=== PATIENT | female | born 1945 | race Caucasian/White ===

== ENCOUNTER 2020-07-20 08:16 | Outpatient (NON) | payer MEDICARE, SELFPAY ==
[2020-07-21 01:50] LABS: SARS-CoV-2 RNA PCR Negative
== END 2020-07-20 08:17 ==
PROVIDERS: PCP Family Medicine; Visit Provider Nurse Practitioner Family
DX: Z20.828 Contact with and (suspected) exposure to other viral communicable diseases (principal); R05 Cough; R50.9 Fever, unspecified
CPT/HCPCS: 87635; C9803; U0003

== ENCOUNTER → 2020-08-07 09:10 | Outpatient (CLI) | payer MEDICARE, SELFPAY ==
--- NOTE | ~2020-08-07 | XR_ITS ---
EXAMINATION: XR chest 2V EXAM DATE: 08/07/2020 10:21 INDICATION: J18.9 - Pneumonia, unspecified organism . TECHNIQUE: Frontal and lateral projections of the chest obtained and reviewed. There is no prior pj dy for comparison. FINDINGS: Patchy bilateral ill-defined airspace disease, somewhat linear could be pneumonia and atel ectasis. Mid and upper lung zones are unremarkable. No pneumothorax or pleural effusion. Cardiomedias tinal silhouette is normal. There are no osseous abnormalities identified. IMPRESSION: 1. Bibasilar opacities most consistent with pneumonia and atelectasis. Reviewed, dictated and finalized at location A. R GLUING OPERATOR
== END ==
PROVIDERS: PCP Family Medicine; Visit Provider Family Medicine
DX: J18.9 Pneumonia, unspecified organism (principal)
CPT/HCPCS: 71046

== ENCOUNTER → 2020-10-18 18:05 | Outpatient (CLI) | payer MEDICARE, SELFPAY ==
--- NOTE | ~2020-10-18 | XR_ITS ---
EXAMINATION: XR chest 2V DATE: 10/18/2020 19:03 INDICATION: Pneumonia. Unspecified organism. TECHNIQUE: PA and lateral views of the chest were obtained. COMPARISON: Chest radiograph dated 08/07/2020 FINDINGS: Unchanged mild biapical pleural-parenchymal scarring. Significant improvement in now very mild bibasi lar opacities. No pulmonary edema, pleural effusion or pneumothorax. The cardiomediastinal silhouette is normal. Mild thoracic spondylosis. IMPRESSION: 1. Significant improvement in now very mild bibasilar opacities which could represent improving atele ctasis and/or pneumonia. Reviewed, dictated and finalized at location A. MAKER IMPRESSION: 1. Significant improvement in now very mild bibasilar opacities which could rep resent improving atelectasis and/or pneumonia.
== END ==
PROVIDERS: Visit Provider Physician Assistant Medical
DX: J18.9 Pneumonia, unspecified organism (principal)
CPT/HCPCS: 71046

== ENCOUNTER 2020-10-21 08:05 | Outpatient (CLI) | payer MEDICARE, SELFPAY ==
--- NOTE | ~2020-10-21 | MM_ITS ---
EXAMINATION: MM screening brenna BI w sussy HISTORY: Screening TECHNIQUE: Craniocaudal and mediolateral oblique 3-D tomosynthesis images were obtained and synthetic 2-D images were generated. CAD analysis was submitted and interpreted. COMPARISON: Comparison to multiple prior studies sequentially, with oldest reviewed study dated 04/2014. BREAST PARENCHYMAL COMPOSITION: There are scattered areas of fibroglandular density. FINDINGS: There is no evidence of suspicious mass, calcification, or architectural distortion to sugg est malignancy in either breast. There has been no suspicious interval change. IMPRESSION: 1. No mammographic evidence of malignancy. 2. Recommend routine screening mammography in one year. BI-RADS Category 1: Negative Reviewed, dictated and finalized at location A. ER MACHINE
== END 2020-10-21 08:06 | disposition home or self-care (01) ==
LOC: ANHIMG 08:08
PROVIDERS: PCP Family Medicine; Visit Provider Family Medicine
DX: Z12.31 Encounter for screening mammogram for malignant neoplasm of breast (principal)
CPT/HCPCS: 77063; 77067

== ENCOUNTER 2020-11-10 09:04 | Emergency (ER) | payer MEDICARE, SELFPAY ==
[2020-11-10 09:12] VITALS: BP 118/56; PULSE 89; RESP 16; TEMP 37.3; O2SAT 100
--- NOTE | 2020-11-10 09:30 | ED.EXTPRO ---
HPI - Extremity Problem General Chief complaint: Extremity Problem,Nontraumatic Stated complaint: lt leg & ankle pain Time Seen by Provider: 11/10/20 09:17 Source: patient and RN notes reviewed Mode of arrival: wheelchair Limitations: no limitations History of Present Illness HPI Narrative: Patient presents today complaining of left leg pain and swelling since yesterday afternoon with some numbness to the ankle last night. Pain is significantly worse with weightbearing and walking. Currently rates her pain 4?5/10. She describes that her left leg is also heavy . States she was given an unknown pain pill by her last night that did not provide any relief. Reports she was unable to get comfortable while sleeping last night. 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 Denies any chest pain or shortness of breath at this time. Also reports a history of venous stasis bilaterally and bilateral lower leg and ankle swelling at baseline. MD Complaint: extremity pain and extremity swelling Related Data Home Medications Medication Instructions Recorded Confirmed aspirin 325 mg tablet 325 mg PO DAILY 07/25/19 06/13/20 biotin 2,500 mcg capsule 2,500 mcg PO DAILY 07/25/19 06/13/20 calcium carbonate 600 mg calcium 600 mg PO DAILY 07/25/19 06/13/20 (1,500 mg) tablet multivitamin 1 cap PO DAILY 07/25/19 06/13/20 omeprazole 20 mg capsule,delayed 20 mg PO DAILY 07/25/19 06/13/20 release psyllium husk 0.52 gram capsule 2.6 gm PO DAILY cap 11/07/19 06/13/20 elderberry fruit 460 mg-elderberry cap PO 06/13/20 06/13/20 flower 115 mg capsule propylene glycol 0.6 % eye drops 1 drp OPHTHALMIC (EYE) DAILY PRN 06/13/20 06/13/20 Allergies Allergy/AdvReac Type Severity Reaction Status Date / Time No Known Allergies Allergy Unknown Verified 10/28/20 08:10 Review of Systems Review of Systems: Narrative: CONSTITUTIONAL: Denies body aches, fever, chills, or sweats. EYES: Denies visual changes, redness, or discharge. ENT: Denies rhinorrhea, congestion, sore throat, or otalgia. CARDIOVASCULAR: Denies chest pain, palpitations, or edema. RESPIRATORY: Denies cough or dyspnea. GASTROINTESTINAL: Denies abdominal pain, nausea, vomiting, or diarrhea. GENITOURINARY: Denies dysuria or hematuria. SKIN: Denies rash, itching, or wounds. MUSCULOSKELETAL: Denies back pain,or myalgia. Left lower leg pain, swelling, and numbness NEUROLOGIC: Denies headache, tingling, or weakness. PSYCH: Denies depression or anxiety. [facility] Past Medical History Medical History Alteration in vision Atrophic vulvitis BMI 30.0-30.9,adult Body mass index [BMI] 33.0-33.9, adult (06/02/17) Body mass index [BMI] 34.0-34.9, adult (07/21/17) Candidiasis of skin Chronic GERD Chronic venous insufficiency Deep vein blood clot of left lower extremity (~1983) Deep vein blood clot of right lower extremity (~1993) Dry eye syndrome of both eyes (~2015) Dyslipidemia Encounter for general adult medical examination without abnormal findings Encounter for gynecological examination (general) (routine) without abnormal findings History of intestine removal (~2004) Hx of vaginal delivery (~1964) 1965 (girl), boys: 1966, 1974, 1984 Leg edema Pneumonia Screening for diabetes mellitus Screening for malignant neoplasm of breast Subacute vulvitis Varicose veins of both lower extremities (~1988) Surgical History Surgical History H/O abdominal surgery (~2004) Hx of cataract surgery (~2016) S/P colonoscopic polypectomy (~2004) Family History Family History Mother Diabetes mellitus, Onset Age: 74 Family history of lung cancer Family history of malignant neoplasm of bone, Onset Age: 74 Father Hypertension, Onset Age: 81 Family history of malignant manolo
== END 2020-11-10 09:46 | disposition short-term general hospital (02) ==
PROVIDERS: Emergency Provider Nurse Practitioner; PCP Family Medicine
DX: R60.0 Localized edema (principal); M79.662 Pain in left lower leg; K21.9 Gastro-esophageal reflux disease without esophagitis; E78.5 Hyperlipidemia, unspecified; I87.8 Other specified disorders of veins; I87.2 Venous insufficiency (chronic) (peripheral)
CPT/HCPCS: 99212; G0463

== ENCOUNTER 2020-11-10 10:03 | Emergency (ER) | payer MEDICARE, SELFPAY ==
--- NOTE | ~2020-11-10 | US_ITS ---
EXAMINATION: US venous doppler [facility] EXAM DATE: 11/10/2020 13:52 INDICATION: Left leg pain. DVT. TECHNIQUE: Multiple grayscale, color flow and Doppler images of the left lower extremity deep venous system obtained and reviewed. There is no prior study for comparison. FINDINGS: LEFT SIDE Common femoral: -------- Normal. Profunda femoral: ------- Normal. Femoral: Normal. Popliteal: Nonocclusive thrombus. Posterior tibial: --------- Normal. Peroneal: Normal. Gastrocnemius: Not visualized. Soleus: Not visualized. Greater saphenous: ----- Normal. Lesser saphenous: ------ Not visualized. IMPRESSION: Left popliteal nonocclusive DVT. Reviewed, dictated and finalized at location A. OGRAPHIC PRINTING MACHINIST
--- NOTE | ~2020-11-10 | XR_ITS ---
EXAMINATION: XR ankle LT min 3V EXAM DATE: 11/10/2020 11:27 INDICATION: No known recent injury provided at this time. Pain of the left ankle. TECHNIQUE: Left ankle frontal, lateral and oblique projections obtained and reviewed. There is no pr ior study for comparison. FINDINGS: The left ankle mortise appears intact. There are no acute fractures or dislocations ident ified. There is no subcutaneous gas. There is soft tissue swelling surrounding the ankle. 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 There are no radiopaque foreign bodies. Small inferior tc caneal spur. IMPRESSION: 1. Left ankle exam without acute osseous findings. 2. Soft tissue swelling. Reviewed, dictated and finalized at location A. RIAL CONTROL SPECIALIST
[2020-11-10 10:19] VITALS: BP 122/62; PULSE 83; RESP 18; TEMP 36.6; O2SAT 98
--- NOTE | 2020-11-10 11:32 | ED.LOWEXIN ---
HPI - Extremity Injury (Lower) General Chief Complaint: Extremity Injury, Lower Stated Complaint: L leg pain, R/O DVT Time Seen by Provider: 11/10/20 10:19 Source: patient Mode of arrival: ambulatory Limitations: no limitations History of Present Illness HPI Narrative: 75-year-old female Complains of left lower leg pain for a couple days There is no history of injury She does have a remote history of a DVT and was originally seen at an urgent care and sent over here due to that However her pain is almost all in the ankle and foot and not in the posterior calf or leg Related Data Home Medications Medication Instructions Recorded Confirmed aspirin 325 mg tablet 325 mg PO DAILY 07/25/19 06/13/20 biotin 2,500 mcg capsule 2,500 mcg PO DAILY 07/25/19 06/13/20 calcium carbonate 600 mg calcium 600 mg PO DAILY 07/25/19 06/13/20 (1,500 mg) tablet multivitamin 1 cap PO DAILY 07/25/19 06/13/20 omeprazole 20 mg capsule,delayed 20 mg PO DAILY 07/25/19 06/13/20 release psyllium husk 0.52 gram capsule 2.6 gm PO DAILY cap 11/07/19 06/13/20 elderberry fruit 460 mg-elderberry cap PO 06/13/20 06/13/20 flower 115 mg capsule neomycin-polymyxin B-dexameth drp 11/10/20 Allergies Allergy/AdvReac Type Severity Reaction Status Date / Time No Known Allergies Allergy Unknown Verified 11/10/20 10:15 Review of Systems Constitutional: Constitutional: Denies fever(s) and Denies weakness Cardiovascular: Cardiovascular: Denies chest pain Respiratory: Respiratory: Denies cough and Denies dyspnea Musculoskeletal: Musculoskeletal: Reports arthralgias and Reports joint swelling Neurologic: Denies numbness and Denies weakness [facility] Past Medical History Medical History Alteration in vision Atrophic vulvitis BMI 30.0-30.9,adult Body mass index [BMI] 33.0-33.9, adult (06/02/17) Body mass index [BMI] 34.0-34.9, adult (07/21/17) Candidiasis of skin Chronic GERD Chronic venous insufficiency Deep vein blood clot of left lower extremity (~1983) Deep vein blood clot of right lower extremity (~1993) Dry eye syndrome of both eyes (~2015) Dyslipidemia Encounter for general adult medical examination without abnormal findings Encounter for gynecological examination (general) (routine) without abnormal findings History of intestine removal (~2004) Hx of vaginal delivery (~1964) 1965 (girl), boys: 1966, 1974, 1984 Leg edema Pneumonia Screening for diabetes mellitus Screening for malignant neoplasm of breast Subacute vulvitis Varicose veins of both lower extremities (~1988) Surgical History Surgical History H/O abdominal surgery (~2004) Hx of cataract surgery (~2016) S/P colonoscopic polypectomy (~2004) Family History Family History Mother Diabetes mellitus, Onset Age: 74 Family history of lung cancer Family history of malignant neoplasm of bone, Onset Age: 74 Father Hypertension, Onset Age: 81 Family history of malignant neoplasm of stomach, Onset Age: 81 Sibling , aneurism No problems noted. 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
[2020-11-10 11:54] LABS: Basophils Percent Auto 0.4 % (0.2-1.2); Eosinophils Absolute Auto 0.2 K/mm3 (0-0.3); Eosinophils Percent Auto 1.9 % (0-4.4); Hematocrit 37.3 % (37.0-47.0); Hemoglobin 12.1 g/dL (12.0-15.0); Immature Granulocyte Absolute 0.05 K/mm3 (0.00-0.031); Immature Granulocyte Percent A 0.5 % (0-0.5); Lymphocytes Percent Auto 24.6 % (18.3-44.2); Mean Corpuscular HGB Conc 32.4 g/dl (32-36); Mean Corpuscular Volume 95.6 fl (80-100); Mean Platelet Volume 8.2 fl (7.4-10.4); Monocytes Absolute Auto 1.1 K/mm3 (0.1-0.6); Monocytes Percent Auto 10.8 % (2.6-8.5); Neutrophils Absolute Auto 6.3 K/mm3 (1.3-6.7); Neutrophils Percent Auto 61.8 % (45.5-73.1); Platelet Count Result 235 k/mm3 (150-375); Red Cell Distribution Width 13.1 % (11.5-14.5); White Blood Count 10.2 K/mm3 (4.5-10.0)
[2020-11-10 12:04] LABS: Uric Acid 4.7 mg/dL (2.5-7.5)
[2020-11-10 12:27] LABS: Erythrocyte Sedimentation Rate 60 mm/hr (0-20)
[2020-11-10] MEDS: KETOROLAC 30 MG/ML VIAL (*BKC) 15 MG IV PUSH (13:32)
[2020-11-10 14:19] LABS: CRP 7.4 mg/dL (<1.0)
== END 2020-11-10 15:55 | disposition home or self-care (01) ==
PROVIDERS: Emergency Provider Emergency Medicine; PCP Family Medicine
DX: I82.432 Acute embolism and thrombosis of left popliteal vein (principal); M19.072 Primary osteoarthritis, left ankle and foot; K21.9 Gastro-esophageal reflux disease without esophagitis; I87.2 Venous insufficiency (chronic) (peripheral); E78.5 Hyperlipidemia, unspecified; Z98.49 Cataract extraction status, unspecified eye; Z86.718 Personal history of other venous thrombosis and embolism; Z79.82 Long term (current) use of aspirin
CPT/HCPCS: 36415; 73610; 84550; 85025; 85380; 85652; 86140; 93971; 96374; 99284; J1885

== ENCOUNTER 2020-11-13 18:41 | Emergency (ER) | payer MEDICARE, SELFPAY ==
--- NOTE | ~2020-11-13 | XR_ITS ---
XR wrist RT min 3V 11/13/2020 20:18 INDICATION: Right wrist pain PROCEDURE: 4 views right wrist COMPARISON: No prior studies for comparison. FINDINGS: Fracture, dislocation or subluxation is not identified. There is polyarticular osteoarthrit is. There are loose bodies adjacent to the first CMC joint. The soft tissues appear within normal stephens its. No foreign bodies are identified. IMPRESSION: 1: NO ACUTE BONE OR JOINT ABNORMALITY IDENTIFIED. Reviewed, dictated and finalized at location A. STRY SUPPORT SPECIALIST
[2020-11-13 18:55] VITALS: BP 140/71; PULSE 82; RESP 18; TEMP 36.3; O2SAT 100
--- NOTE | 2020-11-13 19:51 | ED.EXTPRO ---
HPI - Extremity Problem General Chief complaint: Extremity Problem,Nontraumatic Stated complaint: Multiple complaints Time Seen by Provider: 11/13/20 19:51 History of Present Illness HPI Narrative: 75 yo female w/ h/o DVT presents to the ED with extremity pain. She was recently diagnosed with a left popliteal DVT and started on eliquis. She has taken all of her dose. yesterday she noted that she now has pain in the left groin. She also has some pain and mildly increased swelling in the right lower leg. SHe also has mild pain in the right wrist. There is mild redness over the posterior wrist. The pain was worse yesterday and she was also having hand weakness at that time. She called her PCP yesterday and she was advised to come in. Related Data Home Medications Medication Instructions Recorded Confirmed aspirin 325 mg tablet 325 mg PO DAILY 07/25/19 11/11/20 biotin 2,500 mcg capsule 2,500 mcg PO DAILY 07/25/19 11/11/20 calcium carbonate 600 mg calcium 600 mg PO DAILY 07/25/19 11/11/20 (1,500 mg) tablet multivitamin 1 cap PO DAILY 07/25/19 11/11/20 omeprazole 20 mg capsule,delayed 20 mg PO DAILY 07/25/19 11/11/20 release psyllium husk 0.52 gram capsule 2.6 gm PO DAILY cap 11/07/19 11/11/20 elderberry fruit 460 mg-elderberry cap PO 06/13/20 11/11/20 flower 115 mg capsule neomycin-polymyxin B-dexameth drp 11/10/20 11/11/20 Allergies Allergy/AdvReac Type Severity Reaction Status Date / Time No Known Allergies Allergy Unknown Verified 11/11/20 08:14 Review of Systems Review of Systems: All systems reviewed & are unremarkable except as noted in HPI and below Constitutional: Constitutional: Denies chills and Denies fever(s) Eyes: Eyes: Reports no additional eye complaints Cardiovascular: Cardiovascular: Denies chest pain Respiratory: Respiratory: Denies dyspnea Gastrointestinal: Gastrointestinal: Reports no additional gastrointestinal complaints Genitourinary: Genitourinary: Reports no additional female genitourinary complaints Musculoskeletal: Musculoskeletal: Denies back pain Neurologic: Reports system reviewed and no additional complaints, except as documented PMFSH Past Medical History Medical History Alteration in vision Atrophic vulvitis BMI 30.0-30.9,adult BMI 31.0-31.9,adult Body mass index [BMI] 33.0-33.9, adult (06/02/17) Body mass index [BMI] 34.0-34.9, adult (07/21/17) Candidiasis of skin Chronic GERD Chronic venous insufficiency Deep vein blood clot of left lower extremity (~1983) Deep vein blood clot of right lower extremity (~1993) Dry eye syndrome of both eyes (~2015) Dyslipidemia Encounter for general adult medical examination without abnormal findings Encounter for gynecological examination (general) (routine) without abnormal findings History of intestine removal (~2004) Hx of vaginal delivery (~1964) 1965 (girl), boys: 1966, 1973, 1983 Leg edema Pneumonia Screening for diabetes mellitus Screening for malignant neoplasm of breast Subacute vulvitis Varicose veins of both lower extremities (~1988) Surgical History Surgical History H/O abdominal surgery (~2004) Hx of cataract surgery (~2016) S/P colonoscopic polypectomy (~2004) Family History Family History Mother Diabetes mellitus, Onset Age: 74 Family history of lung cancer Family history of malignant neoplasm of bone, Onset Age: 74 Father Hypertension, Onset Age: 81 Family history of malignant neoplasm of stomach, Onset Age: 81 Sibling , aneurism No problems noted. 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
[2020-11-13 21:14] VITALS: BP 138/77; PULSE 75; RESP 16; O2SAT 99
[2020-11-13 21:44] VITALS: BP 134/75; PULSE 72; RESP 16; O2SAT 98
== END 2020-11-13 22:26 | disposition home or self-care (01) ==
PROVIDERS: Emergency Provider Emergency Medicine; PCP Family Medicine
DX: M19.031 Primary osteoarthritis, right wrist (principal); R60.0 Localized edema; K21.9 Gastro-esophageal reflux disease without esophagitis; E78.5 Hyperlipidemia, unspecified; Z79.01 Long term (current) use of anticoagulants; Z86.718 Personal history of other venous thrombosis and embolism
CPT/HCPCS: 73110; 99283

== ENCOUNTER 2020-11-20 13:35 | Outpatient (CLI) | payer MEDICARE, SELFPAY ==
--- NOTE | ~2020-11-20 | US_ITS ---
EXAMINATION: US venous doppler UE BI EXAM DATE: 11/20/2020 14:43 INDICATION: M79.89 - Other specified soft tissue disorders. Right arm pain. TECHNIQUE: Multiple grayscale, color flow, Doppler sonographic images of the upper extremity veins bi laterally obtained by technologist. Compression was performed where able. There is no prior study f or comparison. FINDINGS: RIGHT upper extremity: Jugular vein: ------------> Normal. Subclavian vein: --------> Normal. Axillary vein:------------> Normal. Brachial vein:-----------> Normal. Basilic vein: ------------> Normal. Cephalic vein: ----------> Normal. Radial vein: ------------> Normal. Ulnar vein: > Normal. LEFT upper extremity: Jugular vein: ------------> Normal. Subclavian vein: --------> Normal. Axillary vein:------------> Normal. Brachial vein:-----------> Normal. Basilic vein: ------------> Normal. Cephalic vein: ----------> Normal. Radial vein: ------------> Normal. Ulnar vein: > Normal. IMPRESSION: Normal bilateral upper extremity deep venous system. Reviewed, dictated and finalized at location A.
== END 2020-11-20 13:36 | disposition home or self-care (01) ==
PROVIDERS: PCP Family Medicine; Visit Provider Nurse Practitioner Family
DX: M79.89 Other specified soft tissue disorders (principal); M25.511 Pain in right shoulder
CPT/HCPCS: 93970

== ENCOUNTER → 2020-11-27 11:10 | Outpatient (CLI) | payer MEDICARE, SELFPAY ==
--- NOTE | ~2020-11-27 | MR_ITS ---
EXAMINATION: MR shoulder RT wo con DATE: 11/27/2020 11:55 INDICATION: Right shoulder pain TECHNIQUE: Magnetic resonance imaging (MRI) of the right shoulder was performed without intravenous c ontrast. Sequences included axial PD-weighted FS FSE, coronal oblique PD-weighted FS FSE, coronal obl ique T2-weighted FS FSE, sagittal PD-weighted FS FSE, and sagittal T1-weighted SE. COMPARISON: None. FINDINGS: Coracoacromial arch: The acromion undersurface is curved in morphology (type II). The coracoacromial ligament is normal. M ild acromioclavicular osteoarthritis. Rotator cuff: Moderate supraspinatus and infraspinatus tendinopathy. Very small partial-thickness intrasubstance te ar extending approximately 5 mm AP along the junction of the superior and middle facet footplates of the conjoined portion of the tendon and involving no greater than one third of the tendon thickness. The teres minor and subscapularis tendons are normal. Normal rotator cuff muscle bulk and signal. Biceps tendon, glenoid labrum and glenohumeral cartilage: Long head of the biceps tendon is normal. Glenoid labrum is normal. Glenohumeral cartilage is normal. Fluid: Physiologic amount of fluid in the glenohumeral joint and biceps tendon sheath. No loose osteochondra l bodies. Small amount of fluid in the subacromial/subdeltoid bursa and subcoracoid bursa consistent with mild bursitis. Bones: Normal marrow signal with no fracture or gynecologic marrow replacing process. Mild cystic change at the greater tuberosity underlying the footplate of the previously noted tendon tear. Additional small erosion with corticated margins at the superomedial margin of the lesser tuberosity. IMPRESSION: 1. Moderate interspace and infraspinatus tendinopathy with small mild intrasubstance tear along the f ootplate of the conjoined portion of the tendons. Reviewed, dictated and finalized at location A. IMPRESSION: 1. Moderate interspace and infraspinatus tendinopathy with small mild intrasubs tance tear along the footplate of the conjoined portion of the tendons.
== END ==
PROVIDERS: PCP Family Medicine; Visit Provider Nurse Practitioner Family
DX: M19.011 Primary osteoarthritis, right shoulder (principal); S46.911A Strain of unspecified muscle, fascia and tendon at shoulder and upper arm level, right arm, initial encounter
CPT/HCPCS: 73221

== ENCOUNTER 2021-03-17 07:59 | Outpatient (CLI) | payer MEDICARE, SELFPAY | END 2021-03-17 08:00 | disposition home or self-care (01) | LOC: ANHAUDIO 08:01 | PROVIDERS: PCP Family Medicine; Visit Provider Otolaryngology | DX: H93.8X9 Other specified disorders of ear, unspecified ear (principal); H90.3 Sensorineural hearing loss, bilateral | CPT/HCPCS: 92557; 92567 ==

== ENCOUNTER → 2021-09-09 15:08 | Outpatient (CLI) | payer MEDICARE, SELFPAY ==
--- NOTE | ~2021-09-09 | MR_ITS ---
EXAMINATION: MR cervical spine wo con EXAM DATE: 09/09/2021 16:03 INDICATION: Cervicalgia, weakness cervicalgia. Left-sided neck pain. Limited range of motion. TECHNIQUE: Multi-sequential, multiplanar MR images of the cervical spine were obtained without contra st. Axial T2, axial T2 MERGE sequence. Sagittal T1, T2, T2 fat saturation images also obtained. Th ere is no prior study for comparison. FINDINGS: There is moderate to severe loss of the C5-6 and 6-7 disc height. There is 3 mm anterolist hesis C3 on C4 and C4 on C5, 2 millimeters anterolisthesis C7 on T1. The spinal cord signal intensity and intrinsic morphology is normal. Cervicomedullary junction is normal in appearance. There are no suspicious marrow signal abnormalities. Paraspinal soft tissue is unremarkable. Level by level evaluation: C2-C3: Disc does not extend beyond the endplate margin. Uncovertebral joint arthropathy: None. Facet joint arthropathy: Mild to moderate bilateral. Neural foraminal stenosis: No stenosis. Central canal stenosis: No stenosis. C3-C4: Disc does not extend beyond the endplate margin. Uncovertebral joint arthropathy: Mild to moderate left. Facet joint arthropathy: Moderate to severe left, mild to moderate right. Neural foraminal stenosis: Moderate left. Central canal stenosis: No stenosis. C4-C5: Disc does not extend beyond the endplate margin. Uncovertebral joint arthropathy: Mild left, minimal right. Facet joint arthropathy: Severe left, moderate right. Neural foraminal stenosis: Mild left. Central canal stenosis: No stenosis. C5-C6: There is a mild diffuse disc bulge. Uncovertebral joint arthropathy: Mild to moderate left, moderate right. Facet joint arthropathy: Mild to moderate bilateral. Neural foraminal stenosis: Mild to moderate right. Central canal stenosis: Mild. C6-C7: There is a mild diffuse disc bulge. Uncovertebral joint arthropathy: Moderate left, mild to moderate right. Facet joint arthropathy: Mild bilateral. Neural foraminal stenosis: Mild left. Central canal stenosis: Mild. C7-T1: There is a mild diffuse disc bulge. Uncovertebral joint arthropathy: Moderate left, mild to moderate right. Facet joint arthropathy: Mild to moderate bilateral. Neural foraminal stenosis: Moderate left. Central canal stenosis: Mild. IMPRESSION: 1. Overall moderate cervical spondylosis. Reviewed, dictated and finalized at location A. N TOPPER
== END ==
PROVIDERS: PCP Nurse Practitioner Family; Visit Provider Nurse Practitioner Family
DX: R53.83 Other fatigue (principal); M47.813 Spondylosis without myelopathy or radiculopathy, cervicothoracic region; M48.03 Spinal stenosis, cervicothoracic region
CPT/HCPCS: 72141

== ENCOUNTER 2021-10-07 12:40 | Outpatient (CLI) | payer MEDICARE, SELFPAY ==
[2021-10-07 18:07] LABS: Free T4 Free Thyroxine 0.93 ng/mL (0.78-2.19)
== END 2021-10-07 15:49 | disposition home or self-care (01) ==
PROVIDERS: PCP Family Medicine; Visit Provider Family Medicine
DX: E03.9 Hypothyroidism, unspecified (principal)
CPT/HCPCS: 36415; 84439

== ENCOUNTER 2021-11-08 15:41 | Emergency (ER) | payer MEDICARE, SELFPAY ==
[2021-11-08 15:58] VITALS: BP 152/72; PULSE 96; RESP 18; TEMP 37.2; O2SAT 96
--- NOTE | 2021-11-08 16:17 | ED.URI ---
HPI - URI/Sore Throat General Chief Complaint: Upper Respiratory Infection Stated Complaint: sorethroat Time Seen by Provider: 11/08/21 16:07 Source: patient and RN notes reviewed Mode of arrival: ambulatory Limitations: no limitations History of Present Illness HPI Narrative: Patient presents today complaining of 3-day history of sore throat that is only present with swallowing. The sore throat has been worsening since onset. Associated symptoms include occasional cough, nasal congestion. Denies shortness of breath, rhinorrhea, fever. She currently rates her pain 8/10. She has been taking NyQuil, using Chloraseptic, and occasionally using nebulizer treatments at home with relief. She has not been vaccinated against COVID-19. MD elicited complaint: cough and sore throat Related Data Home Medications Medication Instructions Recorded Confirmed biotin 2,500 mcg capsule 2,500 mcg PO DAILY 07/25/19 11/08/21 calcium carbonate 600 mg calcium 600 mg PO DAILY 07/25/19 11/08/21 (1,500 mg) tablet multivitamin 1 cap PO DAILY 07/25/19 11/08/21 omeprazole 20 mg capsule,delayed 20 mg PO DAILY 07/25/19 11/08/21 release psyllium husk 0.52 gram capsule 2.6 gm PO DAILY cap 11/07/19 11/08/21 elderberry fruit 460 mg-elderberry 1 cap PO DAILY 06/13/20 11/08/21 flower 115 mg capsule aspirin 325 mg PO DAILY 11/08/21 11/08/21 coffee xt-phosphatidyl serine 1 tablet PO DAILY 11/08/21 11/08/21 [Neuriva Original] Allergies Allergy/AdvReac Type Severity Reaction Status Date / Time No Known Allergies Allergy Unknown Verified 11/08/21 16:09 Review of Systems Review of Systems: CONSTITUTIONAL: Denies body aches, fever, chills, or sweats. EYES: Denies visual changes, redness, or discharge. ENT: Denies rhinorrhea, or otalgia.+ Sore throat, Congestion CARDIOVASCULAR: Denies chest pain, palpitations, or edema. RESPIRATORY: Denies dyspnea.+ Cough GASTROINTESTINAL: Denies abdominal pain, nausea, vomiting, or diarrhea. GENITOURINARY: Denies dysuria or hematuria. SKIN: Denies rash, itching, or wounds. MUSCULOSKELETAL: Denies back pain, joint pain, or myalgia. NEUROLOGIC: Denies headache, numbness, tingling, or weakness. PSYCH: Denies depression or anxiety. [facility] Past Medical History Medical History Alteration in vision Atrophic vulvitis BMI 30.0-30.9,adult BMI 31.0-31.9,adult BMI 32.0-32.9,adult Body mass index [BMI] 33.0-33.9, adult (06/02/17) Body mass index [BMI] 34.0-34.9, adult (07/21/17) Candidiasis of skin Chronic fatigue Chronic GERD Chronic venous insufficiency Deep vein blood clot of left lower extremity (~1983) Deep vein blood clot of right lower extremity (~1993) Dry eye syndrome of both eyes (~2015) Dyslipidemia Encounter for general adult medical examination without abnormal findings Encounter for gynecological examination (general) (routine) without abnormal findings Factor V Leiden History of intestine removal (~2004) Hx of vaginal delivery (~1964) 1965 (girl), boys: 1966, 1974, 1984 Leg edema Muscle weakness (generalized) Night sweats Pneumonia Screening for diabetes mellitus Screening for malignant neoplasm of breast Subacute vulvitis Varicose veins of both lower extremities (~1988) Surgical History Surgical History H/O abdominal surgery (~2004) Hx of cataract surgery (~2016) S/P colonoscopic polypectomy (~2004) Family History Family History Mother Diabetes mellitus, Onset Age: 74 Family history of lung cancer Family history of malignant neoplasm of bone, Onset Age: 74 Father Hypertension, Onset Age: 81 Family history of malignant neoplasm of stomach, Onset Age: 81 Depression Heart disease Sibling , aneurism Cancer Other Cancer Social History Social History (Reviewed
== END 2021-11-08 16:52 | disposition home or self-care (01) ==
PROVIDERS: Emergency Provider Nurse Practitioner; PCP Family Medicine
DX: J02.9 Acute pharyngitis, unspecified (principal); J06.9 Acute upper respiratory infection, unspecified; Z20.822 Contact with and (suspected) exposure to COVID-19; K21.9 Gastro-esophageal reflux disease without esophagitis; E78.5 Hyperlipidemia, unspecified; D68.51 Activated protein C resistance; I87.2 Venous insufficiency (chronic) (peripheral); Z86.718 Personal history of other venous thrombosis and embolism
CPT/HCPCS: 87081; 87426; 87880; 99213; C9803; G0463

== ENCOUNTER 2021-11-20 09:16 | Outpatient (CLI) | payer MEDICARE, SELFPAY ==
--- NOTE | ~2021-11-20 | XR_ITS ---
XR chest 2V 11/20/2021 09:37 Indication: Pneumonia. Procedure: 2 view chest Comparison: 10/18/2020 Findings: Patchy bilateral airspace disease of the mid and lower lungs. No pleural effusion or pneumo thorax. Heart size normal. No acute osseous abnormality. Impression: 1: Patchy bilateral airspace disease of the mid and lower lungs, consistent with pneumonia. Reviewed, dictated and finalized at location B. Impression: 1: Patchy bilateral airspace disease of the mid and lower lungs, consistent wit h pneumonia.
--- NOTE | ~2021-11-20 | XR_ITS ---
XR knee RT min 4V 11/20/2021 09:37 Indication: Right knee pain Procedure: 4 views right knee Comparison: No prior studies for comparison. Findings: There is mild osteoarthritis of the right knee. There is chondrocalcinosis. No fracture, dobson bluxation or dislocation. No significant joint effusion. Impression: 1: Mild osteoarthritis of the right knee. Reviewed, dictated and finalized at location B. Impression: 1: Mild osteoarthritis of the right knee.
[2021-11-20 11:07] LABS: Free T4 Free Thyroxine 1.34 ng/mL (0.78-2.19)
== END 2021-11-20 09:17 | disposition home or self-care (01) ==
PROVIDERS: PCP Family Medicine; Visit Provider Family Medicine
DX: R04.2 Hemoptysis (principal); M17.11 Unilateral primary osteoarthritis, right knee; E03.9 Hypothyroidism, unspecified
CPT/HCPCS: 36415; 71046; 73564; 84439; 84443

== ENCOUNTER 2021-12-04 16:07 | Outpatient (CLI) | payer MEDICARE, SELFPAY ==
--- NOTE | ~2021-12-04 | MM_ITS ---
EXAMINATION: MM screening brenna BI w sussy HISTORY: Screening mammogram TECHNIQUE: Craniocaudal and mediolateral oblique 3-D tomosynthesis images were obtained and synthetic 2-D images were generated. CAD analysis was submitted and interpreted. COMPARISON: Numerous , 06/02/2019, 11/11/2017 bilateral screening mammogram examinations BREAST PARENCHYMAL COMPOSITION: FINDINGS: Stable benign intramammary lymph node in the posterior upper left breast on MLO view, stabl e since 11/11/2017. Minimal benign calcification. There is no evidence of suspicious mass, calcificatio n, or architectural distortion to suggest malignancy in either breast. There has been no suspicious i nterval change. IMPRESSION: 1. No mammographic evidence of malignancy. 2. Recommend routine screening mammography in one year. BI-RADS Category 2: Benign finding(s). Reviewed, dictated and finalized at location A.
== END 2021-12-04 16:08 | disposition home or self-care (01) ==
PROVIDERS: PCP Family Medicine; Visit Provider Student in an Organized Health Care Education/Training Program
DX: Z12.31 Encounter for screening mammogram for malignant neoplasm of breast (principal)
CPT/HCPCS: 77063; 77067

== ENCOUNTER 2022-01-05 16:45 | Outpatient (CLI) | payer MEDICARE, SELFPAY ==
[2022-01-05 17:28] LABS: CRP 3.1 mg/dL (<1.0); Uric Acid 6.9 mg/dL (2.5-7.5)
[2022-01-05 17:48] LABS: Rheumatoid Factor < 8.6 IU/ML (<12)
[2022-01-05 18:19] LABS: Erythrocyte Sedimentation Rate > 140 mm/hr (0-20)
[2022-01-08 16:18] LABS: Anti Nuclear Antibody Titer 1:40 (Negative)
== END 2022-01-05 16:46 | disposition home or self-care (01) ==
LOC: ANHLAB 16:50
PROVIDERS: PCP Family Medicine; Visit Provider Physician Assistant Surgical
DX: M25.50 Pain in unspecified joint (principal)
CPT/HCPCS: 36415; 84550; 85652; 86038; 86039; 86140; 86430

== ENCOUNTER 2022-03-16 09:57 | Outpatient (CLI) | payer MEDICARE, SELFPAY ==
--- NOTE | ~2022-03-16 | US_ITS ---
EXAMINATION: US venous doppler [facility] DATE: 03/16/2022 10:54 INDICATION: Acute embolism and thrombosis of unspecified deep veins. TECHNIQUE: Grayscale ultrasound images without and with compression and Doppler ultrasound images of the bilateral lower extremity veins were obtained. COMPARISON: Ultrasound 11/10/2020 FINDINGS: The visualized portions of right common femoral vein, profunda (deep) femoral vein, femoral vein, per montiel veins, posterior tibial veins, and greater saphenous vein outflow are patent. There is thrombus in right popliteal vein. There is a varicose vein in the right calf in the patient's area of concern . The visualized portions of left common femoral vein, profunda femoral vein, peroneal veins, posterior tibial veins, and greater saphenous vein outflow are patent. There is left thrombus in left femoral and popliteal veins. IMPRESSION: 1. Deep vein thrombosis involving the right popliteal vein, left femoral vein, and left popliteal ve in. I called this result to Shannon Pina. Reviewed, dictated and finalized at location A. IMPRESSION: 1. Deep vein thrombosis involving the right popliteal vein, left femoral vein, and left popliteal vein. I called this result to Shannon Pina.
== END 2022-03-16 09:58 | disposition home or self-care (01) ==
PROVIDERS: PCP Family Medicine; Visit Provider Physician Assistant Medical
DX: D68.51 Activated protein C resistance (principal); I82.401 Acute embolism and thrombosis of unspecified deep veins of right lower extremity; I82.402 Acute embolism and thrombosis of unspecified deep veins of left lower extremity; I82.431 Acute embolism and thrombosis of right popliteal vein; I82.412 Acute embolism and thrombosis of left femoral vein; I82.492 Acute embolism and thrombosis of other specified deep vein of left lower extremity
CPT/HCPCS: 93970

== ENCOUNTER 2022-03-31 08:26 | Inpatient (IN) | payer MEDICARE, SELFPAY ==
[2022-03-31] VITALS (40 sets, daily range): BP systolic 99–155; BP diastolic 52–65; PULSE 79–103; RESP 13–26; TEMP 36.6–37.2; O2SAT 85–100; BMI 32.3
--- NOTE | ~2022-03-31 | XR_ITS ---
EXAMINATION: XR chest 1V portable DATE: 04/09/2022 06:06 INDICATION: Pneumonia. TECHNIQUE: A single frontal view of the chest was obtained. COMPARISON: Chest 2 views 04/08/2022, chest CT 04/02/2022 FINDINGS: There are patchy airspace opacities in all lung zones, left worse than right. No pleural ef fusion or pneumothorax. The heart size is normal. A right internal jugular central venous catheter is seen with tip at the superior cavoatrial junction. IMPRESSION: 1. Stable diffuse lung disease, consistent with pneumonia. Reviewed, dictated and finalized at location A.
--- NOTE | ~2022-03-31 | XR_ITS ---
EXAMINATION: XR chest 2V Exam Date/Time: 04/08/2022 19:05 CDT HISTORY: f/u on infiltrates Comparison: 04/07/2022. RESULT: Lines, tubes, and devices: Right IJ central line terminating in the SVC. Lungs and pleura: Worsening bilateral airspace disease, more pronounced in the left lung. Cardiomediastinal silhouette: Stable. Other: No acute osseous or upper abdominal finding. IMPRESSION: Worsening pulmonary opacities. Reviewed, dictated and finalized at location K.
--- NOTE | ~2022-03-31 | XR_ITS ---
EXAMINATION: XR chest 1V portable Exam Date/Time: 04/01/2022 22:25 CDT HISTORY: pain with inspiration; coughing up blood Comparison: 03/31/2022 11/20/2021. RESULT: Lines, tubes, and devices: None. Lungs and pleura: Worsening airspace opacities diffusely in the left lung and in the upper and lower lung, overlying worsening reticular opacities. Cardiomediastinal silhouette: Stable. Other: No acute osseous or upper abdominal finding. IMPRESSION: Rapidly worsening pulmonary opacities may reflect worsening edema, and/or pulmonary hemorrhage, under lying infection is not excluded. Reviewed, dictated and finalized at location K. IMPRESSION: Rapidly worsening pulmonary opacities may reflect worsening edema, and/or pulmo nary hemorrhage, underlying infection is not excluded.
--- NOTE | ~2022-03-31 | XR_ITS ---
EXAMINATION: XR chest port-a-cath/central DATE: 04/02/2022 09:21 INDICATION: Central line placement TECHNIQUE: frontal view of the chest was obtained. COMPARISON: Chest radiograph dated 04/01/2022 FINDINGS: Right internal jugular central venous catheter with distal tip at the caudal superior vena cava. No s ignificant change in patchy airspace opacities throughout both lungs, left greater than right. No ple ural effusion or pneumothorax. The cardiomediastinal silhouette is normal. IMPRESSION: 1. Right internal jugular central venous catheter tip at the caudal superior vena cava. 2. Unchanged diffuse bilateral lung disease which could represent pneumonia and/or pulmonary edema. Reviewed, dictated and finalized at location A. IMPRESSION: 1. Right internal jugular central venous catheter tip at the caudal superior ve na cava. 2. Unchanged diffuse bilateral lung disease which could represent pneumonia and /or pulmonary edema.
--- NOTE | ~2022-03-31 | XR_ITS ---
XR chest 2V 03/31/2022 10:27 Indication: Shortness of breath Procedure: PA and lateral views of the chest Comparison: Comparison to multiple prior studies sequentially, with oldest reviewed study dated 11/20. Findings: Patchy bilateral airspace disease, compatible with pneumonia. No pleural effusion or pneumo thorax. No acute osseous abnormality. Impression: 1: Patchy bilateral airspace disease, consistent with pneumonia. Reviewed, dictated and finalized at location A. Impression: 1: Patchy bilateral airspace disease, consistent with pneumonia.
--- NOTE | ~2022-03-31 | XR_ITS ---
EXAMINATION: XR fl guide central line place DATE: 04/10/2022 16:59 INDICATION: Dialysis catheter placement TECHNIQUE: Single fluoroscopic image of the left supraclavicular region was obtained during procedure performed by Dr. Wills. Radiologist was not present for the imaging or procedure. The amount of fl uoroscopy time used during this procedure was 0.2 minutes. COMPARISON: 04/09/2022 FINDINGS: Short segment of a dual-lumen left internal jugular central venous catheter is seen in the supraclavi cular region, extending along the left brachiocephalic vein and beyond the [id number]. IMPRESSION: 1. Fluoroscopy utilized during placement of a left internal jugular central venous catheter. See proc edure note for further detail. Reviewed, dictated and finalized at location A. IMPRESSION: 1. Fluoroscopy utilized during placement of a left internal jugular central bert ous catheter. See procedure note for further detail.
--- NOTE | ~2022-03-31 | US_ITS ---
EXAMINATION: US abdomen duplex complete, US retroperitoneal duplex ltd DATE: 04/04/2022 10:23 INDICATION: Renal failure. Atherosclerotic calcifications at the abdominal aorta and origins of the r enal and mesenteric arteries. TECHNIQUE: Multiple grayscale, color Doppler, and pulsed Doppler images of the kidneys and renal tuan alaina were obtained. Additional grayscale, color Doppler and pulsed Doppler images of the celiac, supe rior mesenteric, hepatic and splenic arteries were obtained. COMPARISON: None. FINDINGS: The aorta peak systolic velocity is 114 cm/s. The right renal artery peak systolic velocity is 177 cm /s in the proximal segment, 144 cm/s in the mid segment, and 108 cm/s in the distal segment. The left renal artery peak systolic velocity is 50 cm/s in the proximal segment, 73 cm/s in the mid segment, and 65 cm/s in the distal segment. There are normal brisks systolic upstrokes throughout the left and right renal arteries. The celiac axis peak systolic velocity is 15 cm/s. Splenic artery peak systolic velocity is 103 cm/s. Hepatic artery peak systolic velocity is 170 cm/s. Superior mesenteric artery systolic velocity is 1 28 cm/s. No delay in systolic upstrokes to suggest a significant upstream stenosis. IMPRESSION: 1. No Doppler evidence of renal artery stenosis. 2. No Doppler evidence of significant stenosis in the celiac, splenic, hepatic or superior mesenteric arteries. Reviewed, dictated and finalized at location A. IMPRESSION: 1. No Doppler evidence of renal artery stenosis. 2. No Doppler evidence of significant stenosis in the celiac, splenic, hepatic or superior mesenteric arteries.
--- NOTE | ~2022-03-31 | US_ITS ---
EXAMINATION: US biopsy renal DATE: 04/09/2022 15:35 INDICATION: Renal failure. TECHNIQUE: The procedure including the risks, benefits, and alternatives was discussed with the patie nt. Risks discussed included bleeding and infection. The patient understood the risks and agreed to p roceed. A timeout was performed to verify the patient's name, date of , and procedure to be p erformed. The skin overlying the left kidney was prepped and draped in usual sterile fashion. Anest hetic was administered with 1% lidocaine subcutaneously. An 18 gauge core biopsy needle was then use d to obtain 9 core biopsy specimens under continuous sonographic guidance. The entry site was cleaned and dressed. There were no immediate complications. FINDINGS: Ultrasound images demonstrate the needle in the kidney. IMPRESSION: 1. Ultrasound-guided random left kidney core needle biopsy. Reviewed, dictated and finalized at location A.
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
--- NOTE | ~2022-03-31 | CT_ITS ---
EXAMINATION: CT chest abdomen pelvis wo con DATE: 04/02/2022 10:43 INDICATION: Worsening shortness of breath, anemia TECHNIQUE: Transaxial computed tomographic images of the chest, abdomen, and pelvis were obtained wit hout intravenous contrast. The dose-length product (DLP) was 762.38 mGy-cm. Automated exposure contro l and iterative reconstruction technique were employed. COMPARISON: None FINDINGS: CHEST CT: There are patchy interstitial and airspace opacities throughout the lungs, left worse than right. The re are trace pleural effusions. No pneumothorax is identified. There is mild mediastinal lymphadenopa thy, likely reactive. The heart size is normal. Calcified coronary artery atherosclerosis is noted. T here is mild thoracic spondylosis. A right internal jugular catheter ends with its tip in the distal superior vena cava. ABDOMEN/PELVIS CT: There is a small sliding hiatal hernia. The gallbladder is surgically absent. The liver, spleen, panc reas, and adrenal glands are normal. The kidneys are unremarkable. The bladder is decompressed by Fol ey catheter. Colonic diverticulosis is present without evidence of diverticulitis. No pathologically enlarged abdominal or pelvic lymph nodes are identified. There is no free intraperitoneal gas or evid ence of bowel obstruction. There is severe lumbar spondylosis at L5-S1. A fat-containing umbilical he rnia is noted. IMPRESSION: 1. Diffuse lung disease, left greater than right, consistent with pneumonia and pulmonary edema. 2. No acute findings of the abdomen or pelvis. 3. Mediastinal lymphadenopathy, likely reactive. Reviewed, dictated and finalized at location B.
--- NOTE | ~2022-03-31 | XR_ITS ---
EXAMINATION: XR chest port-a-cath/central DATE: 04/10/2022 17:08 INDICATION: Dialysis catheter placement TECHNIQUE: frontal view of the chest was obtained. COMPARISON: Chest radiograph dated 04/09/2022 FINDINGS: Newly placed large-bore dual-lumen left internal jugular central venous dialysis catheter with distal tip near the superior cavoatrial junction. Smaller caliber right internal jugular central venous cat heter with distal tip at the caudal superior vena cava. Persistent extensive bilateral patchy airspace opacities, left greater than right. No pleural effusio n or pneumothorax. The cardiomediastinal silhouette is normal. IMPRESSION: 1. Newly placed large-bore dual-lumen left internal jugular central venous calcific catheter with dis mesfin tip at the superior cavoatrial junction. No pneumothorax. 2. No significant change in extensive bilateral lung disease, left greater than right which could rep resent pneumonia, pulmonary edema or combination thereof. Reviewed, dictated and finalized at location A. IMPRESSION: 1. Newly placed large-bore dual-lumen left internal jugular central venous calc ific catheter with distal tip at the superior cavoatrial junction. No pneumotho rax. 2. No significant change in extensive bilateral lung disease, left greater than right which could represent pneumonia, pulmonary edema or combination thereof.
--- NOTE | ~2022-03-31 | NM_ITS ---
EXAMINATION: NM pulmonary perfusion DATE: 03/31/2022 13:32 INDICATION: Shortness of breath TECHNIQUE: 5.1 Tc-99m MAA by intravenous route. Scintigraphic images of the chest were obtained. COMPARISON: Chest radiograph dated 03/31/2022 FINDINGS: Large geographic regions of decreased perfusion involving much of the left upper lobe, lingula and le ft lower lobe with corresponding airspace opacities on the prior radiographs. Small perfusion defect at the posterior segment of the right upper lobe also with corresponding airspace opacity in the prio r radiographs. IMPRESSION: 1. Intermediate probability for pulmonary embolism. Reviewed, dictated and finalized at location A.
--- NOTE | ~2022-03-31 | NM_ITS ---
EXAMINATION: NM renal flow and function DATE: 04/06/2022 15:53 INDICATION: Acute renal injury TECHNIQUE: 6.3 mCi Tc-99m MAG3 was administered IV. 40 mg furosemide was administered IV immediately afterward. The patient was scanned in the supine position. A posterior abdominal radionuclide angiog maggi was obtained. A subsequent time course of static images of the kidneys, ureters, and bladder was obtained. COMPARISON: Ultrasound dated 04/04/2022 and 04/02/2022 FINDINGS: The posterior abdominal radionuclide angiogram and sequential static images show normal size, positio n, and morphology of the kidneys. Peak renal parenchymal uptake was 28 min in left kidney and 25 min in right kidney (normal peak 3-5 minutes). The relative early renal uptake was 38% on the left and 6 2% on the right (<40% is abnormal). No evident enlarged renal pelvis to suggest hydronephrosis with n o evident hydronephrosis on ultrasound imaging from 2 days prior. No abnormalities of the ureters or bladder are seen. T1/2 for clearance of activity from the left kidney and proximal collecting system was indeterminate with continually increasing renal activity curve. T1/2 for clearance of activity from the right kidney and proximal collecting system was indeterminate with essentially plateaued renal activity curve. IMPRESSION: 1. Significantly delayed activity clearance and time to peak activity at both kidneys without eviden t hydronephrosis consistent with nonspecific nephropathy. This is slightly more severe in the left ki dney which contributes only 38% total renal function versus 62% for the right kidney. Reviewed, dictated and finalized at location A. IMPRESSION: 1. Significantly delayed activity clearance and time to peak activity at both kidneys without evident hydronephrosis consistent with nonspecific nephropathy. This is slightly more severe in the left kidney which contributes only 38% tot al renal function versus 62% for the right kidney.
--- NOTE | ~2022-03-31 | US_ITS ---
EXAMINATION: US renal BI DATE: 04/02/2022 11:19 INDICATION: Elevated creatinine TECHNIQUE: Multiple grayscale and Doppler ultrasound images of the kidneys were obtained. COMPARISON: None. FINDINGS: The right kidney measures 11 x 5.7 x 5 cm. The left kidney measures 11.7 x 4.9 x 4.9 cm. Th e kidneys demonstrate normal parenchymal echogenicity. There is no hydronephrosis. The bladder is dec ompressed by Jones catheter. IMPRESSION: 1. Normal kidneys without hydronephrosis. Reviewed, dictated and finalized at location B.
--- NOTE | ~2022-03-31 | XR_ITS ---
EXAMINATION: XR chest 1V portable DATE: 04/07/2022 05:29 INDICATION: Pneumonia. TECHNIQUE: A single frontal view of the chest was obtained. COMPARISON: Chest single view 04/04/2022, chest CT 04/02/2022 FINDINGS: There are patchy airspace opacities in all lung zones bilaterally, left worse than right. N o pleural effusion or pneumothorax. The heart size is normal. A right internal jugular central venous catheter is seen with tip at the superior cavoatrial junction. IMPRESSION: 1. Stable diffuse lung disease, consistent with pneumonia. Reviewed, dictated and finalized at location A.
--- NOTE | ~2022-03-31 | XR_ITS ---
XR chest 1V portable DATE: 04/04/2022 05:46 INDICATION: Shortness of breath TECHNIQUE: Portable AP chest on 04/04/2022 at 0508 hours COMPARISON: 04/02/2022 CT chest abdomen pelvis 04/02/2022 portable AP chest at 0919 hours FINDINGS: Right internal jugular central venous catheter tip overlies superior vena cava. Severe patchy consolidating pulmonary infiltrates are again noted, left greater than right, with mild ly diminished axillary or consolidation bilaterally since 03/25/2022. No pleural effusion or pneumothorax. Normal heart size. IMPRESSION: Extensive severe bilateral pulmonary infiltrates, left and right, mild improvement since 04/02/2022 Reviewed, dictated and finalized at location A. IMPRESSION: Extensive severe bilateral pulmonary infiltrates, left and right, m ild improvement since 04/02/2022
--- NOTE | 2022-03-31 08:27 | ECG_ITS ---
Measurements Intervals [place] Rate: 96 P: 0 UT: 196 QRS: 19 QRSD: 79 T: 53 QT: 315 QTc: 399 Interpretive Statements SINUS RHYTHM BORDERLINE AV CONDUCTION DELAY LOW QRS VOLTAGE IN PRECORDIAL LEADS BASELINE ARTIFACT- I, III, AVL BORDERLINE ECG Electronically Signed On 03-31-2022 9:18:37 CDT by Ryder Gomez D.O.
--- NOTE | 2022-03-31 08:35 | ED.SOB ---
HPI - SOB/Dyspnea General Chief Complaint: Shortness of Breath/Dyspnea Stated Complaint: difficulty breathing Time Seen by Provider: 03/31/22 08:28 History of Present Illness HPI Narrative: Patient is a 77-year-old female who presents ER with shortness of breath. Ongoing for 3 days. No fevers or chills or sweats. She reports very mild runny nose with occasional cough. She has no chest pain or chest tightness. Upon arrival here patient was satting 85% on room air. Patient does not typically require oxygen. Patient has factor V Leiden and takes apixaban. She has not missed any doses. Denies abdominal discomfort/heartburn. No dark black stools. Occasional have some bright red blood when she wipes that she attributes to possible hemorrhoids. She has seen no blood in her stools. Patient also takes a baby aspirin daily. She is on omeprazole 20 mg daily. Related Data Home Medications Medication Instructions Recorded Confirmed calcium carbonate 600 mg calcium 600 mg PO BID 07/25/19 03/31/22 (1,500 mg) tablet (Calcium) multivitamin 1 cap PO DAILY 07/25/19 03/31/22 omeprazole 20 mg capsule,delayed 20 mg PO DAILY 07/25/19 03/31/22 release elderberry fruit 460 mg-elderberry 1 cap PO DAILY 06/13/20 03/31/22 flower 115 mg capsule acetaminophen 500 mg tablet 1,000 mg PO BID PRN Pain, Mild 11/17/21 03/31/22 apixaban 5 mg tablet (Eliquis) 5 mg PO BID 03/27/22 03/31/22 ascorbic acid (vitamin C) 1,000 mg 1 g PO DAILY 03/27/22 03/31/22 capsule cholecalciferol (vitamin D3) 50 100 mcg PO DAILY 03/27/22 03/31/22 mcg (2,000 unit) capsule propylene glycol 0.6 % eye drops 1 drp EACH EYE DAILY PRN Dry Eye(S) 03/27/22 03/31/22 (Systane Balance) Biotin Plus Keratin 1 tab-cap BYMOUTH DAILY 03/31/22 03/31/22 Lactobac 51-Bifidobac 1 cap PO DAILY 03/31/22 03/31/22 3-L.lactis-S.thermophilus 4 billion cell capsule (Daily Probiotic (10 Strains)) aspirin 81 mg tablet,delayed 81 mg PO DAILY 03/31/22 03/31/22 release coffee extract 100 mg-phosphatidyl 1 cap PO DAILY 03/31/22 03/31/22 serine 100 mg capsule (Neuriva Original) guar gum 1 tbsp PO DAILY 03/31/22 03/31/22 magnesium 200 mg tablet 400 mg PO DAILY 03/31/22 03/31/22 turmeric root extract 500 mg 1,000 mg PO DAILY 03/31/22 03/31/22 capsule Allergies Allergy/AdvReac Type Severity Reaction Status Date / Time No Known Allergies Allergy Unknown Verified 03/31/22 17:08 Review of Systems Review of Systems: All systems reviewed & are unremarkable except as noted in HPI and below Constitutional: Constitutional: Denies chills, Reports fatigue and Denies fever(s) ENT: Denies nasal congestion and Denies sore throat Comments: Mild rhinorrhea Cardiovascular: Cardiovascular: Denies chest pain and Denies rapid heart rate Respiratory: Respiratory: Denies cough, Reports dyspnea and Denies wheezing Gastrointestinal: Gastrointestinal: Denies abdominal pain, Denies heartburn, Denies diarrhea, Denies nausea and Denies vomiting PMFSH Past Medical History Medical History Atrophic vulvitis Candidiasis of skin Chronic GERD Chronic venous insufficiency Deep vein blood clot of right lower extremity (~1993) Dyslipidemia Essential hypertension, benign Factor V Leiden History of intestine removal (~2004) Hx of vaginal delivery (~1964) 1965 (girl), boys: 1966, 1974, 1984 Hypothyroidism Knee osteoarthritis Phantosmia Pneumonia Tear of left infraspinatus tendon Tinnitus of both ears Surgical History Surgical History H/O abdominal surgery (~2004) Hx of cataract surgery (~2016) S/P colonoscopic polypectomy (~2004) Family History Family History Mother Diabetes mellitus, Onset Age: 74 Family history of lung cancer Family history of malignant neoplasm of bone, Onset Age: 74 Father Dece
[2022-03-31 08:50] LABS: Basophils Percent Auto 0.4 % (0.2-1.2); Eosinophils Absolute Auto 0.6 K/mm3 (0-0.3); Eosinophils Percent Auto 5.1 % (0-4.4); Hematocrit 24.2 % (37.0-47.0); Hemoglobin 7.4 g/dL (12.0-15.0); Immature Granulocyte Absolute 0.06 K/mm3 (0.00-0.031); Immature Granulocyte Percent A 0.5 % (0-0.5); Lymphocytes Absolute Auto 1.94 K/mm3 (0.9-3.2); Lymphocytes Percent Auto 17.2 % (18.3-44.2); Mean Corpuscular HGB Conc 30.6 g/dl (32-36); Mean Corpuscular Hemoglobin 28.7 pg (26-34); Mean Corpuscular Volume 93.8 fl (80-100); Mean Platelet Volume 8.8 fl (7.4-10.4); Monocytes Absolute Auto 0.6 K/mm3 (0.1-0.6); Monocytes Percent Auto 5.3 % (2.6-8.5); Neutrophils Absolute Auto 8.1 K/mm3 (1.3-6.7); Neutrophils Percent Auto 71.5 % (45.5-73.1); Platelet Count Result 462 k/mm3 (150-375); Red Blood Count 2.58 M/mm3 (4.2-5.4); Red Cell Distribution Width 14.5 % (11.5-14.5); White Blood Count 11.3 K/mm3 (4.5-10.0)
[2022-03-31 09:43] LABS: INR 1.5; Prothrombin Time 17.2 Seconds (11.1-14.7)
[2022-03-31 09:44] LABS: Partial Thromboplastin Time 35.2 SECONDS (22.3-36.8)
[2022-03-31 09:49] LABS: Alanine Aminotransferase 14 U/L (6-35); Albumin Level 3.7 g/dL (3.5-5.1); Alkaline Phosphatase 86 U/L (38-126); Anion Gap 13 mmol/L (8-16); Aspartate Amino Transferase 20 U/L (14-36); Bilirubin,Total 0.5 mg/dL (0.2-1.3); Blood Urea Nitrogen 37 mg/dL (7-17); Calcium 9.6 mg/dL (8.4-10.2); Carbon Dioxide 23 mmol/L (22-30); Chloride 100 mmol/L (98-107); Estimated CRCL calculation 19 ml/min; Estimated Glomerular Filt Rate 21; Glucose 106 mg/dL (65-110); Potassium 4.7 mmol/L (3.4-5.0); Sodium 136 mmol/L (137-145)
[2022-03-31 09:52] LABS: NT Pro B Type Natriuretic Pept 53 pg/mL (5-100)
[2022-03-31 09:57] LABS: Troponin I < 0.012 ng/mL (0.000-0.034)
[2022-03-31 10:06] LABS: SARS-CoV-2 RNA PCR Negative
[2022-03-31] MEDS: SODIUM CHLORIDE 0.9% IV 1,000 ML 999 ML IV CONT (10:33)
[2022-03-31] MEDS: SODIUM CHLORIDE 0.9% IV 1,000 ML 125 ML IV CONT ×2 (15:21→23:37)
--- NOTE | 2022-03-31 16:50 | PM.IMHP ---
H&P: HPI History of Present Illness Date/Time: 03/31/22 16:50 Chief Complaint: Shortness of breath Narrative: Patient is a 77-year-old female with a past medical history of hypertension, Factor V Leiden, hypothyroidism, arthritis who presented to the ED with shortness of breath for the last 3 days. Patient stated that she has been trying to use nebulizer treatments lie down and rest and nothing was helping. She stated that she has not really been feeling well. She denies any chest pain, abdominal pain, nausea, vomiting, diarrhea, constipation, fevers. However she did state that she has been having night sweats and chills. She stated that she has not been eating or drinking well lately as well. She also takes Eliquis for anti coagulation therapy however she was told only take 1 Eliquis per day instead of 2. She stated that she was taking the 10 mg twice a day but then was told to go down to 1 5 mg tablet a day thereafter. She stated that she has not really had any other issues lately. She did state that her shoulder to her elbow is really hard to lift and move and sometimes it drops to her arm and her hand in her knee. She also stated that she has a bobbin sorter appointment coming up on that she would like to go to. She denies any urinary issues, visual changes, hearing changes, headaches, lightheadedness, dizziness, weakness or fatigue. She did state that she keeps herself very active, however she does not exercise as well she should. His chest x-ray shows patchy bilateral airspace disease consistent with pneumonia. She also went for a V/Q scan which showed intermediate probability of a PE. She was also started on ceftriaxone and azithromycin. She is in acute renal failure with a BUN of 37 and a creatinine of 2.30. Her H&H is 7.4/24.2 however she does have a fluctuating H&H most visits. She denies any bleeding or melena. She was on 3 L of oxygen however it has been titrated down to 1 currently. Patient also stated that she does wear her compression stockings every morning and does not take them off until she goes to bed at night. Patient is being admitted to the hospitalist service under observation Review of Systems Review of Systems: All systems reviewed & are unremarkable except as noted in HPI and below PMFSH Past Medical History Medical History Atrophic vulvitis Candidiasis of skin Chronic GERD Chronic venous insufficiency Deep vein blood clot of right lower extremity (~1993) Dyslipidemia Essential hypertension, benign Factor V Leiden History of intestine removal (~2004) Hx of vaginal delivery (~1964) 1965 (girl), boys: 1966, 1974, 1984 Hypothyroidism Knee osteoarthritis Phantosmia Pneumonia Tear of left infraspinatus tendon Tinnitus of both ears Surgical History Surgical History H/O abdominal surgery (~2004) Hx of cataract surgery (~2016) S/P colonoscopic polypectomy (~2004) Family History Family History Mother Diabetes mellitus, Onset Age: 74 Family history of lung cancer Family history of malignant neoplasm of bone, Onset Age: 74 Father Hypertension, Onset Age: 81 Family history of malignant neoplasm of stomach, Onset Age: 81 Depression Heart disease Sibling , aneurism Cancer Other Cancer Social History Social History Social History: Patient currently lives with her in who she has been to for 57 years. They have 4 kids 1 grown 3 boys. They also have 1 dog and a fish. She has a total of 11 grandkids and 6 great-grandchildren. 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 Smoking status: Never smoker Second hand tobacco smoke exposure: No
[2022-03-31 18:07] LABS: Iron 34 ug/dL (37-170)
--- NOTE | 2022-03-31 18:11 | ADMGEN ---
This patient, Karina Flores, was admitted to [address] [place] [address] Room 324-02. Patient/family oriented to hospital policies and general routines including ID bracelet, bed and alarms, visiting hours, pain management, procedures, bathroom and other care routines, personal items, smoking policy, room service/diet, and visiting hours. Information on how to activate the Rapid Response Team has been discussed. Patient/Family are encouraged to report perceived risks to care and to ask questions if they do not understand what they are told or what they should do.
[2022-03-31 18:12] LABS: Transferrin 220 mg/dL (206-381)
[2022-03-31 18:15] LABS: Percent Iron Saturation 10 % (20-50)
[2022-03-31 18:36] LABS: Thyroid Stimulating Hormone Reflex 0.334 uIU/mL (0.465-4.68)
[2022-03-31 19:11] LABS: Folic Acid > 20.0 ng/mL (2.76->20)
[2022-03-31 21:02] LABS: Free T4 Free Thyroxine Reflex 1.11 ng/dL (0.78-2.19)
[2022-03-31 21:18] LABS: Hemoglobin 6.4 g/dL (12.0-15.0)
[2022-03-31 21:57] LABS: Total Triiodothyronine (T3) 1.51 NG/ML (0.97-1.69)
[2022-04-01] VITALS (22 sets, daily range): BP systolic 93–161; BP diastolic 53–92; PULSE 86–115; RESP 14–22; TEMP 36.6–38; O2SAT 90–97
--- NOTE | 2022-04-01 | ECHO_ITS ---
Patient Info Name: Karina Flores Age: 77 years : 1945 Gender: Female Ht: 62 in Wt: 176 lbs BSA: 1.90 m2 HR: 95 bpm BP: 93 / 53 mmHg Technical Quality: Good Exam Date: 04/01/2022 9:55 AM Exam Location: [facility] Patient Status: Outpatient Admit Date: 03/31/2022 Staff Ordering Physician: Perry Snyder Vp Purchasing: Daniela Mancini RDCS Attending Provider: Mary Ann Penny DO Referring Physician: Claudio MARTINEZ; Exam Type: CA echo doppler color flow Study Info Indications R06.02 - Shortness of breath Complete two-dimensional, color flow and Doppler transthoracic echocardiogram is performed. Summary 1. Complete two-dimensional, color flow and Doppler transthoracic echocardiogram is performed. 2. Left ventricular chamber dimension is normal. 3. Left ventricular systolic function is normal, estimated at 65-70%. 4. The left ventricular diastolic function is grade I diastolic dysfunction. 5. E/e' 9 is minimally elevated. 6. There is mild aortic valve sclerosis. 7. The mitral valve has mildly calcified annulus. 8. There is trace pulmonic regurgitation. Left Ventricle E/e' 9 is minimally elevated. Left ventricular chamber dimension is normal. Left ventricular systolic function is normal, estimated at 65-70%. The left ventricular diastolic function is grade I diastolic dysfunction. Right Ventricle Right ventricular systolic function is normal and with normal TAPSE 1.9 cm. Right ventricular chamber dimension is normal. Left Atria Left atrial chamber dimension is normal. Right Atria Right atrial chamber dimension is normal. Aortic Valve The aortic valve is trileaflet. There is mild aortic valve sclerosis. There is no aortic valve stenosis. There is no aortic valve regurgitation. Pulmonic Valve There is trace pulmonic regurgitation. Mitral Valve The mitral valve has mildly calcified annulus. There is no mitral valve stenosis. There is no mitral valve regurgitation. Tricuspid Valve There is no tricuspid valve regurgitation. Pericardium/Pleural There is no pericardial effusion. Inferior Vena Cava Normal inferior vena cava with >50% collapse upon inspiration consistent with normal right atrial pressure, 5 mmHg. Aorta The aortic root size at the sinus of Valsalva is normal. Left Ventricular Outflow Tract Name Value Normal LVOT 2D LVOT Diameter 2.0 cm LVOT Doppler LVOT Peak Gradient 7 mmHg LVOT Mean Gradient 6 mmHg LVOT VTI 23 cm LVOT VTI/AV VTI Ratio 0.8 LVOT Stroke Volume 71 ml LVOT CO 7.3 l/min LVOT CI 3.8 l/min/m2 Mitral Valve Name Value Normal MV Doppler MV Peak Gradient
[2022-04-01 06:01] LABS: Basophils Percent Auto 0.2 % (0.2-1.2); Eosinophils Absolute Auto 0.6 K/mm3 (0-0.3); Eosinophils Percent Auto 5.9 % (0-4.4); Immature Granulocyte Absolute 0.07 K/mm3 (0.00-0.031); Immature Granulocyte Percent A 0.7 % (0-0.5); Lymphocytes Absolute Auto 1.45 K/mm3 (0.9-3.2); Lymphocytes Percent Auto 15.3 % (18.3-44.2); Mean Corpuscular HGB Conc 31.7 g/dl (32-36); Mean Corpuscular Hemoglobin 29.4 pg (26-34); Mean Corpuscular Volume 92.5 fl (80-100); Mean Platelet Volume 8.6 fl (7.4-10.4); Monocytes Absolute Auto 0.5 K/mm3 (0.1-0.6); Monocytes Percent Auto 4.7 % (2.6-8.5); Neutrophils Percent Auto 73.2 % (45.5-73.1); Platelet Count Result 373 k/mm3 (150-375); Red Blood Count 2.01 M/mm3 (4.2-5.4); White Blood Count 9.5 K/mm3 (4.5-10.0)
[2022-04-01 06:27] LABS: Alanine Aminotransferase 10 U/L (6-35); Albumin Level 2.9 g/dL (3.5-5.1); Alkaline Phosphatase 74 U/L (38-126); Anion Gap 9 mmol/L (8-16); Aspartate Amino Transferase 22 U/L (14-36); Bilirubin,Total 0.6 mg/dL (0.2-1.3); Blood Urea Nitrogen 30 mg/dL (7-17); Calcium 8.4 mg/dL (8.4-10.2); Carbon Dioxide 21 mmol/L (22-30); Chloride 105 mmol/L (98-107); Estimated CRCL calculation 22 ml/min; Estimated Glomerular Filt Rate 26; Glucose 96 mg/dL (65-110); Magnesium 1.8 mg/dL (1.6-2.3); Potassium 4.4 mmol/L (3.4-5.0); Sodium 135 mmol/L (137-145)
[2022-04-01 06:36] LABS: Hematocrit 18.6 % (37.0-47.0); Hemoglobin 5.9 g/dL (12.0-15.0)
[2022-04-01 08:28] LABS: INR 1.4; Prothrombin Time 16.4 Seconds (11.1-14.7)
[2022-04-01 08:29] LABS: Partial Thromboplastin Time 34.9 SECONDS (22.3-36.8)
[2022-04-01] MEDS: SODIUM CHLORIDE 0.9% IV 1,000 ML 125 ML IV CONT (08:34)
[2022-04-01] MEDS: FERROUS SULFATE 324 MG TABLET PO ×2 (08:35→17:21)
--- NOTE | 2022-04-01 08:45 | P.PNIM_ITS ---
Progress Note: A&P Assessment and Plan (1) Pneumonia: Qualifiers: Laterality: bilateral Lung location: unspecified part of lung Pneumonia type: due to unspecified organism Qualified Code(s): J18.9 - Pneumonia, unspecified organism Code(s): J18.9 - Pneumonia, unspecified organism Status: Acute Assessment and Plan: * Chest xray shows patchy bilateral airspace disease consistent with PNA * Azithromycin and ceftriaxone continued * WBC trending down and is currently 9.5 * Sputum culture shows mixed león * Trend labs * Blood culture NGTD * Trend chest X-ray (2) KRUNLA (acute kidney injury): Code(s): N17.9 - Acute kidney failure, unspecified Status: Acute Assessment and Plan: * Current BUN/Cr 30/1.90 * Trend labs * Labs in the am * Hold lisinopril * Cr was 0.89 in September * Avoid nephrotoxic medications * Fluids at 125ml/hr (3) Anemia: Code(s): D64.9 - Anemia, unspecified Status: Acute Assessment and Plan: * H/H 5.9/18.6 * Anemia labs ordered, iron 34, TV AC 355, % saturation 10, transferrin 220, ferritin 148, B12 869, folate greater than 20 * no report of any bleeding * Occult blood ordered * trend labs * H/H Q6H, continue over the next 24 hours * Transfuse 2 units of PRBC 04/01/22 * Supplement if indicated (4) Essential hypertension, benign: Code(s): I10 - Essential (primary) hypertension Status: Acute Assessment and Plan: * BP 93/53 * hold lisinopril 10mg PO Daily * Trend BP * adjust therapy as indicated (5) Hypothyroidism: Qualifiers: Hypothyroidism type: acquired Qualified Code(s): E03.9 - Hypothyroidism, unspecified Code(s): E03.9 - Hypothyroidism, unspecified Status: Acute Assessment and Plan: * TSH 0.334, T4 1.11, T3 1.51 * Considered starting therapy as indicated * recheck in TSH in about 6 Weeks (6) Factor V Leiden: Code(s): D68.51 - Activated protein C resistance Status: Acute Assessment and Plan: * V/Q scan shows intermediate probability of a PE * Currently on Eliquis, however only taking 5mg PO daily, which she should probably be on 5mg PO BID * Pending * Consult oncology due to the clotting disorder * Patient only taking her Eliquis one time per day * Consider changing to Coumadin * Will await further recommendations from hematology * Venous Doppler was done on 03/16/22 which found multiple DVTS Plan Additional 35 minutes updating the patient and family of plan and education ab out current findings/next steps Time Spent With Patient Time with patient: Greater than 35 minutes Subjective Date/time seen: 04/01/2245 Interval history: 04/01/22844 Patient is sitting on side of bed eating. She denies any chest pain, nausea, vomiting, diarrhea, constipation. She did state that she had 2 bowel movements today which are loose and yellow. She also stated that she has been using the bathroom about every 1-1/2 hours. She is a little dizzy upon standing however resolved very quickly. She also stated that when she coughs sometimes she is little blood colored tinged sputum. I went over her labs with her and her x- rays. Will update the family. Talked to Dr. Moses who was updated, and is suggesting that maybe the patient should going Coumadin. If no source of bleeding is found it is probably the dannie
--- NOTE | 2022-04-01 08:45 | PM.IMPN ---
Progress Note: A&P Assessment and Plan (1) Pneumonia: Qualifiers: Laterality: bilateral Lung location: unspecified part of lung Pneumonia type: due to unspecified organism Qualified Code(s): J18.9 - Pneumonia, unspecified organism Code(s): J18.9 - Pneumonia, unspecified organism Status: Acute Assessment and Plan: Chest xray shows patchy bilateral airspace disease consistent with PNA Azithromycin and ceftriaxone continued WBC trending down and is currently 9.5 Sputum culture shows mixed león Trend labs Blood culture NGTD Trend chest X-ray (2) KRUNAL (acute kidney injury): Code(s): N17.9 - Acute kidney failure, unspecified Status: Acute Assessment and Plan: Current BUN/Cr 30/1.90 Trend labs Labs in the am Hold lisinopril Cr was 0.89 in September Avoid nephrotoxic medications Fluids at 125ml/hr (3) Anemia: Code(s): D64.9 - Anemia, unspecified Status: Acute Assessment and Plan: H/H 5.9/18.6 Anemia labs ordered, iron 34, TV AC 355, % saturation 10, transferrin 220, ferritin 148, B12 869, folate greater than 20 no report of any bleeding Occult blood ordered trend labs H/H Q6H, continue over the next 24 hours Transfuse 2 units of PRBC 04/01/22 Supplement if indicated (4) Essential hypertension, benign: Code(s): I10 - Essential (primary) hypertension Status: Acute Assessment and Plan: BP 93/53 hold lisinopril 10mg PO Daily Trend BP adjust therapy as indicated (5) Hypothyroidism: Qualifiers: Hypothyroidism type: acquired Qualified Code(s): E03.9 - Hypothyroidism, unspecified Code(s): E03.9 - Hypothyroidism, unspecified Status: Acute Assessment and Plan: TSH 0.334, T4 1.11, T3 1.51 Considered starting therapy as indicated recheck in TSH in about 6 Weeks (6) Factor V Leiden: Code(s): D68.51 - Activated protein C resistance Status: Acute Assessment and Plan: V/Q scan shows intermediate probability of a PE Currently on Eliquis, however only taking 5mg PO daily, which she should probably be on 5mg PO BID Pending Consult oncology due to the clotting disorder Patient only taking her Eliquis one time per day Consider changing to Coumadin Will await further recommendations from hematology Venous Doppler was done on 03/16/22 which found multiple DVTS Plan Additional 35 minutes updating the patient and family of plan and education about current findings/next steps Time Spent With Patient Time with patient: Greater than 35 minutes Subjective Date/time seen: 04/01/22 0845 Interval history: 04/01/22 0845 Patient is sitting on side of bed eating. She denies any chest pain, nausea, vomiting, diarrhea, constipation. She did state that she had 2 bowel movements today which are loose and yellow. She also stated that she has been using the bathroom about every 1-1/2 hours. She is a little dizzy upon standing however resolved very quickly. She also stated that when she coughs sometimes she is little blood colored tinged sputum. I went over her labs with her and her x-rays. Will update the family. Talked to Dr. Moses who was updated, and is suggesting that maybe the patient should going Coumadin. If no source of bleeding is found it is probably the patient's supplements that she is taking. 03/31/22? 16:50 Patient is a 77-year-old female with a past medical history of hypertension, Factor V Leiden, hypothyroidism, arthritis who presented to the ED with shortness of breath for the last 3 days.? Patient stated that she has been trying to use nebulizer treatments lie down and rest and nothing was helping.? She stated that she has not really been feeling well.? She denies any chest pain, abdominal pain, nausea, vomiting, diarrhea, constipation, fevers.? However she did state that she has been havin
[2022-04-01 08:56] LABS: Immature Reticulocyte Fraction 34.2 % (3.0-15.9); Reticulocyte Hemoglobin Conten 25.2 pg (28.2-35.7); Reticulocyte Percent 3.35 % (0.7-4.3); Reticulocytes Absolute 0.07 B/L (32.2-175.7)
[2022-04-01] MEDS: SODIUM CHLORIDE 0.9% IV 250 ML 30 ML IV CONT (13:13)
[2022-04-01] MEDS: ACETAMINOPHEN 325 MG TABLET 650 MG PO (15:54)
--- NOTE | 2022-04-01 18:53 | PDONCCN ---
HPI - Date of Consult Date/Time: 04/01/22 18:53 Requesting Physician: Mary Ann Penny DO Primary Care Provider: Jimbo Lee MD - Consult Narrative Reason for consult: Hypercoagulable state with anemia Narrative: Karina Flores is a 77 year old female with history of factor 5 Leiden mutation as well as family history of blood clot in the sister and the father and some nephews. Patient also have a personal history of blood clot initially diagnosed after her . Patient had blood clot in the left lower extremity 1 year ago and was treated with Eliquis for 6 months duration. Patient had Doppler study done on March 16 that showed DVT in the right popliteal, left femoral and left popliteal vein. She was already on aspirin at the time of diagnosis of DVT. She was started on Eliquis but only 5 mg once a day. Patient now came into the hospital with shortness of breath. V/Q scan showed intermediate probability of blood clot. Hemoglobin was 7.4 admission and dropped down to 5.1. Eliquis was discontinued. She denies any melena hematochezia. She is complaining of tiredness and fatigue. Patient has a history of intestinal resection more than 10 years ago for benign etiology. She denies any other stomach surgeries. She denies any previous history of kidney disease but the creatinine was elevated with renal function of about 20%. Her last colonoscopy was 4 years ago. Review of Systems - Review of Systems All systems reviewed & are unremarkable except as noted in [facility] and [facility] Medical History: Medical History (Last Reviewed 03/31/22 @ 18:22 by ENRIQUE Cooper) Atrophic vulvitis Candidiasis of skin Chronic GERD Chronic venous insufficiency Deep vein blood clot of right lower extremity Onset Date: ~1993 Dyslipidemia Essential hypertension, benign Factor V Leiden History of intestine removal Onset Date: ~2004 Hx of vaginal delivery Onset Date: ~1964 1965 (girl), boys: 1966, 1974, 1984 Hypothyroidism Knee osteoarthritis Phantosmia Pneumonia Tear of left infraspinatus tendon Tinnitus of both ears Surgical History: Surgical History (Last Reviewed 03/31/22 @ 18:22 by ENRIQUE Cooper) H/O abdominal surgery Onset Date: ~2004 Hx of cataract surgery Onset Date: ~2016 S/P colonoscopic polypectomy Onset Date: ~2004 Family History: Family History (Last Reviewed 03/31/22 @ 18:22 by ENRIQUE Cooper) Mother Diabetes mellitus, Onset Age: 74 Family history of lung cancer Family history of malignant neoplasm of bone, Onset Age: 74 Father Hypertension, Onset Age: 81 Family history of malignant neoplasm of stomach, Onset Age: 81 Depression Heart disease Sibling , aneurism Cancer Other Cancer - Social History Social History: Social History (Last Reviewed 03/31/22 @ 18:23 by ENRIQUE Cooper) Gender Identity: Gender identity (if verbalized by the patient): Female Sexual Orientation: Sexual Orientation (if Verbalized by the Patient): Straight or Heterosexual Alcohol Use: Alcohol intake: never Substance Use: Substance use: never Substance use type: does not use Others: Spiritual care concerns: No Spiritual care concerns comment: SCIENTOLOGY Agree to blood products: Yes Smoking Status: Smoking status: Never smoker Second hand tobacco smoke exposure: No Meds Home Medications Medication Instructions Recorded Confirmed Type calcium carbonate 600 mg calcium 600 mg PO BID 07/25/19 03/31/22 History (1,500 mg) tablet (Calcium) multivitamin 1 cap PO DAILY 07/25/19 03/31/22 History omeprazole 20 mg capsule,delayed 20 mg PO DAILY 07/25/19 03/31/22 History release elderberry fruit 460 mg-elderberry 1 cap PO DAILY 06/13/20 03/31/22 History flower 115 mg capsule acetaminophen 500 mg tablet 1,000 mg PO BID PRN Pain, Mild 11/17/21 03/31/22 History pina
--- NOTE | 2022-04-01 20:07 | PC.NURSE ---
Patient's granddaughter, Boris, came to the nurses station this evening wanting to talk to me. When I was available, I went to the patient's room to speak with the granddaughter. Patient gave me the okay to talk with her. Boris and I went down to the waiting room. Boris was concerned about the patient's H&H and administration time of blood transfusion. I let her know that I would look into the times of the critical H&H, order of blood transfusion, etc. and call her back before I left. She was also concerned that the RN gave the patient the option to receive her second unit of blood or her IVPB antibiotic first. Patient did choose the antibiotic. I discussed with the granddaughter that the blood probably should have been administered before the antibiotic (but I would have to look at the patient's chart, etc.) or the RN could have started a second IV line to administer the blood. At the end of our discussion, I gave her our nurse's station, the Patient Advocate, and Nurse Managers number to her. I also spoke to OSIRIS Wallace about this situation / concerns of family member(s). Madison stated that her team was busy and that the patient was also occupied at times when trying to administer the blood products; bathroom, meals, ECHO, etc. I spoke to Madison about administering the blood product first (priority) and/or starting another IV line for administrations. Madison understood this and again, was very busy today. I didn't realize this situation until this evening due to having my own team of patient's and not looking into patient's charts like I normally do. Before my shift ended, I did speak to Boris and the patient's son, Thee for 15 minutes. I gave them the times of H&H, order of blood transfusion, etc. I also let them know that the second unit of blood had been started, Dr. Hua rounded and ordered a consult for COLTON HERRERA, and that I discussed this with the night primer charger, Grazyna, and house supervisors. Family would like a call with the post transfusion H&H result.
[2022-04-01] MEDS: SODIUM CHLORIDE 0.9% IV 250 ML 30 ML (20:10)
--- NOTE | 2022-04-01 22:25 | ECG_ITS ---
Measurements Intervals [place] Rate: 107 P: 59 SD: 221 QRS: 52 QRSD: 79 T: 59 QT: 301 QTc: 402 Interpretive Statements SINUS TACHYCARDIA WITH FIRST DEGREE AV BLOCK BASELINE ARTIFACT- I, II, III, AVR, AVL, AVF, V3 ABNORMAL ECG Electronically Signed On 04-02-2022 9:15:08 CDT by Ryder Gomez D.O.
--- NOTE | 2022-04-01 22:30 | PC.NURSE ---
RN notified provider with initial new onset c/o grinding in pt throat and c/o pain with inspiration. Pt demonstrated bloody discharge after coughing, but states that it is not a new onset symptom. Multiple calls to provider to discuss patient condition with orders including to obtain lab values for lactic, CBC, BMP, phosphate, magnesium, coags, trops; STAT EKG; STAT Chest Xray; insert ngo catheter; administer 40mg lasix IVP x1; bumex 2.5mg IVP x1. Calls to provider with all results of testing as results received and notification of changes in patient VS. Physician ultimately entered orders to transfer patient to IMU for closer monitoring.
[2022-04-01] MEDS: FUROSEMIDE INJ 40 MG/4 ML VIAL IV PUSH (22:40)
[2022-04-01 23:05] LABS: Hematocrit 30.6 % (37.0-47.0); Hemoglobin 9.4 g/dL (12.0-15.0); Mean Corpuscular HGB Conc 30.7 g/dl (32-36); Mean Corpuscular Hemoglobin 28.2 pg (26-34); Mean Corpuscular Volume 91.9 fl (80-100); Mean Platelet Volume 8.7 fl (7.4-10.4); Platelet Count Result 356 k/mm3 (150-375); Red Blood Count 3.33 M/mm3 (4.2-5.4); Red Cell Distribution Width 15.3 % (11.5-14.5); White Blood Count 13.6 K/mm3 (4.5-10.0)
[2022-04-01 23:14] LABS: Lactate Dehydrogenase 614 U/L (313-618)
[2022-04-01 23:16] LABS: Anion Gap 13 mmol/L (8-16); Blood Urea Nitrogen 28 mg/dL (7-17); Carbon Dioxide 20 mmol/L (22-30); Chloride 103 mmol/L (98-107); Estimated CRCL calculation 19 ml/min; Estimated Glomerular Filt Rate 22; Glucose 101 mg/dL (65-110); INR 1.2; Lactic Acid Reflex 1.6 mmol/L (0.7-2.0); Magnesium 1.8 mg/dL (1.6-2.3); Phosphorus 3.6 mg/dL (2.5-4.5); Prothrombin Time 15.1 Seconds (11.1-14.7); Sodium 136 mmol/L (137-145)
[2022-04-01 23:17] LABS: Partial Thromboplastin Time 30.8 SECONDS (22.3-36.8)
[2022-04-01] MEDS: BUMETANIDE INJ 1 MG/4 ML VIAL 2.5 MG IV PUSH (23:18)
[2022-04-01 23:27] LABS: Troponin I 0.032 ng/mL (0.000-0.034)
[2022-04-01] MEDS: LEVALBUTEROL NEB 1.25 MG/3 ML 0.63 MG INHALATION (23:54)
[2022-04-02] VITALS (21 sets, daily range): BP systolic 104–151; BP diastolic 46–82; PULSE 78–117; RESP 12–28; TEMP 36.1–38.2; O2SAT 88–99
[2022-04-02] MEDS: ACETAMINOPHEN 325 MG TABLET 650 MG PO (01:02)
--- NOTE | 2022-04-02 01:25 | PC.NURSE ---
Patient transferred to IMU room 213 per bed. Report to OSIRIS Contreras. Family updated.
[2022-04-02] MEDS: HYDROcodone/acetaminophen (*CRX) 5-325 MG TABLET 1 TAB PO (01:39)
[2022-04-02 02:14] LABS: Hematocrit 25.8 % (37.0-47.0); Hemoglobin 8.3 g/dL (12.0-15.0); Mean Corpuscular HGB Conc 32.2 g/dl (32-36); Mean Corpuscular Hemoglobin 28.3 pg (26-34); Mean Corpuscular Volume 88.1 fl (80-100); Mean Platelet Volume 8.7 fl (7.4-10.4); Platelet Count Result 353 k/mm3 (150-375); Red Blood Count 2.93 M/mm3 (4.2-5.4); Red Cell Distribution Width 15.2 % (11.5-14.5); White Blood Count 12.4 K/mm3 (4.5-10.0)
--- NOTE | 2022-04-02 02:21 | PC.NURSE ---
Patient placed on High flow NC at 7L. Patient appears to be more comfortable, current vital signs stable, O2 Sat of 97%.
[2022-04-02 05:29] LABS: Basophils Absolute Auto 0.1 K/mm3 (0.0-0.1); Basophils Percent Auto 0.4 % (0.2-1.2); Eosinophils Absolute Auto 0.3 K/mm3 (0-0.3); Eosinophils Percent Auto 2.2 % (0-4.4); Hematocrit 25.3 % (37.0-47.0); Immature Granulocyte Absolute 0.09 K/mm3 (0.00-0.031); Immature Granulocyte Percent A 0.8 % (0-0.5); Lymphocytes Absolute Auto 1.86 K/mm3 (0.9-3.2); Lymphocytes Percent Auto 15.7 % (18.3-44.2); Mean Corpuscular HGB Conc 31.6 g/dl (32-36); Mean Corpuscular Hemoglobin 27.9 pg (26-34); Mean Corpuscular Volume 88.2 fl (80-100); Mean Platelet Volume 8.9 fl (7.4-10.4); Monocytes Absolute Auto 0.5 K/mm3 (0.1-0.6); Monocytes Percent Auto 4.2 % (2.6-8.5); Neutrophils Absolute Auto 9.1 K/mm3 (1.3-6.7); Neutrophils Percent Auto 76.7 % (45.5-73.1); Platelet Count Result 354 k/mm3 (150-375); Red Blood Count 2.87 M/mm3 (4.2-5.4); Red Cell Distribution Width 15.3 % (11.5-14.5); White Blood Count 11.8 K/mm3 (4.5-10.0)
[2022-04-02 05:39] LABS: Alanine Aminotransferase 15 U/L (6-35); Albumin Level 3.3 g/dL (3.5-5.1); Alkaline Phosphatase 91 U/L (38-126); Anion Gap 13 mmol/L (8-16); Aspartate Amino Transferase 27 U/L (14-36); Bilirubin,Total 0.9 mg/dL (0.2-1.3); Blood Urea Nitrogen 29 mg/dL (7-17); Calcium 8.2 mg/dL (8.4-10.2); Carbon Dioxide 21 mmol/L (22-30); Chloride 101 mmol/L (98-107); Estimated CRCL calculation 19 ml/min; Estimated Glomerular Filt Rate 22; Glucose 110 mg/dL (65-110); Magnesium 1.6 mg/dL (1.6-2.3); Potassium 4.2 mmol/L (3.4-5.0); Sodium 135 mmol/L (137-145)
[2022-04-02 05:57] LABS: Troponin I 0.057 ng/mL (0.000-0.034)
--- NOTE | 2022-04-02 07:45 | P.PNIM_ITS ---
Progress Note: A&P Assessment and Plan (1) Pulmonary embolism: Code(s): I26.99 - Other pulmonary embolism without acute cor pulmonale Status: Acute Assessment and Plan: * VQ scan indicated intermediate probability * Unable to anticoagulate due to severe anemia * Would confirm with elevated heart rate, chest pain, increased respirations, and oxygen requirements * Unable to CTA due to renal function * Seems stable for now (2) Pneumonia: Qualifiers: Laterality: bilateral Lung location: unspecified part of lung Pneumonia type: due to unspecified organism Qualified Code(s): J18.9 - Pneumonia, unspecified organism Code(s): J18.9 - Pneumonia, unspecified organism Status: Acute Assessment and Plan: * Chest xray from 04/02/22 shows worsening opacities, possible pulmonary edema, PNA, or hemorrhage * Azithromycin and ceftriaxone changed to cefepime and vancomycin * WBC trending down and is currently 11.8, but was higher overnight at 13.6 * Sputum culture shows mixed león * Trend labs * Blood culture NGTD * Trend chest X-ray * Mycoplasma, pneumococcal, and legionella ordered * Deescalate antibiotics is appropriate * CT of the chest abdomen pelvis ordered (3) Flash pulmonary edema: Code(s): J81.0 - Acute pulmonary edema Status: Acute Assessment and Plan: * Xray noted pulmonary edema * Increase in oxygen requirements with chest pain * Bumex and Lasix given * Good urinary return * Ct of the chest ordered * continue to trend output (4) CHF (congestive heart failure): Code(s): I50.9 - Heart failure, unspecified Status: Acute Assessment and Plan: * At this time would say she is in an acute exacerbation of diastolic heart failure * Echo has EF of 65-70% with grade 1 DD * Chest xray indicates pulmonary edema vs PNA * Troponins mildly elevated but flat * EKG stable * Lasix and Bumex given throughout the night * Oxygen requirements went up, currently 6L high flow cannula * Worsening renal failure * WBC elevated * Continue to trend labs * Mag replaced with 4gm, currently at 1.6 * Daily weights (5) Factor V Leiden: Code(s): D68.51 - Activated protein C resistance Status: Acute Assessment and Plan: * V/Q scan shows intermediate probability of a PE * Currently on Eliquis, however only taking 5mg PO daily, which she should proba shanika be on 5mg PO BID * Pending * Consult oncology due to the clotting disorder * Patient only taking her Eliquis one time per day * Venous Doppler was done on 03/16/22 which found multiple DVTS (6) KRUNAL (acute kidney injury): Code(s): N17.9 - Acute kidney failure, unspecified Status: Acute Assessment and Plan: * Current BUN/Cr 29/2.20 * Worsening at this time * Nephro consult thank you for your help * urine studies ordered * Trend labs * Labs in the am * Hold lisinopril * Cr was 0.89 in September * Avoid nephrotoxic medications * Fluids at 125ml/hr, stopped for possible pulmonary edema (7) Anemia: Code(s): D64.9 - Anemia, unspecified Status: Acute Assessment and Plan: * H/H 8.0/25.3 * Anemia labs ordered, iron 34, TV AC 355, % saturation 10, transferrin 220, ferritin 148, B12 869, folate greater than 20 * no report of any bleeding * Occult blood ordered * GI consult
--- NOTE | 2022-04-02 07:45 | PM.IMPN ---
Progress Note: A&P Assessment and Plan (1) Pulmonary embolism: Code(s): I26.99 - Other pulmonary embolism without acute cor pulmonale Status: Acute Assessment and Plan: VQ scan indicated intermediate probability Unable to anticoagulate due to severe anemia Would confirm with elevated heart rate, chest pain, increased respirations, and oxygen requirements Unable to CTA due to renal function Seems stable for now (2) Pneumonia: Qualifiers: Laterality: bilateral Lung location: unspecified part of lung Pneumonia type: due to unspecified organism Qualified Code(s): J18.9 - Pneumonia, unspecified organism Code(s): J18.9 - Pneumonia, unspecified organism Status: Acute Assessment and Plan: Chest xray from 04/02/22 shows worsening opacities, possible pulmonary edema, PNA, or hemorrhage Azithromycin and ceftriaxone changed to cefepime and vancomycin WBC trending down and is currently 11.8, but was higher overnight at 13.6 Sputum culture shows mixed león Trend labs Blood culture NGTD Trend chest X-ray Mycoplasma, pneumococcal, and legionella ordered Deescalate antibiotics is appropriate CT of the chest abdomen pelvis ordered (3) Flash pulmonary edema: Code(s): J81.0 - Acute pulmonary edema Status: Acute Assessment and Plan: Xray noted pulmonary edema Increase in oxygen requirements with chest pain Bumex and Lasix given Good urinary return Ct of the chest ordered continue to trend output (4) CHF (congestive heart failure): Code(s): I50.9 - Heart failure, unspecified Status: Acute Assessment and Plan: At this time would say she is in an acute exacerbation of diastolic heart failure Echo has EF of 65-70% with grade 1 DD Chest xray indicates pulmonary edema vs PNA Troponins mildly elevated but flat EKG stable Lasix and Bumex given throughout the night Oxygen requirements went up, currently 6L high flow cannula Worsening renal failure WBC elevated Continue to trend labs Mag replaced with 4gm, currently at 1.6 Daily weights (5) Factor V Leiden: Code(s): D68.51 - Activated protein C resistance Status: Acute Assessment and Plan: V/Q scan shows intermediate probability of a PE Currently on Eliquis, however only taking 5mg PO daily, which she should probably be on 5mg PO BID Pending Consult oncology due to the clotting disorder Patient only taking her Eliquis one time per day Venous Doppler was done on 03/16/22 which found multiple DVTS (6) KRUNAL (acute kidney injury): Code(s): N17.9 - Acute kidney failure, unspecified Status: Acute Assessment and Plan: Current BUN/Cr 29/2.20 Worsening at this time Nephro consult thank you for your help urine studies ordered Trend labs Labs in the am Hold lisinopril Cr was 0.89 in September Avoid nephrotoxic medications Fluids at 125ml/hr, stopped for possible pulmonary edema (7) Anemia: Code(s): D64.9 - Anemia, unspecified Status: Acute Assessment and Plan: H/H 8.0/25.3 Anemia labs ordered, iron 34, TV AC 355, % saturation 10, transferrin 220, ferritin 148, B12 869, folate greater than 20 no report of any bleeding Occult blood ordered GI consulted thank you for your help Hematology ordered as well trend labs H/H Q6H, continue over the next 24 hours Transfuse 2 units of PRBC 04/01/22 Supplement if indicated Give IV iron x 3 doses per hematology (8) Essential hypertension, benign: Code(s): I10 - Essential (primary) hypertension Status: Acute Assessment and Plan: BP 127/47 hold lisinopril 10mg PO Daily Trend BP adjust therapy as indicated (9) Hypothyroidism: Qualifiers: Hypothyroidism type: acquired Qualified Code(s): E03.9 - Hypothyroidism, unspecified
[2022-04-02] MEDS: LIDOCAINE HCL 1% LOCAL INJ 2 ML AMPUL 5 ML INFILTRATE (09:00)
[2022-04-02] MEDS: FERROUS SULFATE 324 MG TABLET PO ×2 (09:25→17:23)
[2022-04-02 09:46] LABS: Creatine Kinase 48 U/L (30-135)
[2022-04-02 09:56] LABS: Complement C3 139 mg/dL (88-165)
[2022-04-02 10:02] LABS: Erythrocyte Sedimentation Rate > 140 mm/hr (0-20)
--- NOTE | 2022-04-02 11:22 | PM.CNNEP ---
Assessment and Plan Additional Plan 1. Karina has renal insufficiency. Her creatinine was normal just In September it is unclear whether she might have some process going on for the last 6 months which has done this to the kidneys , or if her renal insufficiency is all new within the last few days. The self administration of supplements is always a possibility as far is bothering the kidneys. Collagen vascular disease is always a possibility. Will get serology and a urinalysis and see what that looks like. She does have a history of a positive NEELAM. Rhabdomyolysis is a possibility. We will check a CK. Hemolysis can also hurt the kidneys. A haptoglobin is pending. infiltrative diseases such as myeloma could always do this as well. Will order immunofixation. obstruction is a possibility however the CT scan did not show this. vascular disease of the kidneys is a remote possibility . Arterial thrombosis or embolus to 1 kidney is possible but unlikely because usually the patient's will have blood in the urine, flank pain, and elevated liver enzymes. She does not have any of these. It is possible that the clot that she had on venous Doppler has propagated up the IVC to the renal veins but she does not have much swelling to suggest this. Patient might have had a high creatinine because of the severity of the anemia. Then with transfusion the creatinine started to get better but then the patient got hypotensive relative basis yesterday and today and so the creatinine went back up. At this point will check urine electrolytes, urinalysis, immunofixation, serology, and a renal ultrasound. I talked with PRAVEEN Snyder at length. 2. DVTs. Eliquis on hold because of the GI bleeding. Consider umbrella. 3. anemia. Dr. Hua is on the case. Considering GI bleed, hemolysis, etc. 4. Pulmonary infiltrates. PEs versus infection? 5. 6. 7. 8. History of Present Illness Reason for Consult Consult date: 04/02/22 Chief Complaint Chief complaint: pneumonia,acute kidney injury,anemia,hypoxia History of Present Illness Narrative: Karina is a very pleasant 77-year-old female who has multiple medical problems including hypertension, factor 5 laden deficiency, hypothyroidism, arthritis, GERD, chronic venous insufficiency, hyperlipidemia, hypothyroidism, and tinnitus. A few days ago the patient developed swelling and so she had a venous Doppler ordered by Shannon at Dr. irby office and it was positive so she was placed on Eliquis. On the the patient came in because of shortness of breath. This is worse with walking and worse with lying down. She also had a little bit of a cough but not very much. She had fevers off and on. She is coughing up a tiny bit of blood. No chest pain. She was evaluated in the emergency room. She was found to have bilateral pulmonary infiltrate and hemoglobin of 7.4. She is felt to possibly have pneumonia and anemia causing her shortness of breath. She was treated. She is been on antibiotics. She also received transfusion and her hemoglobin franko to 9.4 and now has drifted down to 8.0 over the last day. Her Eliquis is on hold because of the concern for GI bleeding. GI consultation is being requested. In the meantime her creatinine was 2 on admission. With transfusion her creatinine came down to 1.6 but then yesterday was back up to 2 again and also today. She did have soft blood pressures compared to those on admission day before yesterday and yesterday. She has does take any nonsteroidal anti-inflammatory agents. She has no skin rash. She has not had any bloody urine, foamy urine, kidney stones, or bladder infections. She is on multiple supplements at home. Some with unknown contents. Review of Systems Constitutional: Constitutional: Reports no additional constitutional complaints Eyes: Eyes: Reports no additional eye complaints ENT: Reports system reviewed and no aylin
[2022-04-02 12:24] LABS: Troponin I 0.033 ng/mL (0.000-0.034)
[2022-04-02] MEDS: CENTRAL LINE FLUSH 10 ML IV PUSH ×3 (12:30→20:50)
[2022-04-02] MEDS: FUROSEMIDE INJ 40 MG/4 ML VIAL IV PUSH (12:30)
--- NOTE | 2022-04-02 15:24 | PM.CNGS ---
Assessment and Plan Assessment and plan (1) DVT, bilateral lower limbs: Code(s): I82.403 - Acute embolism and thrombosis of unspecified deep veins of lower extremity, bilateral Status: Acute Assessment and Plan: We have been consulted for placement of an IVC filter. She was being treated as an outpatient for bilateral lower extremity DVTs. Venous doppler showed DVTs involving the left femoral vein and bilateral popliteal veins on 03/16/22. On this admission, she was found to be anemic with her hemoglobin dropping as low as 5.9, requiring transfusion. Anticoagulation has now been held due to the anemia and possible GI bleed. Our service has been asked to place an IVC filter. I discussed this procedure with the patient in detail, including the procedure itself, risks, benefits, and expected outcomes. All questions were answered. She agreed to proceed. I have spoke with Dr. Wills and we will add her onto the surgery schedule for this to be done in the lab rn tomorrow morning with local anesthetic. (2) Pulmonary embolism: Code(s): I26.99 - Other pulmonary embolism without acute cor pulmonale Status: Acute (3) Anemia: Code(s): D64.9 - Anemia, unspecified Status: Acute (4) Pneumonia: Qualifiers: Pneumonia type: due to unspecified organism Laterality: bilateral Lung location: unspecified part of lung Qualified Code(s): J18.9 - Pneumonia, unspecified organism Code(s): J18.9 - Pneumonia, unspecified organism Status: Acute (5) Factor V Leiden: Code(s): D68.51 - Activated protein C resistance Status: Acute (6) KRUNAL (acute kidney injury): Code(s): N17.9 - Acute kidney failure, unspecified Status: Acute (7) CHF (congestive heart failure): Code(s): I50.9 - Heart failure, unspecified Status: Acute (8) Obesity (BMI 30-39.9): Code(s): E66.9 - Obesity, unspecified Status: Acute Plan I have discussed the patient's case and plan of care with Dr. Wills. Thank you for allowing us to see the patient in consultation. History of Present Illness Consult details Consult date: 04/02/22 Reason for consult: other (Placement of IVC filter) Requesting physician: Snyder,Perry G., WASHING [employer]ACHINE [employer]SEMBLER-C Narrative: This is a 77-year-old female with a history of factor 5 Leiden, who was recently found to have bilateral lower extremity DVTs on 03/16/2022 an outpatient venous Doppler ultrasound. She had previously been treated for DVTs in the past, but was not currently on anticoagulation. She was started back on Eliquis 5 mg b.i.d. and was taking this as prescribed for the first 7 days. She thought she was told to reduce this to once daily after a week, and was then only taking 5 mg of Eliquis daily. She developed shortness of breath and came into the ER for evaluation on 03/31/2022. She was found to have acute renal failure. CXR suggested pneumonia. Due to her kidney function, she had a V/Q scan to evaluate for a PE. This showed intermediate probability for PE. Labs also revealed anemia with a hemoglobin of 7.4. She was admitted to the hospitalist. She was started on IV antibiotics. Her hemoglobin dropped to 5.9 and she received 2 units of packed red blood cells. Due to this, her Eliquis was held. She had not received a dose since 03/30/2022 prior to admission. GI has been consulted and is planning an EGD and colonoscopy tomorrow. Hospitalist has consulted our service for IVC filter placement. She is now seen in the IMU. Review of Systems Review of Systems: All systems reviewed & are unremarkable except as noted in HPI and below Constitutional: Constitutional: Reports no additional constitutional complaints and Denies fever(s) Eyes: Eyes: Reports no additional eye complaints ENT: Reports system reviewed and no additional complaints, except as documented Cardiovascular: Cardiovascular: Reports no additional cardiovascular complaints R
--- NOTE | 2022-04-02 16:03 | WPDGICN ---
Assessment and Plan Assessment and plan (1) Acute on chronic anemia: Code(s): D64.9 - Anemia, unspecified Status: Acute Assessment and Plan: I was planning to do egd and colonoscopy tomorrow but she also needs IVC filter because PE since most likely can not be on anticoagulation at least for now until we have a better etiology of acute h/h drop per hematology cardiology prefer to hold on bowel prep and postpone colonoscopy at another time because placement of IVC filter first time in the morning (2) Pulmonary embolism: Code(s): I26.99 - Other pulmonary embolism without acute cor pulmonale Status: Acute Assessment and Plan: will get IVC filter in the morning by hematology (3) KRUNAL (acute kidney injury): Code(s): N17.9 - Acute kidney failure, unspecified Status: Acute Assessment and Plan: nephrology on board (4) Factor V Leiden: Code(s): D68.51 - Activated protein C resistance Status: Acute (5) DVT, bilateral lower limbs: Code(s): I82.403 - Acute embolism and thrombosis of unspecified deep veins of lower extremity, bilateral Status: Acute (6) S/P colonoscopic polypectomy: Onset Date: ~2004 Code(s): Z98.890 - Other specified postprocedural states Status: Acute Assessment and Plan: remote surgery last colonoscopy 4 years ago GI Consult Note Consult date/time: 04/02/22 16:03 Reason for consult: acute on chronic anemia HPI: Karina Flores is a 77 year old female with history of factor 5 Leiden mutation as well as family history of blood clot in the sister and the father, she also had DVT in the left lower extremity 1 year ago and was treated with Eliquis for 6 months duration, repeat Doppler study still showed DVT and started on Eliquis but only 5 mg once a day.? This time she is admitted with progressive shortness of breath on admission.?V/Q scan reviewed and showed intermediate probability of blood clot.?Hemoglobin was 7.4 but dropped down to 5.1 and her Eliquis was discontinued, she denies overt gib.?Also generalized weakness and required blood transfusion. She had apparently partial colectomy for benign polyp about 10 years, her last colonoscopy was 4 years ago. Also noted renal failure and nephrology is on board. Review of Systems Constitutional: Constitutional: Reports no additional constitutional complaints Eyes: Eyes: Reports no additional eye complaints ENT: Reports system reviewed and no additional complaints, except as documented Cardiovascular: Cardiovascular: Reports no additional cardiovascular complaints Respiratory: Respiratory: Reports no additional respiratory complaints Gastrointestinal: Gastrointestinal: Reports no additional gastrointestinal complaints Genitourinary: Genitourinary: Reports no additional female genitourinary complaints Musculoskeletal: Musculoskeletal: Reports no additional musculoskeletal complaints Integumentary/Breasts: Skin/Breast: Reports system reviewed and no additional complaints, except as docu Neurologic: Reports system reviewed and no additional complaints, except as documented Psychiatric: Psychiatric: Reports no additional psychiatric complaints Endocrine: Endocrine: Reports no additional endocrine complaints PMFSH Past Medical History Medical History (Updated 04/02/22 @ 16:29 by Nicho William MD) Acute on chronic anemia Atrophic vulvitis Candidiasis of skin Chronic GERD Chronic venous insufficiency Deep vein blood clot of right lower extremity (~1993) Dyslipidemia Essential hypertension, benign Factor V Leiden History of intestine removal (~2004) Hx of vaginal delivery (~1964) 1965 (girl), boys: 1966, 1973, 1983 Hypothyroidism Knee osteoarthritis Phantosmia Pneumonia Tear of left infraspinatus tendon Tinnitus of both ears Surgical History Surgical History (Updated 04/02/22 @ 16:29 by Nicho William MD) H/O abdomi
[2022-04-02 19:26] LABS: IFOB Positive Control Positive; Immunochemical Fecal Occult Bl Negative (N)
[2022-04-02] MEDS: SODIUM CHLORIDE NASAL GEL 14.1 GM 1 APPLIC NASAL (20:50)
[2022-04-02 23:37] LABS: Appearance Urine Clear (Clear); Bilirubin Urine Negative (Negative); Blood Urine 2+ (Negative); Glucose Urine UA Negative (Negative); Ketones Urine Negative (Negative); Leukocyte Esterase Ur Negative LEU/UL (Negative); Nitrate Urine Negative (Negative); Protein Urine 2+ mg/dL (Negative); Urobilinogen Urine 0.2 mg/dL (<2.0)
[2022-04-02 23:45] LABS: Bacteria Urine Trace /hpf; Mucus Urine Rare /lpf; WBC Urine 0-3 /hpf
[2022-04-02 23:52] LABS: Add Urine Microscopic? YES; Color Urine Light Yellow (Yellow)
[2022-04-02 23:54] LABS: Urea Random Urine 220 MG/DL
[2022-04-02 23:57] LABS: Sodium Urine Random 34 meq/L
[2022-04-02 23:58] LABS: Creatinine Urine 37.2 mg/dL; Total Protein Urine Random 102 mg/dL; Ur Ttl Prot Creatinine Ratio 2.74 mg/mg (0-0.20)
[2022-04-03] VITALS (22 sets, daily range): BP systolic 83–135; BP diastolic 40–68; PULSE 87–118; RESP 16–28; TEMP 36.7–37.1; O2SAT 92–100
[2022-04-03] MEDS: CENTRAL LINE FLUSH 10 ML IV PUSH ×4 (05:52→21:09)
[2022-04-03 06:42] LABS: Basophils Percent Auto 0.3 % (0.2-1.2); Eosinophils Absolute Auto 0.8 K/mm3 (0-0.3); Eosinophils Percent Auto 6.2 % (0-4.4); Hematocrit 25.1 % (37.0-47.0); Hemoglobin 7.9 g/dL (12.0-15.0); Immature Granulocyte Absolute 0.08 K/mm3 (0.00-0.031); Immature Granulocyte Percent A 0.7 % (0-0.5); Lymphocytes Absolute Auto 2.05 K/mm3 (0.9-3.2); Mean Corpuscular HGB Conc 31.5 g/dl (32-36); Mean Corpuscular Hemoglobin 27.8 pg (26-34); Mean Corpuscular Volume 88.4 fl (80-100); Mean Platelet Volume 8.9 fl (7.4-10.4); Monocytes Absolute Auto 0.4 K/mm3 (0.1-0.6); Monocytes Percent Auto 3.4 % (2.6-8.5); Neutrophils Absolute Auto 8.8 K/mm3 (1.3-6.7); Neutrophils Percent Auto 72.4 % (45.5-73.1); Platelet Count Result 395 k/mm3 (150-375); Red Blood Count 2.84 M/mm3 (4.2-5.4); White Blood Count 12.1 K/mm3 (4.5-10.0)
[2022-04-03 06:56] LABS: Alanine Aminotransferase 15 U/L (6-35); Albumin Level 3.2 g/dL (3.5-5.1); Alkaline Phosphatase 103 U/L (38-126); Anion Gap 9 mmol/L (8-16); Aspartate Amino Transferase 26 U/L (14-36); Bilirubin,Total 0.8 mg/dL (0.2-1.3); Blood Urea Nitrogen 31 mg/dL (7-17); Calcium 8.9 mg/dL (8.4-10.2); Carbon Dioxide 27 mmol/L (22-30); Chloride 96 mmol/L (98-107); Estimated CRCL calculation 18 ml/min; Estimated Glomerular Filt Rate 23; Glucose 95 mg/dL (65-110); Magnesium 1.7 mg/dL (1.6-2.3); Phosphorus 4.6 mg/dL (2.5-4.5); Potassium 3.9 mmol/L (3.4-5.0); Sodium 132 mmol/L (137-145)
--- NOTE | 2022-04-03 07:25 | WPDHPUPDATE1 ---
History and Physical Update Update Date/Time: 04/03/22 07:25 History and Physical has been reviewed, including an updated exam of the patient. There are NO changes in the patient's condition. Risks, benefits, and alternatives have been discussed and questions answered. Patient agrees to proceed with procedure.
--- NOTE | 2022-04-03 07:51 | W.PM.PROC2 ---
Procedure Note - Detailed Date of Procedure 04/03/22 Pre-op Diagnosis DVT, anemia, factor 5 Leiden deficiency Post-op Diagnosis Same Procedure Performed IVC filter placement using ultrasound and fluoroscopic guidance Surgeon Dharmesh Wills, DO Anesthesia Local (1% Lidocaine) Indications this is a 77-year-old woman who presented to hospital with lower extremity DVT. She has a history of factor 5 Leiden deficiency and was on Eliquis. She appeared to develop these clots even while on the Eliquis. Once her Eliquis dose was increased, she then developed signs of profound anemia and suspected GI bleed. Anticoagulation was stopped and she is now in need of IVC filter placement to prevent pulmonary embolism while still working up for GI bleed or other source of anemia. Findings Sinosite ultrasound was used to identify the right femoral vein. This was visualized as a compressible vessel just medial to the pulsatile femoral artery. The 18 gauge introducer needle was advanced under ultrasound guidance. I had reviewed the CT prior to procedure to identify exact location of the renal veins. Fluoroscopy was then used to guide advancement of the guidewire followed by the dilator and sheath. Final fluoroscopic images demonstrated the filter in proper position at the level of the L2-L3 vertebral body. Description of Procedure Patient was brought back to dental laboratory technology teacher suite. She was placed supine dental laboratory technology teacher table. Time-out was done to confirm patient procedure. Her right groin was prepped and draped in sterile fashion using chlorhexidine prep. SonoSite ultrasound was used to identify the right femoral vein. This was visualized as a compressible vessel just medial to the right femoral artery. 1% lidocaine was infiltrated directly over this area. An 18 gauge introducer needle was then advanced under ultrasound guidance directly into the lumen of the right femoral vein. Dark nonpulsatile blood was aspirated. A 0.035 in guidewire was advanced through the needle under fluoroscopic guidance. The guidewire advanced smoothly and was visualized advancing up into the inferior vena cava. The needle was withdrawn leaving the guidewire in place. A small lashawn incision was made at the insertion site using an 11 blade scalpel. The 6 Swedish dilator and sheath were then advanced over the guidewire under fluoroscopic guidance. The sheath was advanced up to the L3 vertebral body, and then once the sheath was at the upper portion of the L3 vertebral body, the dilator and guidewire were removed. The IVC filter was then inserted into the end of the sheath and then the plunger was used to carefully advanced the filter up the length of the sheath. Once the filter was visualized under fluoroscopy at the tip of the sheath, the sheath was slowly withdrawn to allow the filter to deploy. Once the filter was completely expanded, the sheath was removed and pressure was applied at the insertion site. One final fluoroscopic image was obtained visualizing the IVC filter and proper orientation overlying the L3 vertebral body. After holding pressure for 5 minutes, there is no further blood loss and a sterile dressing was applied. Implants Howell IVC Filter Estimated Blood Loss 2 Urine Output 500 Complications No immediate complications Condition Stable Disposition Other (IMU) [facility] Billing Surgery - Charge Forward: Surgery Billing
--- NOTE | 2022-04-03 09:00 | PM.IMPN ---
Progress Note: A&P Assessment and Plan (1) Pulmonary embolism: Code(s): I26.99 - Other pulmonary embolism without acute cor pulmonale Status: Acute Assessment and Plan: VQ scan indicated intermediate probability Unable to anticoagulate due to severe anemia Would confirm with elevated heart rate, chest pain, increased respirations, and oxygen requirements Unable to CTA due to renal function Seems stable for now Currently needing 10L high flow cannula (2) Pneumonia: Qualifiers: Pneumonia type: due to unspecified organism Laterality: bilateral Lung location: unspecified part of lung Qualified Code(s): J18.9 - Pneumonia, unspecified organism Code(s): J18.9 - Pneumonia, unspecified organism Status: Acute Assessment and Plan: Chest xray from 04/02/22 shows worsening opacities, possible pulmonary edema, PNA, or hemorrhage Azithromycin and ceftriaxone changed to cefepime and vancomycin WBC trending down and is currently 12.1 Sputum culture shows mixed león Trend labs Blood culture NGTD Trend chest X-ray Mycoplasma, pneumococcal, and legionella ordered Deescalate antibiotics is appropriate CT of the chest abdomen pelvis ordered (3) Flash pulmonary edema: Code(s): J81.0 - Acute pulmonary edema Status: Acute Assessment and Plan: Xray noted pulmonary edema Increase in oxygen requirements with chest pain Bumex and Lasix given Good urinary return Ct of the chest mild pulmonary congestion continue to trend output (4) CHF (congestive heart failure): Code(s): I50.9 - Heart failure, unspecified Status: Acute Assessment and Plan: At this time would say she is in an acute exacerbation of diastolic heart failure Echo has EF of 65-70% with grade 1 DD Chest xray indicates pulmonary edema vs PNA Troponins mildly elevated but flat EKG stable Lasix and Bumex given throughout the night Oxygen requirements went up, currently 6L high flow cannula Worsening renal failure WBC elevated Continue to trend labs Mag replaced with 4gm, currently at 1.7 Daily weights (5) Factor V Leiden: Code(s): D68.51 - Activated protein C resistance Status: Acute Assessment and Plan: V/Q scan shows intermediate probability of a PE Currently on Eliquis, however only taking 5mg PO daily, which she should probably be on 5mg PO BID Pending Consult oncology due to the clotting disorder Patient only taking her Eliquis one time per day Venous Doppler was done on 03/16/22 which found multiple DVTS (6) KRUNAL (acute kidney injury): Code(s): N17.9 - Acute kidney failure, unspecified Status: Acute Assessment and Plan: Current BUN/Cr 31/2.10 Worsening at this time Nephro consult thank you for your help urine studies ordered Trend labs Labs in the am Hold lisinopril Cr was 0.89 in September Avoid nephrotoxic medications Fluids at 125ml/hr, stopped for possible pulmonary edema (7) Anemia: Code(s): D64.9 - Anemia, unspecified Status: Acute Assessment and Plan: H/H .1 Anemia labs ordered, iron 34, TV AC 355, % saturation 10, transferrin 220, ferritin 148, B12 869, folate greater than 20 no report of any bleeding Occult blood negative GI consulted thank you for your help Hematology ordered as well trend labs H/H Q6H, continue over the next 24 hours Transfuse 2 units of PRBC 04/01/22 Supplement if indicated Give IV iron x 3 doses per hematology (8) Essential hypertension, benign: Code(s): I10 - Essential (primary) hypertension Status: Acute Assessment and Plan: BP 121/56 hold lisinopril 10mg PO Daily Trend BP adjust therapy as indicated (9) Hypothyroidism: Qualifiers: Hypothyroidism type: acquired Qualified Code(s): E03.9 - H
--- NOTE | 2022-04-03 09:00 | P.PNIM_ITS ---
Progress Note: A&P Assessment and Plan (1) Pulmonary embolism: Code(s): I26.99 - Other pulmonary embolism without acute cor pulmonale Status: Acute Assessment and Plan: * VQ scan indicated intermediate probability * Unable to anticoagulate due to severe anemia * Would confirm with elevated heart rate, chest pain, increased respirations, and oxygen requirements * Unable to CTA due to renal function * Seems stable for now * Currently needing 10L high flow cannula (2) Pneumonia: Qualifiers: Pneumonia type: due to unspecified organism Laterality: bilateral Lung location: unspecified part of lung Qualified Code(s): J18.9 - Pneumonia, unspecified organism Code(s): J18.9 - Pneumonia, unspecified organism Status: Acute Assessment and Plan: * Chest xray from 04/02/22 shows worsening opacities, possible pulmonary edema, PNA, or hemorrhage * Azithromycin and ceftriaxone changed to cefepime and vancomycin * WBC trending down and is currently 12.1 * Sputum culture shows mixed león * Trend labs * Blood culture NGTD * Trend chest X-ray * Mycoplasma, pneumococcal, and legionella ordered * Deescalate antibiotics is appropriate * CT of the chest abdomen pelvis ordered (3) Flash pulmonary edema: Code(s): J81.0 - Acute pulmonary edema Status: Acute Assessment and Plan: * Xray noted pulmonary edema * Increase in oxygen requirements with chest pain * Bumex and Lasix given * Good urinary return * Ct of the chest mild pulmonary congestion * continue to trend output (4) CHF (congestive heart failure): Code(s): I50.9 - Heart failure, unspecified Status: Acute Assessment and Plan: * At this time would say she is in an acute exacerbation of diastolic heart failure * Echo has EF of 65-70% with grade 1 DD * Chest xray indicates pulmonary edema vs PNA * Troponins mildly elevated but flat * EKG stable * Lasix and Bumex given throughout the night * Oxygen requirements went up, currently 6L high flow cannula * Worsening renal failure * WBC elevated * Continue to trend labs * Mag replaced with 4gm, currently at 1.7 * Daily weights (5) Factor V Leiden: Code(s): D68.51 - Activated protein C resistance Status: Acute Assessment and Plan: * V/Q scan shows intermediate probability of a PE * Currently on Eliquis, however only taking 5mg PO daily, which she should probably be on 5mg PO BID * Pending * Consult oncology due to the clotting disorder * Patient only taking her Eliquis one time per day * Venous Doppler was done on 03/16/22 which found multiple DVTS (6) KRUNAL (acute kidney injury): Code(s): N17.9 - Acute kidney failure, unspecified Status: Acute Assessment and Plan: * Current BUN/Cr 31/2.10 * Worsening at this time * Nephro consult thank you for your help * urine studies ordered * Trend labs * Labs in the am * Hold lisinopril * Cr was 0.89 in September * Avoid nephrotoxic medications * Fluids at 125ml/hr, stopped for possible pulmonary edema (7) Anemia: Code(s): D64.9 - Anemia, unspecified Status: Acute Assessment and Plan: * H/H 7.9/.1 * Anemia labs ordered, iron 34, TV AC 355, % saturation 10, transferrin 220, ferritin 148, B12 869, folate greater than 20 * no report of any bleeding * Occult
[2022-04-03] MEDS: LACTATED RINGERS 1,000 ML 150 ML IV CONT (12:48)
--- NOTE | 2022-04-03 12:49 | WPDANESEPPF ---
Anes - Initial Pre Proc Eval Procedure: Operation Date: 04/03/22 07:45 Proposed Procedures p Inferior Vena Cava (IVC) Placement - Dharmesh Wills DO Operation Date: 04/03/22 14:00 Proposed Procedures p Esophagogastroduodenoscopy - Nicho William MD Date/Time: 04/03/22 12:49 Surgeon: Mary Ann Penny DO Pre Op Diagnosis: pneumonia,acute kidney injury,anemia,hypoxia Patient Data Age: 77 Gender: F Height: 1.57 m Weight: 74 kg Last Vital Signs Temp 36.7 C 04/03/22 12:43 Pulse 95 04/03/22 12:43 Resp 20 04/03/22 12:43 BP 129/63 04/03/22 12:43 Pulse Ox 93 04/03/22 12:43 O2 Del Method High Flow Nasal Cannula 04/03/22 12:43 O2 Flow Rate 10 04/03/22 12:43 Allergies Allergy/AdvReac Type Severity Reaction Status Date / Time No Known Allergies Allergy Unknown Verified 04/03/22 12:41 Home Medications Medication Instructions Recorded Confirmed Type calcium carbonate 600 mg calcium 600 mg PO BID 07/25/19 04/03/22 History (1,500 mg) tablet (Calcium) multivitamin 1 cap PO DAILY 07/25/19 04/03/22 History omeprazole 20 mg capsule,delayed 20 mg PO DAILY 07/25/19 04/03/22 History release elderberry fruit 460 mg-elderberry 1 cap PO DAILY 06/13/20 04/03/22 History flower 115 mg capsule acetaminophen 500 mg tablet 1,000 mg PO BID PRN Pain, Mild 11/17/21 04/03/22 History lisinopril 10 mg tablet 10 mg PO DAILY #30 tabs 02/11/22 04/03/22 Rx mupirocin 2 % topical ointment See Rx Instructions .Route 03/26/22 04/03/22 Rx .COMPLEX #22 grams apixaban 5 mg tablet (Eliquis) 5 mg PO BID 03/27/22 04/03/22 History ascorbic acid (vitamin C) 1,000 mg 1 g PO DAILY 03/27/22 04/03/22 History capsule cholecalciferol (vitamin D3) 50 100 mcg PO DAILY 03/27/22 04/03/22 History mcg (2,000 unit) capsule propylene glycol 0.6 % eye drops 1 drp EACH EYE DAILY PRN Dry Eye(S) 03/27/22 04/03/22 History (Systane Balance) Biotin Plus Keratin 1 tab-cap BYMOUTH DAILY 03/31/22 04/03/22 History Lactobac 51-Bifidobac 1 cap PO DAILY 03/31/22 04/03/22 History 3-L.lactis-S.thermophilus 4 billion cell capsule (Daily Probiotic (10 Strains)) aspirin 81 mg tablet,delayed 81 mg PO DAILY 03/31/22 04/03/22 History release coffee extract 100 mg-phosphatidyl 1 cap PO DAILY 03/31/22 04/03/22 History serine 100 mg capsule (Neuriva Original) guar gum 1 tbsp PO DAILY 03/31/22 04/03/22 History magnesium 200 mg tablet 400 mg PO DAILY 03/31/22 04/03/22 History turmeric root extract 500 mg 1,000 mg PO DAILY 03/31/22 04/03/22 History capsule Laboratory Tests 04/01/22 04/02/22 04/02/22 18:55 23:09 23:09 WBC RBC Hgb Hct MCV MCH MCHC RDW Plt Count MPV Immature Gran % (Auto) Neut % (Auto) Lymph % (Auto) [place] % (Auto) Eos % (Auto) Baso % (Auto) Lymph # (Auto) [place] # (Auto) Eos # (Auto) Baso # (Auto) Abs Immat Gran (auto) Absolute Neuts (auto) Absolute Nucleated RBC Nucleated RBC % Sodium Potassium Chloride Carbon Dioxide Anion Gap BUN Creatinine Estim Creat Clear Calc Estimated GFR Glucose Calcium Phosphorus Magnesium Total Bilirubin AST ALT Alkaline Phosphatase Total Protein Albumin Urine Color Light yellow (Yellow) Urine Appearance Clear (Clear) Urine pH 6.0 (5.0-9.0) Ur Specific [place] 1.010 (1.001-1.035) Urine Protein 2+ mg/dL H mg/dL (Negative) Urine Glucose (UA) Negative mg/dL mg
--- NOTE | 2022-04-03 14:39 | PM.PNNEP ---
Progress Note: A&P Additional Plan 1. Karina has renal insufficiency. Her creatinine was normal just in September. the timing of the elevation of creatinine is not clear. It could have been days or months. Renal Ultrasound is normal. CK is normal UA shows blood and protein urine lytes are non pre renal With shortness of breath she got a single dose of furosemide and her urine output was very responsive. etiology of renal failure is unclear. The fact that her creatinine seems to be stable, especially in the face of a large volume diuresis this may be a chronic issue. At least the creatinine is not rising daily. Possibilities include toxicity from supplements, collagen vascular disease, and infiltrative diseases. Others are less likely. Because of the hemoptysis will check ANCA and GBM levels. However if this were an active collagen vascular disease I would think that her creatinine would be getting worse. Will continue supportive care. No need for IV fluids of course because she was volume overloaded last night. 2. DVTs. Eliquis on hold because of the GI bleeding. she got an umbrella this morning. 3. anemia. Dr. Hua is on the case. Considering GI bleed, hemolysis, etc. Hemoccult is negative, interestingly. 4. Pulmonary infiltrates. PEs versus infection? I agree with Dr. Snyder that the former is more likely than the latter. Subjective Date/time seen: 04/03/22 14:39 Interval history: Patient has cough and shortness of breath. She coughed up some blood and blew blood out of her nose this morning. still making some urine. Review of Systems Cardiovascular: Cardiovascular: Reports no additional cardiovascular complaints Respiratory: Respiratory: Reports no additional respiratory complaints Gastrointestinal: Gastrointestinal: Reports no additional gastrointestinal complaints Genitourinary: Genitourinary: Reports no additional female genitourinary complaints Exam Narrative: WDWN in NAD skin no rash head ncat lungs decreased breath sounds at the bases. Rare crackles cor reg no rub abd BS+ nontender and soft ext Trace edema. Objective Data Vital Signs Vital Signs: Vital Signs - 24 hr 04/02/22 16:00 04/02/22 16:00 04/02/22 16:00 Temperature 37.8 C H Pulse Rate 108 H 117 H Pulse Rate [Bilateral Pedal (Dorsalis Pedis) Palpation] Respiratory Rate 12 Blood Pressure 131/54 L Pulse Oximetry 91 90 Oxygen Delivery High Flow Nasal Cannula Oxygen Flow Rate 8 04/02/22 18:00 04/02/22 20:00 04/02/22 20:00 Temperature 37.6 C H Pulse Rate 109 H 108 H Pulse Rate [Bilateral Pedal (Dorsalis Pedis) Palpation] Respiratory Rate 18 Blood Pressure 110/49 L Pulse Oximetry 91 91 Oxygen Delivery High Flow Nasal Cannula Oxygen Flow Rate 10 04/02/22 20:00 04/02/22 22:00 04/03/22 00:00 Temperature 36.8 C Pulse Rate 100 96 101 H Pulse Rate [Bilateral Pedal (Dorsalis Pedis) Palpation] Respiratory Rate 20 Blood Pressure 114/52 L Pulse Oximetry 92 Oxygen Delivery Oxygen Flow Rate 04/03/22 00:00 04/03/22 03:25 04/03/22 00:00 Temperature Pulse Rate 98 Pulse Rate [Bilateral Pedal (Dorsalis Pedis) Palpation] Respiratory Rate Blood Pressure Pulse Oximetry 93 94 Oxygen Delivery High Flow Nasal Cannula High Flow Nasal Cannula Oxygen Flow Rate 10 10 04/03/22 02:00 04/03/22 04:00 04/03/22 04:00 Temperature 36.9 C Pulse Rate 94 96 98 Pulse Rate [Bilateral Pedal (Dorsalis Pedis) Palpation] Respiratory Rate 16 Blood Pressure 117/50 L Pulse Oximetry 94 Oxygen Delivery Oxygen Flow Rate 04/03/22 06:00 04/03/22 08:23 04/03/22 08:05 Temperature Pulse Rate 92 90 Pulse Rate [Bilateral Pedal (Dorsalis Pedis) Palpation] 88 Respiratory Rate 28 H Blood Pressure 129/61 Pulse Oximetry 92 Oxygen Delivery High Flow Nasal Cannula Oxygen Flow Rate 10 04/03/22 08:15 04/03/22 08:25
[2022-04-03] MEDS: FERROUS SULFATE 324 MG TABLET PO (18:55)
[2022-04-03] MEDS: SODIUM CHLORIDE NASAL GEL 14.1 GM 1 APPLIC NASAL (21:08)
[2022-04-04] VITALS (14 sets, daily range): BP systolic 108–125; BP diastolic 45–59; PULSE 85–112; RESP 16–24; TEMP 36.6–37.6; O2SAT 88–99
[2022-04-04 04:45] LABS: Basophils Percent Auto 0.2 % (0.2-1.2); Eosinophils Percent Auto 7.3 % (0-4.4); Hematocrit 24.2 % (37.0-47.0); Hemoglobin 7.8 g/dL (12.0-15.0); Immature Granulocyte Absolute 0.16 K/mm3 (0.00-0.031); Immature Granulocyte Percent A 1.2 % (0-0.5); Lymphocytes Absolute Auto 1.55 K/mm3 (0.9-3.2); Lymphocytes Percent Auto 11.3 % (18.3-44.2); Mean Corpuscular HGB Conc 32.2 g/dl (32-36); Mean Corpuscular Hemoglobin 28.7 pg (26-34); Mean Platelet Volume 8.6 fl (7.4-10.4); Monocytes Absolute Auto 0.5 K/mm3 (0.1-0.6); Monocytes Percent Auto 3.4 % (2.6-8.5); Neutrophils Absolute Auto 10.5 K/mm3 (1.3-6.7); Neutrophils Percent Auto 76.6 % (45.5-73.1); Platelet Count Result 359 k/mm3 (150-375); Red Blood Count 2.72 M/mm3 (4.2-5.4); Red Cell Distribution Width 14.7 % (11.5-14.5); White Blood Count 13.7 K/mm3 (4.5-10.0)
[2022-04-04 05:00] LABS: Alanine Aminotransferase 20 U/L (6-35); Albumin Level 3.2 g/dL (3.5-5.1); Alkaline Phosphatase 109 U/L (38-126); Anion Gap 8 mmol/L (8-16); Aspartate Amino Transferase 36 U/L (14-36); Bilirubin,Total 0.7 mg/dL (0.2-1.3); Blood Urea Nitrogen 40 mg/dL (7-17); Calcium 8.4 mg/dL (8.4-10.2); Carbon Dioxide 26 mmol/L (22-30); Chloride 98 mmol/L (98-107); Estimated CRCL calculation 19 ml/min; Estimated Glomerular Filt Rate 23; Glucose 104 mg/dL (65-110); Magnesium 1.7 mg/dL (1.6-2.3); Sodium 132 mmol/L (137-145)
[2022-04-04] MEDS: CENTRAL LINE FLUSH 10 ML IV PUSH ×4 (06:07→21:48)
--- NOTE | 2022-04-04 09:09 | P.PNIM_ITS ---
Progress Note: A&P Assessment and Plan (1) Pulmonary embolism: Code(s): I26.99 - Other pulmonary embolism without acute cor pulmonale Status: Acute Assessment and Plan: * VQ scan indicated intermediate probability * Unable to anticoagulate due to severe anemia * Would confirm with elevated heart rate, chest pain, increased respirations, and oxygen requirements * Unable to CTA due to renal function * Seems stable for now * Currently needing 10L high flow cannula * IVC filter placed yesterday (2) Pneumonia: Qualifiers: Laterality: bilateral Lung location: unspecified part of lung Pneumonia type: due to unspecified organism Qualified Code(s): J18.9 - Pneumonia, unspecified organism Code(s): J18.9 - Pneumonia, unspecified organism Status: Acute Assessment and Plan: * Chest xray from 04/02/22 shows worsening opacities, possible pulmonary edema, PNA, or hemorrhage * Azithromycin and ceftriaxone changed to cefepime and vancomycin * WBC currently 13.7 * Sputum culture shows mixed león * Trend labs * Blood culture NGTD * Trend chest X-ray * Mycoplasma, pneumococcal, and legionella ordered and pending * Deescalate antibiotics is appropriate * CT of the chest abdomen pelvis diffuse lung disease consistent with PNA * Chest xray from 04/04/22 shows mild improvement * Anti-tussives, and Chloraseptic spray ordered for further comfort (3) Flash pulmonary edema: Code(s): J81.0 - Acute pulmonary edema Status: Acute Assessment and Plan: * Seems to be resolving * No increased oxygen needs * Xray noted pulmonary edema * Increase in oxygen requirements with chest pain * Bumex and Lasix given * Good urinary return * Ct of the chest mild pulmonary congestion * continue to trend output (4) CHF (congestive heart failure): Code(s): I50.9 - Heart failure, unspecified Status: Acute Assessment and Plan: * At this time would say she is in an acute exacerbation of diastolic heart failure * Echo has EF of 65-70% with grade 1 DD * Chest xray indicates pulmonary edema vs PNA * Troponins mildly elevated but flat * EKG stable * Lasix and Bumex given throughout the night * Oxygen requirements went up, currently 6L high flow cannula * Worsening renal failure * WBC elevated, currently 13.7 * Continue to trend labs * Mag replaced with 4gm, currently at 1.7 * Daily weights (5) Factor V Leiden: Code(s): D68.51 - Activated protein C resistance Status: Acute Assessment and Plan: * V/Q scan shows intermediate probability of a PE * Eliquis on hold due to symptomatic anemia * Consult oncology due to the clotting disorder * Patient only taking her Eliquis one time per day * Venous Doppler was done on 03/16/22 which found multiple DVTS (6) KRUNAL (acute kidney injury): Code(s): N17.9 - Acute kidney failure, unspecified Status: Acute Assessment and Plan: * Current BUN/Cr 40/2.10 * seems to remain stable * FEUrea score is 31.0% indicating pre renal * Could be hypotension, fluid overload * Nephro consult thank you for your help * urine studies ordered * Trend labs * Labs in the am * Hold lisinopril * Cr was 0.89 in September * Avoid nephrotoxic medications * Fluids at 125ml/hr, stopped for possible pulmonary edema (7) Anemia: Code(s): D64.9 - Ane
--- NOTE | 2022-04-04 09:09 | PM.IMPN ---
Progress Note: A&P Assessment and Plan (1) Pulmonary embolism: Code(s): I26.99 - Other pulmonary embolism without acute cor pulmonale Status: Acute Assessment and Plan: VQ scan indicated intermediate probability Unable to anticoagulate due to severe anemia Would confirm with elevated heart rate, chest pain, increased respirations, and oxygen requirements Unable to CTA due to renal function Seems stable for now Currently needing 10L high flow cannula IVC filter placed yesterday (2) Pneumonia: Qualifiers: Laterality: bilateral Lung location: unspecified part of lung Pneumonia type: due to unspecified organism Qualified Code(s): J18.9 - Pneumonia, unspecified organism Code(s): J18.9 - Pneumonia, unspecified organism Status: Acute Assessment and Plan: Chest xray from 04/02/22 shows worsening opacities, possible pulmonary edema, PNA, or hemorrhage Azithromycin and ceftriaxone changed to cefepime and vancomycin WBC currently 13.7 Sputum culture shows mixed león Trend labs Blood culture NGTD Trend chest X-ray Mycoplasma, pneumococcal, and legionella ordered and pending Deescalate antibiotics is appropriate CT of the chest abdomen pelvis diffuse lung disease consistent with PNA Chest xray from 04/04/22 shows mild improvement Anti-tussives, and Chloraseptic spray ordered for further comfort (3) Flash pulmonary edema: Code(s): J81.0 - Acute pulmonary edema Status: Acute Assessment and Plan: Seems to be resolving No increased oxygen needs Xray noted pulmonary edema Increase in oxygen requirements with chest pain Bumex and Lasix given Good urinary return Ct of the chest mild pulmonary congestion continue to trend output (4) CHF (congestive heart failure): Code(s): I50.9 - Heart failure, unspecified Status: Acute Assessment and Plan: At this time would say she is in an acute exacerbation of diastolic heart failure Echo has EF of 65-70% with grade 1 DD Chest xray indicates pulmonary edema vs PNA Troponins mildly elevated but flat EKG stable Lasix and Bumex given throughout the night Oxygen requirements went up, currently 6L high flow cannula Worsening renal failure WBC elevated, currently 13.7 Continue to trend labs Mag replaced with 4gm, currently at 1.7 Daily weights (5) Factor V Leiden: Code(s): D68.51 - Activated protein C resistance Status: Acute Assessment and Plan: V/Q scan shows intermediate probability of a PE Eliquis on hold due to symptomatic anemia Consult oncology due to the clotting disorder Patient only taking her Eliquis one time per day Venous Doppler was done on 03/16/22 which found multiple DVTS (6) KRUNAL (acute kidney injury): Code(s): N17.9 - Acute kidney failure, unspecified Status: Acute Assessment and Plan: Current BUN/Cr 40/2.10 seems to remain stable FEUrea score is 31.0% indicating pre renal Could be hypotension, fluid overload Nephro consult thank you for your help urine studies ordered Trend labs Labs in the am Hold lisinopril Cr was 0.89 in September Avoid nephrotoxic medications Fluids at 125ml/hr, stopped for possible pulmonary edema (7) Anemia: Code(s): D64.9 - Anemia, unspecified Status: Acute Assessment and Plan: H/H 7.8/24.2 Anemia labs ordered, iron 34, TV AC 355, % saturation 10, transferrin 220, ferritin 148, B12 869, folate greater than 20 no report of any bleeding Occult blood negative GI consulted thank you for your help Hematology ordered as well trend labs H/H Q6H, continue over the next 24 hours Transfuse 2 units of PRBC 04/01/22 Supplement if indicated Give IV iron x 3 doses per hematology EGD did not indicate any bleeding Colonoscopy scheduled for Wednesday (8) Essential hyper
[2022-04-04] MEDS: MORPHINE SULFATE (*CRX) 2 MG/ML INJ 1 MG IV PUSH (10:45)
--- NOTE | 2022-04-04 10:47 | WPDANESPN ---
Anes - Prog Note Post-Op Date/Time: 04/04/22 10:47 Cardiovascular status: normal Respiratory status: normal Airway patency: baseline Mental status: baseline Post-Op hydration status: normal Vital Signs: Last Vital Signs Temp 37.6 C H 04/04/22 08:00 Pulse 89 04/04/22 10:00 Resp 24 H 04/04/22 08:00 BP 108/53 L 04/04/22 08:00 Pulse Ox 93 04/04/22 08:30 O2 Del Method High Flow Nasal Cannula 04/04/22 08:30 O2 Flow Rate 10 04/04/22 08:30 Pain Score (VAS): 0/10 I/O: Intake & Output 04/03/22 04/04/22 04/04/22 23:59 07:59 15:59 Intake Total 340 650 Output Total 1000 900 Balance -660 -250 Laboratory Tests 04/04/22 04:29 04/04/22 04:29 04/03/22 04/03/22 04/04/22 03:33 16:43 04:29 WBC 13.7 H RBC 2.72 L Hgb 7.8 L Hct 24.2 L MCV 89.0 MCH 28.7 MCHC 32.2 RDW 14.7 H Plt Count 359 MPV 8.6 Immature Gran % (Auto) 1.2 H Neut % (Auto) 76.6 H Lymph % (Auto) 11.3 L [place] % (Auto) 3.4 Eos % (Auto) 7.3 H Baso % (Auto) 0.2 Lymph # (Auto) 1.55 [place] # (Auto) 0.5 Eos # (Auto) 1.0 H Baso # (Auto) 0.0 Abs Immat Gran (auto) 0.16 H Absolute Neuts (auto) 10.5 H Absolute Nucleated RBC 0.0 Nucleated RBC % 0.0 Sodium Potassium Chloride Carbon Dioxide Anion Gap BUN Creatinine Estim Creat Clear Calc Estimated GFR Glucose Calcium Magnesium Total Bilirubin AST ALT Alkaline Phosphatase Total Protein Albumin Ur 24 Hour Volume Cancelled U Protein 24 Hr Presump Cancelled U [place] Chn Trisha 24hr Cancelled U Tot [place] Light 24h Cancelled U Lambda Chn Trisha 24h Cancelled U Tot Lambda Light 24h Cancelled Ur CHANTEL Interpret 24 hr Cancelled ANCA Screen Pending Anti-DNA Antibody Pending Glomerular Base Memb Ab Pending Free [place] & Lambda LC Cancelled 04/04/22 04:29 WBC RBC Hgb Hct MCV MCH MCHC RDW Plt Count MPV Immature Gran % (Auto) Neut % (Auto) Lymph % (Auto) [place] % (Auto) Eos % (Auto) Baso % (Auto) Lymph # (Auto) [place] # (Auto) Eos # (Auto) Baso # (Auto) Abs Immat Gran (auto) Absolute Neuts (auto) Absolute Nucleated RBC Nucleated RBC % Sodium 132 L Potassium 4.0 Chloride 98 Carbon Dioxide 26 Anion Gap 8 BUN 40 H Creatinine 2.10 H Estim Creat Clear Calc 19 Estimated GFR 23 L Glucose 104 Calcium 8.4 Magnesium 1.7 Total Bilirubin 0.7 AST 36 ALT 20 Alkaline Phosphatase 109 Total Protein 7.0 Albumin 3.2 L Ur 24 Hour Volume U Protein 24 Hr Presump U [place] Chn Trisha 24hr U Tot [place] Light 24h U Lambda Chn Trisha 24h U Tot Lambda Light 24h Ur CHANTEL Interpret 24 hr ANCA Screen Anti-DNA Antibody Glomerular Base Memb Ab Free [place] & Lambda LC Microbiology 03/31/22 22:37 Sputum Sputum Culture - Final Post-procedural complaints: none Patient Feedback: Patient satisfied with anesthetic care.
--- NOTE | 2022-04-04 11:55 | WPDGIPROGNO ---
Progress Note: A&P Assessment and Plan (1) Acute on chronic anemia: Code(s): D64.9 - Anemia, unspecified Status: Acute Assessment and Plan: hb low but no further drop egd negative will do colonoscopy Wednesday to check if anything to explain acute anemia hematology on board AC on hold (2) Factor V Leiden: Code(s): D68.51 - Activated protein C resistance Status: Acute Assessment and Plan: AC on hold given acute drop of h/h s/p ivc filter (3) Pulmonary embolism: Code(s): I26.99 - Other pulmonary embolism without acute cor pulmonale Status: Acute (4) KRUNAL (acute kidney injury): Code(s): N17.9 - Acute kidney failure, unspecified Status: Acute Assessment and Plan: work up in progress by primary (5) Pneumonia: Qualifiers: Pneumonia type: due to unspecified organism Laterality: bilateral Lung location: unspecified part of lung Qualified Code(s): J18.9 - Pneumonia, unspecified organism Code(s): J18.9 - Pneumonia, unspecified organism Status: Acute Assessment and Plan: on abx Subjective Date/time seen: 04/04/22 11:55 Interval history: egd yesterday only HH, no signs of upper gib. She also had IVC filter placement, today had some pain in rt abdomen. Review of Systems Review of Systems: All systems reviewed & are unremarkable except as noted in HPI and below Exam Const: General: cooperative, healthy appearing, no acute distress, well developed, alert and awake Nutritional Appearance: well nourished Orientation/consciousness: patient oriented x3 Limitations: no limitations HENMT: Head: normal to inspection Ears: hearing grossly normal bilaterally General nose exam: Normal external nose present Eyes: General: appearance normal, both eyes and all related structures Neck: Neck: normal visual inspection, full ROM and supple Resp: Effort & Inspection: normal respiratory effort and able to speak in complete sentences Auscultation: clear to auscultation bilaterally Cardio: Jugular venous distension: no JVD Rate: regular rate Rhythm: regular rhythm GI: Inspection: normal to inspection Auscultation: normal bowel sounds Skin: General skin exam: normal color and no rashes or lesions noted Lesions: no lesions Rashes: no rashes Neuro: General: patient oriented x3, moves all extremities and Normal light touch and pain sensation Speech: normal speech Extrem: General: normal to inspection Psych: Appearance: grossly normal Objective Data Vital Signs Vital Signs: Vital Signs - 24 hr 04/03/22 12:43 04/03/22 12:00 04/03/22 13:43 Temperature 98.1 F Pulse Rate 95 90 Respiratory Rate 20 22 H Blood Pressure 129/63 83/40 L Pulse Oximetry 93 95 92 Oxygen Delivery High Flow Nasal Cannula High Flow Nasal Cannula High Flow Nasal Cannula Oxygen Flow Rate 10 10 10 04/03/22 13:53 04/03/22 14:03 04/03/22 14:35 Temperature Pulse Rate 94 95 Respiratory Rate 24 H 24 H Blood Pressure 111/60 106/56 L Pulse Oximetry 97 96 95 Oxygen Delivery High Flow Nasal Cannula High Flow Nasal Cannula High Flow Nasal Cannula Oxygen Flow Rate 10 10 10 04/03/22 12:00 04/03/22 17:00 04/03/22 16:00 Temperature 98.8 F Pulse Rate 94 93 Respiratory Rate 16 Blood Pressure 116/40 L Pulse Oximetry 95 97 Oxygen Delivery High Flow Nasal Cannula Oxygen Flow Rate 10 04/03/22 18:00 04/03/22 20:00 04/04/22 00:00 Temperature 98.7 F 98.9 F Pulse Rate 110 H 104 H 100 Respiratory Rate 18 20 Blood Pressure 135/68 125/45 L Pulse Oximetry 96 91 Oxygen Delivery Oxygen Flow Rate 04/03/22 20:00 04/04/22 00:00 04/03/22 20:00 Temperature Pulse Rate 118 H Respiratory Rate Blood Pressure Pulse Oximetry 100 93 Oxygen Delivery High Flow Nasal Cannula High Flow Nasal Cannula Oxygen Flow Rate 10 8 04/03/22 22:00 04/04/22 00:00 04/04/22 02:00 Temperature Pulse Rate 101 H 101 H
--- NOTE | 2022-04-04 13:49 | PM.PNNEP ---
Progress Note: A&P Additional Plan 1. Karina has renal insufficiency. Her creatinine was normal just in September. the timing of the elevation of creatinine is not clear. It could have been days or months. Renal Ultrasound is normal. CK is normal UA shows blood and protein urine lytes are non pre renal With shortness of breath she got a single dose of furosemide the other day and her urine output was very responsive. her chest x-ray today showed mild improvement. etiology of renal failure is unclear. The fact that her creatinine seems to be stable, especially in the face of a large volume diuresis this may be a chronic issue. At least the creatinine is not rising daily. Possibilities include toxicity from supplements, collagen vascular disease, and infiltrative diseases. Others are less likely. color flow doppler of kidneys pending. Glomerulonephritis is possible but I would think her creatinine would be continuing to worsen. Will continue to watch the creatinine. It is basically stable. She is still on a lot of oxygen. Will try 1 more dose of diuretics 2. DVTs. Eliquis on hold because of the GI bleeding. she got an umbrella this morning. 3. anemia. Dr. Hua is on the case. Considering GI bleed, hemolysis, etc. Hemoccult is negative, interestingly. EGD was negative. Colonoscopy planned for Wednesday. 4. Pulmonary infiltrates. PEs versus infection? I agree with Dr. Snyder that the former is more likely than the latter. Volume overload is always a possibility as well. She seemed to respond well to diuretics before with respect to both urine output and symptoms. Will try 1 more dose of diuretics. Subjective Date/time seen: 04/04/22 13:49 Interval history: Cough is a little better. Lying flat of in bed not short of breath. coughed up a tiny bit of blood yesterday. Swelling is better Exam Narrative: WDWN in NAD skin no rash head ncat lungs decreased breath sounds at the bases. Rare crackles cor reg no rub or gallop abd BS+ nontender and soft ext Trace edema. Objective Data Vital Signs Vital Signs: Vital Signs - 24 hr 04/03/22 13:53 04/03/22 14:03 04/03/22 14:35 Temperature Pulse Rate 94 95 Respiratory Rate 24 H 24 H Blood Pressure 111/60 106/56 L Pulse Oximetry 97 96 95 Oxygen Delivery High Flow Nasal Cannula High Flow Nasal Cannula High Flow Nasal Cannula Oxygen Flow Rate 10 10 10 04/03/22 17:00 04/03/22 16:00 04/03/22 18:00 Temperature 37.1 C Pulse Rate 93 110 H Respiratory Rate 16 Blood Pressure 116/40 L Pulse Oximetry 95 97 Oxygen Delivery High Flow Nasal Cannula Oxygen Flow Rate 10 04/03/22 20:00 04/04/22 00:00 04/03/22 20:00 Temperature 37.1 C 37.2 C Pulse Rate 104 H 100 Respiratory Rate 18 20 Blood Pressure 135/68 125/45 L Pulse Oximetry 96 91 100 Oxygen Delivery High Flow Nasal Cannula Oxygen Flow Rate 10 04/04/22 00:00 04/03/22 20:00 04/03/22 22:00 Temperature Pulse Rate 118 H 101 H Respiratory Rate Blood Pressure Pulse Oximetry 93 Oxygen Delivery High Flow Nasal Cannula Oxygen Flow Rate 8 04/04/22 00:00 04/04/22 02:00 04/04/22 04:00 Temperature 37.1 C Pulse Rate 101 H 93 93 Respiratory Rate 22 H Blood Pressure 125/52 L Pulse Oximetry 93 Oxygen Delivery Oxygen Flow Rate 04/04/22 04:00 04/04/22 06:00 04/04/22 04:00 Temperature Pulse Rate 94 92 Respiratory Rate Blood Pressure Pulse Oximetry 90 Oxygen Delivery High Flow Nasal Cannula Oxygen Flow Rate 8 04/04/22 08:00 04/04/22 08:30 04/04/22 08:00 Temperature 37.6 C H Pulse Rate 90 Respiratory Rate 24 H Blood Pressure 108/53 L Pulse Oximetry 97 93 95 Oxygen Delivery High Flow Nasal Cannula High Flow Nasal Cannula Oxygen Flow Rate 10 10 04/04/22 08:00 04/04/22 10:00 04/04/22 12:00 Temperature Pulse Rate 87 89 Respiratory Rate Blood Pressure Pulse
[2022-04-04] MEDS: FUROSEMIDE INJ 40 MG/4 ML VIAL IV PUSH (15:38)
[2022-04-04] MEDS: BENZOCAINE/MENTHOL (*BKC) 18 EA LOZENGE 1 LOZENGE PO ×2 (17:02→21:55)
[2022-04-04] MEDS: SODIUM CHLORIDE NASAL GEL 14.1 GM 1 APPLIC NASAL (21:48)
[2022-04-05] VITALS (15 sets, daily range): BP systolic 106–141; BP diastolic 43–71; PULSE 76–98; RESP 16–24; TEMP 36.4–37.4; O2SAT 90–100
[2022-04-05] MEDS: HYDROcodone/acetaminophen (*CRX) 5-325 MG TABLET 1 TAB PO (02:29)
[2022-04-05 02:50] LABS: Basophils Percent Auto 0.2 % (0.2-1.2); Eosinophils Absolute Auto 1.1 K/mm3 (0-0.3); Eosinophils Percent Auto 8.1 % (0-4.4); Hematocrit 23.5 % (37.0-47.0); Hemoglobin 7.4 g/dL (12.0-15.0); Immature Granulocyte Percent A 1.5 % (0-0.5); Lymphocytes Percent Auto 9.9 % (18.3-44.2); Mean Corpuscular HGB Conc 31.5 g/dl (32-36); Mean Corpuscular Hemoglobin 28.4 pg (26-34); Mean Platelet Volume 8.6 fl (7.4-10.4); Monocytes Absolute Auto 0.4 K/mm3 (0.1-0.6); Neutrophils Absolute Auto 10.1 K/mm3 (1.3-6.7); Neutrophils Percent Auto 77.3 % (45.5-73.1); Nucleated Red Blood Cells Perc 0.2 % (0.0-0.2); Platelet Count Result 303 k/mm3 (150-375); Red Blood Count 2.61 M/mm3 (4.2-5.4); Red Cell Distribution Width 14.7 % (11.5-14.5); White Blood Count 13.1 K/mm3 (4.5-10.0)
[2022-04-05 03:04] LABS: Alanine Aminotransferase 26 U/L (6-35); Albumin Level 3.1 g/dL (3.5-5.1); Alkaline Phosphatase 111 U/L (38-126); Anion Gap 10 mmol/L (8-16); Anion Gap 9 mmol/L (8-16); Aspartate Amino Transferase 44 U/L (14-36); Bilirubin,Total 0.8 mg/dL (0.2-1.3); Blood Urea Nitrogen 57 mg/dL (7-17); Calcium 8.6 mg/dL (8.4-10.2); Calcium 8.7 mg/dL (8.4-10.2); Carbon Dioxide 24 mmol/L (22-30); Carbon Dioxide 25 mmol/L (22-30); Chloride 96 mmol/L (98-107); Chloride 97 mmol/L (98-107); Estimated CRCL calculation 18 ml/min; Estimated Glomerular Filt Rate 21; Glucose 114 mg/dL (65-110); Glucose 116 mg/dL (65-110); Magnesium 1.7 mg/dL (1.6-2.3); Phosphorus 3.9 mg/dL (2.5-4.5); Potassium 3.8 mmol/L (3.4-5.0); Potassium 3.9 mmol/L (3.4-5.0); Sodium 130 mmol/L (137-145); Sodium 131 mmol/L (137-145)
[2022-04-05] MEDS: CENTRAL LINE FLUSH 10 ML IV PUSH ×4 (05:17→21:48)
--- NOTE | 2022-04-05 08:00 | P.PNIM_ITS ---
Progress Note: A&P Assessment and Plan (1) Pulmonary embolism: Code(s): I26.99 - Other pulmonary embolism without acute cor pulmonale Status: Acute Assessment and Plan: * VQ scan indicated intermediate probability * Unable to anticoagulate due to severe anemia * Would confirm with elevated heart rate, chest pain, increased respirations, and oxygen requirements * Unable to CTA due to renal function * Seems stable for now * Currently needing 6L high flow cannula * IVC filter placed 04/03/22 (2) Pneumonia: Qualifiers: Pneumonia type: due to unspecified organism Laterality: bilateral Lung location: unspecified part of lung Qualified Code(s): J18.9 - Pneumonia, unspecified organism Code(s): J18.9 - Pneumonia, unspecified organism Status: Acute Assessment and Plan: * Chest xray from 04/02/22 shows worsening opacities, possible pulmonary edema, PNA, or hemorrhage * Azithromycin and ceftriaxone changed to cefepime and vancomycin * WBC currently 13.1 * Sputum culture shows mixed león * Trend labs * Blood culture NGTD * Trend chest X-ray * Mycoplasma, pneumococcal, and legionella ordered and pending * Deescalate antibiotics is appropriate * CT of the chest abdomen pelvis diffuse lung disease consistent with PNA * Chest xray from 04/04/22 shows mild improvement * Anti-tussives, and Chloraseptic spray ordered for further comfort (3) Flash pulmonary edema: Code(s): J81.0 - Acute pulmonary edema Status: Acute Assessment and Plan: * Seems to be resolving * No increased oxygen needs * Xray noted pulmonary edema * Increase in oxygen requirements with chest pain * Good urinary return * Ct of the chest mild pulmonary congestion * continue to trend output (4) CHF (congestive heart failure): Code(s): I50.9 - Heart failure, unspecified Status: Acute Assessment and Plan: * At this time would say she is in an acute exacerbation of diastolic heart failure * Echo has EF of 65-70% with grade 1 DD * Chest xray indicates pulmonary edema vs PNA * Troponins mildly elevated but flat * EKG stable * Lasix and Bumex given throughout the night * Oxygen requirements went up, currently 6L high flow cannula * Worsening renal failure * WBC elevated, currently 13.1 * Continue to trend labs * Daily weights (5) Factor V Leiden: Code(s): D68.51 - Activated protein C resistance Status: Acute Assessment and Plan: * V/Q scan shows intermediate probability of a PE * Eliquis on hold due to symptomatic anemia * Consult oncology due to the clotting disorder * Patient only taking her Eliquis one time per day * Venous Doppler was done on 03/16/22 which found multiple DVTS (6) KRUNAL (acute kidney injury): Code(s): N17.9 - Acute kidney failure, unspecified Status: Acute Assessment and Plan: * Current BUN/Cr 57/2.30 * seems to remain stable * FEUrea score is 31.0% indicating pre renal * Could be hypotension, fluid overload * Nephro consult thank you for your help * urine studies ordered * Trend labs * Labs in the am * Hold lisinopril * Cr was 0.89 in September * Avoid nephrotoxic medications (7) Anemia: Code(s): D64.9 - Anemia, unspecified Status: Acute Assessment and Plan: * H/H 7.4// * Anemia labs ordered, iron 34, TV AC 355, %
--- NOTE | 2022-04-05 08:00 | PM.IMPN ---
Progress Note: A&P Assessment and Plan (1) Pulmonary embolism: Code(s): I26.99 - Other pulmonary embolism without acute cor pulmonale Status: Acute Assessment and Plan: VQ scan indicated intermediate probability Unable to anticoagulate due to severe anemia Would confirm with elevated heart rate, chest pain, increased respirations, and oxygen requirements Unable to CTA due to renal function Seems stable for now Currently needing 6L high flow cannula IVC filter placed 04/03/22 (2) Pneumonia: Qualifiers: Pneumonia type: due to unspecified organism Laterality: bilateral Lung location: unspecified part of lung Qualified Code(s): J18.9 - Pneumonia, unspecified organism Code(s): J18.9 - Pneumonia, unspecified organism Status: Acute Assessment and Plan: Chest xray from 04/02/22 shows worsening opacities, possible pulmonary edema, PNA, or hemorrhage Azithromycin and ceftriaxone changed to cefepime and vancomycin WBC currently 13.1 Sputum culture shows mixed león Trend labs Blood culture NGTD Trend chest X-ray Mycoplasma, pneumococcal, and legionella ordered and pending Deescalate antibiotics is appropriate CT of the chest abdomen pelvis diffuse lung disease consistent with PNA Chest xray from 04/04/22 shows mild improvement Anti-tussives, and Chloraseptic spray ordered for further comfort (3) Flash pulmonary edema: Code(s): J81.0 - Acute pulmonary edema Status: Acute Assessment and Plan: Seems to be resolving No increased oxygen needs Xray noted pulmonary edema Increase in oxygen requirements with chest pain Good urinary return Ct of the chest mild pulmonary congestion continue to trend output (4) CHF (congestive heart failure): Code(s): I50.9 - Heart failure, unspecified Status: Acute Assessment and Plan: At this time would say she is in an acute exacerbation of diastolic heart failure Echo has EF of 65-70% with grade 1 DD Chest xray indicates pulmonary edema vs PNA Troponins mildly elevated but flat EKG stable Lasix and Bumex given throughout the night Oxygen requirements went up, currently 6L high flow cannula Worsening renal failure WBC elevated, currently 13.1 Continue to trend labs Daily weights (5) Factor V Leiden: Code(s): D68.51 - Activated protein C resistance Status: Acute Assessment and Plan: V/Q scan shows intermediate probability of a PE Eliquis on hold due to symptomatic anemia Consult oncology due to the clotting disorder Patient only taking her Eliquis one time per day Venous Doppler was done on 03/16/22 which found multiple DVTS (6) KRUNAL (acute kidney injury): Code(s): N17.9 - Acute kidney failure, unspecified Status: Acute Assessment and Plan: Current BUN/Cr 57/2.30 seems to remain stable FEUrea score is 31.0% indicating pre renal Could be hypotension, fluid overload Nephro consult thank you for your help urine studies ordered Trend labs Labs in the am Hold lisinopril Cr was 0.89 in September Avoid nephrotoxic medications (7) Anemia: Code(s): D64.9 - Anemia, unspecified Status: Acute Assessment and Plan: H/H 7. Anemia labs ordered, iron 34, TV AC 355, % saturation 10, transferrin 220, ferritin 148, B12 869, folate greater than 20 no report of any bleeding Occult blood negative GI consulted thank you for your help Hematology ordered as well trend labs H/H Q6H, continue over the next 24 hours Transfuse 2 units of PRBC 04/01/22 Supplement if indicated Give IV iron x 3 doses per hematology EGD did not indicate any bleeding Colonoscopy scheduled for Wednesday (8) Essential hypertension, benign: Code(s): I10 - Essential (primary) hypertension Status: Acute Assessment and Plan: BP
[2022-04-05] MEDS: FERROUS SULFATE 324 MG TABLET PO ×2 (08:38→18:02)
--- NOTE | 2022-04-05 11:11 | PM.PNNEP ---
Progress Note: A&P Additional Plan 1. Karina has renal insufficiency. Her creatinine was normal just in September. the timing of the elevation of creatinine is not clear. It could have been days or months. Renal Ultrasound is normal. CK is normal UA shows blood and protein urine lytes are non pre renal color flow Doppler of the kidney shows no arterial issues. I looked at the images and the veins look good as well. Possibilities include toxicity from supplements, collagen vascular disease, and infiltrative diseases. Others are less likely. Glomerulonephritis is possible but I would think her creatinine would be continuing to worsen. She urinated well with the diuretics yesterday and she feels better today. Will try 1 more dose of diuretics today since the creatinine is stable. I ordered a renal scan it should be done tomorrow. 2. DVTs. Colmubaquis on hold because of the GI bleeding. she got an umbrella this morning. 3. anemia. Dr. Hua is on the case. Considering GI bleed, hemolysis, etc. Hemoccult is negative, interestingly. EGD was negative. Colonoscopy planned for Wednesday. 4. Pulmonary infiltrates. PEs versus infection? I agree with Dr. Snyder that the former is more likely than the latter. Volume overload is always a possibility as well. Will try Yet another more dose of diuretics. Subjective Date/time seen: 04/05/22 11:11 Interval history: Cough is a little better. Sitting up in a chair. Feels better today. Exam Narrative: WDWN in NAD skin no rash head ncat lungs decreased breath sounds at the bases. Rare crackles cor reg no rub or gallop abd BS+ nontender and soft ext Trace edema bilaterally. Objective Data Vital Signs Vital Signs: Vital Signs - 24 hr 04/04/22 12:00 04/04/22 12:00 04/04/22 12:00 Temperature 37.0 C Pulse Rate 88 86 Respiratory Rate 20 Blood Pressure 109/59 L Pulse Oximetry 88 L 97 Oxygen Delivery High Flow Nasal Cannula Oxygen Flow Rate 8 04/04/22 14:00 04/04/22 16:00 04/04/22 16:00 Temperature Pulse Rate 85 91 Respiratory Rate Blood Pressure Pulse Oximetry 93 Oxygen Delivery High Flow Nasal Cannula Oxygen Flow Rate 6 04/04/22 16:00 04/04/22 18:00 04/04/22 20:00 Temperature 37.1 C 36.6 C Pulse Rate 92 87 112 H Respiratory Rate 16 20 Blood Pressure 114/54 L 121/59 L Pulse Oximetry 99 96 Oxygen Delivery Oxygen Flow Rate 04/04/22 23:22 04/04/22 20:00 04/04/22 22:00 Temperature 37.2 C Pulse Rate 93 100 90 Respiratory Rate 18 Blood Pressure 116/51 L Pulse Oximetry 96 Oxygen Delivery Oxygen Flow Rate 04/05/22 00:00 04/04/22 20:00 04/05/22 00:00 Temperature Pulse Rate 96 Respiratory Rate Blood Pressure Pulse Oximetry 98 92 Oxygen Delivery High Flow Nasal Cannula High Flow Nasal Cannula Oxygen Flow Rate 6 6 04/05/22 02:00 04/05/22 04:00 04/05/22 04:00 Temperature Pulse Rate 98 83 Respiratory Rate Blood Pressure Pulse Oximetry 91 Oxygen Delivery High Flow Nasal Cannula Oxygen Flow Rate 6 04/05/22 04:00 04/05/22 06:00 04/05/22 07:52 Temperature 37.4 C 36.9 C Pulse Rate 97 83 80 Respiratory Rate 22 H 16 Blood Pressure 117/60 106/43 L Pulse Oximetry 95 90 Oxygen Delivery Oxygen Flow Rate 04/05/22 08:00 04/05/22 10:00 04/05/22 08:00 Temperature Pulse Rate 77 85 Respiratory Rate Blood Pressure Pulse Oximetry 91 Oxygen Delivery High Flow Nasal Cannula Oxygen Flow Rate 6 Intake/Output Intake/Output: Intake & Output 04/02/22 04/03/22 04/04/22 04/05/22 23:59 23:59 23:59 23:59 Intake Total 955 1070 1380 480 Output Total 4700 2650 900 1600 [facility] [phone] Meds/Results Medications: Active Medications Generic Name Dose Route Start Last Admin Trade Name Freq PRN Reason Stop Dose Admin Acetaminophen 650 mg 03/31/22 14:52 04/02/22 01:02 Acetaminop
--- NOTE | 2022-04-05 11:44 | WPDGIPROGNO ---
Progress Note: A&P Assessment and Plan (1) Acute on chronic anemia: Code(s): D64.9 - Anemia, unspecified Status: Acute Assessment and Plan: hb low but no further drop egd negative colonoscopy tomorrow to check if anything to explain acute anemia hematology on board AC on hold given anemia (2) Factor V Leiden: Code(s): D68.51 - Activated protein C resistance Status: Acute Assessment and Plan: AC on hold given acute drop of h/h s/p ivc filter (3) Pulmonary embolism: Code(s): I26.99 - Other pulmonary embolism without acute cor pulmonale Status: Acute Assessment and Plan: s/p filter (4) KRUNAL (acute kidney injury): Code(s): N17.9 - Acute kidney failure, unspecified Status: Acute Assessment and Plan: work up in progress by primary and nephrology (5) Pneumonia: Qualifiers: Pneumonia type: due to unspecified organism Laterality: bilateral Lung location: unspecified part of lung Qualified Code(s): J18.9 - Pneumonia, unspecified organism Code(s): J18.9 - Pneumonia, unspecified organism Status: Acute Assessment and Plan: on abx Subjective Date/time seen: 04/05/22 11:44 Interval history: no changes Review of Systems Review of Systems: All systems reviewed & are unremarkable except as noted in HPI and below Exam Const: General: cooperative, healthy appearing, no acute distress, well developed, alert and awake Nutritional Appearance: well nourished Orientation/consciousness: patient oriented x3 HENMT: Head: normal to inspection Ears: hearing grossly normal bilaterally Eyes: General: appearance normal, both eyes and all related structures Neck: Neck: normal visual inspection, full ROM and supple Resp: Effort & Inspection: normal respiratory effort and able to speak in complete sentences Auscultation: clear to auscultation bilaterally Cardio: Rate: regular rate Rhythm: regular rhythm GI: Inspection: normal to inspection Auscultation: normal bowel sounds Skin: General skin exam: normal color and no rashes or lesions noted Lesions: no lesions Rashes: no rashes Neuro: General: patient oriented x3, moves all extremities and Normal light touch and pain sensation Speech: normal speech Extrem: General: normal to inspection Psych: Appearance: grossly normal Objective Data Vital Signs Vital Signs: Vital Signs - 24 hr 04/04/22 12:00 04/04/22 12:00 04/04/22 12:00 Temperature 98.6 F Pulse Rate 88 86 Respiratory Rate 20 Blood Pressure 109/59 L Pulse Oximetry 88 L 97 Oxygen Delivery High Flow Nasal Cannula Oxygen Flow Rate 8 04/04/22 14:00 04/04/22 16:00 04/04/22 16:00 Temperature Pulse Rate 85 91 Respiratory Rate Blood Pressure Pulse Oximetry 93 Oxygen Delivery High Flow Nasal Cannula Oxygen Flow Rate 6 04/04/22 16:00 04/04/22 18:00 04/04/22 20:00 Temperature 98.7 F 98 F Pulse Rate 92 87 112 H Respiratory Rate 16 20 Blood Pressure 114/54 L 121/59 L Pulse Oximetry 99 96 Oxygen Delivery Oxygen Flow Rate 04/04/22 23:22 04/04/22 20:00 04/04/22 22:00 Temperature 98.9 F Pulse Rate 93 100 90 Respiratory Rate 18 Blood Pressure 116/51 L Pulse Oximetry 96 Oxygen Delivery Oxygen Flow Rate 04/05/22 00:00 04/04/22 20:00 04/05/22 00:00 Temperature Pulse Rate 96 Respiratory Rate Blood Pressure Pulse Oximetry 98 92 Oxygen Delivery High Flow Nasal Cannula High Flow Nasal Cannula Oxygen Flow Rate 6 6 04/05/22 02:00 04/05/22 04:00 04/05/22 04:00 Temperature Pulse Rate 98 83 Respiratory Rate Blood Pressure Pulse Oximetry 91 Oxygen Delivery High Flow Nasal Cannula Oxygen Flow Rate 6 04/05/22 04:00 04/05/22 06:00 04/05/22 07:52 Temperature 99.3 F 98.4 F Pulse Rate 97 83 80 Respiratory Rate 22 H 16 Blood Pressure 117/60 106/43 L Pulse Oximetry 95 90 Oxygen Delivery Oxy
[2022-04-05] MEDS: FUROSEMIDE INJ 40 MG/4 ML VIAL IV PUSH (12:39)
[2022-04-05 14:53] LABS: Kappa\\Lambda Light Chains 0.95 (0.26-1.65); Lambda Light Chain 122.1 mg/L (5.7-26.3)
[2022-04-05] MEDS: polyethylene glycoL 3350 238 GM BOTTLE PO (18:02)
[2022-04-05] MEDS: BISACODYL 5 MG TABLET EC 20 MG PO (18:02)
[2022-04-05] MEDS: SODIUM CHLORIDE NASAL GEL 14.1 GM 1 APPLIC NASAL (21:43)
[2022-04-06] VITALS (19 sets, daily range): BP systolic 83–145; BP diastolic 33–70; PULSE 62–90; RESP 12–27; TEMP 36.1–36.9; O2SAT 93–100
[2022-04-06 00:58] LABS: Estimated CRCL calculation 17 ml/min; Estimated Glomerular Filt Rate 20
[2022-04-06 01:28] LABS: Anion Gap 13 mmol/L (8-16); Blood Urea Nitrogen 61 mg/dL (7-17); Calcium 8.2 mg/dL (8.4-10.2); Carbon Dioxide 23 mmol/L (22-30); Chloride 92 mmol/L (98-107); Estimated CRCL calculation 17 ml/min; Estimated Glomerular Filt Rate 20; Glucose 125 mg/dL (65-110); Potassium 3.7 mmol/L (3.4-5.0); Sodium 128 mmol/L (137-145)
[2022-04-06] MEDS: CENTRAL LINE FLUSH 10 ML IV PUSH ×3 (06:21→20:53)
--- NOTE | 2022-04-06 08:00 | PM.IMPN ---
Progress Note: A&P Assessment and Plan (1) Pulmonary embolism: Code(s): I26.99 - Other pulmonary embolism without acute cor pulmonale Status: Acute Assessment and Plan: VQ scan indicated intermediate probability Unable to anticoagulate due to severe anemia Would confirm with elevated heart rate, chest pain, increased respirations, and oxygen requirements Unable to CTA due to renal function Seems stable for now Currently needing 2LNC IVC filter placed 04/03/22 (2) Pneumonia: Qualifiers: Laterality: bilateral Lung location: unspecified part of lung Pneumonia type: due to unspecified organism Qualified Code(s): J18.9 - Pneumonia, unspecified organism Code(s): J18.9 - Pneumonia, unspecified organism Status: Acute Assessment and Plan: Chest xray from 04/07/22 shows stable opacities Cefepime continued vanc DC'd WBC currently 11.9 Sputum culture shows mixed león Trend labs Blood culture NGTD Trend chest X-ray Mycoplasma, pneumococcal, and legionella ordered and pending Deescalate antibiotics is appropriate CT of the chest abdomen pelvis diffuse lung disease consistent with PNA Anti-tussives, and Chloraseptic spray ordered for further comfort (3) Flash pulmonary edema: Code(s): J81.0 - Acute pulmonary edema Status: Acute Assessment and Plan: Resolved No increased oxygen needs Xray noted pulmonary edema Increase in oxygen requirements with chest pain Good urinary return Ct of the chest mild pulmonary congestion continue to trend output (4) CHF (congestive heart failure): Code(s): I50.9 - Heart failure, unspecified Status: Acute Assessment and Plan: At this time would say she is in an acute exacerbation of diastolic heart failure Echo has EF of 65-70% with grade 1 DD Chest xray indicates pulmonary edema vs PNA Troponins mildly elevated but flat EKG stable Lasix and Bumex given PRN by nephrology Oxygen requirements went up, currently 6L high flow cannula Worsening renal failure WBC elevated, currently 11.9 Continue to trend labs Daily weights (5) Factor V Leiden: Code(s): D68.51 - Activated protein C resistance Status: Acute Assessment and Plan: V/Q scan shows intermediate probability of a PE Eliquis on hold due to symptomatic anemia Consult oncology due to the clotting disorder Patient only taking her Eliquis one time per day Venous Doppler was done on 03/16/22 which found multiple DVTS (6) KRUNAL (acute kidney injury): Code(s): N17.9 - Acute kidney failure, unspecified Status: Acute Assessment and Plan: Current BUN/Cr 60/2.60 Trending up FEUrea score is 31.0% indicating pre renal Could be hypotension, fluid overload Nephro consult thank you for your help urine studies obtained Trend labs Labs in the am Hold lisinopril Cr was 0.89 in September Avoid nephrotoxic medications Vanco DC'd Protonix stopped Biopsy in the am per nephro (7) Anemia: Code(s): D64.9 - Anemia, unspecified Status: Acute Assessment and Plan: H/H 7.4/22.8 Anemia labs ordered, iron 34, TV AC 355, % saturation 10, transferrin 220, ferritin 148, B12 869, folate greater than 20 no report of any bleeding Occult blood negative GI consulted thank you for your help Hematology consulted as well trend labs Transfuse 2 units of PRBC 04/01/22, 1 unit on 04/07/22 Supplement if indicated Give IV iron x 3 doses per hematology EGD did not indicate any bleeding Colonoscopy did not have any bleeding (8) Essential hypertension, benign: Code(s): I10 - Essential (primary) hypertension Status: Acute Assessment and Plan: BP 114/50 hold lisinopril 10mg PO Daily Trend BP adjust therapy as indicated (9) Hypothyroidism: Qualifiers:
--- NOTE | 2022-04-06 08:00 | P.PNIM_ITS ---
Progress Note: A&P Assessment and Plan (1) Pulmonary embolism: Code(s): I26.99 - Other pulmonary embolism without acute cor pulmonale Status: Acute Assessment and Plan: * VQ scan indicated intermediate probability * Unable to anticoagulate due to severe anemia * Would confirm with elevated heart rate, chest pain, increased respirations, and oxygen requirements * Unable to CTA due to renal function * Seems stable for now * Currently needing 2LNC * IVC filter placed 04/03/22 (2) Pneumonia: Qualifiers: Laterality: bilateral Lung location: unspecified part of lung Pneumonia type: due to unspecified organism Qualified Code(s): J18.9 - Pneumonia, unspecified organism Code(s): J18.9 - Pneumonia, unspecified organism Status: Acute Assessment and Plan: * Chest xray from 04/07/22 shows stable opacities * Cefepime continued vanc DC'd * WBC currently 11.9 * Sputum culture shows mixed león * Trend labs * Blood culture NGTD * Trend chest X-ray * Mycoplasma, pneumococcal, and legionella ordered and pending * Deescalate antibiotics is appropriate * CT of the chest abdomen pelvis diffuse lung disease consistent with PNA * Anti-tussives, and Chloraseptic spray ordered for further comfort (3) Flash pulmonary edema: Code(s): J81.0 - Acute pulmonary edema Status: Acute Assessment and Plan: * Resolved * No increased oxygen needs * Xray noted pulmonary edema * Increase in oxygen requirements with chest pain * Good urinary return * Ct of the chest mild pulmonary congestion * continue to trend output (4) CHF (congestive heart failure): Code(s): I50.9 - Heart failure, unspecified Status: Acute Assessment and Plan: * At this time would say she is in an acute exacerbation of diastolic heart failure * Echo has EF of 65-70% with grade 1 DD * Chest xray indicates pulmonary edema vs PNA * Troponins mildly elevated but flat * EKG stable * Lasix and Bumex given PRN by nephrology * Oxygen requirements went up, currently 6L high flow cannula * Worsening renal failure * WBC elevated, currently 11.9 * Continue to trend labs * Daily weights (5) Factor V Leiden: Code(s): D68.51 - Activated protein C resistance Status: Acute Assessment and Plan: * V/Q scan shows intermediate probability of a PE * Eliquis on hold due to symptomatic anemia * Consult oncology due to the clotting disorder * Patient only taking her Eliquis one time per day * Venous Doppler was done on 03/16/22 which found multiple DVTS (6) KRUNAL (acute kidney injury): Code(s): N17.9 - Acute kidney failure, unspecified Status: Acute Assessment and Plan: * Current BUN/Cr 60/2.60 * Trending up * FEUrea score is 31.0% indicating pre renal * Could be hypotension, fluid overload * Nephro consult thank you for your help * urine studies obtained * Trend labs * Labs in the am * Hold lisinopril * Cr was 0.89 in September * Avoid nephrotoxic medications * Vanco DC'd * Protonix stopped * Biopsy in the am per nephro (7) Anemia: Code(s): D64.9 - Anemia, unspecified Status: Acute Assessment and Plan: * H/H 7.4/22.8 * Anemia labs ordered, iron 34, TV AC 355, % saturation 10, transferrin 220, ferritin 148, B12 869, folate greater than 20 * no report of any
[2022-04-06 08:05] LABS: Basophils Percent Auto 0.3 % (0.2-1.2); Eosinophils Absolute Auto 1.1 K/mm3 (0-0.3); Eosinophils Percent Auto 9.4 % (0-4.4); Hematocrit 22.8 % (37.0-47.0); Hemoglobin 7.4 g/dL (12.0-15.0); Immature Granulocyte Percent A 2.5 % (0-0.5); Lymphocytes Absolute Auto 1.03 K/mm3 (0.9-3.2); Lymphocytes Percent Auto 8.6 % (18.3-44.2); Mean Corpuscular HGB Conc 32.5 g/dl (32-36); Mean Corpuscular Hemoglobin 29.2 pg (26-34); Mean Corpuscular Volume 90.1 fl (80-100); Mean Platelet Volume 8.7 fl (7.4-10.4); Monocytes Absolute Auto 0.3 K/mm3 (0.1-0.6); Monocytes Percent Auto 2.7 % (2.6-8.5); Neutrophils Absolute Auto 9.1 K/mm3 (1.3-6.7); Neutrophils Percent Auto 76.5 % (45.5-73.1); Platelet Count Result 248 k/mm3 (150-375); Red Blood Count 2.53 M/mm3 (4.2-5.4); White Blood Count 11.9 K/mm3 (4.5-10.0)
[2022-04-06 08:18] LABS: Alanine Aminotransferase 52 U/L (6-35); Albumin Level 3.2 g/dL (3.5-5.1); Alkaline Phosphatase 131 U/L (38-126); Anion Gap 12 mmol/L (8-16); Aspartate Amino Transferase 65 U/L (14-36); Bilirubin,Total 0.7 mg/dL (0.2-1.3); Blood Urea Nitrogen 60 mg/dL (7-17); Calcium 8.4 mg/dL (8.4-10.2); Carbon Dioxide 22 mmol/L (22-30); Chloride 94 mmol/L (98-107); Estimated CRCL calculation 16 ml/min; Estimated Glomerular Filt Rate 18; Glucose 105 mg/dL (65-110); Potassium 3.5 mmol/L (3.4-5.0); Sodium 128 mmol/L (137-145)
[2022-04-06] MEDS: LACTATED RINGERS 1,000 ML 150 ML IV CONT (12:49)
--- NOTE | 2022-04-06 13:35 | WPDANESEPPF ---
Anes - Initial Pre Proc Eval Procedure: Operation Date: 04/03/22 07:45 Proposed Procedures p Inferior Vena Cava (IVC) Placement - Dharmesh Wills DO Operation Date: 04/03/22 14:00 Proposed Procedures p Esophagogastroduodenoscopy - Nicho William MD Operation Date: 04/06/22 15:15 Proposed Procedures p Colonoscopy - Nicho William MD Date/Time: 04/06/22 13:35 Surgeon: Mary Ann Penny DO Pre Op Diagnosis: pneumonia,acute kidney injury,anemia,hypoxia Patient Data Age: 77 Gender: F Height: 1.57 m Weight: 78.1 kg Last Vital Signs Temp 98.5 F 04/06/22 12:46 Pulse 88 04/06/22 12:46 Resp 20 04/06/22 12:46 BP 129/63 04/06/22 12:46 Pulse Ox 96 04/06/22 12:46 O2 Del Method Nasal Cannula 04/06/22 12:46 O2 Flow Rate 3 04/06/22 12:46 Allergies Allergy/AdvReac Type Severity Reaction Status Date / Time No Known Allergies Allergy Unknown Verified 04/03/22 12:41 Home Medications Medication Instructions Recorded Confirmed Type calcium carbonate 600 mg calcium 600 mg PO BID 07/25/19 04/03/22 History (1,500 mg) tablet (Calcium) multivitamin 1 cap PO DAILY 07/25/19 04/03/22 History omeprazole 20 mg capsule,delayed 20 mg PO DAILY 07/25/19 04/03/22 History release elderberry fruit 460 mg-elderberry 1 cap PO DAILY 06/13/20 04/03/22 History flower 115 mg capsule acetaminophen 500 mg tablet 1,000 mg PO BID PRN Pain, Mild 11/17/21 04/03/22 History lisinopril 10 mg tablet 10 mg PO DAILY #30 tabs 02/11/22 04/03/22 Rx mupirocin 2 % topical ointment See Rx Instructions .Route 03/26/22 04/03/22 Rx .COMPLEX #22 grams apixaban 5 mg tablet (Eliquis) 5 mg PO BID 03/27/22 04/03/22 History ascorbic acid (vitamin C) 1,000 mg 1 g PO DAILY 03/27/22 04/03/22 History capsule cholecalciferol (vitamin D3) 50 100 mcg PO DAILY 03/27/22 04/03/22 History mcg (2,000 unit) capsule propylene glycol 0.6 % eye drops 1 drp EACH EYE DAILY PRN Dry Eye(S) 03/27/22 04/03/22 History (Systane Balance) Biotin Plus Keratin 1 tab-cap BYMOUTH DAILY 03/31/22 04/03/22 History Lactobac 51-Bifidobac 1 cap PO DAILY 03/31/22 04/03/22 History 3-L.lactis-S.thermophilus 4 billion cell capsule (Daily Probiotic (10 Strains)) aspirin 81 mg tablet,delayed 81 mg PO DAILY 03/31/22 04/03/22 History release coffee extract 100 mg-phosphatidyl 1 cap PO DAILY 03/31/22 04/03/22 History serine 100 mg capsule (Neuriva Original) guar gum 1 tbsp PO DAILY 03/31/22 04/03/22 History magnesium 200 mg tablet 400 mg PO DAILY 03/31/22 04/03/22 History turmeric root extract 500 mg 1,000 mg PO DAILY 03/31/22 04/03/22 History capsule Laboratory Tests 04/02/22 04/06/22 04/06/22 11:29 00:27 00:27 WBC RBC Hgb Hct MCV MCH MCHC RDW Plt Count MPV Immature Gran % (Auto) Neut % (Auto) Lymph % (Auto) Gem % (Auto) Eos % (Auto) Baso % (Auto) Lymph # (Auto) Gem # (Auto) Eos # (Auto) Baso # (Auto) Abs Immat Gran (auto) Absolute Neuts (auto) Absolute Nucleated RBC Nucleated RBC % Sodium 128 mmol/L L mmol/L (137-145) Potassium 3.7 mmol/L mmol/L (3.4-5.0) Chloride 92 mmol/L L mmol/L (98-107) Carbon Dioxide 23 mmol/L mmol/L (22-30) Anion Gap 13 mmol/L mmol/L (8-16) BUN 61 mg/dL H mg/dL (7-17) Creatinine 2.40 mg/dL H mg/dL (0.7-1.0) Estim Creat Clear Calc 17 ml/min ml/min Estimated GFR 20 L (59 - ) Glucose 125 mg/dL H mg/dL (65-110) Calcium 8.2 mg/dL L mg/dL (8.4-10.2) Phosphorus 5.0 mg/dL H mg/dL (2.5-4.5) Total Bilirubin AST ALT
--- NOTE | 2022-04-06 14:47 | SUR.PHASEII ---
Pt transferred to [facility]. OSIRIS mandujano.
[2022-04-06] MEDS: FERROUS SULFATE 324 MG TABLET PO (16:21)
--- NOTE | 2022-04-06 16:35 | PM.PNNEP ---
Progress Note: A&P Additional Plan 1. Karina has renal insufficiency. Her creatinine was normal just in September. the timing of the elevation of creatinine is not clear. It could have been days or months. Renal Ultrasound is normal. CK is normal UA shows blood and protein urine lytes are non pre renal color flow Doppler of the kidney shows no arterial issues. I looked at the images and the veins look good as well. Renal scan shows 38% function the left and 62% than the right. There was somewhat delayed in uptake but basically very little excretion. This is consistent with ATN. Possibilities include toxicity from supplements, collagen vascular disease, and infiltrative diseases. Others are less likely. Patient has several things going on. She has pneumonia. She is getting antibiotics for this. She is on vancomycin and cefepime. Blood cultures are negative. Urinalysis was clean. She has anemia and possible GI bleeding. EGD and colonoscopy were negative. Dr. Parks is considering capsule endoscopy at some point. She has DVTs. she was on multiple supplements on admission. The first two could certainly cause ATN. She could have a drug related issue as well such as from vancomycin. Consider stopping this? the creatinine was a little higher possibly related to the diuretics? She is on less oxygen now. I talked with PRAVEEN Snyder. 2. DVTs. Eliquis on hold because of the GI bleeding. she got an umbrella this morning. 3. anemia. Dr. Hua is on the case. Considering GI bleed, hemolysis, etc. Hemoccult is negative, interestingly. EGD was negative. Colonoscopy planned for Wednesday. 4. Pulmonary infiltrates. PEs versus infection? I agree with Dr. Snyder that the former is more likely than the latter. Volume overload is always a possibility as well. Will try Yet another more dose of diuretics. Subjective Date/time seen: 04/06/22 16:35 Interval history: She has no shortness of breath. Still coughing a little bit. Lying flat in bed. She had her colonoscopy today. She is happy be getting something to eat right now. and daughter are in the room. Exam Narrative: WDWN in NAD skin no rash head ncat lungs decreased breath sounds at the bases. Rare crackles cor reg no rub or gallop abd BS+ nontender and soft ext Trace edema bilaterally. Objective Data Vital Signs Vital Signs: Vital Signs - 24 hr 04/05/22 17:27 04/05/22 18:00 04/05/22 20:00 Temperature 36.6 C Pulse Rate 96 93 Respiratory Rate 20 Blood Pressure 141/65 H Pulse Oximetry 92 100 Oxygen Delivery High Flow Nasal Cannula Oxygen Flow Rate 6 04/05/22 23:16 04/05/22 20:00 04/05/22 22:00 Temperature 36.4 C Pulse Rate 84 94 76 Respiratory Rate 18 Blood Pressure 128/71 Pulse Oximetry 100 Oxygen Delivery Oxygen Flow Rate 04/05/22 20:00 04/06/22 00:00 04/06/22 00:00 Temperature Pulse Rate 62 Respiratory Rate Blood Pressure Pulse Oximetry 99 99 Oxygen Delivery High Flow Nasal Cannula High Flow Nasal Cannula Oxygen Flow Rate 6 5 04/06/22 02:00 04/06/22 04:00 04/06/22 04:00 Temperature 36.1 C L Pulse Rate 78 81 77 Respiratory Rate 18 Blood Pressure 145/58 H Pulse Oximetry 100 Oxygen Delivery Oxygen Flow Rate 04/06/22 04:00 04/06/22 06:00 04/06/22 07:47 Temperature 36.3 C L Pulse Rate 75 83 Respiratory Rate 12 Blood Pressure 114/50 L Pulse Oximetry 98 96 Oxygen Delivery High Flow Nasal Cannula Oxygen Flow Rate 5 04/06/22 08:10 04/06/22 08:10 04/06/22 09:30 Temperature Pulse Rate 84 Respiratory Rate Blood Pressure Pulse Oximetry 97 93 Oxygen Delivery High Flow Nasal Cannula High Flow Nasal Cannula Oxygen Flow Rate 7 4 04/06/22 12:46 04/06/22 12:00 04/06/22 14:00 Temperature 36.9 C 36.3 C L Pulse Rate 88 79 77 Respiratory Rate 20 16 27 H Blood Pressure 129/63 114/49 L 8
[2022-04-06] MEDS: SALINE 0.65% NAS SOLN 44 ML BTL 1 SPRAY NASAL (18:39)
[2022-04-06] MEDS: FAMOTIDINE 20 MG/2 ML VIAL IV PUSH (18:39)
[2022-04-06] MEDS: PANTOPRAZOLE SODIUM IV 40 MG VIAL IV PUSH (20:52)
[2022-04-06] MEDS: SODIUM CHLORIDE NASAL GEL 14.1 GM 1 APPLIC NASAL (20:52)
[2022-04-07] VITALS (22 sets, daily range): BP systolic 99–131; BP diastolic 42–59; PULSE 71–106; RESP 12–32; TEMP 36.2–37.8; O2SAT 90–100
[2022-04-07 05:58] LABS: Basophils Absolute Auto 0.1 K/mm3 (0.0-0.1); Basophils Percent Auto 0.5 % (0.2-1.2); Eosinophils Absolute Auto 0.9 K/mm3 (0-0.3); Eosinophils Percent Auto 8.1 % (0-4.4); Immature Granulocyte Absolute 0.31 K/mm3 (0.00-0.031); Immature Granulocyte Percent A 2.9 % (0-0.5); Lymphocytes Percent Auto 10.3 % (18.3-44.2); Mean Corpuscular HGB Conc 31.4 g/dl (32-36); Mean Corpuscular Hemoglobin 28.9 pg (26-34); Mean Corpuscular Volume 92.1 fl (80-100); Monocytes Absolute Auto 0.3 K/mm3 (0.1-0.6); Monocytes Percent Auto 2.7 % (2.6-8.5); Neutrophils Percent Auto 75.5 % (45.5-73.1); Platelet Count Result 255 k/mm3 (150-375); Red Blood Count 2.39 M/mm3 (4.2-5.4); Red Cell Distribution Width 15.3 % (11.5-14.5); White Blood Count 10.6 K/mm3 (4.5-10.0)
[2022-04-07 06:06] LABS: Alanine Aminotransferase 41 U/L (6-35); Albumin Level 3.1 g/dL (3.5-5.1); Alkaline Phosphatase 125 U/L (38-126); Anion Gap 12 mmol/L (8-16); Aspartate Amino Transferase 54 U/L (14-36); Bilirubin,Total 0.8 mg/dL (0.2-1.3); Blood Urea Nitrogen 65 mg/dL (7-17); Calcium 8.7 mg/dL (8.4-10.2); Carbon Dioxide 22 mmol/L (22-30); Chloride 99 mmol/L (98-107); Estimated CRCL calculation 15 ml/min; Estimated Glomerular Filt Rate 16; Glucose 104 mg/dL (65-110); Magnesium 1.8 mg/dL (1.6-2.3); Potassium 3.7 mmol/L (3.4-5.0); Sodium 133 mmol/L (137-145)
[2022-04-07] MEDS: CENTRAL LINE FLUSH 10 ML IV PUSH ×4 (06:28→21:36)
[2022-04-07 07:07] LABS: Haptoglobin 380 mg/dL (43-212)
[2022-04-07 07:13] LABS: Hemoglobin 6.9 g/dL (12.0-15.0)
--- NOTE | 2022-04-07 07:14 | WPDANESPN ---
Anes - Prog Note Post-Op Date/Time: 04/07/22 07:14 Cardiovascular status: normal Respiratory status: normal Airway patency: baseline Mental status: baseline Post-Op hydration status: normal Vital Signs: Last Vital Signs Temp 36.6 C 04/07/22 04:00 Pulse 80 04/07/22 06:00 Resp 32 H 04/07/22 04:00 BP 131/50 L 04/07/22 04:00 Pulse Ox 94 04/07/22 04:00 O2 Del Method High Flow Therapy with Nasal Cannula 04/07/22 04:00 O2 Flow Rate 5 04/07/22 04:00 Pain Score (VAS): 0 I/O: Intake & Output 04/06/22 04/06/22 04/07/22 15:59 23:59 07:59 Intake Total 100 290 400 Output Total 385 051 1554 Balance -200 -10 -600 Laboratory Tests 04/07/22 05:31 04/07/22 05:31 04/01/22 04/06/22 04/06/22 22:56 07:52 07:52 WBC 11.9 H RBC 2.53 L Hgb 7.4 L Hct 22.8 L MCV 90.1 MCH 29.2 MCHC 32.5 RDW 15.0 H Plt Count 248 MPV 8.7 Immature Gran % (Auto) 2.5 H Neut % (Auto) 76.5 H Lymph % (Auto) 8.6 L [place] % (Auto) 2.7 Eos % (Auto) 9.4 H Baso % (Auto) 0.3 Lymph # (Auto) 1.03 [place] # (Auto) 0.3 Eos # (Auto) 1.1 H Baso # (Auto) 0.0 Abs Immat Gran (auto) 0.30 H Absolute Neuts (auto) 9.1 H Absolute Nucleated RBC 0.0 Nucleated RBC % 0.0 Haptoglobin 380 H Sodium 128 L Potassium 3.5 Chloride 94 L Carbon Dioxide 22 Anion Gap 12 BUN 60 H Creatinine 2.60 H Estim Creat Clear Calc 16 Estimated GFR 18 L Glucose 105 Calcium 8.4 Phosphorus Magnesium Total Bilirubin 0.7 AST 65 H ALT 52 H Alkaline Phosphatase 131 H Total Protein 7.0 Albumin 3.2 L 04/07/22 04/07/22 05:31 05:31 WBC 10.6 H RBC 2.39 L Hgb 6.9 L* Hct 22.0 L MCV 92.1 MCH 28.9 MCHC 31.4 L RDW 15.3 H Plt Count 255 MPV 9.0 Immature Gran % (Auto) 2.9 H Neut % (Auto) 75.5 H Lymph % (Auto) 10.3 L [place] % (Auto) 2.7 Eos % (Auto) 8.1 H Baso % (Auto) 0.5 Lymph # (Auto) 1.10 [place] # (Auto) 0.3 Eos # (Auto) 0.9 H Baso # (Auto) 0.1 Abs Immat Gran (auto) 0.31 H Absolute Neuts (auto) 8.0 H Absolute Nucleated RBC 0.0 Nucleated RBC % 0.0 Haptoglobin Sodium 133 L Potassium 3.7 Chloride 99 Carbon Dioxide 22 Anion Gap 12 BUN 65 H Creatinine 2.80 H Estim Creat Clear Calc 15 Estimated GFR 16 L Glucose 104 Calcium 8.7 Phosphorus 5.0 H Magnesium 1.8 Total Bilirubin 0.8 AST 54 H ALT 41 H Alkaline Phosphatase 125 Total Protein 7.0 Albumin 3.1 L Post-procedural complaints: none Patient Feedback: Patient satisfied with anesthetic care.
[2022-04-07] MEDS: SODIUM CHLORIDE 0.9% IV 250 ML 30 ML IV CONT (08:49)
[2022-04-07] MEDS: SALINE 0.65% NAS SOLN 44 ML BTL 1 SPRAY NASAL (08:52)
[2022-04-07] MEDS: FERROUS SULFATE 324 MG TABLET PO ×2 (08:52→17:30)
[2022-04-07] MEDS: PANTOPRAZOLE SODIUM IV 40 MG VIAL IV PUSH (08:52)
[2022-04-07] MEDS: ACETAMINOPHEN 325 MG TABLET 650 MG PO (09:00)
--- NOTE | 2022-04-07 10:00 | PM.IMPN ---
Progress Note: A&P Assessment and Plan (1) Pulmonary embolism: Code(s): I26.99 - Other pulmonary embolism without acute cor pulmonale Status: Acute Assessment and Plan: VQ scan indicated intermediate probability Unable to anticoagulate due to severe anemia Would confirm with elevated heart rate, chest pain, increased respirations, and oxygen requirements Unable to CTA due to renal function Seems stable for now Currently needing 2LNC IVC filter placed 04/03/22 (2) Pneumonia: Qualifiers: Pneumonia type: due to unspecified organism Laterality: bilateral Lung location: unspecified part of lung Qualified Code(s): J18.9 - Pneumonia, unspecified organism Code(s): J18.9 - Pneumonia, unspecified organism Status: Acute Assessment and Plan: Chest xray from 04/07/22 shows stable opacities Cefepime x 5 days, can probably switch to orals at this time WBC currently 10.6 Sputum culture shows mixed lóen Trend labs Blood culture NGTD Trend chest X-ray Mycoplasma, pneumococcal, and legionella ordered and pending Deescalate antibiotics is appropriate CT of the chest abdomen pelvis diffuse lung disease consistent with PNA Anti-tussives, and Chloraseptic spray ordered for further comfort (3) Flash pulmonary edema: Code(s): J81.0 - Acute pulmonary edema Status: Acute Assessment and Plan: Resolved No increased oxygen needs Xray noted pulmonary edema Increase in oxygen requirements with chest pain Good urinary return Ct of the chest mild pulmonary congestion continue to trend output (4) CHF (congestive heart failure): Code(s): I50.9 - Heart failure, unspecified Status: Acute Assessment and Plan: At this time would say she is in an acute exacerbation of diastolic heart failure Echo has EF of 65-70% with grade 1 DD Chest xray indicates pulmonary edema vs PNA Troponins mildly elevated but flat EKG stable Lasix and Bumex given PRN by nephrology Oxygen requirements went up, currently 6L high flow cannula Worsening renal failure WBC elevated, currently 10.6 Continue to trend labs Daily weights (5) Factor V Leiden: Code(s): D68.51 - Activated protein C resistance Status: Acute Assessment and Plan: V/Q scan shows intermediate probability of a PE Eliquis on hold due to symptomatic anemia Consult oncology due to the clotting disorder Patient only taking her Eliquis one time per day Venous Doppler was done on 03/16/22 which found multiple DVTS (6) KRUNAL (acute kidney injury): Code(s): N17.9 - Acute kidney failure, unspecified Status: Acute Assessment and Plan: Current BUN/Cr 65/2.80 Trending up FEUrea score is 31.0% indicating pre renal Could be hypotension, fluid overload Nephro consult thank you for your help urine studies obtained Trend labs Labs in the am Hold lisinopril Cr was 0.89 in September Avoid nephrotoxic medications Vanco DC'd Protonix stopped Biopsy in the am per nephro (7) Anemia: Code(s): D64.9 - Anemia, unspecified Status: Acute Assessment and Plan: H/H 6.9/.0 Anemia labs ordered, iron 34, TV AC 355, % saturation 10, transferrin 220, ferritin 148, B12 869, folate greater than 20 no report of any bleeding Occult blood negative GI consulted thank you for your help Hematology ordered as well trend labs Transfuse 2 units of PRBC 04/01/22, 1 unit on 04/07/22 Supplement if indicated Give IV iron x 3 doses per hematology EGD did not indicate any bleeding Colonoscopy did not have any bleeding Could be from stasis, kidney function, or pneumonia (8) Essential hypertension, benign: Code(s): I10 - Essential (primary) hypertension Status: Acute Assessment and Plan: BP 99/42 hold lisinopril 10mg PO Daily Trend
--- NOTE | 2022-04-07 10:00 | P.PNIM_ITS ---
Progress Note: A&P Assessment and Plan (1) Pulmonary embolism: Code(s): I26.99 - Other pulmonary embolism without acute cor pulmonale Status: Acute Assessment and Plan: * VQ scan indicated intermediate probability * Unable to anticoagulate due to severe anemia * Would confirm with elevated heart rate, chest pain, increased respirations, and oxygen requirements * Unable to CTA due to renal function * Seems stable for now * Currently needing 2LNC * IVC filter placed 04/03/22 (2) Pneumonia: Qualifiers: Pneumonia type: due to unspecified organism Laterality: bilateral Lung location: unspecified part of lung Qualified Code(s): J18.9 - Pneumonia, unspecified organism Code(s): J18.9 - Pneumonia, unspecified organism Status: Acute Assessment and Plan: * Chest xray from 04/07/22 shows stable opacities * Cefepime x 5 days, can probably switch to orals at this time * WBC currently 10.6 * Sputum culture shows mixed león * Trend labs * Blood culture NGTD * Trend chest X-ray * Mycoplasma, pneumococcal, and legionella ordered and pending * Deescalate antibiotics is appropriate * CT of the chest abdomen pelvis diffuse lung disease consistent with PNA * Anti-tussives, and Chloraseptic spray ordered for further comfort (3) Flash pulmonary edema: Code(s): J81.0 - Acute pulmonary edema Status: Acute Assessment and Plan: * Resolved * No increased oxygen needs * Xray noted pulmonary edema * Increase in oxygen requirements with chest pain * Good urinary return * Ct of the chest mild pulmonary congestion * continue to trend output (4) CHF (congestive heart failure): Code(s): I50.9 - Heart failure, unspecified Status: Acute Assessment and Plan: * At this time would say she is in an acute exacerbation of diastolic heart failure * Echo has EF of 65-70% with grade 1 DD * Chest xray indicates pulmonary edema vs PNA * Troponins mildly elevated but flat * EKG stable * Lasix and Bumex given PRN by nephrology * Oxygen requirements went up, currently 6L high flow cannula * Worsening renal failure * WBC elevated, currently 10.6 * Continue to trend labs * Daily weights (5) Factor V Leiden: Code(s): D68.51 - Activated protein C resistance Status: Acute Assessment and Plan: * V/Q scan shows intermediate probability of a PE * Eliquis on hold due to symptomatic anemia * Consult oncology due to the clotting disorder * Patient only taking her Eliquis one time per day * Venous Doppler was done on 03/16/22 which found multiple DVTS (6) KRUNAL (acute kidney injury): Code(s): N17.9 - Acute kidney failure, unspecified Status: Acute Assessment and Plan: * Current BUN/Cr 65/2.80 * Trending up * FEUrea score is 31.0% indicating pre renal * Could be hypotension, fluid overload * Nephro consult thank you for your help * urine studies obtained * Trend labs * Labs in the am * Hold lisinopril * Cr was 0.89 in September * Avoid nephrotoxic medications * Shannan DC'd * Protonix stopped * Biopsy in the am per nephro (7) Anemia: Code(s): D64.9 - Anemia, unspecified Status: Acute Assessment and Plan: * H/H 6.9/22.0 * Anemia labs ordered, iron 34, TV AC 355, % saturation 10, transferrin 220, ferritin 148, B12 869, folate greater t
--- NOTE | 2022-04-07 11:22 | PM.PNNEP ---
Progress Note: A&P Additional Plan 1. Karina has renal insufficiency. Her creatinine was normal just in September. the timing of the elevation of creatinine is not clear. It could have been days or months. Renal Ultrasound is normal. CK is normal UA shows blood and protein urine lytes are non pre renal color flow Doppler of the kidney shows no arterial issues. I looked at the images and the veins look good as well. Renal scan shows 38% function the left and 62% than the right. There was somewhat delayed in uptake but basically very little excretion. This is consistent with ATN. Possibilities include toxicity from supplements, collagen vascular disease, and infiltrative diseases. Others are less likely. Patient has several things going on. She has pneumonia. She is getting antibiotics for this. She is on cefepime. discussed with PRAVEEN Snyder. he is considering stopping cefepime.Blood cultures are negative. Urinalysis was clean. She has anemia and possible GI bleeding or hemolysis. EGD and colonoscopy were negative. Dr. Parks is considering capsule endoscopy at some point. her hemoglobin is back down today. Platelet count is okay. She has DVTs. If ATN this is probably from the pneumonia and possibly the recurrent anemia. The creatinine franko again. She has not received diuretics since 04/05. Will stop the pantoprazole. PRAVEEN Snyder is deciding whether to stop the cefepime. If not, possibly another antibiotic? if things continue to worsen consider biopsy. I talked with PRAVEEN Snyder. 2. DVTs. Eliquis on hold because of the GI bleeding. she got an umbrella this morning. 3. anemia. Dr. Hua is on the case. Considering GI bleed, hemolysis, etc. Haptoglobin not low. LDH not high. Hemoccult is negative, interestingly. EGD was negative. Colonoscopy unremarkable. 4. Pulmonary infiltrates. PEs versus infection? I agree with Dr. Snyder that the former is more likely than the latter. I think volume status looks okay today. long talk with PRAVEEN Snyder and family Subjective Date/time seen: 04/07/22 11:22 Interval history: She has no shortness of breath Sitting up in a chair. in the room. We discussed the case. Exam Narrative: WDWN in NAD skin no rash or subcu nodules head ncat lungs decreased breath sounds at the bases. Rare crackles cor reg no rub or gallop abd BS+ nontender ext Trace edema bilaterally. Objective Data Vital Signs Vital Signs: Vital Signs - 24 hr 04/06/22 12:46 04/06/22 12:00 04/06/22 14:00 Temperature 36.9 C 36.3 C L Pulse Rate 88 79 77 Respiratory Rate 20 16 27 H Blood Pressure 129/63 114/49 L 83/33 L Pulse Oximetry 96 94 99 Oxygen Delivery Nasal Cannula Room Air Oxygen Flow Rate 3 04/06/22 14:10 04/06/22 14:20 04/06/22 12:25 Temperature Pulse Rate 79 78 85 Respiratory Rate 20 24 H Blood Pressure 109/42 L 104/52 L Pulse Oximetry 99 95 Oxygen Delivery Room Air Room Air Oxygen Flow Rate 04/06/22 16:00 04/06/22 16:00 04/06/22 16:00 Temperature 36.5 C Pulse Rate 82 85 Respiratory Rate 18 Blood Pressure 108/70 Pulse Oximetry 98 95 Oxygen Delivery High Flow Therapy with Na Oxygen Flow Rate 5 04/06/22 18:00 04/06/22 20:00 04/06/22 20:00 Temperature 36.7 C Pulse Rate 85 84 87 Respiratory Rate 18 Blood Pressure 116/54 L Pulse Oximetry 100 Oxygen Delivery Oxygen Flow Rate 04/06/22 20:00 04/06/22 22:00 04/06/22 23:01 Temperature 36.6 C Pulse Rate 87 80 90 Respiratory Rate 18 24 H Blood Pressure 128/45 L Pulse Oximetry 100 94 Oxygen Delivery High Flow Therapy with Na Oxygen Flow Rate 5 04/07/22 00:00 04/07/22 00:00 04/07/22 02:00 Temperature Pulse Rate 82 82 84 Respiratory Rate 24 H Blood Pressure Pulse Oximetry 94 Oxygen Delivery High Flow Therapy with Na Oxygen Flow Rate 5 04/07/22 04:00 04/07/22 04:00 04/07/22 04:0
[2022-04-07] MEDS: guaiFENesin/CODEINE (*CRX) 200/20 MG 10 ML SYRUP PO (13:34)
--- NOTE | 2022-04-07 17:25 | PM.EVENT ---
Event Note Event Note Event Note: I was called into the room because the patient was shivering and felt short of breath. I checked her oxygen flow and it is on 2 L. The O2 nasal cannula is working fine. The patient stated her nose feels stuffy and she does not feel like she is getting the oxygen. She has motions prenatals brain I encouraged her to use that. Review the chest x-ray from today. The son feels that the patient is having the a reaction to the blood transfusion. I explained that usually see a reaction within the 1st few minutes. The patient's oxygen level as well as her temperature within normal limits. The patient states that she feels very code. I reviewed the chart and noticed that oncology vending machine operator has been consulted. The family is wanting to speak with the oncologist vending machine operator about a possible mobile marrow aspiration. I ordered an ABG however the patient does not appear to be in great distress at this time. The patient does not appear to be fluid overloaded. I also ordered a cold agglutinin antibody as I could not find 1 in her records. Also I am going to repeat her H& H. However I explained to her that the PEs may make her feel that she short of breath. The patient is using the bedpan now instead of getting up. Her vital signs are stable at this time. Her son also has been talking to a family member that is an ICU nurse who has multiple questions concerning the patient. ITS Impressions Chest X-Ray 03/31/22 10:33 Impression: 1: Patchy bilateral airspace disease, consistent with pneumonia. Pulmonary Perfusion Imaging 03/31/22 13:41 IMPRESSION: 1. Intermediate probability for pulmonary embolism. Chest X-Ray 04/01/22 22:46 IMPRESSION: Rapidly worsening pulmonary opacities may reflect worsening edema, and/or pulmonary hemorrhage, underlying infection is not excluded. Chest X-Ray 04/02/22 09:40 IMPRESSION: 1. Right internal jugular central venous catheter tip at the caudal superior vena cava. 2. Unchanged diffuse bilateral lung disease which could represent pneumonia and/or pulmonary edema. Chest/Abdomen/Pelvis CT 04/02/22 11:08 IMPRESSION: 1. Diffuse lung disease, left greater than right, consistent with pneumonia and pulmonary edema. 2. No acute findings of the abdomen or pelvis. 3. Mediastinal lymphadenopathy, likely reactive. Renal Ultrasound 04/02/22 12:04 IMPRESSION: 1. Normal kidneys without hydronephrosis. Chest X-Ray 04/04/22 07:34 IMPRESSION: Extensive severe bilateral pulmonary infiltrates, left and right, mild improvement since 04/02/2022 Hip X-Ray 04/04/22 11:07 IMPRESSION: 1. Moderate lower lumbar spondylosis and mild osteoarthritis at the right hip and bilateral sacroiliac joints. No acute osseous abnormality. Arterial/Peripheral Duplex 04/05/22 08:35 IMPRESSION: 1. No Doppler evidence of renal artery stenosis. 2. No Doppler evidence of significant stenosis in the celiac, splenic, hepatic or superior mesenteric arteries. Vascular Ultrasound 04/05/22 08:35 IMPRESSION: 1. No Doppler evidence of renal artery stenosis. 2. No Doppler evidence of significant stenosis in the celiac, splenic, hepatic or superior mesenteric arteries. Renal Scan Nuclear Medicine 04/06/22 16:20 IMPRESSION: 1. Significantly delayed activity clearance and time to peak activity at both kidneys without evident hydronephrosis consistent with nonspecific nephropathy. This is slightly more severe in the left kidney which contributes only 38% total renal function versus 62% for the right kidney. Chest X-Ray 04/07/22 06:25 IMPRESSION: 1. Stable diffuse lung disease, consistent with pneumonia.
--- NOTE | 2022-04-07 17:29 | PC.NURSE ---
This patient, Karina Flores, was received from [ IMU] on 04/07/22 at 1729. Patient/family oriented to unit policies and routines
--- NOTE | 2022-04-07 17:36 | PC.NURSE ---
Pt med tele status - report given to Thao NEWELL- updated on orders pt moved to room 251 via bed accompanied by staff and son; monitor SR
[2022-04-07 17:54] LABS: Alveolar/Arterial O2 Gradient 134.5 mmHg; Fractional Inspired Oxygen 32 %; HCO3 ABG 16.6 mEq/l (22.0-26.0); Oxygen Content ABG 12.7 %vol (16.0-22.0); Oxygen Saturation ABG 94.3 % (95.0-100.0); Oxyhemoglobin 91.9 % THb (90.0-100.0); PCO2 ABG 24.1 mmHg (35.0-45.0); PO2 ABG 65.5 mmHg (80.0-100.0); PO2 FiO2 Ratio Arterial Blood 2.05 %; Total Hemoglobin 9.8 g/dL (12.0-18.0); pH ABG 7.456 (7.350-7.450)
[2022-04-07 17:55] LABS: Device HIGH FLOW NASAL CANN; Modified Allen's Test Pass; Site Drawn LEFT RADIAL
[2022-04-07 18:32] LABS: Pneumococcal Antigen Urine Not Detected (Not Detected)
[2022-04-07 20:28] LABS: Hematocrit 24.8 % (37.0-47.0); Hemoglobin 7.9 g/dL (12.0-15.0)
[2022-04-07] MEDS: HYDROcodone/acetaminophen (*CRX) 5-325 MG TABLET 1 TAB PO (21:35)
[2022-04-07] MEDS: FAMOTIDINE 20 MG TABLET PO (21:36)
[2022-04-07] MEDS: SODIUM CHLORIDE NASAL GEL 14.1 GM 1 APPLIC NASAL (21:36)
[2022-04-08] VITALS (10 sets, daily range): BP systolic 106–120; BP diastolic 46–55; PULSE 81–100; RESP 18–22; TEMP 36–37.3; O2SAT 90–100
[2022-04-08 05:37] LABS: Basophils Absolute Auto 0.1 K/mm3 (0.0-0.1); Basophils Percent Auto 0.5 % (0.2-1.2); Eosinophils Percent Auto 8.1 % (0-4.4); Hematocrit 25.2 % (37.0-47.0); Hemoglobin 7.9 g/dL (12.0-15.0); Immature Granulocyte Absolute 0.53 K/mm3 (0.00-0.031); Immature Granulocyte Percent A 4.4 % (0-0.5); Lymphocytes Absolute Auto 1.05 K/mm3 (0.9-3.2); Lymphocytes Percent Auto 8.7 % (18.3-44.2); Mean Corpuscular HGB Conc 31.3 g/dl (32-36); Mean Corpuscular Hemoglobin 28.5 pg (26-34); Monocytes Absolute Auto 0.3 K/mm3 (0.1-0.6); Monocytes Percent Auto 2.4 % (2.6-8.5); Neutrophils Absolute Auto 9.2 K/mm3 (1.3-6.7); Neutrophils Percent Auto 75.9 % (45.5-73.1); Platelet Count Result 209 k/mm3 (150-375); Red Blood Count 2.77 M/mm3 (4.2-5.4); Red Cell Distribution Width 15.7 % (11.5-14.5); White Blood Count 12.1 K/mm3 (4.5-10.0)
[2022-04-08 06:06] LABS: Alanine Aminotransferase 34 U/L (6-35); Alkaline Phosphatase 128 U/L (38-126); Anion Gap 15 mmol/L (8-16); Aspartate Amino Transferase 33 U/L (14-36); Bilirubin,Total 0.8 mg/dL (0.2-1.3); Blood Urea Nitrogen 72 mg/dL (7-17); Calcium 8.7 mg/dL (8.4-10.2); Carbon Dioxide 18 mmol/L (22-30); Chloride 101 mmol/L (98-107); Estimated CRCL calculation 11 ml/min; Estimated Glomerular Filt Rate 11; Glucose 112 mg/dL (65-110); Magnesium 1.8 mg/dL (1.6-2.3); Potassium 4.2 mmol/L (3.4-5.0); Sodium 134 mmol/L (137-145)
[2022-04-08 07:52] LABS: Anisocytosis 1+ (NORMAL); Ovalocytes 1+ (NORMAL); Platelet Estimate Adequate (Adequate)
[2022-04-08] MEDS: FAMOTIDINE 20 MG TABLET PO ×2 (08:39→21:29)
[2022-04-08] MEDS: FERROUS SULFATE 324 MG TABLET PO ×2 (08:39→16:02)
[2022-04-08] MEDS: MUPIROCIN 2% OINT 22 GM TUBE 1 APPLIC EACH NARE ×2 (08:40→21:30)
[2022-04-08] MEDS: CENTRAL LINE FLUSH 10 ML IV PUSH ×4 (08:40→21:35)
--- NOTE | 2022-04-08 09:00 | P.PNIM_ITS ---
Progress Note: A&P Assessment and Plan (1) Mild fever: Code(s): R50.9 - Fever, unspecified Status: Acute Assessment and Plan: * Temp has been as high as 100.1 yesterday * Currently at 99.2 * Blood cultures ordered * Sputum culture ordered * Continue antibiotics * trend vital signs * Tylenol on board (2) Pneumonia: Qualifiers: Laterality: bilateral Lung location: unspecified part of lung Pneumonia type: due to unspecified organism Qualified Code(s): J18.9 - Pneumonia, unspecified organism Code(s): J18.9 - Pneumonia, unspecified organism Status: Acute Assessment and Plan: * Chest xray from 04/07/22 shows stable opacities * Cefepime continued vanc DC'd, Augmentin added * WBC currently 12.1 * Sputum culture shows mixed león * Trend labs * Blood culture NGTD, will redraw * Trend chest X-ray, repeat in the am * Mycoplasma, pneumococcal, and legionella ordered and pending * Talked with ID pharmacist, antibiotics changed at this point to Augmentin * CT of the chest abdomen pelvis diffuse lung disease consistent with PNA * Anti-tussives, and Chloraseptic spray ordered for further comfort * Will add something for congestion (3) Pulmonary embolism: Code(s): I26.99 - Other pulmonary embolism without acute cor pulmonale Status: Acute Assessment and Plan: * Remains stable at this point * VQ scan indicated intermediate probability * Unable to anticoagulate due to severe anemia * Would confirm with elevated heart rate, chest pain, increased respirations, and oxygen requirements * Unable to CTA due to renal function * Seems stable for now * Currently needing 2LNC * IVC filter placed 04/03/22 (4) KRUNAL (acute kidney injury): Code(s): N17.9 - Acute kidney failure, unspecified Status: Acute Assessment and Plan: * Current BUN/Cr 72/3.90 * Trending up * FEUrea score is 31.0% indicating pre renal * Could be hypotension, fluid overload * Nephro consult thank you for your help * urine studies obtained * Trend labs * Labs in the am * Hold lisinopril * Cr was 0.89 in September * Avoid nephrotoxic medications * Vanco DC'd * Protonix stopped * Biopsy in the near future (5) Anemia: Code(s): D64.9 - Anemia, unspecified Status: Acute Assessment and Plan: * H/H 7.9/25.2 * Anemia labs ordered, iron 34, TV AC 355, % saturation 10, transferrin 220, ferritin 148, B12 869, folate greater than 20 * Repeat to see if possibly an iron transfusion would help * no report of any bleeding * Occult blood negative * GI consulted thank you for your help * Hematology consulted as well * trend labs * Transfuse 2 units of PRBC 04/01/22, 1 unit on 04/07/22 * Supplement if indicated * Give IV iron x 3 doses per hematology, will re-evaluate this * EGD did not indicate any bleeding * Colonoscopy did not have any bleeding (6) CHF (congestive heart failure): Code(s): I50.9 - Heart failure, unspecified Status: Acute Assessment and Plan: * At this time would say she is in an acute exacerbation of diastolic heart failure * Echo has EF of 65-70% with grade 1 DD * Chest xray indicates pulmonary edema vs PNA * Troponins mildly elevated but flat * EKG stable * Lasix and Bumex given PRN by nephrology * Oxygen requirements stable at 2L * Worsening renal failure * WBC eleva
--- NOTE | 2022-04-08 09:00 | PM.IMPN ---
Progress Note: A&P Assessment and Plan (1) Mild fever: Code(s): R50.9 - Fever, unspecified Status: Acute Assessment and Plan: Temp has been as high as 100.1 yesterday Currently at 99.2 Blood cultures ordered Sputum culture ordered Continue antibiotics trend vital signs Tylenol on board (2) Pneumonia: Qualifiers: Laterality: bilateral Lung location: unspecified part of lung Pneumonia type: due to unspecified organism Qualified Code(s): J18.9 - Pneumonia, unspecified organism Code(s): J18.9 - Pneumonia, unspecified organism Status: Acute Assessment and Plan: Chest xray from 04/07/22 shows stable opacities Cefepime continued vanc DC'd, Augmentin added WBC currently 12.1 Sputum culture shows mixed león Trend labs Blood culture NGTD, will redraw Trend chest X-ray, repeat in the am Mycoplasma, pneumococcal, and legionella ordered and pending Talked with ID pharmacist, antibiotics changed at this point to Augmentin CT of the chest abdomen pelvis diffuse lung disease consistent with PNA Anti-tussives, and Chloraseptic spray ordered for further comfort Will add something for congestion (3) Pulmonary embolism: Code(s): I26.99 - Other pulmonary embolism without acute cor pulmonale Status: Acute Assessment and Plan: Remains stable at this point VQ scan indicated intermediate probability Unable to anticoagulate due to severe anemia Would confirm with elevated heart rate, chest pain, increased respirations, and oxygen requirements Unable to CTA due to renal function Seems stable for now Currently needing 2LNC IVC filter placed 04/03/22 (4) KRUNAL (acute kidney injury): Code(s): N17.9 - Acute kidney failure, unspecified Status: Acute Assessment and Plan: Current BUN/Cr 72/3.90 Trending up FEUrea score is 31.0% indicating pre renal Could be hypotension, fluid overload Nephro consult thank you for your help urine studies obtained Trend labs Labs in the am Hold lisinopril Cr was 0.89 in September Avoid nephrotoxic medications Vanco DC'd Protonix stopped Biopsy in the near future (5) Anemia: Code(s): D64.9 - Anemia, unspecified Status: Acute Assessment and Plan: H/H 7.9/25.2 Anemia labs ordered, iron 34, TV AC 355, % saturation 10, transferrin 220, ferritin 148, B12 869, folate greater than 20 Repeat to see if possibly an iron transfusion would help no report of any bleeding Occult blood negative GI consulted thank you for your help Hematology consulted as well trend labs Transfuse 2 units of PRBC 04/01/22, 1 unit on 04/07/22 Supplement if indicated Give IV iron x 3 doses per hematology, will re-evaluate this EGD did not indicate any bleeding Colonoscopy did not have any bleeding (6) CHF (congestive heart failure): Code(s): I50.9 - Heart failure, unspecified Status: Acute Assessment and Plan: At this time would say she is in an acute exacerbation of diastolic heart failure Echo has EF of 65-70% with grade 1 DD Chest xray indicates pulmonary edema vs PNA Troponins mildly elevated but flat EKG stable Lasix and Bumex given PRN by nephrology Oxygen requirements stable at 2L Worsening renal failure WBC elevated, currently 12.1 Continue to trend labs Daily weights (7) Factor V Leiden: Code(s): D68.51 - Activated protein C resistance Status: Acute Assessment and Plan: V/Q scan shows intermediate probability of a PE Eliquis on hold due to symptomatic anemia Consult oncology due to the clotting disorder Patient only taking her Eliquis one time per day Venous Doppler was done on 03/16/22 which found multiple DVTS (8) Essential hypertension, benign: Code(s): I10 - Essential (primary) hypertension Status: Acute
[2022-04-08] MEDS: ONDANSETRON INJ 4 MG/2 ML VIAL IV PUSH ×2 (09:32→18:40)
[2022-04-08 11:32] LABS: Iron < 10 ug/dL (37-170)
[2022-04-08 11:36] LABS: Transferrin 154 mg/dL (206-381)
[2022-04-08] MEDS: AMOXICILLIN/CLAVULANATE K 500-125 MG TAB 1 TABLET PO ×2 (11:37→21:29)
[2022-04-08 11:42] LABS: Percent Iron Saturation < 4 % (20-50)
[2022-04-08 12:05] LABS: Hepatitis B Surface Antigen Negative (Negative)
[2022-04-08 12:10] LABS: HAV RESULT Negative (Negative); Hepatitis B Core IgM Result Negative (Negative)
[2022-04-08 12:22] LABS: Hepatitis C Virus Antibody Negative (Negative)
[2022-04-08 12:40] LABS: Folic Acid > 20.0 ng/mL (2.76->20)
[2022-04-08 13:00] LABS: Ferritin > 2000.00 ng/mL (11.1-264)
[2022-04-08 16:41] LABS: Osmolality, Urine 187 mOsm/kg (50-1200)
--- NOTE | 2022-04-08 18:45 | PM.PNNEP ---
Progress Note: A&P Additional Plan 1. Karina has renal insufficiency. Her creatinine was normal just in September. the timing of the elevation of creatinine is not clear. It could have been days or months. Renal Ultrasound is normal. CK is normal UA shows blood and protein urine lytes are non pre renal color flow Doppler of the kidney shows no arterial issues. I looked at the images and the veins look good as well. Renal scan shows 38% function the left and 62% than the right. There was somewhat delayed in uptake but basically very little excretion. This is consistent with ATN. the patient's creatinine has risen dramatically today. formally it was thought that this was ATN secondary to her pneumonia. However she is getting treatment for the pneumonia and seems to feel a little bit better in this regard; however, now that the creatinine has risen somewhat quickly this brings into play other issues. I think it would be best to go ahead and do a kidney biopsy. I discussed the risks benefits process and alternative to the patient and her son. Risks include bleeding, enough to require blood transfusion which is probably a little higher in her since she only has a hemoglobin of 7.9, and bleeding enough to require somebody to go in and stop the bleeding. She is not on anticoagulants. After discussing the case with the patient and power of drying unit felting machine operator agreed to proceed with the renal biopsy. I talked with PRAVEEN Snyder Discussions with Dr. Snyder and with the family took 25 minutes in addition to clinical activities. 2. DVTs. Eliquis on hold because of the GI bleeding. she got an umbrella. 3. anemia. Dr. Hua is on the case. Considering GI bleed, hemolysis, etc. Haptoglobin not low. LDH not high. Hemoccult is negative, interestingly. EGD was negative. Colonoscopy unremarkable. 4. Pulmonary infiltrates. PEs versus infection? I agree with Dr. Snyder that the former is more likely than the latter. I think volume status looks okay today. Subjective Date/time seen: 04/08/22 18:45 Interval history: She has no shortness of breath She is lying flat in bed. Her appetite is not very good. Her son is in the room. The 3 of us discussed the case at length. Exam Narrative: WDWN in NAD skin no rash or subcu nodules head ncat lungs decreased breath sounds at the bases. A few more crackles bilaterally cor reg no rub or gallop abd BS+ nontender ext Trace edema bilaterally. Objective Data Vital Signs Vital Signs: Vital Signs - 24 hr 04/07/22 21:54 04/07/22 23:57 04/07/22 21:50 Temperature 37.8 C H 37.0 C Pulse Rate 104 H Respiratory Rate 22 H Blood Pressure 125/43 L Pulse Oximetry 90 91 Oxygen Delivery Nasal Cannula Oxygen Flow Rate 2.5 04/07/22 20:00 04/08/22 04:00 04/08/22 06:00 Temperature 37.3 C Pulse Rate 106 H 83 94 Respiratory Rate 22 H Blood Pressure 111/51 L Pulse Oximetry 90 Oxygen Delivery Oxygen Flow Rate 04/08/22 08:38 04/08/22 08:00 04/08/22 12:00 Temperature Pulse Rate 89 91 Respiratory Rate Blood Pressure Pulse Oximetry 91 Oxygen Delivery Nasal Cannula Oxygen Flow Rate 2.5 04/08/22 12:30 04/08/22 14:59 04/08/22 16:00 Temperature 36.1 C L Pulse Rate 90 87 81 Respiratory Rate 18 Blood Pressure 106/52 L 120/46 L Pulse Oximetry 95 99 Oxygen Delivery Oxygen Flow Rate Intake/Output Intake/Output: Intake & Output 04/05/22 04/06/22 04/07/22 04/08/22 23:59 23:59 23:59 23:59 Intake Total 8646 361 2619 640 Output Total 2100 600 1300 500 Balance -240 40 330 140 Meds/Results Medications: Active Medications Generic Name Dose Route Start Last Admin Trade Name Freq PRN Reason Stop Dose Admin Acetaminophen 650 mg 03/31/22 14:52 04/07/22 09:00 Acetaminophen 325 Mg Tablet PO 650 mg Q4H PRN Administration Mild Pain (1-3) or Fever Hydrocodone Bitart/Acetaminop
[2022-04-08 21:27] LABS: Legionella pneumophila Ag Ur Not Detected (Not Detected)
[2022-04-08 22:35] LABS: Anti Nuclear Antibody Titer 1:40 (Negative)
[2022-04-09] VITALS (14 sets, daily range): BP systolic 111–129; BP diastolic 44–66; PULSE 72–99; RESP 16–24; TEMP 36–36.6; O2SAT 89–96; BMI 32.7
[2022-04-09] MEDS: CENTRAL LINE FLUSH 10 ML IV PUSH ×4 (04:53→22:08)
[2022-04-09 05:07] LABS: Basophils Percent Auto 0.3 % (0.2-1.2); Eosinophils Percent Auto 8.3 % (0-4.4); Hematocrit 22.3 % (37.0-47.0); Hemoglobin 7.1 g/dL (12.0-15.0); Immature Granulocyte Percent A 4.1 % (0-0.5); Lymphocytes Absolute Auto 1.07 K/mm3 (0.9-3.2); Lymphocytes Percent Auto 8.8 % (18.3-44.2); Mean Corpuscular HGB Conc 31.8 g/dl (32-36); Mean Corpuscular Hemoglobin 29.1 pg (26-34); Mean Corpuscular Volume 91.4 fl (80-100); Mean Platelet Volume 8.8 fl (7.4-10.4); Monocytes Absolute Auto 0.3 K/mm3 (0.1-0.6); Monocytes Percent Auto 2.7 % (2.6-8.5); Neutrophils Absolute Auto 9.2 K/mm3 (1.3-6.7); Neutrophils Percent Auto 75.8 % (45.5-73.1); Platelet Count Result 178 k/mm3 (150-375); Red Blood Count 2.44 M/mm3 (4.2-5.4); Red Cell Distribution Width 15.9 % (11.5-14.5); White Blood Count 12.2 K/mm3 (4.5-10.0)
[2022-04-09 05:19] LABS: Alanine Aminotransferase 25 U/L (6-35); Albumin Level 2.7 g/dL (3.5-5.1); Alkaline Phosphatase 135 U/L (38-126); Anion Gap 14 mmol/L (8-16); Aspartate Amino Transferase 34 U/L (14-36); Bilirubin,Total 0.8 mg/dL (0.2-1.3); Blood Urea Nitrogen 81 mg/dL (7-17); Calcium 8.7 mg/dL (8.4-10.2); Carbon Dioxide 17 mmol/L (22-30); Chloride 97 mmol/L (98-107); Estimated CRCL calculation 8 ml/min; Estimated Glomerular Filt Rate 7; Glucose 101 mg/dL (65-110); Magnesium 1.8 mg/dL (1.6-2.3); Phosphorus 5.7 mg/dL (2.5-4.5); Potassium 4.1 mmol/L (3.4-5.0); Sodium 128 mmol/L (137-145)
--- NOTE | 2022-04-09 08:05 | PM.IMPN ---
Progress Note: A&P Assessment and Plan (1) Pneumonia: Qualifiers: Laterality: bilateral Lung location: unspecified part of lung Pneumonia type: due to unspecified organism Qualified Code(s): J18.9 - Pneumonia, unspecified organism Code(s): J18.9 - Pneumonia, unspecified organism Status: Acute Assessment and Plan: Day 10 of Augmentin, will discontinue at this time, do not suspect bacterial pneumonia at this point (2) Pulmonary embolism: Code(s): I26.99 - Other pulmonary embolism without acute cor pulmonale Status: Acute Assessment and Plan: Currently needing 2LNC IVC filter placed 04/03/22 (3) KRUNAL (acute kidney injury): Code(s): N17.9 - Acute kidney failure, unspecified Status: Acute Assessment and Plan: uncertain etiology, continues to worsen, appreciate nephrology consultation, renal biopsy pending today (4) Anemia: Code(s): D64.9 - Anemia, unspecified Status: Acute Assessment and Plan: unsure of etiology, GI workup unrevealing, continue iron supplementation (5) CHF (congestive heart failure): Code(s): I50.9 - Heart failure, unspecified Status: Acute Assessment and Plan: cardiology was consulted and stated patient is not in heart failure and appears to be euvolemic from a cardiac standpoint (6) Factor V Leiden: Code(s): D68.51 - Activated protein C resistance Status: Acute Assessment and Plan: history of factor 5 Leiden (7) Essential hypertension, benign: Code(s): I10 - Essential (primary) hypertension Status: Acute Assessment and Plan: monitor, stable (8) Hypothyroidism: Qualifiers: Hypothyroidism type: acquired Qualified Code(s): E03.9 - Hypothyroidism, unspecified Code(s): E03.9 - Hypothyroidism, unspecified Status: Acute Assessment and Plan: stable, recheck in 1 month (9) DVT, bilateral lower limbs: Code(s): I82.403 - Acute embolism and thrombosis of unspecified deep veins of lower extremity, bilateral Status: Acute Assessment and Plan: unable to anticoagulate at this time, IVC filter placed (10) Flash pulmonary edema: Code(s): J81.0 - Acute pulmonary edema Status: Acute Assessment and Plan: still with abnormal chest x-ray, uncertain etiology, await renal biopsy for possible pulmonary renal syndrome etiology to be discovered Subjective Date/time seen: 04/09/22 08:05 Interval history: Patient reports feeling a little bit groggy. No overnight events noted. No chest pain or shortness of breath. No nausea, vomiting or diarrhea. No fevers or chills. Review of Systems Review of Systems: All systems reviewed & are unremarkable except as noted in HPI and below Exam Narrative: General: No acute distress, alert and oriented per baseline HEENT: Atraumatic, normocephalic, mucous membranes moist CV: Regular rate and rhythm, S1, S2 Lungs: Scattered crackles throughout, diminished at bases Abdomen: Soft, nontender, nondistended Extremities: Normal to inspection Skin: No rashes noted, no lesions or wounds seen Psych: Euthymic, normal affect Objective Data Vital Signs Vital Signs: Vital Signs - 24 hr 04/08/22 08:38 04/08/22 12:00 04/08/22 12:30 Temperature Pulse Rate 91 90 Respiratory Rate Blood Pressure 106/52 L Pulse Oximetry 91 95 Oxygen Delivery Nasal Cannula Oxygen Flow Rate 2.5 04/08/22 14:59 04/08/22 16:00 04/08/22 19:26 Temperature 97 F L 96.8 F L Pulse Rate 87 81 95 Respiratory Rate 18 18 Blood Pressure 120/46 L 118/55 L Pulse Oximetry 99 100 Oxygen Delivery Oxygen Flow Rate 04/08/22 21:50 04/08/22 20:00 04/09/22 00:00 Temperature Pulse Rate 100 85 Respiratory Rate Blood Pressure Pulse Oximetry Oxygen Delivery Nasal Cannula Oxyge
--- NOTE | 2022-04-09 08:08 | PM.PNNEP ---
Progress Note: A&P Additional Plan 1. Karina has renal insufficiency. Her creatinine was normal just in September. Renal Ultrasound is normal. CK is normal UA shows blood and protein urine lytes are non pre renal color flow Doppler of the kidney shows no arterial issues. I looked at the images and the veins look good as well. Renal scan shows 38% function the left and 62% than the right. There was somewhat delayed in uptake but basically very little excretion. This is consistent with ATN. the patient's creatinine has risen again today. Will proceed with renal biopsy. In case there is a an inflammatory process I am going to give her steroids.. I will repeat urine electrolytes as well since urine output is lower. 2. DVTs. Eliquis on hold because of the GI bleeding. she got an umbrella. 3. anemia. Dr. Hua is on the case. Considering GI bleed, hemolysis, etc. Haptoglobin not low. LDH not high. Hemoccult is negative, interestingly. EGD was negative. Colonoscopy unremarkable. 4. Pulmonary infiltrates. PEs versus infection? Subjective Date/time seen: 04/09/22 08:08 Interval history: She has no shortness of breath She is on some oxygen. She did not make much urine last night. Exam Narrative: WDWN in NAD skin no rash or subcu nodules head ncat lungs decreased breath sounds at the bases. Still has crackles bilaterally cor reg no rub or gallop abd BS+ nontender ext minimal edema bilaterally. Objective Data Vital Signs Vital Signs: Vital Signs - 24 hr 04/08/22 08:38 04/08/22 12:00 04/08/22 12:30 Temperature Pulse Rate 91 90 Respiratory Rate Blood Pressure 106/52 L Pulse Oximetry 91 95 Oxygen Delivery Nasal Cannula Oxygen Flow Rate 2.5 04/08/22 14:59 04/08/22 16:00 04/08/22 19:26 Temperature 36.1 C L 36.0 C L Pulse Rate 87 81 95 Respiratory Rate 18 18 Blood Pressure 120/46 L 118/55 L Pulse Oximetry 99 100 Oxygen Delivery Oxygen Flow Rate 04/08/22 21:50 04/08/22 20:00 04/09/22 00:00 Temperature Pulse Rate 100 85 Respiratory Rate Blood Pressure Pulse Oximetry Oxygen Delivery Nasal Cannula Oxygen Flow Rate 2 04/09/22 04:17 04/09/22 04:00 Temperature 36.6 C Pulse Rate 99 92 Respiratory Rate 20 Blood Pressure 111/44 L Pulse Oximetry 94 Oxygen Delivery Oxygen Flow Rate Intake/Output Intake/Output: Intake & Output 04/06/22 04/07/22 04/08/22 04/09/22 23:59 23:59 23:59 23:59 Intake Total 640 1630 640 200 Output Total 600 1300 600 200 Balance 40 330 40 0 Meds/Results Medications: Active Medications Generic Name Dose Route Start Last Admin Trade Name Freq PRN Reason Stop Dose Admin Acetaminophen 650 mg 03/31/22 14:52 04/07/22 09:00 Acetaminophen 325 Mg Tablet PO 650 mg Q4H PRN Administration Mild Pain (1-3) or Fever Hydrocodone Bitart/Acetaminophen 1 tab 03/31/22 14:54 04/07/22 21:35 Hydrocodone/Acetaminophen (*Crx) 5-325 Mg Tablet PO 1 tab Q4H PRN Administration Pain Rated 4-10 Amoxicillin/Clavulanate Potassium 1 tablet 04/08/22 09:45 04/08/22 21:29 Amoxicillin/Clavulanate K 500-125 Mg Tab PO 1 tablet Q12HR ELIJAH Administration Benzocaine 1 lozenge 04/04/22 12:00 04/04/22 21:55 Benzocaine/Menthol (*Bkc) 18 Ea Lozenge PO 1 lozenge PRN PRN Administration Sore Throat Famotidine 20 mg 04/07/22 21:00 04/08/22 21:29 Famotidine 20 Mg Tablet PO 20 mg Q12HR ELIJAH Administration Ferrous Sulfate 324 mg 04/01/22 08:00 04/08/22 16:02 Ferrous Sulfate 324 Mg Tablet PO 324 mg BIDWM ELIJAH Administration Guaifenesin/Codeine Phosphate 10 ml 04/04/22 11:09 04/07/22 13:34 Guaifenesin/Codeine (*Crx) 200/20 Mg 10 Ml Syrup PO 10 ml Q4H PRN Administration Cough Mupirocin 1 applic 04/08/22 09:00 04/08/22 21:30 Mupirocin 2% Oint 22 Gm Tube EACH NARE 04/12/22 21:01 1 applic Q12HR ELIJAH Administr
[2022-04-09] MEDS: FERROUS SULFATE 324 MG TABLET PO ×2 (08:25→16:23)
[2022-04-09] MEDS: AMOXICILLIN/CLAVULANATE K 500-125 MG TAB 1 TABLET PO ×2 (08:25→22:02)
[2022-04-09] MEDS: FAMOTIDINE 20 MG TABLET PO ×2 (08:25→22:02)
[2022-04-09] MEDS: MUPIROCIN 2% OINT 22 GM TUBE 1 APPLIC EACH NARE ×2 (08:26→22:03)
[2022-04-09] MEDS: methylPREDNISolone SOD SUCC 1,000 MG in DEXTROSE 5% 100 ML 200 MG IVPB (09:12)
[2022-04-09 09:23] LABS: Appearance Urine Slightly Cloudy (Clear); Bilirubin Urine Negative (Negative); Blood Urine 2+ (Negative); Color Urine Yellow (Yellow); Glucose Urine UA Negative (Negative); Ketones Urine Negative (Negative); Leukocyte Esterase Ur Trace LEU/UL (NEGATIVE); Nitrate Urine Negative (Negative); Protein Urine 3+ mg/dL (Negative); Specific Grav Ur 1.015 (1.001-1.035); Urobilinogen Urine 0.2 mg/dL (<2.0); pH Urine 5.5 (5.0-9.0)
[2022-04-09 09:28] LABS: Bacteria Urine Trace /hpf; Mucus Urine Rare /lpf; RBC Urine 21-50 /hpf (0-2); Squamous Epithelial Cell Urine Many /hpf (Few); Transitional Epi Cells Urine Rare /hpf (None Seen); WBC Urine 21-30 /hpf (0-3)
[2022-04-09 09:44] LABS: Add Urine Microscopic? YES
[2022-04-09 09:50] LABS: Creatinine Urine 76.5 mg/dL
[2022-04-09 09:54] LABS: Sodium Urine Random 33 meq/L
[2022-04-09 10:04] LABS: Total Protein Urine Random 429 mg/dL; Ur Ttl Prot Creatinine Ratio 5.61 mg/mg (0-0.20)
[2022-04-09 11:15] LABS: Complement Total CH50 57 U/mL (31-60)
[2022-04-09] MEDS: ONDANSETRON INJ 4 MG/2 ML VIAL IV PUSH ×2 (12:13→18:16)
--- NOTE | 2022-04-09 12:24 | PM.CNCAR ---
Assessment and Plan Assessment and plan (1) Acute and chronic respiratory failure with hypoxia: Code(s): J96.21 - Acute and chronic respiratory failure with hypoxia Status: Acute Assessment and Plan: Clinical picture suggestive of possible autoimmune and or systemic inflammatory process with severe associated with acute, fulminant renal failure. Chest x-ray findings may represent diffuse alveolar hemorrhage most prominent left lung field when considered in conjunction with acute renal failure may be represent of ANCA or pauci immune glomerulonephritis or other autoimmune more infiltrative process, lupus, etc Workup underway. She may require bronchoscopy depending on respiratory status and results renal biopsy. Consider pulmonology consultation. Her acute hypoxic respiratory failure is not related to decompensated heart failure. She has preserved LV systolic function with grade 1 diastolic dysfunction without significant valvular heart disease. Her BNP was a remarkably unremarkable 56 at presentation. I do not feel that diuresis will be of significant clinical benefit and in fact may hasten her already rapid renal failure. Continue O2 supplementation. Incentive spirometer at bedside. DVT prophylaxis. I do not feel that additional cardiovascular workup at this time is indicated. I do not see a clear acute cardiovascular pathology contributing to her clinical picture at this time. Please do not hesitate to contact us with any additional questions or concerns. Spent 67 minutes in the care of this patient including discussions at bedside, counseling, examination, discussion with care team, chart review, medical decision making, and documentation. (2) KRUNAL (acute kidney injury): Code(s): N17.9 - Acute kidney failure, unspecified Status: Acute Assessment and Plan: As above. Greatly appreciate Nephrology involvement. Renal biopsy pending. IV methylprednisolone as ordered. ANCA, anti DNA, glomerular basement membrane antibody, light chain assay is pending. Immunofixation pending. NEELAM positive 1:40. (3) Acute on chronic anemia: Code(s): D64.9 - Anemia, unspecified Status: Acute Assessment and Plan: Stable, no evidence of active bleed. Continue to follow H&H closely. Anticoagulation on hold. (4) DVT, bilateral lower limbs: Code(s): I82.403 - Acute embolism and thrombosis of unspecified deep veins of lower extremity, bilateral Status: Acute Assessment and Plan: Status post IVC filter, she is off systemic anticoagulation (5) Pulmonary embolism: Code(s): I26.99 - Other pulmonary embolism without acute cor pulmonale Status: Acute Assessment and Plan: Per primary service. (6) Factor V Leiden: Code(s): D68.51 - Activated protein C resistance Status: Acute Assessment and Plan: Documented. Oncology consultation appreciated History of Present Illness History of Present Illness Consult date/time: Date of service: 04/09/22 12:24 Requesting physician: Mary Ann Penny DO Consult reason: shortness of breath Reason For Visit: pneumonia,acute kidney injury,anemia,hypoxia Narrative: Patient is a very pleasant 77-year-old female with past medical history significant for hypertension, hypothyroidism, history of recurrent lower extremity DVT recent diagnosis with pulmonary emboli status post IVC filter Factor V Leiden, hyperlipidemia originally admitted 04/01/2022 admitted with progressive fatigue and worsening exertional dyspnea. Patient utilize nebulizer/bronchodilator therapy without improvement. She denied bright red blood per rectum, melena, chest pain, palpitations, abdominal pain, nausea, vomiting or documented fevers prior to admission. She did admit to some night sweats and chills for electronic record and had declining appetite. She was on Eliquis for anticoagulation although is taking it once daily instead of twice
--- NOTE | 2022-04-09 12:56 | PCPTNOTE ---
Attempted PT evaluation, patient is currently off the unit for a test. Will attempt at later time.
[2022-04-09 15:14] LABS: SARS-CoV-2 RNA PCR Negative
--- NOTE | 2022-04-09 15:48 | WPDGIPROGNO ---
Progress Note: A&P Assessment and Plan (1) Acute on chronic anemia: Code(s): D64.9 - Anemia, unspecified Status: Acute Assessment and Plan: no signs of gib with negative egd and colonoscopy but persistent ISABEL will order small bowel capsule endoscopy tomorrow (approved by insurance) hematology on board also noted worsening renal failure which can explain part of anemia (2) Pulmonary embolism: Code(s): I26.99 - Other pulmonary embolism without acute cor pulmonale Status: Acute Assessment and Plan: s/p ivc filter (3) Factor V Leiden: Code(s): D68.51 - Activated protein C resistance Status: Acute (4) KRUNAL (acute kidney injury): Code(s): N17.9 - Acute kidney failure, unspecified Status: Acute Assessment and Plan: s/p renal bx Subjective Date/time seen: 04/09/22 15:48 Interval history: I was called again to see patient because persistent anemia, no report of overt GIB in fact she has not had a BM for few days and recent egd/colonoscopy unremarkable for bleeding. She just had renal bx because worsening renal function Review of Systems Review of Systems: All systems reviewed & are unremarkable except as noted in HPI and below Exam Const: General: comfortable and no acute distress HENMT: General nose exam: Normal nares present Eyes: General: appearance normal, both eyes and all related structures Neck: Neck: no JVD Resp: Auscultation: clear to auscultation bilaterally Cardio: Rate: regular rate Rhythm: regular rhythm GI: Inspection: non-distended GI Palp: Yes Soft to palpation Skin: General skin exam: normal color Neuro: General: gait normal Speech: normal speech Extrem: General: normal to inspection Psych: Mental Status: mental status grossly normal Objective Data Vital Signs Vital Signs: Vital Signs - 24 hr 04/08/22 16:00 04/08/22 19:26 04/08/22 21:50 Temperature 96.8 F L Pulse Rate 81 95 Respiratory Rate 18 Blood Pressure 118/55 L Pulse Oximetry 100 Oxygen Delivery Nasal Cannula Oxygen Flow Rate 2 04/08/22 20:00 04/09/22 00:00 04/09/22 04:17 Temperature 97.8 F Pulse Rate 100 85 99 Respiratory Rate 20 Blood Pressure 111/44 L Pulse Oximetry 94 Oxygen Delivery Oxygen Flow Rate 04/09/22 04:00 04/09/22 08:33 04/09/22 08:35 Temperature Pulse Rate 92 Respiratory Rate Blood Pressure Pulse Oximetry 89 L 91 Oxygen Delivery Nasal Cannula Nasal Cannula Oxygen Flow Rate 2 3 04/09/22 08:00 04/09/22 13:45 04/09/22 13:20 Temperature 97.5 F L Pulse Rate 93 82 80 Respiratory Rate 16 24 H Blood Pressure 128/53 L 121/59 L Pulse Oximetry 93 96 Oxygen Delivery Oxygen Flow Rate 04/09/22 12:25 04/09/22 12:00 Temperature Pulse Rate 80 81 Respiratory Rate 24 H Blood Pressure 125/57 L Pulse Oximetry 93 Oxygen Delivery Oxygen Flow Rate Intake/Output Intake/Output: Intake & Output 04/06/22 04/07/22 04/08/22 04/09/22 23:59 23:59 23:59 23:59 Intake Total 640 1630 640 316 Output Total 600 1300 600 200 Balance 40 330 40 116 Meds/Results Medications: Active Medications Generic Name Dose Route Start Last Admin Trade Name Freq PRN Reason Stop Dose Admin Acetaminophen 650 mg 03/31/22 14:52 04/07/22 09:00 Acetaminophen 325 Mg Tablet PO 650 mg Q4H PRN Administration Mild Pain (1-3) or Fever Hydrocodone Bitart/Acetaminophen 1 tab 03/31/22 14:54 04/07/22 21:35 Hydrocodone/Acetaminophen (*Crx) 5-325 Mg Tablet PO 1 tab Q4H PRN Administration Pain Rated 4-10 Amoxicillin/Clavulanate Potassium 1 tablet 04/08/22 09:45 04/09/22 08:25 Amoxicillin/Clavulanate K 500-125 Mg Tab PO 1 tablet Q12HR ELIJAH Administration Benzocaine 1 lozenge 04/04/22 12:00 04/04/22 21:55 Benzocaine/Menthol (*Bkc) 18 Ea Lozenge PO 1 lozenge PRN PRN Administration Sore Throat Famotidine 20 mg 04/07/22 21:00 0804
[2022-04-09] MEDS: polyethylene glycoL 3350 238 GM BOTTLE PO (16:26)
[2022-04-09] MEDS: EPOETIN ALFA-EPBX 20,000 UNITS/ML VIAL 20000 UNITS SUB-Q (18:02)
[2022-04-09 18:22] LABS: Anti Glomerular Basement Memb <1.0 AI (<1.0)
--- NOTE | 2022-04-09 19:07 | WPDONCPN ---
Progress Note: A/P - Additional Plan Multifactorial anemia secondary to anemia of chronic kidney disease and iron deficiency. EGD from April 03 showed hiatal hernia. No ulcer and gastritis. Colonoscopy from April 06 showed colon polyps, external hemorrhoid and diverticulosis. Patient received iron infusion but iron level remains quite low. I will repeat another round of iron infusion. We will order bleeding scan. Plan for capsule enteroscopy noted. Anemia of chronic kidney disease. We will start Retacrit [id number] units on a biweekly basis. I do not see need for bone marrow biopsy testing at this time. Hypercoagulable state with recurrent DVT. Patient has a history of factor 5 Leiden mutation. Eliquis has been on hold due to iron deficiency anemia and possible blood loss. Chronic kidney disease. Patient is status post kidney biopsy. - Time Spent With Patient Total time spent is greater than 50% in coordination of care (as documented) at patient's floor/unit and/or counseling patient: 25 - 35 minutes Subjective Interval history: Multifactorial anemia Hypercoagulable state with factor 5 Leiden mutation Review of Systems - Review of Systems Patient complain of tiredness and fatigue as well as shortness of breath. She has also been complaining of nausea and poor appetite. He is also having some constipation. Denies any bleeding including melena hematochezia. - Neurologic Reports system reviewed and no additional complaints, except as documented Exam Vital signs: Temp Pulse Resp BP Pulse Ox O2 Del Method O2 Flow Rate 36.4 C L 74 16 128/53 L 93 Nasal Cannula 3 04/09/22 13:45 04/09/22 16:00 04/09/22 13:45 04/09/22 13:45 04/09/22 13:45 04/09/22 08:35 04/09/22 08:35 Narrative: Lungs are clear to auscultation bilaterally Cardiovascular regular rate rhythm no murmurs Abdomen soft nontender nondistended bowel sounds are positive but sluggish Extremities no edema PN: Objective Data - Labs CBC & Chem 7: 04/09/22 05:01 04/09/22 05:01 Labs: Laboratory Results - last 24 hr 04/02/22 04/02/22 04/02/22 11:29 11:29 11:29 WBC RBC Hgb Hct MCV MCH MCHC RDW Plt Count MPV Immature Gran % (Auto) Neut % (Auto) Lymph % (Auto) [place] % (Auto) Eos % (Auto) Baso % (Auto) Lymph # (Auto) [place] # (Auto) Eos # (Auto) Baso # (Auto) Abs Immat Gran (auto) Absolute Neuts (auto) Absolute Nucleated RBC Nucleated RBC % Sodium Potassium Chloride Carbon Dioxide Anion Gap BUN Creatinine Estim Creat Clear Calc Estimated GFR Glucose Calcium Phosphorus Magnesium Total Bilirubin AST ALT Alkaline Phosphatase Total Protein Albumin Urine Color Urine Appearance Urine pH Ur Specific [place] Urine Protein Urine Glucose (UA) Urine Ketones Ur Blood (Man) Urine Nitrate Urine Bilirubin Urine Urobilinogen Ur Leukocyte Esterase Urine RBC Urine WBC Ur Squamous Epith Cells Ur Transition Epith Cell Urine Bacteria Urine Mucus U Random Total Protein Ur Random Sodium Urine Creatinine Protein/Creat Ratio 2 Serum Immunofixation see below NEELAM Screen Positive A NEELAM Titer 1:40 A NEELAM Pattern see below Glomerular Base Memb Ab Tot Complement (CH50) 57 Ur L.pneumophila Ag M.pneumoniae DNA (PCR) Not detected SARS-CoV-2 RNA (RT-PCR) 04/02/22 04/03/22 04/09/22 23:11 16:43 05:01 WBC 12.2 H RBC 2.44 L Hgb 7.1 L Hct 22.3 L MCV 91.4 MCH 29.1 MCHC 31.8 L RDW 15.9 H Plt Count 178 MPV 8.8 Immature Gran % (Auto) 4.1 H Neut % (Auto) 75.8 H Lymph % (Auto) 8.8 L [place] % (Auto) 2.7 Eos % (Auto) 8.3 H Baso % (Auto) 0.3 Lymph # (Auto) 1.07 [place] # (Auto) 0.3 Eos # (Auto) 1.0 H Baso # (Auto) 0.0 Abs Immat Gran (auto)
[2022-04-09] MEDS: IRON SUCROSE COMPLEX 500 MG in SODIUM CHLORIDE 0.9% IV 250 ML 78.57 MG IVPB (19:08)
--- NOTE | 2022-04-09 20:18 | PC.NURSE ---
Pt unable to tolerate miralax give 20mg dulcolax as substitute per Dr Vidal
[2022-04-09] MEDS: BISACODYL 5 MG TABLET EC 20 MG PO (21:04)
[2022-04-10] VITALS (25 sets, daily range): BP systolic 114–157; BP diastolic 53–77; PULSE 67–89; RESP 16–30; TEMP 35.5–37; O2SAT 91–100
[2022-04-10] MEDS: CENTRAL LINE FLUSH 10 ML IV PUSH (06:18)
[2022-04-10 06:26] LABS: Anion Gap 16 mmol/L (8-16); Blood Urea Nitrogen 102 mg/dL (7-17); Carbon Dioxide 16 mmol/L (22-30); Chloride 98 mmol/L (98-107); Estimated CRCL calculation 6 ml/min; Estimated Glomerular Filt Rate 5; Glucose 155 mg/dL (65-110); Phosphorus 9.3 mg/dL (2.5-4.5); Sodium 130 mmol/L (137-145)
[2022-04-10] MEDS: CENTRAL LINE FLUSH 20 ML IV PUSH (08:10)
[2022-04-10] MEDS: methylPREDNISolone SOD SUCC 1,000 MG in DEXTROSE 5% 100 ML 200 MG IVPB (08:10)
[2022-04-10] MEDS: MUPIROCIN 2% OINT 22 GM TUBE 1 APPLIC EACH NARE (08:11)
[2022-04-10] MEDS: ONDANSETRON INJ 4 MG/2 ML VIAL IV PUSH (08:20)
--- NOTE | 2022-04-10 08:23 | SUR.OPER ---
Patient IN ROOM 251, Instructions for patient undergoing Capsule Endoscopy reviewed with patient. Consent form signed. Sensor array applied to patient's abdomen and connected to recorded. Patient swallowed capsule with 12 ozs of water infused with Simethicone. Patient, NURSE AND TECH instructed they may have clear liquids at 0945 this AM and eat or drink at 1145 this AM. Patient instructed to CALL GI Lab at 1500 this afternoon for removal of recording device and to call [phone] or CALL GI if any nausea and vomiting or abdominal pain is experienced.
[2022-04-10 08:39] LABS: Hematocrit 24.2 % (37.0-47.0); Hemoglobin 7.7 g/dL (12.0-15.0); Mean Corpuscular HGB Conc 31.8 g/dl (32-36); Mean Corpuscular Hemoglobin 28.7 pg (26-34); Mean Corpuscular Volume 90.3 fl (80-100); Mean Platelet Volume 9.8 fl (7.4-10.4); Platelet Count Result 201 k/mm3 (150-375); Red Blood Count 2.68 M/mm3 (4.2-5.4); White Blood Count 12.3 K/mm3 (4.5-10.0)
--- NOTE | 2022-04-10 09:20 | PM.PNNEP ---
Progress Note: A&P Additional Plan 1. Karina has renal insufficiency. Her creatinine was normal just in September. Renal Ultrasound is normal. CK is normal UA shows blood and protein urine lytes are non pre renal color flow Doppler of the kidney shows no arterial issues. I looked at the images and the veins look good as well. Renal scan shows 38% function the left and 62% than the right. There was somewhat delayed in uptake but basically very little excretion. This is consistent with ATN. Repeat urine lytes are non pre renal. Urine protein has increased. Renal biopsy was done yesterday. Differential includes ATN, infection, inflammation, infiltration. She is on Solu-Medrol on now in case of inflammation. the patient's creatinine has risen again today. I think her nausea is probably uremia. I will ask surgery to place a PermCath. Will start dialysis. We talked about the process, risks, benefits, and alternatives. She is willing to proceed. 2. DVTs. Eliquis on hold because of the GI bleeding. she got an umbrella. 3. anemia. Dr. Hua is on the case. Considering GI bleed, hemolysis, etc. Haptoglobin not low. LDH not high. Hemoccult is negative, interestingly. EGD was negative. Colonoscopy unremarkable. Capsule endoscopy was administered today. She did vomit this morning however it was about 3 hours after the capsule was swallowed. They will check the vomitus for the capsule. 4. Pulmonary infiltrates. PEs versus infection? Subjective Date/time seen: 04/10/22 09:20 Interval history: She has no shortness of breath She is on some oxygen. Urine output still low. She has nausea and vomiting this morning. Exam Narrative: WDWN in NAD skin no rash or subcu nodules head ncat lungs By basilar crackles. cor reg no rub or gallop abd BS+ nontender ext minimal edema bilaterally. Objective Data Vital Signs Vital Signs: Vital Signs - 24 hr 04/09/22 13:45 04/09/22 13:20 04/09/22 12:25 Temperature 36.4 C L Pulse Rate 82 80 80 Respiratory Rate 16 24 H 24 H Blood Pressure 128/53 L 121/59 L 125/57 L Pulse Oximetry 93 96 93 Oxygen Delivery Oxygen Flow Rate 04/09/22 12:00 04/09/22 16:00 04/09/22 21:36 Temperature 36.0 C L Pulse Rate 81 74 72 Respiratory Rate 20 Blood Pressure 129/66 Pulse Oximetry 93 Oxygen Delivery Oxygen Flow Rate 04/10/22 03:08 04/09/22 21:30 04/09/22 20:00 Temperature 35.9 C L Pulse Rate 71 74 Respiratory Rate 18 Blood Pressure 125/61 Pulse Oximetry 92 93 Oxygen Delivery Nasal Cannula Oxygen Flow Rate 2 04/10/22 00:00 04/10/22 04:00 Temperature Pulse Rate 67 68 Respiratory Rate Blood Pressure Pulse Oximetry Oxygen Delivery Oxygen Flow Rate Intake/Output Intake/Output: Intake & Output 04/07/22 04/08/22 04/09/22 04/10/22 23:59 23:59 23:59 23:59 Intake Total 1630 640 316 190 Output Total 1300 600 400 Balance 330 40 -84 190 Meds/Results Medications: Active Medications Generic Name Dose Route Start Last Admin Trade Name Freq PRN Reason Stop Dose Admin Acetaminophen 650 mg 03/31/22 14:52 04/07/22 09:00 Acetaminophen 325 Mg Tablet PO 650 mg Q4H PRN Administration Mild Pain (1-3) or Fever Amoxicillin/Clavulanate Potassium 1 tablet 04/08/22 09:45 04/09/22 22:02 Amoxicillin/Clavulanate K 500-125 Mg Tab PO 1 tablet Q12HR ELIJAH Administration Benzocaine 1 lozenge 04/04/22 12:00 04/04/22 21:55 Benzocaine/Menthol (*Bkc) 18 Ea Lozenge PO 1 lozenge PRN PRN Administration Sore Throat Famotidine 20 mg 04/07/22 21:00 04/09/22 22:02 Famotidine 20 Mg Tablet PO 20 mg Q12HR ELIJAH Administration Ferrous Sulfate 324 mg 04/01/22 08:00 04/09/22 16:23 Ferrous Sulfate 324 Mg Tablet PO 324 mg BIDWM ELIJAH Administration Guaifenesin/Codeine Phosphate 10 ml 04/04/22 11:09 04/07/22 13:34 Guaifenesin/Codeine
--- NOTE | 2022-04-10 09:56 | SUR.PREOP ---
Spoke with Charly at 0645 this morning. Informed that patient has yet to have a bowel movement through the night and that she has a history of intestinal surgery. Okay to proceed with capsule study.
[2022-04-10 11:41] LABS: Hepatitis B Surface Antigen Negative (Negative)
--- NOTE | 2022-04-10 14:30 | PC.NURSE ---
To surgery per bed. Report given to OSIRIS Joseph. Patient will be transferred to dialysis immediately following placement of dialysis catheter.
--- NOTE | 2022-04-10 15:00 | PC.NURSE ---
To OR per bed, IV saline locked. Report given to OSIRIS Velazquez .
--- NOTE | 2022-04-10 15:12 | SUR.OPER ---
Met patient over in pre op of OR for recorder box removal. Patient voiced no complaints. States they have understanding of instructions.
[2022-04-10] MEDS: SODIUM CHLORIDE 0.9% IV 500 ML 30 ML IV CONT (15:15)
[2022-04-10 15:19] LABS: Hepatitis B Surface Anti Res Negative; Hepatitis C Virus Antibody Negative (Negative)
--- NOTE | 2022-04-10 15:58 | WPDHPUPDATE1 ---
History and Physical Update Update Date/Time: 04/10/22 15:58 History and Physical has been reviewed, including an updated exam of the patient. There are NO changes in the patient's condition. Risks, benefits, and alternatives have been discussed and questions answered. Patient agrees to proceed with procedure.
--- NOTE | 2022-04-10 15:58 | PM.PNGS ---
Progress Note: A&P Assessment and Plan (1) KRUNAL (acute kidney injury): Code(s): N17.9 - Acute kidney failure, unspecified Status: Acute Assessment and Plan: Patient is having worsening renal function and now needs hemodialysis. I have recommended insertion of tunneled dialysis catheter. I discussed procedure, risks, benefits, and alternatives. Questions answered. Subjective Subjective Date/Time Seen: 04/10/22 15:58 Interval history: Asked to re-evaluate patient for dialysis access. She has been followed by Nephrology and continues to have worsened renal function and is now fluid overloaded and needs to start dialysis. Nephrology has discussed process of dialysis and patient is agreeable to proceeding. Exam Const: General: cooperative, no acute distress and alert Orientation/consciousness: patient oriented x3 Resp: Auscultation: clear to auscultation bilaterally and crackles bilateral at the base Cardio: Rate: regular rate Rhythm: regular rhythm Extrem: General: edema bilateral and pedal edema Objective Data Vital Signs Vital Signs: Vital Signs - 24 hr 04/09/22 16:00 04/09/22 21:36 04/10/22 03:08 Temperature 36.0 C L 35.9 C L Pulse Rate 74 72 71 Respiratory Rate 20 18 Blood Pressure 129/66 125/61 Pulse Oximetry 93 92 Oxygen Delivery Oxygen Flow Rate 04/09/22 21:30 04/09/22 20:00 04/10/22 00:00 Temperature Pulse Rate 74 67 Respiratory Rate Blood Pressure Pulse Oximetry 93 Oxygen Delivery Nasal Cannula Oxygen Flow Rate 2 04/10/22 04:00 04/10/22 08:47 04/10/22 08:27 Temperature Pulse Rate 68 Respiratory Rate Blood Pressure Pulse Oximetry 94 Oxygen Delivery Nasal Cannula Nasal Cannula Oxygen Flow Rate 2 2 04/10/22 13:48 04/10/22 14:19 04/10/22 08:00 Temperature 36.6 C Pulse Rate 80 70 Respiratory Rate 16 Blood Pressure 148/66 H Pulse Oximetry 95 95 Oxygen Delivery Nasal Cannula Oxygen Flow Rate 3 04/10/22 12:00 04/10/22 15:26 Temperature 36.0 C L Pulse Rate 73 75 Respiratory Rate 20 Blood Pressure 148/64 H Pulse Oximetry 100 Oxygen Delivery Room Air Oxygen Flow Rate Intake/Output Intake/Output: Intake & Output 04/07/22 04/08/22 04/09/22 04/10/22 23:59 23:59 23:59 23:59 Intake Total 1630 640 591 306 Output Total 1300 600 400 Balance 330 40 191 306 Meds/Results Medications: Active Medications Generic Name Dose Route Start Last Admin Trade Name Freq PRN Reason Stop Dose Admin Acetaminophen 650 mg 03/31/22 14:52 04/07/22 09:00 Acetaminophen 325 Mg Tablet PO 650 mg Q4H PRN Administration Mild Pain (1-3) or Fever Amoxicillin/Clavulanate Potassium 1 tablet 04/08/22 09:45 04/10/22 11:42 Amoxicillin/Clavulanate K 500-125 Mg Tab PO Not Given Q12HR ELIJAH Benzocaine 1 lozenge 04/04/22 12:00 04/04/22 21:55 Benzocaine/Menthol (*Bkc) 18 Ea Lozenge PO 1 lozenge PRN PRN Administration Sore Throat Famotidine 20 mg 04/07/22 21:00 04/10/22 11:42 Famotidine 20 Mg Tablet PO Not Given Q12HR ELIJAH Ferrous Sulfate 324 mg 04/01/22 08:00 04/10/22 11:42 Ferrous Sulfate 324 Mg Tablet PO Not Given BIDWM ELIJAH Guaifenesin/Codeine Phosphate 10 ml 04/04/22 11:09 04/07/22 13:34 Guaifenesin/Codeine (*Crx) 200/20 Mg 10 Ml Syrup PO 10 ml Q4H PRN Administration Cough Methylprednisolone Sodium 116 mls @ 200 mls/hr 04/09/22 09:00 04/10/22 09:00 Succinate 1,000 mg/ Dextrose IVPB 04/11/22 09:35 Infused QAM ELIJAH Infusion Iron Sucrose 500 mg/ Sodium 275 mls @ 78.571 mls/hr 04/09/22 19:00 04/09/22 22:00 Chloride IVPB 04/10/22 22:29 Infused Q24H ELIJAH Infusion Albumin Human 50 mls @ 999 mls/hr 04/10/22 09:25 Albutein IVPB 04/11/22 09:24 Q10M PRN HYPOTENSION Sodium Chloride 500 mls @ 30 mls/hr 04/10/22 15:25 04/10/22 15:15 Normal Saline Iv IV CONT 30 mls/hr .[id number] ELIJAH Administration Mupir
--- NOTE | 2022-04-10 16:10 | WPDANESEPPF ---
Anes - Initial Pre Proc Eval Procedure: Operation Date: 04/10/22 15:30 Proposed Procedures p Insertion Tunneled Dialysis Catheter - Dharmesh Wills DO Date/Time: 04/10/22 16:10 Surgeon: Elma Pre Op Diagnosis: pneumonia,acute kidney injury,anemia,hypoxia Patient Data Age: 77 Gender: F Height: 1.57 m Weight: 81.4 kg Last Vital Signs Temp 36.0 C L 04/10/22 15:26 Pulse 75 04/10/22 15:26 Resp 20 04/10/22 15:26 BP 148/64 H 04/10/22 15:26 Pulse Ox 100 04/10/22 15:26 O2 Del Method Room Air 04/10/22 15:26 O2 Flow Rate 3 04/10/22 14:19 Allergies Allergy/AdvReac Type Severity Reaction Status Date / Time No Known Allergies Allergy Unknown Verified 04/03/22 12:41 Home Medications Medication Instructions Recorded Confirmed Type calcium carbonate 600 mg calcium 600 mg PO BID 07/25/19 04/03/22 History (1,500 mg) tablet (Calcium) multivitamin 1 cap PO DAILY 07/25/19 04/03/22 History omeprazole 20 mg capsule,delayed 20 mg PO DAILY 07/25/19 04/03/22 History release elderberry fruit 460 mg-elderberry 1 cap PO DAILY 06/13/20 04/03/22 History flower 115 mg capsule acetaminophen 500 mg tablet 1,000 mg PO BID PRN Pain, Mild 11/17/21 04/03/22 History lisinopril 10 mg tablet 10 mg PO DAILY #30 tabs 02/11/22 04/03/22 Rx mupirocin 2 % topical ointment See Rx Instructions .Route 03/26/22 04/03/22 Rx .COMPLEX #22 grams apixaban 5 mg tablet (Eliquis) 5 mg PO BID 03/27/22 04/03/22 History ascorbic acid (vitamin C) 1,000 mg 1 g PO DAILY 03/27/22 04/03/22 History capsule cholecalciferol (vitamin D3) 50 100 mcg PO DAILY 03/27/22 04/03/22 History mcg (2,000 unit) capsule propylene glycol 0.6 % eye drops 1 drp EACH EYE DAILY PRN Dry Eye(S) 03/27/22 04/03/22 History (Systane Balance) Biotin Plus Keratin 1 tab-cap BYMOUTH DAILY 03/31/22 04/03/22 History Lactobac 51-Bifidobac 1 cap PO DAILY 03/31/22 04/03/22 History 3-L.lactis-S.thermophilus 4 billion cell capsule (Daily Probiotic (10 Strains)) aspirin 81 mg tablet,delayed 81 mg PO DAILY 03/31/22 04/03/22 History release coffee extract 100 mg-phosphatidyl 1 cap PO DAILY 03/31/22 04/03/22 History serine 100 mg capsule (Neuriva Original) guar gum 1 tbsp PO DAILY 03/31/22 04/03/22 History magnesium 200 mg tablet 400 mg PO DAILY 03/31/22 04/03/22 History turmeric root extract 500 mg 1,000 mg PO DAILY 03/31/22 04/03/22 History capsule Laboratory Tests 04/03/22 04/05/22 04/10/22 16:43 08:07 05:50 WBC RBC Hgb Hct MCV MCH MCHC RDW Plt Count MPV Sodium 130 mmol/L L mmol/L (137-145) Potassium 5.0 mmol/L mmol/L (3.4-5.0) Chloride 98 mmol/L mmol/L (98-107) Carbon Dioxide 16 mmol/L L mmol/L (22-30) Anion Gap 16 mmol/L mmol/L (8-16) BUN 102 mg/dL H D mg/dL (7-17) Creatinine 7.60 mg/dL H mg/dL (0.7-1.0) Estim Creat Clear Calc 6 ml/min ml/min Estimated GFR 5 L (59 - ) Glucose 155 mg/dL H mg/dL (65-110) Calcium 9.0 mg/dL mg/dL (8.4-10.2) Phosphorus 9.3 mg/dL H mg/dL (2.5-4.5) Albumin 3.0 g/dL L g/dL (3.5-5.1) Ur 24 Hour Volume 850 U Protein 24 Hr Presump 2006 mg/24h mg/24h mg/24h U [place] Chn Trisha 24hr 17.30 mg/dl U Tot [place] Light 24h 147.05 mg/24h U Lambda Chn Trisha 24h 9.53 mg/dl U Tot Lambda Light 24h 81.005 mg/24h Ur CHANTEL Interpret 24 hr Glomerular Base Memb Ab <1.0 AI AI (<1.0) Hep Bs Antigen Hep Bs Antibody Hep B Core Total Ab Hepatitis C Ab Screen 04/10/22 04/10/22 04/10/22 08:06 10:14 10:14 WBC 12.3 K/mm3 H K/mm3 (4.5-10.0) RBC 2.68 M/mm3 L M/mm3 (4.2-5.4) Hgb
[2022-04-10] MEDS: ceFAZolin 2 GM/D5W 50 ML 2 GM/50 ML BAG IVPB (16:14)
--- NOTE | 2022-04-10 16:33 | PM.EVENT ---
Event Note Event Note Event Note: I talked with Nephropath. pt has pauciimune GN. there is moderate interstitial fibrosis, possibly related to aging, and hypertension. she also has interstitial edema, more than would be expected from the GN. they did fungal and TB stains to rule this out. the former is probably Wegeners or microvascular polyarteritis. it is unclear what is causing the latter. possibly allergy. to be sure no infection, will check blood cultures, quantiferon. to treat will continue pulse steroids. since she has severe kidney disease will use plasmapheresis. she did cough up blood early in the hospital stay but she had DVT and probable P+E (positive perfusion scan), so I am not sure one could use this as a criteria for plasma exchange however she does have pulmonary infiltrates on cxr. I talked with Thee, son and POA. We discussed all of the above and he agrees with treatment plan.' I called plasmapheresis nurse who will come in early am. will use FFP replacement tomorrow since she had the biopsy and then albumin. will do 7 tx over 2 weeks. she is getting her permacath for dialysis and plasmapheresis now. I reached out to Dr Penny as well.
[2022-04-10] MEDS: LIDO 1%/EPINEPHRINE 1:100,000 10 ML VIAL INFILTRATE (16:37)
[2022-04-10] MEDS: HEPARIN SODIUM, PORCINE 10,000 UNITS/10 ML VIAL 4.5 UNITS IV PUSH (16:48)
--- NOTE | 2022-04-10 16:56 | P.OP_ITS ---
Procedure Note - Detailed Date of Procedure 04/10/22 Pre-op Diagnosis pneumonia,acute kidney injury,anemia,hypoxia Post-op Diagnosis Same Procedure Performed Left internal jugular tunneled dialysis catheter placement using ultrasound and fluoroscopic guidance Surgeon Dharmesh Wills, DO Anesthesia MAC and Local (1% lidocaine with epinephrine) Indications Acute renal failure Findings Sinus side ultrasound was used to identify the left internal jugular vein. This was visualized as a compressible vessel just lateral to the carotid artery. Ultrasound guidance was used to advance an 18 gauge introducer needle. Once inside the lumen, dark nonpulsatile blood was aspirated. A 0.035 in guidewire was then advanced under fluoroscopic guidance. The guidewire advanced smoothly into the distal superior vena cava. Fluoroscopy was then also used for a advancement of the dilators followed by the dilator and sheath. The catheter was then advanced until the tip was in the distal superior vena cava. The final fluoroscopic images demonstrated the catheter tip in the distal SVC and no kinks along its path. Description of Procedure Procedure as well as risks, benefits, and alternatives were discussed with greer hart. Written consent was obtained and placed in chart prior to procedure. Patient was brought back to surgical suite. Placed supine on operating table. Time-out was done confirm patient procedure. IV sedation was then administered by the Anesthesia Department. Her chest and neck area was prepped and draped in sterile fashion using chlorhexidine prep. Patient was placed in Trendelenburg position. SonoSite ultrasound was used to identify the left internal jugular vein. It was visualized as a compressible vessel just lateral to the carotid artery. 1% lidocaine with epinephrine was infiltrated directly over the vessel under ultrasound guidance. An 18 gauge introducer needle was then advanced under ultrasound guidance directly into the left internal jugular vein. Dark nonpulsatile blood was aspirated. A 0.035 in guidewire was then advanced through the needle under fluoroscopic guidance. The guidewire was visualized advancing all the way down into the superior vena cava. 1% lidocaine with epinephrine was then infiltrated on the left anterior chest and along the tract up to the guidewire insertion site. A 5 mm incision was made with a 15 blade scalpel. A small lashawn incision was then also made at the insertion site at the neck. The tunneler was then advanced from the chest incision up to the neck incision and the catheter tubing was brought up through this tract. The dilator and sheath were then advanced over the guidewire under fluoroscopic visualization. The dilator and guidewire were then removed leaving the sheath in place. The catheter tubing was then advanced through the sheath under fluoroscopic guidance. The sheath was unsnapped and carefully peeled away. The catheter tubing was released underneath the neck incision. Fluoroscopy was used to confirm proper placement of the catheter tubing and no kinks along its path. The catheter was then hep-locked with Hep-Lock solution. The skin of the incisions was then approximated using 4-0 Monocryl subcuticular suture. Exofin glue was then applied at the neck incision and 2x2 gauze and Tegaderm drassing applied at the chest. The patient was then awakened from anesthesia and transferred to recovery. Implants 28 cm DuraFlow2 dialysis catheter Estimated Blood Loss 10 Urine Output 200 Complications No immediate complications Condition Stable Disposition Floor [facility] [place] Rebekah Surgery - Charge Forward: Surgery Rebekah
--- NOTE | 2022-04-10 17:50 | PM.IMPN ---
Progress Note: A&P Assessment and Plan (1) Pneumonia: Qualifiers: Pneumonia type: due to unspecified organism Laterality: bilateral Lung location: unspecified part of lung Qualified Code(s): J18.9 - Pneumonia, unspecified organism Code(s): J18.9 - Pneumonia, unspecified organism Status: Acute Assessment and Plan: Completed 10 day course of antibiotics for possible bacterial pneumonia, resolved (2) Pulmonary embolism: Code(s): I26.99 - Other pulmonary embolism without acute cor pulmonale Status: Acute Assessment and Plan: Currently needing 2LNC IVC filter placed 04/03/22 (3) KRUNAL (acute kidney injury): Code(s): N17.9 - Acute kidney failure, unspecified Status: Acute Assessment and Plan: uncertain etiology, continues to worsen, appreciate nephrology consultation, renal biopsy pending today (4) Anemia: Code(s): D64.9 - Anemia, unspecified Status: Acute Assessment and Plan: unsure of etiology, GI workup unrevealing, continue iron supplementation (5) CHF (congestive heart failure): Code(s): I50.9 - Heart failure, unspecified Status: Acute Assessment and Plan: cardiology was consulted and stated patient is not in heart failure and appears to be euvolemic from a cardiac standpoint (6) Factor V Leiden: Code(s): D68.51 - Activated protein C resistance Status: Acute Assessment and Plan: history of factor 5 Leiden (7) Essential hypertension, benign: Code(s): I10 - Essential (primary) hypertension Status: Acute Assessment and Plan: monitor, stable (8) Hypothyroidism: Qualifiers: Hypothyroidism type: acquired Qualified Code(s): E03.9 - Hypothyroidism, unspecified Code(s): E03.9 - Hypothyroidism, unspecified Status: Acute Assessment and Plan: stable, recheck in 1 month (9) DVT, bilateral lower limbs: Code(s): I82.403 - Acute embolism and thrombosis of unspecified deep veins of lower extremity, bilateral Status: Acute Assessment and Plan: unable to anticoagulate at this time, IVC filter placed (10) Flash pulmonary edema: Code(s): J81.0 - Acute pulmonary edema Status: Acute Assessment and Plan: still with abnormal chest x-ray, uncertain etiology, await renal biopsy for possible pulmonary renal syndrome etiology to be discovered Plan Placement of dialysis catheter for dialysis by Nephrology, follow-up renal biopsy Subjective Date/time seen: 04/10/22 17:50 Interval history: Patient is somewhat anxious about biopsy results. No overnight events noted. No chest pain or shortness of breath. No nausea, vomiting or diarrhea. No fevers or chills. Review of Systems Review of Systems: 12 point review of systems was assessed and was negative except as noted in the HPI Exam Narrative: General: No acute distress, alert and oriented per baseline HEENT: Atraumatic, normocephalic, mucous membranes moist CV: Regular rate and rhythm, S1, S2 Lungs: Clear to auscultation bilaterally, no rales or crackles noted, no wheezes, good air entry Abdomen: Soft, nontender, nondistended Extremities: Normal to inspection Skin: No rashes noted, no lesions or wounds seen Psych: Euthymic, normal affect Objective Data Vital Signs Vital Signs: Vital Signs - 24 hr 04/09/22 21:36 04/10/22 03:08 04/09/22 21:30 Temperature 96.8 F L 96.7 F L Pulse Rate 72 71 Respiratory Rate 20 18 Blood Pressure 129/66 125/61 Pulse Oximetry 93 92 93 Oxygen Delivery Nasal Cannula Oxygen Flow Rate 2 04/09/22 20:00 04/10/22 00:00 04/10/22 04:00 Temperature Pulse Rate 74 67 68 Respiratory Rate Blood Pressure Pulse Oximetry Oxygen Delivery Oxygen Flow Rate 04/10/22 08:47 04/10/22 08:27 04/10/22 13:48 Temperature 98 F Pul
[2022-04-10 21:12] LABS: Ammonia < 9 umol/L (9-30)
[2022-04-10 21:22] LABS: Complement C3 141 mg/dL (88-165)
[2022-04-11] VITALS (27 sets, daily range): BP systolic 121–153; BP diastolic 60–83; PULSE 68–91; RESP 16–18; TEMP 36.1–37; O2SAT 90–96
[2022-04-11] MEDS: IRON SUCROSE COMPLEX 500 MG in SODIUM CHLORIDE 0.9% IV 250 ML 78.57 MG IVPB (02:32)
[2022-04-11] MEDS: CENTRAL LINE FLUSH 10 ML IV PUSH ×3 (02:32→13:45)
[2022-04-11] MEDS: FAMOTIDINE 20 MG TABLET PO ×3 (02:33→20:12)
[2022-04-11] MEDS: SULFAMETHOXAZOLE/TRIMETHOPRIM 800/160 MG DS TABLET 1 TAB PO (02:33)
[2022-04-11] MEDS: MUPIROCIN 2% OINT 22 GM TUBE 1 APPLIC EACH NARE ×3 (02:34→20:12)
[2022-04-11] MEDS: SODIUM CHLORIDE NASAL GEL 14.1 GM 1 APPLIC NASAL ×2 (02:34→20:12)
[2022-04-11 04:18] LABS: Basophils Percent Auto 0.1 % (0.2-1.2); Hematocrit 22.9 % (37.0-47.0); Hemoglobin 7.5 g/dL (12.0-15.0); Immature Granulocyte Percent A 2.1 % (0-0.5); Lymphocytes Absolute Auto 0.87 K/mm3 (0.9-3.2); Lymphocytes Percent Auto 6.2 % (18.3-44.2); Mean Corpuscular HGB Conc 32.8 g/dl (32-36); Mean Corpuscular Hemoglobin 28.7 pg (26-34); Mean Corpuscular Volume 87.7 fl (80-100); Mean Platelet Volume 10.3 fl (7.4-10.4); Monocytes Absolute Auto 0.6 K/mm3 (0.1-0.6); Neutrophils Absolute Auto 12.3 K/mm3 (1.3-6.7); Neutrophils Percent Auto 87.6 % (45.5-73.1); Nucleated Red Blood Cells Absolute Auto 0.1 K/mm3 (0.0-0.012); Nucleated Red Blood Cells Perc 0.4 % (0.0-0.2); Platelet Count Result 191 k/mm3 (150-375); Red Blood Count 2.61 M/mm3 (4.2-5.4); Red Cell Distribution Width 16.4 % (11.5-14.5); White Blood Count 14.1 K/mm3 (4.5-10.0)
[2022-04-11 04:32] LABS: Albumin Level 3.1 g/dL (3.5-5.1); Anion Gap 14 mmol/L (8-16); Blood Urea Nitrogen 79 mg/dL (7-17); Calcium 8.6 mg/dL (8.4-10.2); Carbon Dioxide 24 mmol/L (22-30); Chloride 95 mmol/L (98-107); Estimated CRCL calculation 8 ml/min; Estimated Glomerular Filt Rate 7; Glucose 135 mg/dL (65-110); Phosphorus 7.6 mg/dL (2.5-4.5); Potassium 4.2 mmol/L (3.4-5.0); Sodium 133 mmol/L (137-145)
--- NOTE | 2022-04-11 08:02 | PM.IMPN ---
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 - Matti's granulomatosis without renal involvement Status: Acute Assessment and Plan: Treatment with HD, plasmapheresis, pulse steroids and potentially cyclophosphamide with or without rituximab (2) Pulmonary embolism: Code(s): I26.99 - Other pulmonary embolism without acute cor pulmonale Status: Acute Assessment and Plan: Currently needing 3L NC IVC filter placed 04/03/22 Can restart eliquis after plasmapheresis completed, two weeks from now, tentatively April 25 (3) Essential hypertension, benign: Code(s): I10 - Essential (primary) hypertension Status: Acute Assessment and Plan: monitor, stable (4) Hypothyroidism: Qualifiers: Hypothyroidism type: acquired Qualified Code(s): E03.9 - Hypothyroidism, unspecified Code(s): E03.9 - Hypothyroidism, unspecified Status: Acute Assessment and Plan: stable, recheck in 1 month (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 deficiency of other clotting factors Status: Acute Assessment and Plan: IVC filter in place, eliquis to restart around April 25, see above (6) Pulmonary alveolar hemorrhage: Code(s): R04.89 - Hemorrhage from other sites in respiratory passages Status: Acute Assessment and Plan: pulm hemorrhage likely 2/2 granulomatosis with polyangiitis (7) Acute hypoxemic respiratory failure: Code(s): J96.01 - Acute respiratory failure with hypoxia Status: Acute Assessment and Plan: likely 2/2 pulm hemorrhage (8) Hemoptysis: Code(s): R04.2 - Hemoptysis Status: Acute Assessment and Plan: 2/2 pulm hemorrhage (9) Acute renal failure (ARF): Code(s): N17.9 - Acute kidney failure, unspecified Status: Acute Assessment and Plan: 2/2 granulomatosis with polyangiitis, rule out infection due to significant edema noted on biopsy Additional Plan Transfer to [facility]. 04/11/22 ([id number]) Called and spoke with [facility] transfer line who refused to take patient info and stated they were closed to all new transfers. 2. 04/11/22 ([id number]) Called and spoke with [facility] transfer line, patient is on a waiting list there and is number [phone] meaning it will likely be 1-2 weeks at the earliest before a bed is available. It was emphasized the urgency of the patient's condition and this was not considered time sensitive. They will call if they get a bed to get official acceptance by hospital medicine and nephrology. 3. 04/11/22 ([id number]) Called and spoke with [facility]. Their oncologist stated they do not do chemotherapy on weekends and to call back on Wednesday. Their american sign language teacher said to simply look in UpToDate and do the recommended treatment program or call a hospital closer to [facility] and refused the transfer. 4. 04/11/22 (0602) Called and spoke with [facility] who stated they can put her on a waiting list. They will call if they get a bed to accept transfer with their hospital medicine team and nephrology. They anticipate it will take at least a week or two. Subjective Date/time seen: 04/11/22 08:02 Interval history: No overnight events noted. No chest pain or shortness of breath. No nausea, vomiting or diarrhea. No fevers or chills. Review of Systems Review of Systems: 12 point review of systems was assessed and was negative except as noted in the HPI Exam Narrative: General: No acute distress, alert and oriented per baseline HEENT: Atraumatic, normocephalic, mucous membranes moist CV: Regular rate and rhythm, S1, S2 Lungs: Clear to auscultation bilaterally, no rales or crackles noted, no wheezes, good air entry Abdomen: Soft, nontender, nondistended Extremities: Normal to inspection Skin: No rashes noted, no lesions or wounds seen Psych: Euthymic, normal
--- NOTE | 2022-04-11 09:01 | PM.PNNEP ---
Progress Note: A&P Time Spent With Patient Time: 1. Karina has renal insufficiency.? Her creatinine was normal just in September. Renal Ultrasound is normal. ?CK is normal ?UA shows blood and protein ?urine lytes are non pre renal ?color flow Doppler of the kidney shows no arterial issues.? I looked at the images and the veins look good as well. ? Renal scan shows 38% function the left and 62% than the right.? There was somewhat delayed in uptake but basically very little excretion.? This is consistent with ATN. ? Repeat urine lytes are non pre renal.? Urine protein has increased. 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 There was some question as the interstitial inflammation us more than one would normally see with this disorder. He is checking stains for fungus and AFB. Will hold off on cyclophosphamide untill those stains are done. I ordered blood cultures and a QuantiFERON. I also ordered ANCA, and serology. So far complements are normal. ? She is on Solu-Medrol currently. I also ordered plasmapheresis to start today. I talked at length with the medical records supervisor of plasmapheresis at [facility] about the case. I plan to start cyclophosphamide at one point after blood cultures are back and if the above stains of the kidney are negative. Long discussion with the patient about this and also with the son Thee. 2.? DVTs. ? Eliquis on hold because of the GI bleeding.? she got an umbrella. Because plasmapheresis can have implications for anticoagulation please do not start Eliquis until after plasmapheresis is finished (2 weeks). I reached out to Dr. Penny about this. 3. anemia.? Dr. Hua is on the case.? Considering GI bleed, hemolysis, etc.? Haptoglobin not low.? LDH not high. ? Hemoccult is negative, interestingly. EGD was negative.? ? Colonoscopy unremarkable.? Capsule endoscopy was administered. pending 4.? Pulmonary infiltrates.? PEs versus infection versus inflammation Subjective Date/time seen: 04/11/22 09:01 Interval history: Patient feels better today. No more nausea. She is in good spirits. She had dialysis yesterday and it went well. No chest pain or shortness of breath. She is on 2L of oxygen. Review of Systems Cardiovascular: Cardiovascular: Reports no additional cardiovascular complaints Respiratory: Respiratory: Reports no additional respiratory complaints Gastrointestinal: Gastrointestinal: Reports no additional gastrointestinal complaints Genitourinary: Genitourinary: Reports no additional female genitourinary complaints Exam Narrative: WDWN in NAD skin no rash or subQ nodules head ncat lungs by basilar crackle at the same. cor reg no rub or gallop abd BS+ nontender and soft ext no edema. Objective Data Vital Signs Vital Signs: Vital Signs - 24 hr 04/10/22 13:48 04/10/22 14:19 04/10/22 12:00 Temperature 36.6 C Pulse Rate 80 73 Respiratory Rate 16 Blood Pressure 148/66 H Pulse Oximetry 95 95 Oxygen Delivery Nasal Cannula Oxygen Flow Rate 3 04/10/22 15:26 04/10/22 16:00 04/10/22 17:00 Temperature 36.0 C L 36.1 C L Pulse Rate 75 72 76 Respiratory Rate 20 30 H Blood Pressure 148/64 H 114/53 L Pulse Oximetry 100 96 Oxygen Delivery Room Air Simple Face Mask Oxygen Flow Rate 6 04/10/22 17:15 04/10/22 17:27 04/10/22 17:45 Temperature Pulse Rate 77 79 79 Respiratory Rate 23 H 21 H Blood Pressure 134/54 L 133/57 L 147/69 H Pulse Oximetry 95 93 Oxygen Delivery Simple Face Mask Nasal Cannula Oxygen Flow Rate 6 2 04/10/22 17:35 04/10/22 17:35 04/10/22 18:05 Temperature 36.3 C L Pulse Rate 79 74 Respiratory Rate 16 Blood Pressure 141/68 H 128/67 Pulse Oximetry Oxygen Delivery Oxygen Flow Rate 2 04/10/22 18:05 04/10/22 18:25 04/10/22 18:45 Temperature Pulse Rate 80 80 79 Respiratory Rate Blood Pressure 140/66 140/66 137/69 Pulse Oximetry Oxygen D
[2022-04-11] MEDS: FERROUS SULFATE 324 MG TABLET PO (09:24)
[2022-04-11] MEDS: PANTOPRAZOLE SOD SESQUIHYDRATE 20 MG TAB PO (09:25)
[2022-04-11] MEDS: methylPREDNISolone SOD SUCC 1,000 MG in DEXTROSE 5% 100 ML 200 MG IVPB (09:27)
--- NOTE | 2022-04-11 10:02 | WPDANESPN ---
Anes - Prog Note Post-Op Date/Time: 04/11/22 10:02 Cardiovascular status: normal Respiratory status: normal Airway patency: baseline Mental status: baseline Post-Op hydration status: normal Vital Signs: Last Vital Signs Temp 36.5 C 04/11/22 04:08 Pulse 80 04/11/22 04:08 Resp 16 04/11/22 04:08 BP 140/67 04/11/22 04:08 Pulse Ox 90 04/11/22 04:08 O2 Del Method Nasal Cannula 04/10/22 22:42 O2 Flow Rate 3 04/10/22 22:42 Pain Score (VAS): 09/15 I/O: Intake & Output 04/10/22 04/11/22 04/11/22 23:59 07:59 15:59 Intake Total 50 250 Output Total 350 100 Balance -300 150 Laboratory Tests 04/11/22 04:12 04/11/22 04:13 04/10/22 04/10/22 04/10/22 10:14 10:14 10:14 WBC RBC Hgb Hct MCV MCH MCHC RDW Plt Count MPV Immature Gran % (Auto) Neut % (Auto) Lymph % (Auto) Day % (Auto) Eos % (Auto) Baso % (Auto) Lymph # (Auto) Day # (Auto) Eos # (Auto) Baso # (Auto) Abs Immat Gran (auto) Absolute Neuts (auto) Absolute Nucleated RBC Nucleated RBC % Sodium Potassium Chloride Carbon Dioxide Anion Gap BUN Creatinine Estim Creat Clear Calc Estimated GFR Glucose Calcium Phosphorus Ammonia Albumin NEELAM Screen ANCA Screen Complement C3 Complement C4 Tot Complement (CH50) Hep Bs Antigen Negative Hep Bs Antibody Negative Hep B Core Total Ab Pending Hepatitis C Ab Screen Negative TB Test (QFT) Gold Plus TB Test (QFT) Nil TB Test Mitogen - Nil TB Test Ag - Nil 1 TB Test Ag - Nil 2 Blood Type Antibody Screen 04/10/22 04/10/22 04/10/22 20:53 20:53 20:53 WBC RBC Hgb Hct MCV MCH MCHC RDW Plt Count MPV Immature Gran % (Auto) Neut % (Auto) Lymph % (Auto) Day % (Auto) Eos % (Auto) Baso % (Auto) Lymph # (Auto) Day # (Auto) Eos # (Auto) Baso # (Auto) Abs Immat Gran (auto) Absolute Neuts (auto) Absolute Nucleated RBC Nucleated RBC % Sodium Potassium Chloride Carbon Dioxide Anion Gap BUN Creatinine Estim Creat Clear Calc Estimated GFR Glucose Calcium Phosphorus Ammonia < 9 L Albumin NEELAM Screen ANCA Screen Pending Complement C3 Complement C4 Tot Complement (CH50) Hep Bs Antigen Hep Bs Antibody Hep B Core Total Ab Hepatitis C Ab Screen TB Test (QFT) Gold Plus Pending TB Test (QFT) Nil Pending TB Test Mitogen - Nil Pending TB Test Ag - Nil 1 Pending TB Test Ag - Nil 2 Pending Blood Type Antibody Screen 04/10/22 04/10/22 04/11/22 20:53 20:53 04:12 WBC 14.1 H RBC 2.61 L Hgb 7.5 L Hct 22.9 L MCV 87.7 MCH 28.7 MCHC 32.8 RDW 16.4 H Plt Count 191 MPV 10.3 Immature Gran % (Auto) 2.1 H Neut % (Auto) 87.6 H Lymph % (Auto) 6.2 L Day % (Auto) 4.0 Eos % (Auto) 0.0 Baso % (Auto) 0.1 L Lymph # (Auto) 0.87 L Day # (Auto) 0.6 Eos # (Auto) 0.0 Baso # (Auto) 0.0 Abs Immat Gran (auto) 0.30 H Absolute Neuts (auto) 12.3 H Absolute Nucleated RBC 0.1 H Nucleated RBC % 0.4 H Sodium Potassium Chloride Carbon Dioxide Anion Gap BUN Creatinine Estim Creat Clear Calc Estimated GFR Glucose Calcium Phosphorus Ammonia Albumin NEELAM Screen Pending ANCA Screen Complement C3 141 Complement C4 20.3 Tot Complement (CH50) Pending Hep Bs Antigen Hep Bs Antibody Hep B Core Total Ab Hepatitis C Ab Screen TB Test (QFT) Gold Plus TB Test (QFT) Nil TB Test Mitogen - Nil TB Test Ag - Nil 1 TB Test Ag - Nil 2 Blood Type Antibody Screen 04/11/22 04/11/22 04:13 04:13 WBC RBC Hgb Hct MCV MCH MCHC RDW Plt Count MPV Immature Gran % (Auto) Neut
--- NOTE | 2022-04-11 10:24 | PCOTNOTE ---
Attempted to see pt for occupational therapy 2x this AM. At 1st attempt pt was eating breakfast. At 2nd attempt, pt was getting set up for plasmapheresis treatment. Will continue per poc duration/frequency tomorrow.
--- NOTE | 2022-04-11 11:20 | PM.CNPUL ---
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 chest imaging studies have showed fleeting alveolar infiltrates bilaterally which in conjunction with anemia, microscopic hematuria, worsening renal failure and the kidney biopsy findings suggest most likely alveolar hemorrhage. 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 She is status post IVC filter interruption. 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 serology with ANCA testing pending. Regarding pulmonary involvement the patient has already received induction immunosuppression with IV Solu-Medrol for 3 days which will likely stabilize alveolar hemorrhage. respiratory status seems to be stable over the last 3 days with no further worsening of gas exchange and some clearing in left lung infiltrates on last chest x-ray. No hemoptysis over last 24 hours. Patient may need optimization of induction immunosuppression at this point. Cyclophosphamide p.o. is on hold now, reportedly due to some histological findings on kidney biopsy that raised question of possible underlying kidney infection. It appears as though acute renal failure is the patient's major problem at this point. plan: Continue with current conservative management for alveolar hemorrhage. Repeat sputum culture. No need for antibiotic treatment at this point. Monitor gas exchange. Regarding optimizing induction immunosuppression the patient may need to be transferred to a tertiary center. The case was discussed with Dr. Penny, the hospitalist. 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 The patient was in her usual state of health until approximately 3-4 months ago when she started having mild cough with blood tinged sputum. Around the same time, she noticed some nasal stuffiness without nasal discharge for which she was evaluated by [facility]. Several months prior to this hospitalization the patient also had some joint pain especially in her hands and also knees. She had made an appointment to see a mending carrier. in the days preceding hospitalization, the patient also complained of fatigue night sweats and chills. She had no chest pain, abdominal pain, nausea, vomiting, diarrhea constipation or crescencio hemoptysis. approximately 2 weeks prior to this admission venous Doppler study of lower extremities showed Deep vein thrombosis involving the right popliteal vein, left femoral vein, and left popliteal vein.
[2022-04-11] MEDS: SODIUM CHLORIDE 0.9% IV 1,000 ML 10 ML IV CONT (12:00)
[2022-04-11] MEDS: CALCIUM GLUC 2,000 MG/NS 100ML 2,000 MG/100 ML BAG 100 MG IVPB (12:00)
--- NOTE | 2022-04-11 12:14 | PCOTNOTE ---
Per RN, pt is not able to participate in therapy today due to having plasmapheresis now and then getting dialysis after. Will continue per poc duration/frequency tomorrow.
--- NOTE | 2022-04-11 14:15 | PC.NURSE ---
To Dialysis via bed.
--- NOTE | 2022-04-11 14:35 | PC.NURSE ---
04/11/2022 at 0945-Patient sitting up in chair, visiting with a family member and watching TV. Patient is alert and oriented X 4, has no active bleeding seen, at this time. 1045-Plasmapheresis procedure was explained to patient and family, all questions were answered. Patient signed blood and informed plasmapheresis consent. Left IJ pheresis/dialysis catheter ok to use with tip in cavoatrial junction. 1115-Patient's chart/lab/meds/notes and orders reviewed. 1200-TPE started. Patient resting in bed, watching TV and visiting with family. 1230-TPE continued. Sara-yellow plasma in collect bag. Donor plasma checked with Indira(Floor RN). 1240-TPE continued. First unit of FFP given, no blood reaction signs or symptoms seen or reported. 1345-TPE complete. Patient tolerated pheresis procedure with no adverse effects or events. -Total fluid removed- 3297cc -Total fluid replaced- 3305cc -Total fluid balance- -8cc Destiny NEWELL
--- NOTE | 2022-04-11 16:50 | PC.NURSE ---
Returned from dialysis via bed.
[2022-04-12] VITALS: PULSE 86
[2022-04-13 09:29] LABS: ANCA Screen C-ANCA POS (Negative)
--- NOTE | 2022-04-14 07:34 | PM.TDS ---
Transfer Discharge Sum: Prov Provider Date of admission: 04/02/22 10:00 Primary care physician: Jimbo Lee MD Admitting clinician: Mary Ann Penny DO Consults: 03/31/22 Consult to Physician Routine Comment: Spoke w/ 08:17 04/01 (, ) Consulting Provider: Jimmy Hua Reason for consultation: Factor V Leiden and possible new PE Has provider been notified: Yes 04/01/22 19:01 Consult to Physician Routine Comment: Spoke w/ 19:14 (, ) Consulting Provider: Nicho William Reason for consultation: Anemia, possible GI bleed Has provider been notified: Yes 04/02/22 Consult to Physician Routine Comment: Consulting Provider: Dharmesh Wills call person/MD group to consult: talked to Chata, but will need to call the office Reason for consultation: IVC filter Has provider been notified: No Consult to Physician Routine Comment: Consulting Provider: Jorden Escobar call person/MD group to consult: nephrology Reason for consultation: worsening renal failure Has provider been notified: Yes 04/09/22 Consult to Physician Routine Comment: Spoke to Garima Caldwell @ 08:15am (,[place]) Consulting Provider: Cong Bedolla call person/MD group to consult: cardiology Reason for consultation: cardiorenal syndrome vs HF exac vs? Has provider been notified: Yes 04/10/22 Consult to Physician Routine Comment: Per RN MM consult was made. (,) Consulting Provider: Dharmesh Wills call person/MD group to consult: Dr. 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 Has provider been notified: Yes DS: Admitting Diagnosis Discharge Date 04/12/22 Admitting Diagnosis Shortness of breath DS: Discharge Diagnosis Discharge Diagnosis (1) Granulomatosis with polyangiitis: Code(s): M31.30 - Matti's granulomatosis without renal involvement Status: Acute Assessment and Plan: Treatment with HD, plasmapheresis, pulse steroids and potentially cyclophosphamide with or without rituximab (2) Pulmonary embolism: Code(s): I26.99 - Other pulmonary embolism without acute cor pulmonale Status: Acute Assessment and Plan: Currently needing 3L NC IVC filter placed 04/03/22 Can restart eliquis after plasmapheresis completed, two weeks from now, tentatively April 25 (3) Essential hypertension, benign: Code(s): I10 - Essential (primary) hypertension Status: Acute Assessment and Plan: monitor, stable (4) Hypothyroidism: Qualifiers: Hypothyroidism type: acquired Qualified Code(s): E03.9 - Hypothyroidism, unspecified Code(s): E03.9 - Hypothyroidism, unspecified Status: Acute Assessment and Plan: stable, recheck in 1 month (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 deficiency of other clotting factors Status: Acute Assessment and Plan: IVC filter in place, eliquis to restart around April 25, see above (6) Pulmonary alveolar hemorrhage: Code(s): R04.89 - Hemorrhage from other sites in respiratory passages Status: Acute Assessment and Plan: pulm hemorrhage likely 2/2 granulomatosis with polyangiitis (7) Acute hypoxemic respiratory failure: Code(s): J96.01 - Acute respiratory failure with hypoxia Status: Acute Assessment and Plan: likely 2/2 pulm hemorrhage (8) Hemoptysis: Code(s): R04.2 - Hemoptysis Status: Acute Assessment and Plan: 2/2 pulm hemorrhage (9) Acute renal failure (ARF): Code(s): N17.9 - Acute kidney failure, unspecified Status: Acute Assessment and Plan: 2/2 granulomatosis with po
[2022-04-14 10:48] LABS: Reference Lab Test Result None Detected
[2022-04-14 12:07] LABS: NIL 0.01 IU/mL; Quantiferon TB Plus, 1T INDETERMINATE (NEGATIVE)
[2022-04-14 14:52] LABS: C-ANCA Titer Reflex Chg Test YES
[2022-04-14 18:12] LABS: Albumin 39 %; Measured Lambda Chains 8.23 mg/dL (<2.00); Pro/Creat Ratio 2394 mg/g creat (<=114); Total Kappa Chains 119.85 mg/24 h
[2022-04-14 18:47] LABS: Hepatitis B Core Ab Total Nonreactive (Nonreactive)
[2022-04-20 22:37] LABS: ANCA Screen C-ANCA POS (Negative); C-ANCA Titer Reflex Chg Test YES
== END 2022-04-12 02:39 | disposition short-term general hospital (02) | DRG 542 ==
LOC: ANHED 09:11 → ANH3MEDSUR 14:21 → ANHIMU 04-02 01:38 → ANH2MED 04-07 17:22
PROVIDERS: Internal Medicine; Internal Medicine Gastroenterology; Internal Medicine Hematology & Oncology; Internal Medicine Nephrology; Nurse Practitioner; Surgery; Admitting Provider Student in an Organized Health Care Education/Training Program; Emergency Provider Emergency Medicine; PCP Family Medicine; Visit Provider Student in an Organized Health Care Education/Training Program
PROC: 06H03DZ Insertion of Intraluminal Device into Inferior Vena Cava, Percutaneous Approach (ICD-10-PCS; principal; 2022-04-03 07:30)
PROC: 0DJ08ZZ Inspection of Upper Intestinal Tract, Via Natural or Artificial Opening Endoscopic (ICD-10-PCS; CPT 43235; principal; 2022-04-03 14:00)
PROC: 0DJD8ZZ Inspection of Lower Intestinal Tract, Via Natural or Artificial Opening Endoscopic (ICD-10-PCS; CPT 45378; principal; 2022-04-06 15:15)
PROC: 0DJ07ZZ Inspection of Upper Intestinal Tract, Via Natural or Artificial Opening (ICD-10-PCS; CPT 91110; principal; 2022-04-10 07:00)
PROC: 0JH63XZ Insertion of Tunneled Vascular Access Device into Chest Subcutaneous Tissue and Fascia, Percutaneous Approach (ICD-10-PCS; CPT 36908; principal; 2022-04-10 15:30)
DX: M31.30 Wegener's granulomatosis without renal involvement (principal); I26.99 Other pulmonary embolism without acute cor pulmonale; J96.21 Acute and chronic respiratory failure with hypoxia; J15.9 Unspecified bacterial pneumonia; N17.9 Acute kidney failure, unspecified; D68.51 Activated protein C resistance; I82.412 Acute embolism and thrombosis of left femoral vein; I82.433 Acute embolism and thrombosis of popliteal vein, bilateral; D68.2 Hereditary deficiency of other clotting factors; I11.0 Hypertensive heart disease with heart failure; I35.8 Other nonrheumatic aortic valve disorders; D50.0 Iron deficiency anemia secondary to blood loss (chronic); I87.2 Venous insufficiency (chronic) (peripheral); Z20.822 Contact with and (suspected) exposure to COVID-19; E03.9 Hypothyroidism, unspecified; E78.5 Hyperlipidemia, unspecified; K21.9 Gastro-esophageal reflux disease without esophagitis; K44.9 Diaphragmatic hernia without obstruction or gangrene; K63.5 Polyp of colon; K63.89 Other specified diseases of intestine; Z90.49 Acquired absence of other specified parts of digestive tract; K57.30 Diverticulosis of large intestine without perforation or abscess without bleeding; K64.4 Residual hemorrhoidal skin tags; R74.01 Elevation of levels of liver transaminase levels; R50.9 Fever, unspecified; D64.9 Anemia, unspecified; D50.9 Iron deficiency anemia, unspecified; H93.13 Tinnitus, bilateral; M17.10 Unilateral primary osteoarthritis, unspecified knee; M25.551 Pain in right hip; E66.9 Obesity, unspecified; Z68.32 Body mass index [BMI] 32.0-32.9, adult; Z79.01 Long term (current) use of anticoagulants; Z79.82 Long term (current) use of aspirin; Z79.899 Other long term (current) drug therapy; Z86.010 Personal history of colon polyps; Z86.718 Personal history of other venous thrombosis and embolism
CPT/HCPCS: 36415; 36430; 36514; 36556; 36600; 37191; 50200; 71045; 71046; 71250; 73502; 74176; 76775; 76942; 77001; 78580; 78707; 80048; 80053; 80069; 80074; 80202; 81001; 82140; 82274; 82550; 82565; 82570; 82607; 82728; 82746; 82805; 83010; 83520; 83540; 83550; 83605; 83615; 83735; 83880; 83883; 83935; 84100; 84156; 84300; 84439; 84443; 84466; 84480; 84484; 84540; 85014; 85018; 85025; 85027; 85046; 85610; 85652; 85730; 86036; 86038; 86039; 86157; 86160; 86162; 86225; 86334; 86335; 86480; 86704; 86706; 86803; 86850; 86880; 86900; 86901; 86920; 87040; 87070; 87103; 87205; 87340; 87449; 87581; 87899; 88300; 88305; 88312; 88313; 88329; 88346; 88348; 88350; 91110; 93005; 93306; 93976; 93978; 94640; 96361; 96365; 96366; 96367; 96368; 96375; 97110; 97116; 97161; 97165; 97530; 99285; A9270; A9540; A9562; C1750; C1751; C1880; C9113; C9803; G0257; G0378; J0456; J0610; J0690; J0692; J0696; J1644; J1756; J1940; J2250; J2270; J2405; J2704; J2930; J3010; J3370; J7030; J7040; J7050; J7120; P9016; P9017; P9045; Q5105; U0003; U0005

== ENCOUNTER 2022-06-02 17:09 | Outpatient (CLI) | payer MEDICARE, SELFPAY ==
--- NOTE | ~2022-06-02 | DEXA_ITS ---
Bone Density Report Name: JEFFREY FRASER Age: 77 Sex: Female Ethnicity: White Date of : 1945 Indication: postmenopausal; screening for osteoporosis; height loss; Referring Provider: LON ABBOTT Study: Bone densitometry was performed. Exam Date: June 02, 2022 Accession number: [id number] Bone Density: Region BMD T-score Z-score Classification AP Spine(L1-L4) 0.906 -1.3 1.2 Osteopenia Femoral Neck (Left) 0.675 -1.6 0.6 Osteopenia Total Hip (Left) 0.903 -0.3 1.6 Normal Femoral Neck (Right) 0.698 -1.4 0.8 Osteopenia Total Hip (Right) 0.867 -0.6 1.3 Normal Total Hip Mean 0.885 -0.5 1.5 Normal World Health Organization criteria for BMD impression classify patients as: Normal (T-score at or above -1.0), Osteopenia (T-score between -1.0 and -2.5), or Osteoporosis (T-score at or below -2.5). 10-year Fracture Risk(1): Major Osteoporotic Fracture 12% Hip Fracture 2.5% Reported Risk Factors: [place] (), Neck BMD=0.675, BMI=30.9 (1) FRAX(R) Version 3.08. Fracture probability calculated for an untreated patient. Fracture probability may be lower if the patient has received treatment. Clinical Information Provided by Patient: Has used the following medications: Vitamin D, Calcium Has the following medical conditions: kidney issues Patient maximum height was 63 Does not regularly consume dairy products Drinks caffeinated beverages Onset of menses at age 17 Number of children 4 Impression: The patient has low bone mass, based on the Left Femoral Neck T-score. The patient has an estimated ten-year risk of hip fracture of 2.5% and an estimated ten-year risk of major fracture of 12%, based on the WHO FRAX algorithm. Discussion: BONE DENSITY IS LOW AT ONE OR MORE SKELETAL SITES. This patient's lowest T-score is low at one or more skeletal sites. It meets the World Health Organization's (WHO) criteria for ?low bone mass? (T-score between -1.0 and -2.5). The patient's 10-year risk of fracture as calculated by FRAX is less than the threshold where pharmacological therapy is recommended by the National Osteoporosis Foundation (NOF). However, all treatment decisions require clinical judgment and consideration of individual patient factors, including patient preferences, comorbidities, previous drug use, risk factors not captured in the FRAX model (e.g., frailty, falls, vitamin D deficiency, increased bone turnover, interval significant decline in bone density) and possible under or overestimation of fracture risk by FRAX. The patient should follow a healthful lifestyle (good nutrition with adequate calcium and vitamin D, and appropriate weight-bearing exercise). Follow-Up: Consider repeating this study in 2 to 3 years to reassess this patient's status, or sooner if there is s
== END 2022-06-02 17:10 | disposition home or self-care (01) ==
PROVIDERS: PCP Family Medicine; Visit Provider Student in an Organized Health Care Education/Training Program
DX: Z78.0 Asymptomatic menopausal state (principal); M85.88 Other specified disorders of bone density and structure, other site; M85.851 Other specified disorders of bone density and structure, right thigh; M85.852 Other specified disorders of bone density and structure, left thigh
CPT/HCPCS: 77080

== ENCOUNTER 2022-07-09 09:19 | Outpatient (CLI) | payer MEDICARE, SELFPAY ==
--- NOTE | ~2022-07-09 | XR_ITS ---
EXAMINATION: XR chest 2V DATE: 07/09/2022 09:57 INDICATION: Shortness of breath, cough and essential hypertension TECHNIQUE: frontal and lateral views of the chest were obtained. COMPARISON: Chest radiograph dated 04/10/2022 FINDINGS: Opacities in the bilateral lower lung zones, left greater than right. No pleural effusion or pneumoth orax. The cardiomediastinal silhouette is normal. Cholecystectomy clips and IVC filter projects over the upper abdomen on the lateral projection. IMPRESSION: 1. Opacities in bilateral lower lung zones, left greater than right, most concerning for pneumonia wi th differential including mild pulmonary edema or atelectasis. Reviewed, dictated and finalized at location B. IMPRESSION: 1. Opacities in bilateral lower lung zones, left greater than right, most miguel ángel rning for pneumonia with differential including mild pulmonary edema or atelect asis.
== END 2022-07-09 09:20 | disposition home or self-care (01) ==
PROVIDERS: PCP Family Medicine; Visit Provider Internal Medicine Nephrology
DX: I10 Essential (primary) hypertension (principal); M31.31 Wegener's granulomatosis with renal involvement; D63.1 Anemia in chronic kidney disease; D68.51 Activated protein C resistance; R91.8 Other nonspecific abnormal finding of lung field
CPT/HCPCS: 71046

== ENCOUNTER 2022-08-18 09:15 | Outpatient (CLI) | payer MEDICARE, SELFPAY ==
--- NOTE | ~2022-08-18 | XR_ITS ---
Lumbosacral Spine: AP and lateral views Clinical History: Pain No fracture identified. 9 mm anterolisthesis of L4 over L5 noted. There is facet joint degenerative c hange at L4-L5 and L5-S1. The intervertebral disc spaces are preserved. The sacroiliac joints are no rmally outlined. IVC filter noted. Impression: 9 mm anterolisthesis of L4 over L5. Facet joint degenerative changes at the lower lumbar spine, as detailed above. Reviewed, dictated and finalized at location [] CHARGE CARD CLERK Impression: 9 mm anterolisthesis of L4 over L5. Facet joint degenerative changes at the lower lumbar spine, as detailed above.
== END 2022-08-18 09:16 | disposition home or self-care (01) ==
PROVIDERS: PCP Family Medicine; Visit Provider Family Medicine
DX: M79.605 Pain in left leg (principal); S76.312A Strain of muscle, fascia and tendon of the posterior muscle group at thigh level, left thigh, initial encounter; S76.012A Strain of muscle, fascia and tendon of left hip, initial encounter; R93.7 Abnormal findings on diagnostic imaging of other parts of musculoskeletal system
CPT/HCPCS: 72100

== ENCOUNTER 2022-08-20 11:02 | Outpatient (CLI) | payer MEDICARE, SELFPAY ==
--- NOTE | ~2022-08-20 | XR_ITS ---
Clinical Indication: Coughing PA and lateral views of the chest: Comparison: 07/09/2022 Findings: There is minimal bibasilar interstitial prominence. No other consolidation or pleural effus ion. Cardiomediastinal silhouette is within normal limits. Bones and soft tissues are unremarkable. Impression: Mild bibasilar chronic interstitial disease. Reviewed, dictated and finalized at location [] OLETTERING MACHINE OPERATOR Impression: Mild bibasilar chronic interstitial disease.
== END 2022-08-20 11:03 | disposition home or self-care (01) ==
PROVIDERS: PCP Family Medicine; Visit Provider Nurse Practitioner Family
DX: R05.9 Cough, unspecified (principal); R06.02 Shortness of breath; J84.9 Interstitial pulmonary disease, unspecified
CPT/HCPCS: 71046

== ENCOUNTER 2022-09-14 16:05 | Outpatient (CLI) | payer MEDICARE, SELFPAY ==
--- NOTE | ~2022-09-14 | XR_ITS ---
EXAMINATION: XR hip BI 2V w AP pelvis DATE: 09/14/2022 16:33 INDICATION: Bilateral hip pain TECHNIQUE: AP view of the pelvis and two views of each hip were obtained. COMPARISON: 04/04/2022 FINDINGS: Bone alignment is normal. There is no fracture. There is mild osteoarthritis of the hips. M oderate lower lumbar spondylosis is noted. IMPRESSION: 1. 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 Reviewed, dictated and finalized at location L. ATTENDANT
== END 2022-09-14 16:06 | disposition home or self-care (01) ==
LOC: ANHIMG 16:07
PROVIDERS: PCP Family Medicine; Visit Provider Nurse Practitioner Family
DX: M16.0 Bilateral primary osteoarthritis of hip (principal); M25.551 Pain in right hip; M25.552 Pain in left hip
CPT/HCPCS: 73521

== ENCOUNTER → 2022-09-18 08:26 | Outpatient (CLI) | payer MEDICARE, SELFPAY ==
--- NOTE | ~2022-09-18 | MR_ITS ---
EXAMINATION: MR lumbar spine wo/w con DATE: 09/18/2022 09:51 INDICATION: Difficulty in walking, not elsewhere classified. Back pain. TECHNIQUE: Magnetic resonance imaging (MRI) of the lumbar spine was performed without and with 17 mL MultiHance intravenous contrast. COMPARISON: Lumbar spine radiographs 08/18/2022 FINDINGS: There is 5 degrees dextrocurvature of lumbar spine. There is 5 mm retrolisthesis of L2 on L 3 and L3 on L4, 5 mm anterolisthesis of L4 on L5, and 3 mm retrolisthesis of L5 on S1. Vertebral body heights are normal. There are acute versus subacute insufficiency fractures of the S2 body and bilat eral sacral ala. There is mildly decreased disc height at L2-L3, L3-L4, and L4-L5 and moderately decr eased disc height at L5-S1. The distal spinal cord signal intensity is normal. The conus medullaris i s at L1. The following disc levels are specifically discussed: L1-L2: The disc does not extend beyond the endplate margin. There is moderate bilateral facet joint o steoarthritis. There is no neural foraminal stenosis. There is no central canal stenosis. L2-L3: The disc is bulging. There is mild bilateral facet joint osteoarthritis. There is mild bilater al neural foraminal stenosis. There is mild central canal stenosis. L3-L4: The disc is bulging and has an annular fissure. There is moderate bilateral facet joint osteoa rthritis. There is mild bilateral neural foraminal stenosis. There is mild central canal stenosis. L4-L5: The disc is bulging and has an annular fissure. There is severe bilateral facet joint osteoart hritis. There is mild bilateral neural foraminal stenosis. There is mild central canal stenosis. L5-S1: The disc is bulging and has an annular fissure. There is moderate right and mild left facet alfredo int osteoarthritis. There is mild bilateral neural foraminal stenosis. There is mild central canal st enosis. IMPRESSION: 1. Acute versus subacute sacral insufficiency fractures. 2. Moderate lumbar spondylosis. Reviewed, dictated and finalized at location A. SPRAYER
== END ==
PROVIDERS: PCP Family Medicine; Visit Provider Family Medicine
DX: R26.2 Difficulty in walking, not elsewhere classified (principal); M54.00 Panniculitis affecting regions of neck and back, site unspecified; M47.896 Other spondylosis, lumbar region
CPT/HCPCS: 72158; A9577

== ENCOUNTER 2023-05-04 09:29 | Outpatient (CLI) | payer MEDICARE, SELFPAY ==
--- NOTE | ~2023-05-04 | XR_ITS ---
Right Shoulder Technique: AP and scapular Y views were obtained. Clinical History: Pain Findings: No fracture or dislocation is seen. Osseous alignment is anatomic. The glenohumeral and acr omioclavicular joint spaces are preserved. Soft tissues are unremarkable. Impression: Unremarkable right shoulder radiographs. Reviewed, dictated and finalized at [facility]. Impression: Unremarkable right shoulder radiographs.
== END 2023-05-04 09:30 | disposition home or self-care (01) ==
PROVIDERS: PCP Family Medicine; Visit Provider Nurse Practitioner Family
DX: S49.91XA Unspecified injury of right shoulder and upper arm, initial encounter (principal)
CPT/HCPCS: 73030

== ENCOUNTER → 2023-07-08 09:12 | Outpatient (CLI) | payer MEDICARE, SELFPAY ==
--- NOTE | ~2023-07-08 | CT_ITS ---
EXAMINATION:CT chest high resolution wo nd DATE: 07/08/2023 09:34 INDICATION: Interstitial lung disease. TECHNIQUE: Computed tomography (CT) of the chest was performed without intravenous contrast. Automate d exposure control and iterative reconstruction technique were employed. The dose-length product (DLP ) was 272.04 mGy-cm. COMPARISON: Chest CT 04/02/2022 FINDINGS: There is mild scarring at the lung apices. There is peripheral septal thickening in the malissa gs. No bronchiectasis or honeycombing. There are peripheral nodules in the right upper lobe, right mi ddle lobe, and lower lobes. Some of the nodules are cavitary. The nodules measuring up to 18 mm in le ft lower lobe. No pleural effusion. The heart size is normal. No pericardial effusion. There are krista nary artery calcifications. There is mild thoracic spondylosis. There is a chronic compression fractu re of T10. IMPRESSION: 1. Peripheral nodules in the lungs with an inferior predominance, some of which are cavitary, new fro 04/02/22. The differential diagnosis includes granulomatous polyangiitis and septic emboli. 2. Mild chronic interstitial lung disease. Reviewed, dictated and finalized at location E. IMPRESSION: 1. Peripheral nodules in the lungs with an inferior predominance, some of which are cavitary, new from 04/02/22. The differential diagnosis includes granulomat ous polyangiitis and septic emboli. 2. Mild chronic interstitial lung disease.
== END ==
DX: J84.9 Interstitial pulmonary disease, unspecified (principal); R91.8 Other nonspecific abnormal finding of lung field
CPT/HCPCS: 71250

== ENCOUNTER 2023-08-14 11:48 | Outpatient (CLI) | payer MEDICARE, SELFPAY ==
--- NOTE | ~2023-08-14 | XR_ITS ---
EXAMINATION: XR chest 2V Exam Date/Time: 08/14/2023 12:06 DIRECTOR OF SURGERY HISTORY: CHRONIC COUGH, WORSENING RECENTLY Comparison: 08/20/2022. RESULT: Side marker incorrectly positioned. Lines, tubes, and devices: IVC filter. Lungs and pleura: Chronic interstitial opacities, otherwise clear. Cardiomediastinal silhouette: Stable. Other: No acute osseous or upper abdominal finding. IMPRESSION: No acute cardiopulmonary process. Reviewed, dictated and finalized at location K. CTOR OF SURGERY
== END 2023-08-14 11:49 | disposition home or self-care (01) ==
PROVIDERS: PCP Family Medicine
DX: R05.9 Cough, unspecified (principal)
CPT/HCPCS: 71046

== ENCOUNTER 2023-09-02 09:56 | Outpatient (CLI) | payer MEDICARE, SELFPAY ==
[2023-09-02 10:16] LABS: Basophils Percent Auto 0.2 % (0.2-1.2); Eosinophils Absolute Auto 0.2 K/mm3 (0-0.3); Eosinophils Percent Auto 1.3 % (0-4.4); Hematocrit 24.3 % (37.0-47.0); Immature Granulocyte Percent A 0.7 % (0-0.5); Immature Reticulocyte Fraction 36.2 % (3.0-15.9); Lymphocytes Absolute Auto 2.64 K/mm3 (0.9-3.2); Lymphocytes Percent Auto 19.5 % (18.3-44.2); Mean Corpuscular HGB Conc 28.8 g/dl (32-36); Mean Corpuscular Hemoglobin 24.9 pg (26-34); Mean Corpuscular Volume 86.5 fl (80-100); Mean Platelet Volume 8.7 fl (7.4-10.4); Monocytes Absolute Auto 1.1 K/mm3 (0.1-0.6); Monocytes Percent Auto 7.8 % (2.6-8.5); Neutrophils Absolute Auto 9.5 K/mm3 (1.3-6.7); Neutrophils Percent Auto 70.5 % (45.5-73.1); Nucleated Red Blood Cells Perc 0.2 % (0.0-0.2); Red Blood Count 2.81 M/mm3 (4.2-5.4); Red Cell Distribution Width 16.7 % (11.5-14.5); Reticulocyte Hemoglobin Conten 22.2 pg (28.2-35.7); Reticulocytes Absolute 0.08 M/mm3 (0.02-0.1); White Blood Count 13.5 K/mm3 (4.5-10.0)
[2023-09-02 11:02] LABS: Alanine Aminotransferase 19 U/L (6-35); Albumin Level 3.9 g/dL (3.5-5.1); Alkaline Phosphatase 81 U/L (38-126); Anion Gap 9 mmol/L (8-16); Aspartate Amino Transferase 19 U/L (14-36); Bilirubin,Total 0.3 mg/dL (0.2-1.3); Blood Urea Nitrogen 43 mg/dL (7-17); Calcium 9.5 mg/dL (8.4-10.2); Carbon Dioxide 22 mmol/L (22-30); Chloride 107 mmol/L (98-107); Estimated Glomerular Filt Rate 23; Glucose 93 mg/dL (65-110); Lactate Dehydrogenase 243 U/L (120-246); Potassium 4.4 mmol/L (3.4-5.0); Sodium 138 mmol/L (137-145)
[2023-09-02 11:07] LABS: Immature Platelet Fraction Pct 1.1 % (0.9-11.2); Platelet Count Result 451 k/mm3 (150-375)
[2023-09-02 11:12] LABS: Platelet Estimate Increased (Adequate); Schistocytes None Seen (NORMAL)
[2023-09-02 11:13] LABS: Anisocytosis 2+ (NORMAL)
[2023-09-02 12:10] LABS: Folic Acid > 20.0 ng/mL (2.76->20)
[2023-09-02 16:35] LABS: Iron 25 ug/dL (37-170)
[2023-09-02 16:45] LABS: Percent Iron Saturation 6 % (20-50)
[2023-09-02 16:52] LABS: Immunoglobulin A 156 mg/dL (70-400); Immunoglobulin G 685 mg/dL (700-1600); Immunoglobulin M 34 mg/dL (40-230)
[2023-09-04 11:47] LABS: Erythropoietin (EPO) 93.5 mIU/mL (2.6-18.5)
[2023-09-04 17:15] LABS: Albumin 3.9 g/dL (3.8-4.8); Alpha 1 Globulin 0.3 g/dL (0.2-0.3); Alpha 2 Globulin 0.9 g/dL (0.5-0.9); Beta 1 Globulin 0.5 g/dL (0.4-0.6); Gamma Globulin 0.6 g/dL (0.8-1.7); Interpretation Consistent with; Protein, Total 6.7 g/dL (6.1-8.1)
[2023-09-04 20:52] LABS: Kappa\\Lambda Light Chains 1.35 (0.26-1.65); Lambda Light Chain 21.9 mg/L (5.7-26.3)
== END 2023-09-02 09:57 | disposition home or self-care (01) ==
PROVIDERS: Student in an Organized Health Care Education/Training Program; PCP Family Medicine; Visit Provider Internal Medicine Hematology & Oncology
DX: D64.9 Anemia, unspecified (principal)
CPT/HCPCS: 36415; 36430; 80053; 82607; 82668; 82728; 82746; 82784; 83540; 83550; 83615; 83883; 84155; 84165; 85025; 85046; 85055; 86038; 86039; 86850; 86900; 86901; 86923

== ENCOUNTER 2023-09-03 07:26 | Outpatient (RCR) | payer MEDICARE, SELFPAY ==
[2023-09-03] MEDS: SODIUM CHLORIDE 0.9% IV 250 ML 30 ML IV CONT (08:09)
[2023-09-03] MEDS: diphenhydrAMINE HCl CAP 25 MG CAPSULE PO (08:09)
[2023-09-03] MEDS: ACETAMINOPHEN 325 MG TABLET 650 MG PO (08:09)
[2023-09-03 08:26] VITALS: BP 147/66; PULSE 72; RESP 16; TEMP 36.3; O2SAT 100
[2023-09-03 08:41] VITALS: BP 132/66; PULSE 65; RESP 16; TEMP 36.6; O2SAT 100
[2023-09-03 09:41] VITALS: BP 131/64; PULSE 63; RESP 16; TEMP 36.4; O2SAT 97
[2023-09-03 10:41] VITALS: BP 129/60; PULSE 65; RESP 16; TEMP 36.6; O2SAT 95
[2023-09-03 11:30] VITALS: BP 137/65; PULSE 66; RESP 16; TEMP 36.6; O2SAT 96
== END 2023-12-02 23:59 | disposition home or self-care (01) ==
LOC: ANHCPCTRAN 07:26
PROVIDERS: PCP Family Medicine; Visit Provider Internal Medicine Hematology & Oncology
DX: D64.9 Anemia, unspecified (principal)
CPT/HCPCS: 36415; 36430; 86850; 86900; 86901; 86923; A9270; J7050; P9016

== ENCOUNTER 2023-09-24 10:55 | Outpatient (CLI) | payer MEDICARE, SELFPAY ==
[2023-09-24 11:26] LABS: Hemoglobin 8.6 g/dL (12.0-15.0); Mean Corpuscular HGB Conc 29.7 g/dl (32-36); Mean Corpuscular Hemoglobin 25.4 pg (26-34); Mean Corpuscular Volume 85.8 fl (80-100); Mean Platelet Volume 8.6 fl (7.4-10.4); Platelet Count Result 424 k/mm3 (150-375); Red Blood Count 3.38 M/mm3 (4.2-5.4); Red Cell Distribution Width 16.7 % (11.5-14.5); White Blood Count 13.7 K/mm3 (4.5-10.0)
== END 2023-09-24 10:56 | disposition home or self-care (01) ==
PROVIDERS: PCP Family Medicine; Visit Provider Internal Medicine Hematology & Oncology
DX: D64.9 Anemia, unspecified (principal)
CPT/HCPCS: 36415; 85027

== ENCOUNTER 2024-02-25 10:30 | Outpatient (RCR) | payer MEDICARE, SELFPAY ==
[2023-10-14 13:36] LABS: Hematocrit 33.3 % (37.0-47.0); Hemoglobin 9.6 g/dL (12.0-15.0); Mean Corpuscular HGB Conc 28.8 g/dl (32-36); Mean Corpuscular Volume 93.8 fl (80-100); Mean Platelet Volume 8.4 fl (7.4-10.4); Platelet Count Result 338 k/mm3 (150-375); Red Blood Count 3.55 M/mm3 (4.2-5.4); Red Cell Distribution Width 22.1 % (11.5-14.5)
[2023-10-14 14:20] VITALS: BP 138/63; PULSE 68; TEMP 36; O2SAT 100
[2023-10-29 12:40] LABS: Hematocrit 32.5 % (37.0-47.0); Hemoglobin 9.5 g/dL (12.0-15.0); Mean Corpuscular HGB Conc 29.2 g/dl (32-36); Mean Corpuscular Hemoglobin 27.2 pg (26-34); Mean Corpuscular Volume 93.1 fl (80-100); Mean Platelet Volume 8.3 fl (7.4-10.4); Platelet Count Result 387 k/mm3 (150-375); Red Blood Count 3.49 M/mm3 (4.2-5.4); Red Cell Distribution Width 21.6 % (11.5-14.5); White Blood Count 12.3 K/mm3 (4.5-10.0)
[2023-10-29 12:55] VITALS: BP 164/80; PULSE 72; TEMP 36.2; O2SAT 100
[2023-10-29] MEDS: EPOETIN ALFA-EPBX 10,000 UNITS/ML VIAL 20000 UNITS SUB-Q (13:09)
[2023-11-15 14:07] LABS: Basophils Percent Auto 0.3 % (0.2-1.2); Eosinophils Percent Auto 0.2 % (0-4.4); Hematocrit 35.3 % (37.0-47.0); Hemoglobin 10.6 g/dL (12.0-15.0); Immature Granulocyte Absolute 0.05 K/mm3 (0.00-0.031); Immature Granulocyte Percent A 0.5 % (0-0.5); Lymphocytes Percent Auto 17.2 % (18.3-44.2); Mean Corpuscular Hemoglobin 28.8 pg (26-34); Mean Corpuscular Volume 95.9 fl (80-100); Mean Platelet Volume 8.5 fl (7.4-10.4); Monocytes Absolute Auto 0.2 K/mm3 (0.1-0.6); Monocytes Percent Auto 2.3 % (2.6-8.5); Neutrophils Absolute Auto 7.9 K/mm3 (1.3-6.7); Neutrophils Percent Auto 79.5 % (45.5-73.1); Platelet Count Result 311 k/mm3 (150-375); Red Blood Count 3.68 M/mm3 (4.2-5.4); Red Cell Distribution Width 22.9 % (11.5-14.5); White Blood Count 9.9 K/mm3 (4.5-10.0)
--- NOTE | 2023-11-15 14:14 | PC.NURSE ---
Hemoglobulin 10.6, patient's treatment cancelled.
[2023-12-02 15:59] LABS: Basophils Percent Auto 0.4 % (0.2-1.2); Eosinophils Percent Auto 0.2 % (0-4.4); Hematocrit 35.4 % (37.0-47.0); Hemoglobin 10.7 g/dL (12.0-15.0); Immature Granulocyte Absolute 0.08 K/mm3 (0.00-0.031); Immature Granulocyte Percent A 0.8 % (0-0.5); Lymphocytes Absolute Auto 1.63 K/mm3 (0.9-3.2); Lymphocytes Percent Auto 16.9 % (18.3-44.2); Mean Corpuscular HGB Conc 30.2 g/dl (32-36); Mean Corpuscular Hemoglobin 29.1 pg (26-34); Mean Corpuscular Volume 96.2 fl (80-100); Mean Platelet Volume 8.4 fl (7.4-10.4); Monocytes Absolute Auto 0.3 K/mm3 (0.1-0.6); Monocytes Percent Auto 3.2 % (2.6-8.5); Neutrophils Absolute Auto 7.6 K/mm3 (1.3-6.7); Neutrophils Percent Auto 78.5 % (45.5-73.1); Platelet Count Result 280 k/mm3 (150-375); Red Blood Count 3.68 M/mm3 (4.2-5.4); Red Cell Distribution Width 21.1 % (11.5-14.5); White Blood Count 9.6 K/mm3 (4.5-10.0)
[2023-12-02 16:53] LABS: Alanine Aminotransferase 20 U/L (6-35); Alkaline Phosphatase 85 U/L (38-126); Anion Gap 8 mmol/L (4-12); Aspartate Amino Transferase 24 U/L (14-36); Bilirubin,Total 0.2 mg/dL (0.2-1.3); Blood Urea Nitrogen 45 mg/dL (7-17); Calcium 9.8 mg/dL (8.4-10.2); Carbon Dioxide 19 mmol/L (22-30); Chloride 108 mmol/L (98-107); Estimated Glomerular Filt Rate 21; Glucose 116 mg/dL (65-110); Potassium 5.7 mmol/L (3.4-5.0); Sodium 135 mmol/L (137-145)
[2023-12-02 18:45] LABS: Iron 126 ug/dL (37-170)
[2023-12-02 18:54] LABS: Percent Iron Saturation 44 % (20-50)
--- NOTE | 2023-12-03 07:44 | PC.NURSE ---
Patient cancelled due to hemoglobulin of 10.7.
[2023-12-31 12:40] LABS: Basophils Absolute Auto 0.1 K/mm3 (0.0-0.1); Basophils Percent Auto 0.5 % (0.2-1.2); Eosinophils Absolute Auto 0.1 K/mm3 (0-0.3); Eosinophils Percent Auto 0.6 % (0-4.4); Hematocrit 36.6 % (37.0-47.0); Hemoglobin 11.1 g/dL (12.0-15.0); Immature Granulocyte Percent A 0.9 % (0-0.5); Lymphocytes Absolute Auto 1.65 K/mm3 (0.9-3.2); Lymphocytes Percent Auto 14.3 % (18.3-44.2); Mean Corpuscular HGB Conc 30.3 g/dl (32-36); Mean Corpuscular Hemoglobin 29.6 pg (26-34); Mean Corpuscular Volume 97.6 fl (80-100); Mean Platelet Volume 8.2 fl (7.4-10.4); Monocytes Absolute Auto 0.4 K/mm3 (0.1-0.6); Monocytes Percent Auto 3.5 % (2.6-8.5); Neutrophils Absolute Auto 9.3 K/mm3 (1.3-6.7); Neutrophils Percent Auto 80.2 % (45.5-73.1); Platelet Count Result 283 k/mm3 (150-375); Red Blood Count 3.75 M/mm3 (4.2-5.4); Red Cell Distribution Width 18.5 % (11.5-14.5); White Blood Count 11.5 K/mm3 (4.5-10.0)
--- NOTE | 2023-12-31 12:50 | PC.NURSE ---
Treatment cancelled, hemoglobulin 11.1
[2024-01-28 12:02] LABS: Basophils Absolute Auto 0.1 K/mm3 (0.0-0.1); Basophils Percent Auto 0.4 % (0.2-1.2); Eosinophils Absolute Auto 0.4 K/mm3 (0-0.3); Eosinophils Percent Auto 3.2 % (0-4.4); Hemoglobin 11.1 g/dL (12.0-15.0); Immature Granulocyte Absolute 0.12 K/mm3 (0.00-0.031); Lymphocytes Absolute Auto 2.05 K/mm3 (0.9-3.2); Lymphocytes Percent Auto 16.6 % (18.3-44.2); Mean Corpuscular Hemoglobin 30.4 pg (26-34); Mean Corpuscular Volume 101.4 fl (80-100); Mean Platelet Volume 8.6 fl (7.4-10.4); Monocytes Absolute Auto 0.7 K/mm3 (0.1-0.6); Neutrophils Percent Auto 72.8 % (45.5-73.1); Platelet Count Result 277 k/mm3 (150-375); Red Blood Count 3.65 M/mm3 (4.2-5.4); Red Cell Distribution Width 16.1 % (11.5-14.5); White Blood Count 12.4 K/mm3 (4.5-10.0)
--- NOTE | 2024-01-28 12:38 | PC.NURSE ---
Hemoglobin 11.1, no treatment needed.
[2024-02-25 10:11] LABS: Basophils Absolute Auto 0.1 K/mm3 (0.0-0.1); Basophils Percent Auto 0.6 % (0.2-1.2); Eosinophils Absolute Auto 0.2 K/mm3 (0-0.3); Eosinophils Percent Auto 2.1 % (0-4.4); Hemoglobin 11.1 g/dL (12.0-15.0); Immature Granulocyte Absolute 0.11 K/mm3 (0.00-0.031); Immature Granulocyte Percent A 1.4 % (0-0.5); Lymphocytes Absolute Auto 2.99 K/mm3 (0.9-3.2); Lymphocytes Percent Auto 37.1 % (18.3-44.2); Mean Corpuscular HGB Conc 30.8 g/dl (32-36); Mean Corpuscular Hemoglobin 31.2 pg (26-34); Mean Corpuscular Volume 101.1 fl (80-100); Mean Platelet Volume 8.5 fl (7.4-10.4); Monocytes Absolute Auto 0.7 K/mm3 (0.1-0.6); Monocytes Percent Auto 8.7 % (2.6-8.5); Neutrophils Percent Auto 50.1 % (45.5-73.1); Platelet Count Result 252 k/mm3 (150-375); Red Blood Count 3.56 M/mm3 (4.2-5.4); Red Cell Distribution Width 15.2 % (11.5-14.5); White Blood Count 8.1 K/mm3 (4.5-10.0)
[2024-02-25 10:14] LABS: Blood Urea Nitrogen 33 mg/dL (8-26); Carbon Dioxide 25 mmol/L (22-30); Chloride 108 mmol/L (98-109); Estimated Glomerular Filt Rate 16; Glucose 102 mg/dL (70-105); Ionized Calcium (POC) 1.29 mmol/L (1.11-1.31); Potassium 4.5 mmol/L (3.5-4.9); Sodium 141 mmol/L (138-146)
--- NOTE | 2024-02-25 10:21 | PC.NURSE ---
Treatment cancelled due to hemoglobulin of 11.1
== END 2024-02-25 12:02 ==
LOC: AMCINF 10:30
PROVIDERS: Student in an Organized Health Care Education/Training Program; Visit Provider Internal Medicine Hematology & Oncology
DX: N18.30 Chronic kidney disease, stage 3 unspecified (principal); D63.1 Anemia in chronic kidney disease; I12.9 Hypertensive chronic kidney disease with stage 1 through stage 4 chronic kidney disease, or unspecified chronic kidney disease; M31.30 Wegener's granulomatosis without renal involvement; E78.5 Hyperlipidemia, unspecified; E61.1 Iron deficiency; Z79.01 Long term (current) use of anticoagulants
CPT/HCPCS: 36415; 80047; 80053; 82728; 83540; 83550; 85025; 85027; 96372; Q5106

== ENCOUNTER 2024-06-02 10:56 | Outpatient (CLI) | payer MEDICARE, SELFPAY ==
[2024-06-02 11:07] LABS: Hematocrit 35.2 % (37.0-47.0); Hemoglobin 10.8 g/dL (12.0-15.0); Mean Corpuscular HGB Conc 30.7 g/dl (32-36); Mean Corpuscular Hemoglobin 32.2 pg (26-34); Mean Corpuscular Volume 105.1 fl (80-100); Mean Platelet Volume 8.1 fl (7.4-10.4); Platelet Count Result 278 k/mm3 (150-375); Red Blood Count 3.35 M/mm3 (4.2-5.4); Red Cell Distribution Width 13.6 % (11.5-14.5); White Blood Count 8.2 K/mm3 (4.5-10.0)
[2024-06-02 11:12] LABS: Blood Urea Nitrogen 36 mg/dL (8-26); Carbon Dioxide 22 mmol/L (22-30); Chloride 109 mmol/L (98-109); Estimated Glomerular Filt Rate 17; Glucose 77 mg/dL (70-105); Ionized Calcium (POC) 1.26 mmol/L (1.11-1.31); Potassium 4.5 mmol/L (3.5-4.9); Sodium 141 mmol/L (138-146)
== END 2024-06-02 10:57 | disposition home or self-care (01) ==
LOC: ANHLAB 10:57
PROVIDERS: PCP Family Medicine; Visit Provider Internal Medicine Hematology & Oncology
DX: D64.9 Anemia, unspecified (principal)
CPT/HCPCS: 36415; 80047; 85027

== ENCOUNTER 2024-06-09 09:00 | Outpatient (RCR) | payer MEDICARE, SELFPAY ==
--- NOTE | 2024-03-24 09:55 | OPREHPOC ---
Outpatient Therapy Plan of Care This is a Multidisciplinary Plan of Care that may contain components documented by all disciplines (PT, OT, and ST.) PT Problem 1 PT Problem #1 Knowledge Deficit PT Goal 1 Goal 1. Patient will perform independent HEP Target Visit 3 PT Problem 2 PT Problem #2 Impaired Functional ADLs PT Goal 1 Goal 1. Patient will report fecal incontinence no more than 1 time a month 2. Patient will not need to change clothes due to incontinence for at least 1 month Target Visit 5 PT Problem 3 PT Problem #3 Impaired Strength PT Goal 1 Goal 1. Patient will be able to contract abdominal muscles without compensation 2. Improve pelvic floor strength to 4/5 to decrease incontinence 3. Improve pelvic floor endurance to 10 seconds to decrease incontinence Target Visit 5
--- NOTE | 2024-03-24 09:55 | PTOPEVAL1 ---
Assessment and note entered by Nia Pedraza DPT Evaluation Information Assessment Status Evaluation Diagnosis r15.9, n81.89 Subjective Information Pt reports she is having problems with BM and struggles with stool consistency and with pushing . Incomplete stools and some fecal incontinence/ smearing as well. Fecal incontinence 2 times a week. Wears pads all the time now and has to change clothes/clean herself up at times even out in the community. Has been occurring for the past few months. Also reports she has stage 4 kidney disease and Kadeem's disease, has not been taking any fiber like she had been able to prior to hospitalization in 2021. Was recently told by her GI that she can start doing fiber again, is currently increasing her intake. Voids less than 10 times a day, another 2-4 times at night depending on sleep quality. Very seldom gets urinary incontinence if she waits too long to void , up to once a week at the most. Can hold urge to void 30 minutes most of the time. Urge will worsen if she stands or hears water. Has noticed some pain with urination and cloudy urine recently, urine was not cultured but was given antibiotic to address. BM are variable but usually 3 times a day, may have days occasionally without any. No pain other than previous hemorrhoids. Denies history of pelvic pain. Pt has been 4 times, all vaginal deliveries. Tearing with her second child and reports blood clots post delivery . Part of colon removed in 2003 or 2004. No COMPOUNDING TECHNICIAN history. 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 Patient goal: be able to go to the bathroom without issue and stop appropriately Return to MD is not scheduled. Reported Pain Level Pain Score 0: Self Report Assessment PT Clinical Summary The patient is presenting to skilled therapy with a several month history of fecal incontinence. She presents with significantly decreased core strength and pelvic floor strength/endurance which are contributing to her incontinence multiple times a week and need to wear pads or change clothes. She will h
--- NOTE | 2024-03-30 14:00 | PCPTNOTE ---
Patient called to cancel appointment scheduled 03/31/24 due to personal conflict.
--- NOTE | 2024-04-28 09:41 | PTOPPROG ---
Assessment and note entered by Nia Pedraza DPT Evaluation Information Assessment Status Progress Diagnosis r15.9, n81.89 Subjective Information Pt reports she is feeling better since starting therapy. Also notes her stool consistency has improved and has increased her fiber. Fecal smearing 2 times a week she thinks, small volume. BM 2-3 times a day. Assessment PT Clinical Summary The patient has made good progress in therapy. She reports improved stool consistency and smaller volume of incontinence but it continues to occur 2 times a week on average. She demonstrates improved hip strength and improved pelvic floor endurance, but continued core and pelvic floor weakness. She will benefit from further therapy to address strength and incontinence to improve daily function. Plan of Care Interventions Manual Therapy,Neuro Re-education,Patient/ Caregiver Education,Therapeutic Activities, Therapeutic Exercise PT Services Indicated Yes Treatment Frequency and 1 visit every other week x 3 visits Duration These treatments will address the objective and functional deficits as defined above. The patient will be advanced safely and appropriately in order for the patient to progress towards his/her prior level of function. Additional exercises will be introduced and as well as a comprehensive home exercise program upon discharge, if needed, ?to ensure carryover of functional gains achieved in the clinic. This treatment plan has been reviewed and agreement upon by the patient.
--- NOTE | 2024-05-12 13:36 | PCPTNOTE ---
Patient did not show up for appointment 05/12/24- called patient and she stated she forgot, rescheduled to next week.
--- NOTE | 2024-06-09 09:37 | OPREHPOC ---
Outpatient Therapy Plan of Care This is a Multidisciplinary Plan of Care that may contain components documented by all disciplines (PT, OT, and ST.) PT Problem 1 PT Problem #1 Knowledge Deficit PT Goal 1 Goal / Goal Update 1. Patient will perform independent HEP Target Visit 3 Progress Met PT Problem 2 PT Problem #2 Impaired Functional ADLs PT Goal 1 Goal / Goal Update 1. Patient will report fecal incontinence no more than 1 time a month 2. Patient will not need to change clothes due to incontinence for at least 1 month Target Visit 8 Progress Partially Met PT Problem 3 PT Problem #3 Impaired Strength PT Goal 1 Goal / Goal Update 1. Patient will be able to contract abdominal muscles without compensation 2. Improve pelvic floor strength to 4/5 to decrease incontinence 3. Improve pelvic floor endurance to 10 seconds to decrease incontinence update 04/28/24 1. not met 2. not met 3. met update 06/09/24 1. met 2. not met 3. met Target Visit 8 Progress Partially Met
--- NOTE | 2024-06-09 09:37 | PTOPDC ---
Assessment and note entered by Nia Pedraza DPT Evaluation Information Assessment Status Discharge Diagnosis r15.9, n81.89 Subjective Information Pt reports she is doing pretty well , has had times recently without stool leakage for a couple days in row. Is scheduled for colonoscopy and burning internal hemorrhoids on 06/23/24. Has kept up with fiber intake and is having BM 2-3 times a day. Reported Pain Level Pain Score 0: Self Report Assessment PT Clinical Summary The patient has made excellent progress in therapy . She reports improvements with frequency of incontinence and demonstrates improved pelvic floor endurance as well as improved hip and core strength. Due to her progress and upcoming procedure, plan to discharge at this time. She has been educated to follow up with MD and/or PT as needed. Plan of Care PT Services Indicated No
== END 2024-06-09 10:41 | disposition home or self-care (01) ==
LOC: ANHPT 09:00
PROVIDERS: PCP Family Medicine; Visit Provider Physician Assistant Medical
DX: R15.9 Full incontinence of feces (principal); N81.89 Other female genital prolapse
CPT/HCPCS: 97112; 97161; 97530

== ENCOUNTER 2024-06-23 00:41 | Day surgery (SDC) | payer MEDICARE, SELFPAY ==
[2024-06-06 10:13] VITALS: BMI 34.2
--- NOTE | 2024-06-20 09:24 | PC.NURSE ---
Spoke with patient regarding medication ELIQUIS. Pt. verbalizes understanding that the last dose of ELIQUIS is to be taken on 06/20/2024 and the Endoscopist will instruct them when to restart after the procedure.
[2024-06-23 09:56] VITALS: BP 151/75; PULSE 74; RESP 18; TEMP 36.8; O2SAT 98
[2024-06-23] MEDS: LACTATED RINGERS 1,000 ML 150 ML IV CONT (10:05)
--- NOTE | 2024-06-23 10:21 | WPDANESEPPF ---
Anes - Initial Pre Proc Eval Procedure: Operation Date: 06/23/24 15:00 Proposed Procedures p Flexible Sigmoidoscopy - Nicho William MD s [facility] Hemorrhoid Treatment - Nicho William MD Date/Time: 06/23/24 10:21 Surgeon: Nicho William MD Pre Op Diagnosis: female genital prolapse, hemorrhoids Patient Data Age: 79 Gender: F Height: 1.57 m Weight: 84.4 kg Last Vital Signs Temp 36.8 C 06/23/24 09:56 Pulse 74 06/23/24 09:56 Resp 18 06/23/24 09:56 BP 151/75 H 06/23/24 09:56 Pulse Ox 98 06/23/24 09:56 O2 Del Method Room Air 06/23/24 09:56 Allergies Allergy/AdvReac Type Severity Reaction Status Date / Time No Known Allergies Allergy Unknown Verified 06/23/24 09:52 Home Medications Medication Instructions Recorded Confirmed Type multivitamin 1 cap PO DAILY 07/25/19 06/23/24 History omeprazole 20 mg capsule,delayed 20 mg PO DAILY 07/25/19 06/23/24 History release propylene glycol 0.6 % eye drops 1 drp EACH EYE DAILY PRN Dry Eye(S) 03/27/22 06/23/24 History (Systane Balance) aspirin 81 mg tablet,delayed 81 mg PO DAILY 03/31/22 06/23/24 History release diltiazem HCl 240 mg capsule,24 240 mg PO DAILY #90 caps 09/08/23 06/23/24 Rx hr,extended release ferrous sulfate 324 mg (65 mg 324 mg PO EVERY OTHER DAY 02/01/24 06/23/24 History iron) tablet,delayed release prednisone 10 mg tablet 5 mg PO DAILY 02/01/24 06/23/24 History hydrochlorothiazide 25 mg tablet See Rx Instructions .Route 03/03/24 06/23/24 Rx .COMPLEX #30 tabs apixaban 5 mg tablet (Eliquis) 5 mg PO BID #180 tabs 05/17/24 06/23/24 Rx losartan 100 mg tablet 100 mg PO DAILY #90 tabs 05/31/24 06/23/24 Rx rosuvastatin 5 mg tablet 5 mg PO DAILY #90 tabs 05/31/24 06/23/24 Rx calcium carbonate 1,000 mg tablet 1,000 mg PO DAILY 06/06/24 06/23/24 History hydrocortisone 2.5 % topical cream 1 applic RECTAL BID PRN Itching 06/06/24 06/23/24 History with perineal applicator (Anusol-HC) rituximab 10 mg/mL See Rx Instructions .Route .COMPLEX 06/06/24 06/23/24 History concentrate,intravenous sulfamethoxazole 400 1 tablet PO DAILY 06/06/24 06/23/24 History mg-trimethoprim 80 mg tablet Patient hx anesthesia problems: none Family hx anesthesia problems: none Results Review: All pre-operative results and documents have been reviewed as part of the pre-operative evaluation. [facility] Past Medical History Medical History Acute on chronic anemia Atrophic vulvitis Candidiasis of skin CHF (congestive heart failure) Chronic GERD Chronic venous insufficiency Deep vein blood clot of right lower extremity (~1993) DVT, bilateral lower limbs Dyslipidemia Essential hypertension, benign Factor V Leiden Fecal incontinence History of intestine removal (~2004) Hx of vaginal delivery (~1964) 1965 (girl), boys: 1966, 1974, 1984 Hypothyroidism Knee osteoarthritis Lung fibrosis Obesity (BMI 30-39.9) Phantosmia Pneumonia Pulmonary embolism Tear of left infraspinatus tendon Tinnitus of both ears Surgical History Surgical History H/O abdominal surgery (~2004) History of colon resection for a large benign polyp History of lung biopsy Hx of cataract surgery (~2016) S/P colonoscopic polypectomy (~2004) Family History Family History Mother Diabetes mellitus, Onset Age: 74 Family history of lung cancer Family history of malignant neoplasm of bone, Onset Age: 74 Father Hypertension, Onset Age: 81 Family history of malignant neoplasm of stomach, Onset Age: 81 Depression Heart disease Sibling , aneurism Cancer Other Cancer Social History Social History Social History: Patient currently lives with her in who she has
--- NOTE | 2024-06-23 10:45 | PM.HPGS ---
History of Present Illness History of Present Illness Consent: Risks, benefits, and alternatives have been discussed and questions answered. Patient agrees to proceed with procedure. Chief complaint: female genital prolapse, hemorrhoids Narrative: Karina Flores is a 79 year old female with fecal incontinence better with pelvic therapy, also h/o hemorrhoids. Review of Systems Review of Systems: All systems reviewed & are unremarkable except as noted in HPI and below PMFSH Past Medical History Medical History Acute on chronic anemia Atrophic vulvitis Candidiasis of skin CHF (congestive heart failure) Chronic GERD Chronic venous insufficiency Deep vein blood clot of right lower extremity (~1993) DVT, bilateral lower limbs Dyslipidemia Essential hypertension, benign Factor V Leiden Fecal incontinence History of intestine removal (~2004) Hx of vaginal delivery (~1964) 1965 (girl), boys: 1966, 1973, 1983 Hypothyroidism Knee osteoarthritis Lung fibrosis Obesity (BMI 30-39.9) Phantosmia Pneumonia Pulmonary embolism Tear of left infraspinatus tendon Tinnitus of both ears Surgical History Surgical History H/O abdominal surgery (~2004) History of colon resection for a large benign polyp History of lung biopsy Hx of cataract surgery (~2016) S/P colonoscopic polypectomy (~2004) Family History Family History Mother Diabetes mellitus, Onset Age: 74 Family history of lung cancer Family history of malignant neoplasm of bone, Onset Age: 74 Father Hypertension, Onset Age: 81 Family history of malignant neoplasm of stomach, Onset Age: 81 Depression Heart disease Sibling , aneurism Cancer Other Cancer Social History Social History Social History: Patient currently lives with her in who she has been to for 57 years. They have 4 kids 1 grown 3 boys. They also have 1 dog and a fish. She has a total of 11 grandkids and 6 great-grandchildren. 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 Gender identity (if verbalized by the patient): Female Sexual Orientation (if Verbalized by the Patient): Straight or Heterosexual Spiritual care concerns: No Agree to blood products: Yes Meds Home Medications and Allergies Home Medications Medication Instructions Recorded Confirmed Type multivitamin 1 cap PO DAILY 07/25/19 06/23/24 History omeprazole 20 mg capsule,delayed 20 mg PO DAILY 07/25/19 06/23/24 History release propylene glycol 0.6 % eye drops 1 drp EACH EYE DAILY PRN Dry Eye(S) 03/27/22 06/23/24 History (Systane Balance) aspirin 81 mg tablet,delayed 81 mg PO DAILY 03/31/22 06/23/24 History release diltiazem HCl 240 mg capsule,24 240 mg PO DAILY #90 caps 09/08/23 06/23/24 Rx hr,extended release ferrous sulfate 324 mg (65 mg 324 mg PO EVERY OTHER DAY 02/01/24 06/23/24 History iron) tablet,delayed release prednisone 10 mg tablet 5 mg PO DAILY 02/01/24 06/23/24 History hydrochlorothiazi
[2024-06-23 10:47] VITALS: BP 101/56; BP 114/64; PULSE 61; PULSE 62; RESP 18; RESP 20; O2SAT 96
[2024-06-23 10:57] VITALS: BP 127/63; PULSE 62; RESP 18; O2SAT 96
--- NOTE | 2024-06-23 11:12 | W.PM.PROC2 ---
Procedure Note - Detailed Date of Procedure 06/23/24 Pre-op Diagnosis hemorrhoids Post-op Diagnosis Same Procedure Performed IRC of internal hemorrhoids Surgeon Nicho William MD Anesthesia MAC (also had sigmoidoscopy) Indications hemorrhoids Findings small size grade I internal hemorrhoids Description of Procedure noted small size internal hemorrhoids, no fissure, no bleeding. Then used anoscopy and IRC probe was advanced, hemorrhoid treated at 1.5 seconds x6
== END 2024-06-23 11:19 | disposition home or self-care (01) ==
PROVIDERS: PCP Family Medicine; Referring Provider Nurse Practitioner; Visit Provider Internal Medicine Gastroenterology
PROC: 0DJD8ZZ Inspection of Lower Intestinal Tract, Via Natural or Artificial Opening Endoscopic (ICD-10-PCS; CPT 45330; principal; 2024-06-23 15:00)
PROC: (CPT 46930; 2024-06-23 15:00)
DX: R15.9 Full incontinence of feces (principal); K64.0 First degree hemorrhoids; K57.30 Diverticulosis of large intestine without perforation or abscess without bleeding; N81.89 Other female genital prolapse; E66.9 Obesity, unspecified; Z68.34 Body mass index [BMI] 34.0-34.9, adult
CPT/HCPCS: 46930; 45330; J2003; J2704; J7120

== ENCOUNTER 2024-08-24 11:46 | Outpatient (CLI) | payer MEDICARE, SELFPAY ==
--- NOTE | ~2024-08-24 | US_ITS ---
EXAMINATION:US venous doppler LE BI INDICATION:Erythematous condition. History of DVT. Patient on blood thinners with IVC filter. TECHNIQUE: Multiple grayscale, color flow and Doppler images of the bilateral lower extremity deep ve nous systems were obtained and reviewed. COMPARISON:Ultrasound dated 03/16/2022 FINDINGS: There is chronic deep venous thrombosis of the right popliteal, left femoral and left popli teal veins. The remainder of the lower extremity veins are patent. IMPRESSION: 1: Chronic bilateral deep venous thrombosis without significant change from prior ultrasound. Reviewed, dictated and finalized at location B. UAL REALITY SPECIALIST IMPRESSION: 1: Chronic bilateral deep venous thrombosis without significant change from emmy or ultrasound.
[2024-08-24 12:40] LABS: Hematocrit 36.6 % (37.0-47.0); Hemoglobin 11.2 g/dL (12.0-15.0); Mean Corpuscular HGB Conc 30.6 g/dl (32-36); Mean Corpuscular Hemoglobin 31.9 pg (26-34); Mean Corpuscular Volume 104.3 fl (80-100); Mean Platelet Volume 8.9 fl (7.4-10.4); Platelet Count Result 291 k/mm3 (150-375); Red Blood Count 3.51 M/mm3 (4.2-5.4); Red Cell Distribution Width 13.3 % (11.5-14.5); White Blood Count 10.6 K/mm3 (4.5-10.0)
[2024-08-24 13:07] LABS: Parathyroid Intact 47.8 pg/mL (14.5-75.2)
[2024-08-24 13:14] LABS: Alanine Aminotransferase 16 U/L (6-35); Albumin Level 4.6 g/dL (3.5-5.1); Anion Gap 8 mmol/L (4-12); Blood Urea Nitrogen 43 mg/dL (7-17); Calcium 10.4 mg/dL (8.4-10.2); Carbon Dioxide 26 mmol/L (22-30); Chloride 105 mmol/L (98-107); Cholesterol 177 mg/dL (0-200); Estimated Glomerular Filt Rate 22; Glucose 95 mg/dL (65-110); HDL Direct 50 mg/dL; Phosphorus 3.7 mg/dL (2.5-4.5); Potassium 4.8 mmol/L (3.4-5.0); Sodium 139 mmol/L (137-145); Triglycerides 229 mg/dL (<150)
[2024-08-24 13:20] LABS: Alanine Aminotransferase 16 U/L (6-35); Albumin Level 4.6 g/dL (3.5-5.1); Alkaline Phosphatase 110 U/L (38-126); Anion Gap 8 mmol/L (4-12); Aspartate Amino Transferase 27 U/L (14-36); Bilirubin,Total 0.4 mg/dL (0.2-1.3); Blood Urea Nitrogen 42 mg/dL (7-17); Calcium 10.3 mg/dL (8.4-10.2); Carbon Dioxide 26 mmol/L (22-30); Chloride 105 mmol/L (98-107); Estimated Glomerular Filt Rate 20; Glucose 95 mg/dL (65-110); Potassium 4.8 mmol/L (3.4-5.0); Sodium 139 mmol/L (137-145)
[2024-08-24 13:22] LABS: NT Pro B Type Natriuretic Pept 98 pg/mL (19.9-100)
[2024-08-24 13:25] LABS: LDL Cholesterol Direct 53 mg/dL
[2024-08-24 13:44] LABS: Free T4 Free Thyroxine 0.97 ng/dL (0.78-2.19)
[2024-08-24 14:17] LABS: D Dimer 0.67 ug/mL (<0.48)
[2024-08-24 14:20] LABS: Creatinine Urine 64.6 mg/dL; Total Protein Urine Random 21 mg/dL; Ur Ttl Prot Creatinine Ratio 0.33 mg/mg (0-0.20)
[2024-08-30 04:19] LABS: ANCA Screen NEGATIVE (NEGATIVE)
== END 2024-08-24 11:47 | disposition home or self-care (01) ==
LOC: ANHIMG 11:58
PROVIDERS: PCP Family Medicine; Visit Provider Nurse Practitioner Adult Health
DX: I26.99 Other pulmonary embolism without acute cor pulmonale (principal); I82.512 Chronic embolism and thrombosis of left femoral vein; I82.532 Chronic embolism and thrombosis of left popliteal vein; I13.0 Hypertensive heart and chronic kidney disease with heart failure and stage 1 through stage 4 chronic kidney disease, or unspecified chronic kidney disease; I50.9 Heart failure, unspecified; N18.4 Chronic kidney disease, stage 4 (severe); L53.9 Erythematous condition, unspecified; E78.5 Hyperlipidemia, unspecified; M31.31 Wegener's granulomatosis with renal involvement; D64.9 Anemia, unspecified; D68.51 Activated protein C resistance; E03.9 Hypothyroidism, unspecified; I82.531 Chronic embolism and thrombosis of right popliteal vein
CPT/HCPCS: 36415; 80053; 80061; 80069; 82570; 83880; 83970; 84156; 84439; 84443; 84460; 85027; 85380; 86036; 93970

== ENCOUNTER 2024-10-06 10:01 | Outpatient (CLI) | payer OTHER, SELFPAY ==
[2024-10-06 10:13] LABS: Basophils Percent Auto 0.4 % (0.2-1.2); Eosinophils Absolute Auto 0.3 K/mm3 (0-0.3); Eosinophils Percent Auto 3.2 % (0-4.4); Hematocrit 33.3 % (37.0-47.0); Hemoglobin 10.3 g/dL (12.0-15.0); Immature Granulocyte Absolute 0.04 K/mm3 (0.00-0.031); Immature Granulocyte Percent A 0.4 % (0-0.5); Lymphocytes Absolute Auto 3.23 K/mm3 (0.9-3.2); Lymphocytes Percent Auto 32.8 % (18.3-44.2); Mean Corpuscular HGB Conc 30.9 g/dl (32-36); Mean Corpuscular Hemoglobin 31.6 pg (26-34); Mean Corpuscular Volume 102.1 fl (80-100); Mean Platelet Volume 8.4 fl (7.4-10.4); Monocytes Absolute Auto 0.8 K/mm3 (0.1-0.6); Monocytes Percent Auto 8.5 % (2.6-8.5); Neutrophils Absolute Auto 5.4 K/mm3 (1.3-6.7); Neutrophils Percent Auto 54.7 % (45.5-73.1); Platelet Count Result 287 k/mm3 (150-375); Red Blood Count 3.26 M/mm3 (4.2-5.4); Red Cell Distribution Width 14.3 % (11.5-14.5); White Blood Count 9.9 K/mm3 (4.5-10.0)
[2024-10-06 10:16] LABS: Blood Urea Nitrogen 33 mg/dL (8-26); Carbon Dioxide 24 mmol/L (22-30); Chloride 108 mmol/L (98-109); Estimated Glomerular Filt Rate 18; Glucose 89 mg/dL (70-105); Ionized Calcium (POC) 1.28 mmol/L (1.11-1.31); Potassium 4.5 mmol/L (3.5-4.9); Sodium 140 mmol/L (138-146)
--- OUTSIDE RECORDS SUMMARY | 2024-10-06 10:19 | XMS_ITS | Encounter Summary ---
Author Organization [facility] Address [address] [place] [address] Care Team Providers Care Baseball Umpire For Little [employer] Name Role Phone Jimbo Lee MD Primary Care Provider Encounter Details Date Type Department Care Team (Late st Contact Info) Description 10/02/2024 Orders Only [facility] Oncology and Hematology - Jimi [address] [facility] [address] [place] [address] Jimmy Hua MD [address] [facility] [address] [place] [address] Chronic anemia Social History Tobacco Use Types Packs/Day Years Used Date Smoking Tobacco: Never Smokeless Tobacco: Never Alcohol Use Standard Drinks/Week Comments Never 0 (1 standard drink = 0.6 oz pur e alcohol) Comments No Sex and Gender Information Value Date Recorded Sex Assigned at Not on file Legal Sex Female 2:32 PM CDT Gender Identity Not on file Sexual Orientation Not on file documented as of this encounter Plan of Treatment Upcoming Encounters Date Type Department Care Team (Late st Contact Info) Description 10/09/2024 3:45 PM DREDGE CAPTAIN Office Visit [facility] Pulmonology [place] [address] [place] [address] Griffin Madrigal MD [address] [place] [address] 11/02/2024 2:40 PM DREDGE CAPTAIN Office Visit [facility] EAR, NOSE AND THROAT [facility] 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 [id number] PCP - General Family Practice 04/12/22 documented as of this encounter
--- OUTSIDE RECORDS SUMMARY | 2024-10-06 10:19 | XMS_ITS | Referral Summary ---
Author Organization [facility] [employer] Address [address] [place] [address] Care Team Providers Care Diesel Engine Erector Name Role Phone Jose Figueroa MD Primary Care Provider [phone] [facility] [employer],non-owned Affiliates and Associated Physician Practices is amultiple site organization consisting of ambulatory clinics and hospital sitesin [place], [place], [place] and [place]. This disclosure is being madepursuant to the Care Everywhere program and may not contain all information available regarding this patient. Last updated 18.[facility] [employer] Allergies No known active allergies Medications * Be aware that medications may not be up to date on this document. Alwaysverify current medications with the patient. Medication Sig Dispensed Refills Start Date End Date Status apixaban (Eliquis) 5 MG tablet Take 5 mg by mouth 2 times daily Active aspirin EC (Ecotrin) 81 MG tablet Take 81 mg by mouth once daily Active Social History Tobacco Use Types Packs/Day Years Used Date Smoking Tobacco: Never Assessed Sex and Gender Information Value Date Recorded Sex Assigned at Not on file Gender Identity Not on file Sexual Orientation Not on file Plan of Treatment Not on file Care Teams Diesel Engine Erector Relationship Specialty Start Date End Date Jose Figueroa MD [address] [place] [address] PCP - General 12/29/11
--- OUTSIDE RECORDS SUMMARY | 2024-10-06 10:19 | XMS_ITS | Referral Summary ---
Author Organization [facility] Address [address] [place] [address] Care Team Providers Care Liberal Arts Dean Name Role Phone Jimbo Lee MD Primary Care Provider [phone] Allergies No known active allergies Medications lisinopriL (PRINIVIL,ZESTR IL) 10 mg tablet lisinopril 10 mg tablet TAKE 1 TABLET BY MOUTH DAILY Active mupirocin (BACTROBAN) 2 % ointment mupirocin 2 % topical ointment APPLY TOPICALLY TO THE AFFECTED AREA TWICE DAILY Active biotin 300 mcg tablet Take 300 mcg by mouth daily Active apixaban (Eliquis) 5 mg tablet 5 mg 2 (two) times a day Active omeprazole (PriLOSEC) 20 mg capsule Take 20 mg by mouth daily Active Active Problems Problem Noted Date Diagnosed Date Acute deep vein thrombosis (DVT) of lower extrem ity 03/20/2022 Assessment & Plan (03/20/2022 2:44 PM CDT): Impression: Patient complains of a lump to her right posterior calf that occurred approximately 2 weeks ago. She has a history of DVTs to bilateral lower extremities. This is her 5th diagnosis of DVT. Patient was recently diagnosed with factor 5 in spring 2021. Venous duplex from an outside study reveals bilateral popliteal vein and left femoral vein DVT. She was started on Eliquis recently by her PCP. Venous duplex repeated today which revealed chronic femoral to calf vein DVT to bilateral lower extremity, acute on chronic left popliteal DVT, and thrombophlebitis to the right small saphenous vein. Plan: No surgical intervention at this time. Continue Eliqus. Continue utilizing compression therapy. Recommend comfort measures with PO pain control and warm compresses for pain to her thrombophlebitis. Patient to follow up as needed. Factor 5 Leiden mutation, heterozygous Assessment & Plan (03/20/2022 2:39 PM CDT): Impression: Patient has a history of bilateral lower extremity DVTs. Patient has a total of 5 episode of DVTs. She was recently diagnosed with factor 5 in spring 2021. Patient has an acute on chronic left popliteal DVT seen on duplex. She was recently started on Eliquis by her primary care provider. Plan: Patient will require lifelong anticoagulation due to her her history of frequent DVTs as well as her recent diagnosis with factor 5. Patient voices understanding. Primary hypertension 03/20/2022 Assessment & Plan (03/20/2022 2:47 PM CDT): Impression: Chronic stable hypertension, controlled medications. Blood pressure stable this office visit. Plan: Continue blood pressure management as per primary care provider. Pain in joint of left shoulder 01/05/2022 Arthralgia of right knee 12/31/2021 Immunizations Name Administration Dates Next Due Influenza, Quad, Adjuvantated, Intramuscular 04/2021 Influenza, Quadrivalent, Hig h Dose, Preservative Free, Intrr 07/05/2020 Influenza, Trivalent, High D ose, Split, Preservative Free, Intramuscular 08/25/2019,07/15/2018 Pneumococcal Conjugate PCV 13 08/12/2017 Pneumococcal Polysaccharide PPV23 06/17/2010 TD Preservative Free 05/19/2004,08/10/1995 Tdap 10/03/2013 Social History Tobacco Use Types Packs/Day Years Used Date Smoking Tobacco: Never Assessed Comments Unknown Sex and Gender Information Value Date Recorded Sex Assigned at Not on file Legal Sex Female 5:40 PM PRODUCER Gender Identity Not on file Sexual Orientation Not on file Last Filed Vital Signs Vital Sign Reading Time Taken Comments Blood Pressure 133/78 03/19/2022 9:16 AM CDT Pulse 79 03/19/2022 9:16 AM CDT Temperature - - Respiratory Rate - - Oxygen Saturation - - Inhaled Oxygen Concentration - - Weight 80.3 kg (177 lb) 03/19/2022 9:16 AM CDT Height 160 cm (5' 3 ) 03/19/2022 9:16 AM CDT Body Mass Index 31.35 03/19/2022 9:16 AM CDT Plan of Treatment Not on file Insurance MED[employer] Care Teams Liberal Arts Dean Relationship Specialty Start Date End Date Jimbo Lee MD PCP - General Family Medicine 03/18/22
--- OUTSIDE RECORDS SUMMARY | 2024-10-06 10:19 | XMS_ITS | Clinical Summary ---
Author Organization [facility] Address [address] [place] [address] Care Team Providers Care [employer] Name Role Phone Jimbo Lee MD Primary Care Provider [phone] Allergies No known active allergies Medications lisinopriL [...] 06/17/2010 TD Preservative Free 05/19/2004,08/10/1995 Tdap 10/03/2013 Surgical History Surgery Date Site/Laterality Comments COLONOSCOPY 09/06/2017 - 09/05/2018 ABDOMINAL SURGERY 09/06/2004 - 09/05/2005 CATARACT EXTRACTION 09/06/2016 - 09/05/2017 COLON POLYPECTOMY 09/06/2004 - 09/05/2005 Medical History Medical History Date Comments GERD (gastroesophageal reflux disease) Dyslipidemia HTN (hypertension) Factor V Leiden (HCC) Hemoptysis HPTH (hyperparathyroidism) (HCC) Knee osteoarthritis Edema Family History Medical History Relation Name Comments Depression Father Heart disease Father Hypertension Father Malignant neoplasm of stomach Father Diabetes Mother Lung cancer Mother Malignant neoplasm of bone Mother Relation Name Status Comments Father Mother Social History Tobacco Use Types Packs/Day Years Used Date Smoking Tobacco: Never Assessed Comments Unknown Sex and Gender Information Value Date Recorded Sex Assigned at Not on file Legal Sex Female 5:40 PM POLYGRAPH EXAMINER Gender Identity Not on file Sexual Orientation Not on file Obstetrics History Last Filed Vital Signs Vital Sign Reading [...] 03/19/2022 9:16 AM CDT Plan of Treatment Health Maintenance Due Date Last Done Comments Depression Screening 1945 Fall Risk Assessment 1945 Hepatitis C Screening 1945 Osteoporosis Screening-Bone Density Scan 1945 Hepatitis B Screening 1963 Zoster Vaccine (1 of 2) 1995 Well Visit 65+ 2010 DTaP/Tdap/Td Vaccine (2 - Td or Tdap) 10/03/2023 10/03/2013, 05/19/2004, 08/10/1995 Influenza Vaccine (#1) 2024 , 07/05/2020, 08/25/2019, Additional history exists Pneumococcal vaccine 65+ Completed 08/12/2017, 06/06 Insurance MEDICARE [employer] [facility] HMO REF Care Teams [employer] Relationship Specialty Start Date End Date Jimbo Lee MD PCP - General Family Medicine 03/18/22
--- OUTSIDE RECORDS SUMMARY | 2024-10-06 10:19 | XMS_ITS | Clinical Summary ---
Author Organization [facility] Address [address] [place] [address] Phone Care Team Providers Care Head Sawyer Automatic Name Role Phone Jimbo Lee MD Primary Care Provider [phone] Allergies Active Allergy Reactions Criticality Noted Date Comments Iodinated Contrast Media Other (See Comments) 09/02/2023 Kidney doctor said NO contrast dye because of kidneys. Medications multivitamin (DAILY-FELI) tablet Take 1 Tablet by mouth daily. Active omeprazole (PriLOSEC) 20 mg Capsule, Delayed Release(E.C.) Take 20 mg by mouth daily. Active acetaminophen (TYLENOL) 500 mg tablet Take 500 mg by mouth every 6 hours as needed. Active apixaban (ELIQUIS) 5 mg tablet Take 5 mg by mouth 2 times daily. Active ascorbic acid, vitamin C, (VITAMIN C) 1,000 mg Tablet Take 1,000 mg by mouth daily. Active aspirin (ECOTRIN EC) 81 mg Tablet, Delayed Release (E.C.) Take 81 mg by mouth daily. Active hydroCHLOROthia zide 25 mg tablet Take 25 mg by mouth daily. 2 Active calcium as carbonate (CALTRATE) 1,500 mg (600 mg elemental) Tablet Take by mouth. Activ e diltiaZEM (CARDIZEM CD) 240 mg Controlled Delivery 24 hour capsule 2 Active losartan (COZAAR) 25 mg tablet Take 100 mg by mouth daily. Two pills in Am one pill in PM 3 Active Misc Natural Product Nasal (Ponaris) Solution Instill into nostrils TID PRN nasal dryness or irritation 4 Active ferrous sulfate 325 mg (65 mg iron) tablet Take 325 mg by mouth daily. Active rosuvastatin (CRESTOR) 5 mg tablet Take 5 mg by mouth daily. 4 Active sulfamethoxazol e-trimethoprim (BACTRIM) 400-80 mg tabletIndicatio ns:Vasculitis Take 1 Tablet by mouth daily. 90 Tablet 3 4 Active predniSONE (DELTASONE) 5 mg tablet Take 1 Tablet (5 mg) by mouth daily. 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 Bilateral pulmonary infiltrates on chest x-ray 0 04/12/2022 ARF (acute renal failure) 04/12/2022 Hemoptysis 04/12/2022 Recurrent acute deep vein th rombosis (DVT) of lower extremity 04/12/2022 HTN (hypertension), benign 04/12/2022 HLD (hyperlipidemia) 04/12/2022 Factor 5 Leiden mutation, heterozygous 2 S/P IVC filter 04/12/2022 Anemia 04/12/2022 Leukocytosis (leucocytosis) 04/12/2022 Resolved Problems Problem Noted Date Diagnosed Date Resolved Date Acute respiratory failure with hypoxia 04/12/2022 12/29/2022 Acute pulmonary embolism 04/12/2022 Encounters Date Type Department Care Team Description 10/02/2024 Orders Only [facility] Oncology and Hematology - [address] [place] [address] Jimmy Hua MD Chronic anemia 09/29/2024 Telephone [facility] Pulmonology [facility] [address] [address] [place] [address] Griffin Madrigal MD Needs Orders Written 09/18/2024 Orders Only [facility] Oncology and Hematology - [address] [place] [address] Jimmy Hua MD Chronic anemia 09/04/2024 Orders Only [facility] Oncology and Hematology - [place] [place] [address] Jimmy Hua MD Chronic anemia 08/21/2024 Orders Only [facility] Oncology and Hematology - [place] [place] [address] Jimmy Hua MD Chronic anemia 08/15/2024 Telephone [facility] Pulmonology [facility] [address] [place] [address] Griffin Madrigal MD Medication Review 08/07/2024 Orders Only [facility] Oncology and Hematology - [place] [place] [address] Jimmy Hua MD Chronic anemia 07/24/2024 Orders Only [facility] Oncology and Hematology - [place] [place] [address] Jimmy Hua MD Chronic anemia 07/10/2024 Orders Only [facility] Oncology and Hematology - [place] [place] [address] Jimmy Hua MD Chronic anemia from Last 3 Months Family History Medical History Relation Name Comments Prostate Cancer Brother Heart Disease Father Hypertension Father Stomach Cancer Father Diabetes Mother Lung Cancer Mother Ovarian Cancer Sister 1 Relation Name Status Comments Brother Daughter Alive Father Mother Sister 1 Sister 2 Son 1 Alive Son 2 Alive Son 3 Alive Social History Tobacco Use Types Packs/Day Years Used Date Smoking Tobacco: Never Smokeless Tobacco: Never Tobacco Cessation:Counseling Given: Not Answered Alcohol Use Standard Drinks/Week Comments Never 0 (1 standard drink = 0.6 oz pur e alcohol) Comments No Sex and Gender Information Value Date Recorded Sex Assigned at Not on file Legal Sex Female 2:32 PM CDT Gender Identity Not on file Sexual Orientation Not on file Last Filed Vital Signs Vital Sign Reading Time Taken Comments Blood Pressure 139/79 06/02/2024 11:17 AM CDT Pulse 78 06/02/2024 11:17 AM CDT Temperature 36.6 ??C (97.8 ??F) 06/02/2024 11:17 AM C DT Respiratory Rate 15 06/02/2024 11:17 AM CDT Oxygen Saturation 95% 06/02/2024 11:17 AM CDT Inhaled Oxygen Concentration - - Weight 87 kg (191 lb 12.8 oz) 06/02/2024 11:17 A M CDT Height 157.5 cm (5' 2 ) 04/27/2024 2:37 PM CDT Body Mass Index 35.08 04/27/2024 2:37 PM CDT Plan of Treatment Upcoming Encounters Date Type Department Care Team (Late st Contact Info) Description 10/09/2024 3:45 PM SPORTS DOCTOR Office Visit [facility] Pulmonology [address] [place] [address] Griffin Madrigal MD [address] [facility] [address] [place] [address] 11/02/2024 2:40 PM SPORTS DOCTOR Office Visit [facility] [address] [facility] [address] [place] [address] [place] [address] [facility] [address] [place] [address] Health Maintenance Due Date Last Done Comments ZOSTER VACCINE (1 of 2) 1964 OSTEOPOROSIS SCREENING 2010 RSV VACCINE (60+ or ) (1 - 1-dose 75+ series) 2020 DTAP/TDAP/TD VACCINES (2 - T d or Tdap) 10/03/2023 10/03/2013, 05/19/2004, 08/10/1995 INFLUENZA VACCINE (#1) 2024 2, 06/13/2021, 06/13/2021, Additional history exists [place] ([place]) Preventative Visit/Annual Wellness Visit 09/06/2024 PNEUMOCOCCAL VACCINE 65+ YEARS Completed 08/12/2017 , 06/17/2010 Procedures Procedure Name Priority Date/Time Associated Diagnosis Comments CBC WITH DIFFERENTIAL Routine 10/04/2024 9:42 AM SPORTS DOCTOR ILD (interstitial lung disease) ([facility]) C-REACTIVE PROTEIN Routine 10/04/2024 9: 38 AM SPORTS DOCTOR ILD (interstitial lung disease) ([facility]) from Last 3 Months Results * (ABNORMAL) CBC WITH DIFFERENTIAL (10/04/2024 9:42 AM SPORTS DOCTOR) WBC 8.4 3.8 - 10.8 Thousand/u L [facility] RBC 3.35(L) 3.80 - 5.10 Million/uL [facility] HEMOGLOBIN 10.4(L) 11.7 - 15.5 g/dL [facility] HEMATOCRIT 33.6(L) 35.0 - 45.0 % [facility] MCV 100.3(H) 80.0 - 100.0 fL [facility] MCH 31.0 27.0 - 33.0 pg [facility] MCHC 31.0(L) 32.0 - 36.0 g/dL [facility] Comment: For adults, a slight decrease in the calculated MCHC value (in the range of 30 to 32 g/dL) is most likely not clinically significant; however, it should be interpreted with caution in correlation with other red cell parameters and the patient's clinical condition. RDW 13.2 11.0 - 15.0 % [facility] PLATELETS 313 140 - 400 Thousand/u L [facility] MPV 9.3 7.5 - 12.5 fL [facility] NEUTROPHIL ABSOLUTE 4,343 1,500 - 7,800 cells/uL [facility] LYMPHOCYTE ABSOLUTE 2,780 850 - 3,900 cells/uL [facility] MONOCYTE ABSOLUTE 958(H) 200 - 950 cells/uL [facility] EOSINOPHIL ABSOLUTE 286 15 - 500 cells/uL [facility] BASOPHILS ABSOLUTE 34 0 - 200 cells/uL [facility] NEUTROPHIL 51.7 % [facility] LYMPHOCYTES 33.1 % [facility] MONOCYTE 11.4 % [facility] EOSINOPHILS 3.4 % [facility] BASOPHILS 0.4 % [facility] Comment: FASTING:YES FASTING: YES Test Performed at: [facility] [address] [place], [place] ??[phone] Roxanne Boyd MD Blood 10/04/2024 9:42 AM SPORTS DOCTOR 10/04/2024 9:42 AM SPORTS DOCTOR us Griffin Madrigal MD HEMATOLOGY ORDERABLES Final Res ult Performing Organization Address [facility] Co de Phone Number [facility] [phone] [employer] [facility] [address] [place] [address] * C-REACTIVE PROTEIN (10/04/2024 9:38 AM SPORTS DOCTOR) CRP 5.1 <8.0 mg/L [facility] Comment: FASTING:YES FASTING: YES Test Performed at: [facility] [address] [place], [place] ??[phone] Roxanne Boyd MD Blood 10/04/2024 9:38 AM SPORTS DOCTOR 10/04/2024 9:39 AM SPORTS DOCTOR Griffin Madrigal MD CHEMISTRY ORDERABLES Final Resu lt Performing Organization Address City/[facility] Co de Phone Number [facility] [phone] [employer] [facility] [address] [place] [address] from Last 3 Months Insurance RX [employer] RX Member Subscriber Plan / Payer (Ef fective 2019-Present) Name:Karina Flores Relation to Subscriber:Self Name:Karina Flores Payer ID:Not on file Group ID:[id number] Type:RX Medicare Part D Address: [address] [employer] PLANS (INTERNAL) [facility] Internal Plans Advance Directives For more information, please contact: [phone] * Full Code (Latest Code Status on File) Date Activated Date Inactivated Comments 07/14/2022 10:05 AM 07/17/2022 1:43 AM * Full Code Date Activated Date Inactivated Comments 04/12/2022 6:04 AM 04/28/2022 9:41 PM Care Teams Head Sawyer Automatic Relationship Specialty Start Date End Date Jimbo Lee MD [address] [place] [address] PCP - General Family Practice 04/12/22
--- OUTSIDE RECORDS SUMMARY | 2024-10-06 10:19 | XMS_ITS | Clinical Summary ---
Author Organization [facility] Address [address] [facility] [address] [place] [address] Phone Care Team Providers Care Global Clinical Leader Name Role Phone Jose Figueroa MD Primary Care Provider [phone] Allergies No known active allergies Medications MULTIPLE VITAMIN PO Take 1 Tab by mouth daily. Active aspirin EC 81 MG Tablet Delayed Response Take 81 mg by mouth daily. Active Omeprazole (PRILOSEC PO) Take by mouth daily as needed. Active Calcium Polycarbophil (FIBER-CAPS PO) Take 1 Cap by mouth daily. Active biotin 300 MCG Tablet Take 300 mcg by mouth daily. Active Calcium Carbonate (CALCIUM 600 PO) Take by mouth. 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 Not on file Not on file Last Filed Vital Signs Vital Sign Reading Time Taken Comments Blood Pressure 112/73 01/21/2018 9:54 AM CDT Pulse 80 01/21/2018 7:13 AM CDT Temperature 36 ??C (96.8 ??F) 01/21/2018 9:54 AM CDT Respiratory Rate 16 01/21/2018 9:54 AM CDT Oxygen Saturation 97% 01/21/2018 9:54 AM CDT Inhaled Oxygen Concentration - - Weight 80.7 kg (178 lb) 01/05/2018 1:00 PM CDT Height 160 cm (5' 3 ) 01/05/2018 1:00 PM CDT Body Mass Index 31.53 01/05/2018 1:00 PM CDT Plan of Treatment Health Maintenance Due Date Last Done Comments DEXA Bone Density 1945 Hepatitis C Virus (HCV) Screening 1945 Zoster Immunization (1 of 2) 1995 Respiratory Syncytial Virus (RSV) Immunization (Adult) (1 - 1-dose 75+ series) 2020 Influenza Immunization (#1) 05/07/202406/08, 08/25/2019, 07/15/2018 SARS-COV-2 Immunization (2023- season) 2024 DTaP/Tdap/Td Immunization Discontinued 2013, 05/19/2004, 08/10/1995 TdaP Immunization Completed 10/03/2013 Pneumococcal Immunization (5 0+ years) Completed 08/12/2017, 06/17/2010 Pneumococcal Immunization Combined Discontinued 08/12/2017, 06/17/2010 Colonoscopy High Risk Discontinued 01/21/2018 Colonoscopy Discontinued 01/21/2018 Colorectal Cancer Screening Discontinued Cologuard Discontinued Hepatitis B Immunization Aged Out No longer eligible based on patient's age to complete this topic Immunochemical Fecal Occult Blood Discontinued Meningococcal Immunization (ACWY) Aged Out No longer eligible based on patient's age to complete this topic Rotavirus Immunization Aged Out No lo nger eligible based on patient's age to complete this topic Insurance [facility] Care Teams Global Clinical Leader Relationship Specialty Start Date End Date Jose Figueroa MD [address] [place] [address] PCP - General Family Medicine 08/16/17
--- OUTSIDE RECORDS SUMMARY | 2024-10-06 10:19 | XMS_ITS | Patient Health Summary ---
Author Organization [facility] [employer] Address [address] [place] [address] Care Team Providers Care Raw Shellfish Preparer Name Role Phone Jose Figueroa MD Primary Care Provider [phone] Note from [facility],non-owned Affiliates and Associated Physician Practices is amultiple site organization consisting of ambulatory clinics and hospital sitesin [place], [place], [place] and [place]. This disclosure is being madepursuant to the Care Everywhere program and may not contain all information available regarding this patient. Last updated 18.[facility] Allergies No known active allergies Medications * Be aware that medications may not be up to date on this document. Alwaysverify current medications with the patient. * apixaban (Eliquis) 5 MG tablet Take 5 mg by mouth 2 times daily * aspirin EC (Ecotrin) 81 MG tablet Take 81 mg by mouth once daily Social History Tobacco Use Types Packs/Day Years Used Date Smoking Tobacco: Never Assessed Sex and Gender Information Value Date Recorded Sex Assigned at Not on file Gender Identity Not on file Sexual Orientation Not on file Procedures * IR CENTRAL LINE REMOVAL(Performed 05/15/2022) Performed for CKD (chronic kidney disease) stage 5, GFR less than 15 ml/min ([facility]) * HLA TYPING DNA HIGH RESOLUTION DR(Performed 01/24/2014) * HLA TYPING DNA HIGH RESOLUTION DQ(Performed 01/24/2014) * HLA TYPING DNA HIGH RESOLUTION C(Performed 01/24/2014) * HLA TYPING DNA HIGH RESOLUTION B(Performed 01/24/2014) * HLA TYPING DNA HIGH RESOLUTION A(Performed 01/24/2014) * HLA TYPING DNA LOW RESOLUTION DR,DQ(Performed 01/24/2014) * HLA TYPING DNA LOW RESOLUTION A,B,C(Performed 01/24/2014) * CYTOMEGALOVIRUS ANTIBODY IGG BLOOD(Performed 01/24/2014) Results * IR CENTRAL LINE REMOVAL (05/15/2022 8:18 AM CDT) Anatomical Region Laterality Modality X-Ray Angiograph y Narrative 05/15/2022 9:09 AM CDT Jana Trinidad MD ? 05/15/2022 ??9:11 AM VASCULAR AND INTERVENTIONAL RADIOLOGY EXAMINATION: TUNNELED CENTRAL VENOUS CATHETER REMOVAL Date: 05/15/2022 History: Karina Flores is a 77 year old female with history of renal insufficiency who is status post left thoracic tunneled hemodialysis catheter placement at an outside facility. ??The patient's renal function has recovered and she no longer requires hemodialysis currently. ??Tunneled hemodialysis catheter removal is requested. Diagnosis code: N18.5 Technique: The risks, benefits, and alternatives were discussed and informed consent was obtained. ??Prior to beginning the procedure, universal protocol was performed to confirm the patient's identity and the planned procedure. ??Maximum sterile barriers including cap, mask, hand hygiene, sterile gloves, sterile gown, large sterile drape, and 2% chlorhexidine for cutaneous antisepsis were used. The skin adjacent to the left thoracic tunneled catheter entry site was sterilely prepped and draped. ??Gentle traction was then used to free the tunneled hemodialysis catheter cuff. ??The catheter was removed in its entirety and pressure held at the site to obtain hemostasis. ??A sterile dressing was applied. ??The patient tolerated the procedure well and without complications. Findings: The catheter exit site showed no evidence of infection. IMPRESSION: Successful tunneled catheter removal, as described above. Vanessa Trinidad M.D. Vascular and Interventional Radiology [facility] [phone] CC: Patient's circuit rider: Dr. Jorden Escobar Jorden Escobar MD IR ORDERABLES * HLA TYPING DNA LOW RESOLUTION DR,DQ (01/24/2014 11:20 AM CDT) DR DQ Low Resolution DRB1-[address] [facility] ([place]) DR DQ Low Resolution DRB1-[address] [facility] ([facility]) DR DQ Low Resolution DQB1-[address] [facility] ([facility]) DR DQ Low Resolution DQB1-[address] [facility] ([facility]) DR DQ Low Resolution DRB3-[address] [facility] ([facility]) DR DQ Low Resolution DRB3-2 - [facility]) DR DQ Low Resolution DRB4-1 - [facility] ([facility]) DR DQ Low Resolution DRB4-2 - [facility] ([facility]) DR DQ Low Resolution DRB5-[address] [facility]) DR DQ Low Resolution DRB5-2 - [facility] ([facility]) DR DQ Low Resolution Methodology SSOP [facility] ([facility]) Comment DR DQ Low Resolution - [facility] ([facility]) DR DQ Low Resolution test date 01/31/[address] [facility] ([facility]) Comment: This test was developed and its performance characteristics determined bythe [facility]. ??It has not been cleared or approved by theU.S. Food and Drug Administration. ??The FDA has determined that suchclearance or approval is not necessary. ?? This test is used for clinicalpurposes. ??It should not be regarded as investigational or for research.This laboratory is certified under the Clinical Laboratory ImprovementAmendments of 1988 (CLIA-88) as qualified to perform high complexityclinical laboratory testing.Performed at: ??[facility], [address] @ [facility], [place] ??[id number] Director: Thomas Daly MD, Blood specimen (specimen) BLOOD SPECIMEN / Unknown 01/24/2014 11:20 AM CDT 01/24/2014 11:42 AM CDT Farzaneh Falcon MD LAB - BLOOD BANK ORD ERABLES [facility] ([facility]) * HLA TYPING DNA LOW RESOLUTION A,B,C (01/24/2014 11:20 AM CDT) ABC DNA A1 23 [facility] ([facility]) ABC DNA A2 25 [facility] ([facility] ABC DNA B1 18 [facility] ([facility] ABC DNA B2 49 [facility] ([facility] ABC DNA BW1 6 [facility] ([facility]) ABC DNA BW2 4 [facility] ([facility] ABC DNA C1 07 [facility] ([facility] ABC DNA C2 12 [facility] ([facility] ABC DNA Methodology SSOP [facility] ([facility]) Comment ABC DNA - [facility] ([facility]) ABC DNA Test Date 01/31/[address] [facility] ([facility]) Comment: This test was developed and its performance characteristics determined bythe [facility]. ??It has not been cleared or approved by theU.S. Food and Drug Administration. ??The FDA has determined that suchclearance or approval is not necessary. ?? This test is used for clinicalpurposes. ??It should not be regarded as investigational or for research.This laboratory is certified under the Clinical Laboratory ImprovementAmendments of 1988 (CLIA-88) as qualified to perform high complexityclinical laboratory testing.Performed at: ??[facility], [address] @ [facility], [place] ??[phone] Director: Thomas Daly MD, Blood specimen (specimen) BLOOD SPECIMEN / Unknown 01/24/2014 11:20 AM CDT 01/24/2014 11:42 AM CDT Farzaneh Falcon MD LAB - BLOOD BANK ORD ERABLES [facility] ([facility]) * HLA TYPING DNA HIGH RESOLUTION DR (01/24/2014 11:20 AM CDT) DR Locus DRB1-1 11:01 [facility] ([facility]) DR DQ Low Resolution DRB1-2 15:01 [facility] ([facility]) DR Locus Test Method SSP [facility] ([facility]) Comment DR Locus - [facility] ([facility]) DR Locus Test Date 02/07/[address] [facility] ([facility]) Comment: This test was developed and its performance characteristics determined bythe [facility]. ??It has not been cleared or approved by the[facility]. Food and Drug Administration. ??The FDA has determined that suchclearance or approval is not necessary. ?? This test is used for clinicalpurposes. ??It should not be regarded as investigational or for research.This laboratory is certified under the Clinical Laboratory ImprovementAmendments of 1988 (CLIA-88) as qualified to perform high complexityclinical laboratory testing.Performed at: ??[facility] [employer] [facility], [address] @ [place], [place] ??[phone] Director: Thomas Daly MD, Blood specimen (specimen) BLOOD SPECIMEN / Unknown 01/24/2014 11:20 AM CDT 02/07/2014 1:19 PM CDT Demetris Luz MD LAB - BLOOD BANK O RDERABLES [facility] ([facility]) * HLA TYPING DNA HIGH RESOLUTION DQ (01/24/2014 11:20 AM CDT) DR DQ Low Resolution DQB1-1 03:01 [facility] ([facility]) DR DQ Low Resolution DQB1-2 06:02 [facility] ([facility]) DQ Locus Methodology SSP [facility] ([facility]) Comment DQ Locus - [facility] ([facility]) DQ Locus Test Date 02/07/[address] [facility] ([facility]) Comment: This test was developed and its performance characteristics determined bythe [facility]. ??It has not been cleared or approved by [facility] Food and Drug Administration. ??The FDA has determined that suchclearance or approval is not necessary. ?? This test is used for clinicalpurposes. ??It should not be regarded as investigational or for research.This laboratory is certified under the Clinical Laboratory ImprovementAmendments of 1988 (CLIA-88) as qualified to perform high complexityclinical laboratory testing.Performed at: ??[facility] [employer] [facility], [address] @ [place], [place] ??[phone] Director: Thomas Daly MD, Blood specimen (specimen) BLOOD SPECIMEN / Unknown 01/24/2014 11:20 AM CDT 02/07/2014 1:19 PM CDT Demetris Luz MD LAB - BLOOD BANK O RDERABLES Performing Organization Address City/[facility]/ZIP Co de Phone Number [facility] ([facility]) * HLA TYPING DNA HIGH RESOLUTION B (01/24/2014 11:20 AM CDT) Pathologist [facility] B Locus B-1 18:01 [facility] ([facility]) HLA B Locus Bw-[address] [facility] ([facility] HLA B Locus B-2 49:01 [facility] ([facility] HLA B Locus Bw-[address] [facility] ([facility] HLA B Locus Methodology SSP [facility] ([facility]) Comment HLA B Locus - [facility] ([facility]) HLA B Locus Test Date 02/07/[address] [facility] ([facility]) Comment: This test was developed and its performance characteristics determined bythe [facility]. ??It has not been cleared or approved by theU.S. Food and Drug Administration. ??The FDA has determined that suchclearance or approval is not necessary. ?? This test is used for clinicalpurposes. ??It should not be regarded as investigational or for research.This laboratory is certified under the Clinical Laboratory ImprovementAmendments of 1988 (CLIA-88) as qualified to perform high complexityclinical laboratory testing.Performed at: ??[facility], [address] @ [facility], [place] ??[phone] Director: Thomas Daly MD, Blood specimen (specimen) BLOOD SPECIMEN / Unknown 01/24/2014 11:20 AM CDT 02/07/2014 1:19 PM CDT Demetris Luz MD LAB - BLOOD BANK O RDERABLES Performing Organization Address City/[facility]/ZIP Co de Phone Number [facility] ([facility]) * HLA TYPING DNA HIGH RESOLUTION A (01/24/2014 11:20 AM CDT) A Locus HR A1 23:01 [facility] ([facility]) A Locus HR A2 25:01 [facility] ([facility]) A Locus HR Methodology [facility] ([facility]) Comment A Locus HR - S [facility] ([facility]) A Locus Test Date 02/07/20 14 [facility] ([facility]) Comment: This test was developed and its performance characteristics determined bythe [facility]. ??It has not been cleared or approved by [facility]. Food and Drug Administration. ??The FDA has determined that suchclearance or approval is not necessary. ?? This test is used for clinicalpurposes. ??It should not be regarded as investigational or for research.This laboratory is certified under the Clinical Laboratory ImprovementAmendments of 1988 (CLIA-88) as qualified to perform high complexityclinical laboratory testing.Performed at: ??[facility], [address] @ [facility], [place] ??[phone] Director: Thomas Daly MD, Blood specimen (specimen) BLOOD SPECIMEN / Unknown 01/24/2014 11:20 AM CDT 02/07/2014 1:19 PM CDT Demetris Luz MD LAB - BLOOD BANK O RDERABLES [facility] ([facility]) * HLA TYPING DNA HIGH RESOLUTION C (01/24/2014 11:20 AM CDT) C Locus C1 07:01 [facility] ([facility]) C Locus C2 12:03 [facility] ([facility]) Test Method [facility] ([facility]) Comment C Locus - [facility] ([facility]) C Locus Test Date 02/07/20 14 [facility] ([facility]) Comment: This test was developed and its performance characteristics determined bythe [facility]. ??It has not been cleared or approved by [facility]. Food and Drug Administration. ??The FDA has determined that suchclearance or approval is not necessary. ?? This test is used for clinicalpurposes. ??It should not be regarded as investigational or for research.This laboratory is certified under the Clinical Laboratory ImprovementAmendments of 1988 (CLIA-88) as qualified to perform high complexityclinical laboratory testing.Performed at: ??[facility], [address] @ [facility], [place] ??[phone] Director: Thomas Daly MD, Blood specimen (specimen) BLOOD SPECIMEN / Unknown 01/24/2014 11:20 AM CDT 02/07/2014 1:19 PM CDT Demetris Luz MD LAB - BLOOD BANK O RDSOPHIE [facility] ([facility]) * (ABNORMAL) CYTOMEGALOVIRUS ANTIBODY IGG BLOOD (01/24/2014 11:20 AM CDT) Cytomegalovirus Antibody IgG 4.70(H) 0.00 - 0.59 U/mL [facility] ([facility]) Comment: ? Negative ?<0.60 ? Equivocal ?? 0.60 - 0.69 ? Positive ?>0.69 Blood specimen (specimen) BLOOD SPECIMEN / Unknown 01/24/2014 11:20 AM CDT 01/24/2014 11:41 AM CDT Narrative [facility] ANYI ERIN) - 01/25/2014 10:18 AM CDT Performed at: ??01 - [facility] [address], [place], [place] ??[id number] Paying Teller: Dominguez Miles MD, Phone: ??[phone] Farzaneh Falcon MD LAB - CHEMISTRY NICOLAS MACIAS [facility] ([place]) Care Teams Raw Shellfish Preparer Relationship Specialty Start Date End Date Jose Figueroa MD [address] [place] [address] PCP - General 12/29/11
--- OUTSIDE RECORDS SUMMARY | 2024-10-06 10:19 | XMS_ITS | Clinical Summary ---
Author Organization [facility] Address [address] [place] [id number] Phone Care Team Providers Care White Sugar Boiler Name Role Phone Jimbo Lee MD Primary Care Provider [phone] Allergies No known active allergies Medications Medication Sig Dispensed Refills Start Date End Date Status acetaminophen (TYLENOL) 500 MG tablet Take 500 mg by mouth every 6 hours as needed Active apixaban (ELIQUIS) 5 MG tablet Take 5 mg by mouth 2 times daily Active ascorbic acid (VITAMIN C) 1000 MG tablet Take 1,000 mg by mouth daily Active aspirin (ST MELANY) 81 MG EC tablet Take 81 mg by mouth daily Active Multiple Vitamin (Daily Vites) tablet Take 1 tablet by mouth daily Active omeprazole (PriLOSEC) [address] capsule Take 20 mg by mouth daily Active sulfamethoxazole-tri methoprim (BACTRIM) 400-80 MG per tablet 04/28/2022 Acti ve calcium carbonate (OS-MARU) 600 MG tablet Take by mouth 2 c supper Active hydroCHLOROthiazide (HYDRODIURIL) 25 MG tablet Take 1 tablet (25 mg total) by mouth 1 (one) time each day 30 tablet 11 05/13/2022 Active predniSONE (DELTASONE) 10 MG tablet Take 10 mg by mouth 1 (one) time each day Active predniSONE (DELTASONE) 5 MG tablet Take as directed 20 tablet 1 06/11/2022 Active cefdinir (OMNICEF) 300 MG capsule Take 1 capsule (300 mg total) by mouth 1 (one) time each day 5 capsule 07/09/2022 Active predniSONE (DELTASONE) 20 MG tablet 07/16/2022 Active dilTIAZem CD (CARDIZEM CD) 240 MG 24 hr capsule Take 1 capsule (240 mg total) by mouth 1 (one) time each day 30 capsule 11 08/20/2022 Active Active Problems Problem Noted Date Diagnosed Date Acute kidney failure 04/30/2022 Essential hypertension 04/30/2022 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 Patient voices understanding. Immunizations Name Administration Dates Next Due Influenza Split High Dose Pr eservative Free IM 07/05/2020,08/25/2019,07/15/2018 Influenza TIV (IM) 06/21/2022 Influenza, Quadrivalent 06/13/2021 Pneumococcal Conjugate 13-Valent 08/12/2017 Pneumococcal Polysaccharide 06/17/2010 TD Preservative Free 05/19/2004,08/10/1995 Tdap 10/03/2013 Social History Tobacco Use Types Packs/Day Years Used Date Smoking Tobacco: Never Smokeless Tobacco: Never Tobacco Cessation:Counseling Given: Not Answered Alcohol Use Standard Drinks/Week Comments Not Currently 0 (1 standard drink = 0.6 oz pur e alcohol) Sex and Gender Information Value Date Recorded Sex Assigned at Not on file Gender Identity Not on file Sexual Orientation Not on file Last Filed Vital Signs Vital Sign Reading Time Taken Comments Blood Pressure 160/70 08/06/2022 8:47 AM GAS DESULFURIZER Pulse 84 08/06/2022 8:47 AM GAS DESULFURIZER Temperature 35.2 ??C (95.4 ??F) 08/06/2022 8:47 AM CS T Respiratory Rate - - Oxygen Saturation - - Inhaled Oxygen Concentration - - Weight 79.6 kg (175 lb 6.4 oz) 08/06/2022 8:47 A M GAS DESULFURIZER Height 157.5 cm (5' 2 ) 08/06/2022 8:47 AM GAS DESULFURIZER Body Mass Index 32.08 08/06/2022 8:47 AM GAS DESULFURIZER Plan of Treatment Health Maintenance Due Date Last Done Comments Influenza Vaccine (#1) 2024 06/21/2022 Pneumococcal PPSV23/PCV13 65 + Years / High and Highest Risk Completed 08/12/2017, 06/17/2010 Care Teams White Sugar Boiler Relationship Specialty Start Date End Date Jimbo Lee MD [address] [place] [address] PCP - General Family Medicine 04/27/22
--- OUTSIDE RECORDS SUMMARY | 2024-10-06 10:19 | XMS_ITS | Clinical Summary ---
Author Organization [facility] [employer] Address [address] [place] [address] Care Team Providers Care Home Health Assistant Name Role Phone Jose Figueroa MD Primary Care Provider [phone] Source Comments [facility] [employer],non-owned Affiliates and Associated Physician Practices is amultiple site organization consisting of ambulatory clinics and hospital sitesin [place], [place], [place] and [place]. This disclosure is being madepursuant to the Care Everywhere program and may not contain all information available regarding this patient. Last updated 18.[facility] [employer] Allergies No known active allergies Medications * [...] Orientation Not on file Plan of Treatment Health Maintenance Due Date Last Done Comments BONE DENSITY TESTING 1945 DTAP/TDAP/TD VACCINES (1 - Tdap) 1964 PNEUMOCOCCAL VACCINE 50+ (1 of 1 - PCV) 1995 ZOSTER VACCINE (1 of 2) 1995 Respiratory Syncytial Virus (RSV) Vaccine Pt: or over 60 yrs (1 - 1-dose 75+ series) 2020 COVID-19 VACCINE (1 - 2023- season) 2024 INFLUENZA VACCINE (#1) 2024 , 07/05/2020, 08/25/2019, Additional history exists DEPRESSION SCREENING 09/06/2024 MEDICARE AWV ? CALENDAR YEAR 2024 HEPATITIS B VACCINE Aged Out No longe r eligible based on patient's age to complete this topic HIB VACCINE Aged Out No longer eligi ble based on patient's age to complete this topic HPV VACCINE Aged Out No longer eligi ble based on patient's age to complete this topic MENINGOCOCCAL (Group B) VACCINE Aged Out No longer eligible based on patient's age to complete this topic MENINGOCOCCAL VACCINE Aged Out No rickey liz eligible based on patient's age to complete this topic Care Teams Home Health Assistant Relationship Specialty Start Date End Date Jose Figueroa MD [address] [place] [id number] PCP - General 12/29/11
--- OUTSIDE RECORDS SUMMARY | 2024-10-06 10:20 | XMS_ITS ---
Author Organization [facility] [employer] Address [address] [place] [id number] Care Team Providers Care Nutrition Counselor Name Role Phone Unavailable Unavailable Unavailable Allergies, Adverse Reactions, Alerts This patient has no known allergies or adverse reactions. Problems This patient has no known problems.
== END 2024-10-06 10:02 | disposition home or self-care (01) ==
LOC: ANHLAB 10:03
PROVIDERS: PCP Family Medicine; Visit Provider Internal Medicine Hematology & Oncology
DX: D64.9 Anemia, unspecified (principal)
CPT/HCPCS: 36415; 80047; 85025

== ENCOUNTER 2024-11-21 08:58 | Outpatient (CLI) | payer OTHER, SELFPAY ==
--- OUTSIDE RECORDS SUMMARY | 2024-11-21 09:31 | XMS_ITS | Encounter Summary ---
Author Organization [facility] Address [address] [place] [address] Care Team Providers Care Teacher Preschool Name Role Phone Jimbo Lee MD Primary Care Provider [phone] Encounter Details Date Type Department Care Team (Late st Contact Info) Description 10/18/2024 Telephone [facility] Pulmonology [address] [place] [address] Griffin Madrigal MD [address] [facility] [address] [place] [address] Social History Tobacco Use Types Packs/Day Years Used Date Smoking Tobacco: Never Smokeless Tobacco: Never Alcohol Use Standard Drinks/Week Comments Never 0 (1 standard drink = 0.6 oz pur e alcohol) Comments No Sex and Gender Information Value Date Recorded Sex Assigned at Not on file Legal Sex Female 2:32 PM CDT Gender Identity Not on file Sexual Orientation Not on file Travel History Travel Start Travel End [place] 10/15/2024 11/12/2024 documented as of this encounter Miscellaneous Notes * Telephone Encounter - Griffin Madrigal MD - 10/18/2024 7:14 PM CST Pulmonary function study October 2024, ratio 72, FEV1 2.1 L, 128%, FVC 3.0 L, 136%, total lung capacity 4.7 L, 111%, diffusion 8.8, 55%. Moderately reduced diffusion capacity with no evidence of obstructive or restrictive ventilatory defect. Please let patient know that her airflow values were within normal range on the breathing test, based on this result there would not be a benefit to add inhaled medications to her current regiment ERTY ASSESSMENT MONITOR documented in this encounter Plan of Treatment Upcoming Encounters Date Type Department Care Team (Late st Contact Info) Description 01/03/2025 3:40 PM CDT Office Visit [facility] EAR, NOSE AND THROAT [facility]ER [facility]ENTER [address] [facility] [address] [place] [address] [place] [address] [facility] [address] [place] [address] 02/09/2025 9:15 AM CDT Office Visit [facility] Oncology and Hematology - Jimi [address] [facility] [address] [place] [address] Jimmy Hua MD [address] [facility] [address] [place] [address] 04/09/2025 3:45 PM CDT Office Visit [facility] Pulmonology [facility] [address] [facility] [address] [place] [address] Griffin Madrigal MD [address] [facility] [address] [place] [address] documented as of this encounter Visit Diagnoses Not on filedocumented in this encounter Additional Health Concerns Infection Onset Date Last Indicated Resolved Time R/O Respiratory 11/13/2024 11/13/2024 11/13/2024 3 :05 AM CDT R/O GI Pathogen 11/13/2024 11/13/2024 11/14/2024 1 :00 AM CDT Respiratory Syncytial Virus (RSV) 11/13/2024 025 R/O C. diff 11/14/2024 11/14/2024 11/14/2024 6:17 PM CDT documented as of this encounter Care Teams Teacher Preschool Relationship Specialty Start Date End Date Jimbo Lee MD [address] [place] [address] PCP - General Family Practice 04/12/22 documented as of this encounter
--- OUTSIDE RECORDS SUMMARY | 2024-11-21 09:31 | XMS_ITS | Clinical Summary ---
Author Organization [facility] Address [address] [facility] [address] [place] [address] Phone Care Team Providers Care Learning Engineer Name Role Phone Jose Figueroa MD Primary Care Provider [phone] Allergies No known active allergies Medications MULTIPLE [...] 80 01/21/2018 7:13 AM CDT Temperature 36 C (96.8 F) 01/21/2018 9:54 AM CDT Respiratory Rate 16 [...] Immunization (#1) 05/07/202406/08, 08/25/2019, 07/15/2018 SARS-COV-2 Immunization ( season) 2024 DTaP/Tdap/Td Immunization Discontinued 2013, 05/19/2004, [...] to complete this topic Insurance MEDIC[facility] Care Teams Learning Engineer Relationship Specialty Start Date End Date Jose Figueroa MD [address] [place] [id number] PCP - General Family Medicine 08/16/17
--- OUTSIDE RECORDS SUMMARY | 2024-11-21 09:31 | XMS_ITS | Clinical Summary ---
Author Organization [facility] Address [address] [place] [address] Phone Care Team Providers Care Pencil Inspector Name Role Phone Jimbo Lee MD Primary Care Provider [phone] Allergies No known active allergies Medications Medication [...] Comments Blood Pressure 160/70 08/06/2022 8:47 AM STARCH TREATING ASSISTANT Pulse 84 08/06/2022 8:47 AM STARCH TREATING ASSISTANT Temperature 35.2 C (95.4 F) 08/06/2022 8:47 AM STARCH TREATING ASSISTANT Respiratory Rate - - Oxygen Saturation - - Inhaled Oxygen Concentration - - Weight 79.6 kg (175 lb 6.4 oz) 08/06/2022 8:47 A M STARCH TREATING ASSISTANT Height 157.5 cm (5' 2 ) 08/06/2022 8:47 AM STARCH TREATING ASSISTANT Body Mass Index 32.08 08/06/2022 8:47 AM STARCH TREATING ASSISTANT Plan of Treatment Health Maintenance Due Date Last Done Comments Influenza Vaccine (#1) 2024 06/21/2022 Pneumococcal PPSV23/PCV13 65 + Years / High and Highest Risk Completed 08/12/2017, 06/17/2010 Care Teams Pencil Inspector Relationship Specialty Start Date End Date Jimbo Lee MD [address] [place] [address] PCP - General Family Medicine 04/27/22
--- OUTSIDE RECORDS SUMMARY | 2024-11-21 09:31 | XMS_ITS | Clinical Summary ---
Author Organization [facility] Address [address] [place] [address] Care Team Providers Care Yam Curer Name Role Phone Jose Figueroa MD Primary Care Provider [phone] Source Comments [facility],non-owned Affiliates and Associated Physician Practices is amultiple site organization consisting of ambulatory clinics and hospital sitesin [place], [place], [place] and [place]. This disclosure is being madepursuant to the Care Everywhere program and may not contain all information available regarding this patient. Last updated 18.[facility] Allergies No known active allergies Medications * [...] history exists DEPRESSION SCREENING 09/06/2024 MEDICARE AWV CALENDAR YEAR 2024 HEPATITIS B VACCINE Aged Out No longe r eligible based on patient's age to complete this topic HIB VACCINE Aged Out No longer eligi ble based on patient's age to complete this topic HPV VACCINE Aged Out No longer eligi ble based on patient's age to complete this topic MENINGOCOCCAL (Group B) VACCINE SHARED DECISION-MAKING Aged Out No longer eligible based on patient's age to complete this topic MENINGOCOCCAL GROUPS A/C/Y/W VACCINE Aged Out No longer eligible based on patient's age to complete this topic Care Teams Yam Curer Relationship Specialty Start Date End Date Jose Figueroa MD [address] [place] [id number] PCP - General 12/29/11
--- OUTSIDE RECORDS SUMMARY | 2024-11-21 09:31 | XMS_ITS | Referral Summary ---
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
--- OUTSIDE RECORDS SUMMARY | 2024-11-21 09:31 | XMS_ITS | Continuity of Care Document ---
Author Organization [facility] Address [address] [facility] [address] [place] [address] Phone Care Team Providers Care Associate Director Data & Analytics Name Role Phone Radha Montes Unavailable Unavailable Advance Directives Directive Yes / No Effective Date File Name No Information Encounters Encounter Description Practice Location Reason(s) For Visit Diagnoses Date Provider Providers Copied on Encounter [facility], [id number] [place] [address] [address], [place], [place], [id number], [place] tel:[phone] [facility] No Information [address], [place], [address], [place]. tel:[phone] Family History Family Member Type Diagnosis Age At Onset No Information Payers Payer name Insurance type Covered green party ID Authoriza valentin(s) [facility] Commercial CI [id number] Social History Type Description Quantity Date Captured Comments Sex Female Smoking Status No Information Chief Complaint And Reason For Visit No Information Reason For Referral Reason For Referral No Information History Of Present Illness Encounter Date Complaint History Of Prese nt Illness No Information Functional Status Date Functional Assessmen t No Information Instructions Date Instruction Additional Infor mation No Information Assessments Type Assessment Date No Information Patient Care Teams Name Effective Dates (start - stop) Status Members No Information
--- OUTSIDE RECORDS SUMMARY | 2024-11-21 09:31 | XMS_ITS | Clinical Summary ---
Author Organization [facility] Address [address] [place] [address] Phone Care Team Providers Care Yarn Salvager Name Role Phone Jimbo Lee MD Primary Care Provider Allergies Active Allergy Reactions Criticality Noted Date [...] Take 81 mg by mouth daily. Active calcium as carbonate (CALTRATE) 1,500 mg (600 mg elemental) Tablet Take by mouth. Activ e diltiaZEM (CARDIZEM CD) 240 mg Controlled Delivery 24 hour capsule Take 240 mg by mouth daily. 08/20/20 22 Active Misc Natural Product Nasal (Ponaris) Solution Instill into nostrils TID PRN nasal dryness or irritation 10/28/19 24 Active ferrous sulfate 325 mg (65 mg iron) tablet Take 325 mg by mouth daily. Active rosuvastatin (CRESTOR) 5 mg tablet Take 5 mg by mouth daily. 05/31/20 24 Active chlorthalidone (HYGROTON) 25 mg tablet Take 25 mg by mouth daily. Active predniSONE (DELTASONE) 5 mg tabletIndicatio ns:Vasculitis Take 1 Tablet (5 mg) by mouth daily. 90 Tablet 3 10/09/19 25 Active sulfamethoxazol e-trimethoprim (BACTRIM) 400-80 mg tabletIndicatio ns:Vasculitis Take 1 Tablet by mouth daily. 90 Tablet 3 10/09/19 25 Active amoxicillin-cla vulanate (AUGMENTIN) 875-125 mg tablet Take 1 Tablet by mouth every 12 hours. 28 Tablet 11/02/19 25 Active triamcinolone acetonide (NASACORT AQ) 55 mcg nasal spray Administer 2 Sprays in each nostril daily. 17 Gram 6 11/02/19 25 Active sodium bicarbonate 650 mg tablet Take 2 Tablets (1,300 mg) by mouth 2 times daily. 30 Tablet 11/15/19 25 Active hydroCHLOROthia zide 25 mg tablet Take 25 mg by mouth daily. 05/13/20 22 025 Discontinued losartan (COZAAR) 25 mg tablet Take 100 mg by mouth daily. Two pills in Am one pill in PM 12/22/19 23 025 Discontinued cephALEXin (KEFLEX) 500 mg capsule Take 1 Capsule (500 mg) by mouth 4 times daily. 27 Capsule 10/28/19 25 025 Discontinued Active Problems Problem Noted Date Diagnosed Date RSV infection 11/13/2024 Nausea, vomiting, and diarrhea 11/13/2024 Granulomatosis with polyangiitis 07/14/2022 Chronic anticoagulation 07/14/2022 [...] Encounters Date Type Department Care Team Description 11/14/2024 External Device Data [facility] ABSTRACTION Provider, Abstract 11/13/2024 1:00 AM CDT - 11/14/2024 4:11 PM CDT Emergency [facility] Medical Surgical [address] [place] [address] Suzy Mayers MD Sangani, Vikram, MD Wang, Edward, MD RSV infection Discharge Disposition: Home or Self Care 11/13/2024 Orders Only [facility] Oncology and Hematology - Jimi [address] [place] [address] Jimmy Hua MD Chronic anemia 11/12/2024 Travel 11/02/2024 2:40 PM MORTICIAN SUPPLIES SALES REPRESENTATIVE Office Visit [facility] EAR, NOSE AND THROAT [facility] [address] [facility] [place] [address] Samuel Houser MD Chronic pansinusitis (Primary Dx); Granulomatosis with polyangiitis with renal involvement ([facility]/HCC); Nasal septal perforation 10/31/2024 External Device Data [facility] ABSTRACTION Provider, Abstract 10/31/2024 External Device Data [facility] ABSTRACTION Provider, Abstract 10/31/2024 External Device Data [facility] ABSTRACTION Provider, Abstract 10/30/2024 Orders Only [facility] Oncology and Hematology - Jimi [address] [place] [address] Jimmy Hua MD Chronic anemia 10/28/2024 2:45 PM MORTICIAN SUPPLIES SALES REPRESENTATIVE - 10/28/2024 4:24 PM MORTICIAN SUPPLIES SALES REPRESENTATIVE Emergency [facility] Emergency Department [address] [place] [address] Darian Urias MD Crush injury to finger, initial encounter (Primary Dx); Open fracture of tuft of distal phalanx of finger; Fingernail injury, right, initial encounter Discharge Disposition: Home or Self Care 10/18/2024 Telephone [facility] Pulmonology [facility] [address] [place] [address] Howard Aquino MD 10/16/2024 Orders Only [facility] Oncology and Hematology - Jimi [address] [place] [address] Jimmy Hua MD Chronic anemia 10/13/2024 7:49 AM MORTICIAN SUPPLIES SALES REPRESENTATIVE - 10/13/2024 11:59 PM MORTICIAN SUPPLIES SALES REPRESENTATIVE Hospital Encounter [facility] Pulmonary Function [facility] A [address] [place] [address] Howard Aquino MD Discharge Disposition: Home or Self Care 10/09/2024 3:45 PM MORTICIAN SUPPLIES SALES REPRESENTATIVE Office Visit [facility] Pulmonology [facility] [address] [place] [address] Howard Aquino MD ILD (interstitial lung disease) (CMS/HCC) (Primary Dx); Vasculitis 10/09/2024 3:10 PM MORTICIAN SUPPLIES SALES REPRESENTATIVE - 10/09/2024 11:59 PM MORTICIAN SUPPLIES SALES REPRESENTATIVE Hospital Encounter [facility] Imaging Services [facility] A [address] [place] [address] Howard Aquino MD Discharge Disposition: Home or Self Care 10/09/2024 Telephone [facility] Pulmonology [facility] [address] [place] [address] Howard Aquino MD New Prescription Request 10/06/2024 10:15 AM MORTICIAN SUPPLIES SALES REPRESENTATIVE Office Visit [facility] Oncology and Hematology - Jimi [address] [place] [address] Jimmy Hua MD Chronic anemia (Primary Dx) 10/06/2024 Orders Only [facility] Oncology and Hematology - Jimi [address] [place] [address] Jimmy Hua MD 10/02/2024 Orders Only [facility] Oncology and Hematology - Jimi [address] [place] [address] Jimmy Hua MD Chronic anemia 09/29/2024 Telephone [facility] Pulmonology [facility] [address] [place] [address] Howard Aquino MD Needs Orders Written 09/18/2024 Orders Only [facility] Oncology and Hematology - Jimi [address] [place] [address] Jimmy Hua MD Chronic anemia 09/04/2024 Orders Only [facility] Oncology and Hematology - Jimi [address] [place] [address] Jimmy Hua MD Chronic anemia from Last [...] drink = 0.6 oz pur e alcohol) Feeling Safe Answer Date Recorded Are you in a relationship wi th someone who hurts you emotionally and/or physically? No 11/12/2024 Food Insecurity Answer Date Recorded Social/Environmental Concerns No concerns Transportation Needs Answer Date Record ed Social/Environmental Concerns No concerns Housing Stability Answer Date Recorded Social/Environmental Concerns No concerns Utility Needs Answer Date Recorded Social/Environmental Concerns No concerns Comments No Sex and Gender Information Value Date Recorded Sex Assigned at Not on file Legal Sex Female 2:32 PM CDT Gender Identity Not on file Sexual Orientation Not on file Travel History Travel Start Travel End [place] 10/15/2024 11/12/2024 Last Filed Vital Signs Vital Sign Reading Time Taken Comments Blood Pressure 131/62 11/14/2024 11:39 AM CDT Pulse 58 11/14/2024 11:39 AM CDT Temperature 36.4 C (97.6 F) 11/14/2024 11:39 AM CDT Respiratory Rate 18 11/14/2024 11:3 9 AM CDT Oxygen Saturation 99% 11/14/2024 11: 39 AM CDT Inhaled Oxygen Concentration - - Weight 76.6 kg (168 lb 12.8 oz) 11/13/2024 3:00 PM CDT Height 152.4 cm (5') 11/13/2024 3:00 PM CDT Body Mass Index 32.97 11/13/2024 3:00 PM CDT Plan of Treatment Upcoming Encounters Date Type Department Care Team (Late st Contact Info) Description 01/03/2025 3:40 PM CDT Office Visit [facility] EAR, NOSE AND THROAT [facility] [address] [place] [address] [place] [address] [facility] [address] [place] [address] 02/09/2025 9:15 AM CDT Office Visit [facility] Oncology and Hematology - Jimi [address] [facility] [address] [place] [address] Jimmy Hua MD [address] [facility] [address] [place] [address] 04/09/2025 3:45 PM CDT Office Visit [facility] Pulmonology [facility] [address] [place] [address] [address] [place] [address] Howard Aquino MD [address] [address] [place] [address] Health Maintenance Due Date Last Done Comments ZOSTER VACCINE (1 of 2) 1964 OSTEOPOROSIS SCREENING 2010 RSV VACCINE (60+ or ) (1 - 1-dose 75+ series) 2020 DTAP/TDAP/TD VACCINES (2 - T d or Tdap) 10/03/2023 10/03/2013, 05/19/2004, 08/10/1995 INFLUENZA VACCINE (#1) 2024 2, 06/13/2021, 06/13/2021, Additional history exists PNEUMOCOCCAL VACCINE 50+ YEARS Completed 08/12/2017 , 06/17/2010 Procedures Procedure Name Priority Date/Time Associated Diagnosis Comments VITAMIN B12 AND FOLATE Routine 11:26 AM CDT FERRITIN Routine 11/14/2024 11:26 AM CDT IRON, TIBC, AND PERCENT SATURATION Routine 11/14/2024 11:26 AM CDT C-REACTIVE PROTEIN Routine 11/14/2024 11 :26 AM CDT PROCALCITONIN Routine 11/14/2024 11:26 AM CDT BASIC METABOLIC PANEL Routine 11/14/2024 2:15 AM CDT CBC WITH DIFFERENTIAL Routine 11/14/2024 2:15 AM CDT BASIC METABOLIC PANEL Stat 11/13/2024 7:58 AM CDT XR CHEST PA OR AP 1 VW Stat 2:[address] ABDOMEN PELVIS WO CONTRAST Stat 11/13/2024 2:02 AM CDT URINALYSIS W/REFLEX MICROSCOPIC Stat 11/13/2024 1:52 AM CDT RESPIRATORY PATHOGEN PCR PANEL Stat 11/13/2024 1:52 AM CDT EKG 12-LEAD Stat 11/13/2024 12:44 AM CDT LIPASE Stat 11/12/2024 10:57 PM CDT COMPREHENSIVE METABOLIC PANEL Stat 11/12/2024 10:57 PM CDT CBC WITH DIFFERENTIAL Stat 11/12/2024 10:57 PM CDT AR NASAL ENDOSCOPY DIAGNOSTIC UNI/BI SPX Routine 11/02/2024 3:50 PM MORTICIAN SUPPLIES SALES REPRESENTATIVE 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) XR FINGER(S) RIGHT Stat 10/28/2024 3: 23 PM MORTICIAN SUPPLIES SALES REPRESENTATIVE LACERATION REPAIR Routine 10/28/2024 3:0 7 PM MORTICIAN SUPPLIES SALES REPRESENTATIVE PULMONARY FUNCTION TEST Routine 10/13/19 7:57 AM MORTICIAN SUPPLIES SALES REPRESENTATIVE Vasculitis XR CHEST PA AND LATERAL 2 VW Routine 10/09/2024 3:22 PM MORTICIAN SUPPLIES SALES REPRESENTATIVE ILD (interstitial lung disease) (CMS/HCC) BASIC METABOLIC PANEL Routine 10/06/2024 1:52 PM MORTICIAN SUPPLIES SALES REPRESENTATIVE CBC WITH AUTODIFFERENTIAL Routine 10/06/2024 12:27 PM MORTICIAN SUPPLIES SALES REPRESENTATIVE CBC WITH DIFFERENTIAL Routine 10/04/2024 9:42 AM MORTICIAN SUPPLIES SALES REPRESENTATIVE ILD (interstitial lung disease) (CMS/HCC) C-REACTIVE PROTEIN Routine 10/04/2024 9: 38 AM MORTICIAN SUPPLIES SALES REPRESENTATIVE ILD (interstitial lung disease) (CMS/HCC) ANTINEUTROPHIL CYTOPLASMIC ANTIBODY WITH REFLEX Routine 10/04/2024 9:38 AM MORTICIAN SUPPLIES SALES REPRESENTATIVE ILD (interstitial lung disease) (CMS/HCC) from Last 3 Months Results * (ABNORMAL) PROCALCITONIN (11/14/2024 11:26 AM CDT) PROCALCITONIN 0.33(H) <=0.25 ng/mL 11/14/2024 12:57 PM CDT [facility] LABORATORY [facility] Blood Venipuncture / Unknown 11/14/2024 11:26 AM CDT 11/14/2024 11:50 AM CDT Narrative [facility] - 11/14/2024 12:57 PM CDT The utility of procalcitonin is limited/NOT recommended in certain populations (e.g. newborns, dialysis/ESRD, patients with recent major surgery/trauma/trejo, liver cirrhosis, viral hepatitis, certain cancers, etc.). Procalcitonin levels MUST be interpreted in the context of the patient's clinical condition and CANNOT be solely relied upon for diagnosis of infection. <0.25 ng/mL: Bacterial infection unlikely, particularly lower respiratory tract infections. <0.5 ng/mL: Low risk for progression to severe sepsis/septic shock. Localized infection possible. Measurements done early (<6 hours) after systemic process starts may still be low. 0.5-2 ng/mL: Moderate risk for progression to severe sepsis/septic shock. >2 ng/mL: High risk for progression to severe sepsis/septic shock. If antibiotics ARE administered, repeat testing is recommended every 2-3 days to help guide antibiotic cessation. Once a decrease of 80% or more has occurred from baseline, discontinuation of antibiotics should strongly be considered in clinically stable patients. Procalcitonin is produced in the setting of systemic inflammation, particularly bacterial infections. It is detectable within 2-4 hours and peaks within 6-24 hours. Irwin Mendoza MD CHEMISTRY ORDERABLES Final Res ult [facility]# [id number] [address] [place] [address] * VITAMIN B12 AND FOLATE (11/14/2024 11:26 AM CDT) [facility] VITAMIN B12 702 232 - 1,245 pg/mL 11/14/2024 12:57 PM CDT [facility] Comment:It has been reported that between 5 to 10% of patients with values between 200 and 400 pg/mL may experience neuropsychiatric and hematologic abnormalities due to occult B12 deficiency. Less than 1% of patients with values above 400 pg/mL will have symptoms. FOLATE, SERUM >20.0 >4.5 ng/mL 11/14/2024 12:57 PM T [facility] Blood Venipuncture / Unknown 11/14/2024 11:26 AM CDT 11/14/2024 11:50 AM CDT us Irwin Mendoza MD CHEMISTRY ORDERABLES Final Res ult Performing Organization Address City/[facility]/ZIP Co de Phone Number [facility] CLIA# [id number] [address] [place] [address] * (ABNORMAL) IRON, TIBC, AND PERCENT SATURATION (11/14/2024 11:26 AM CDT) IRON 15(L) 37 - 145 ug/dL 11/14/2024 12:43 PM CDT [facility] LABORATORY [facility] TIBC 292 250 - 450 ug/dL 11/14/2024 12:43 PM CDT [facility] LABORATORY [facility] IRON % SATURATION 5(L) 15 - 50 % 11/14/2024 12:43 PM CDT [facility] LABORATORY [facility] TRANSFERRIN 230 200 - 360 mg/dL 11/14/2024 12:43 PM CDT [facility] LABORATORY [facility] Blood Venipuncture / Unknown 11/14/2024 11:26 AM CDT 11/14/2024 11:50 AM CDT us Irwin Mendoza MD CHEMISTRY ORDERABLES Final Res ult Performing Organization Address City/[facility]/ZIP Co de Phone Number [facility] CLIA# [id number] [address] [place] [address] * (ABNORMAL) C-REACTIVE PROTEIN (11/14/2024 11:26 AM CDT) Only the most recent of2 resultswithin the time period is included. CRP 53.1(H) <5.0 mg/L 11/14/2024 12:43 PM CDT [facility] LABORATORY [facility] Blood Venipuncture / Unknown 11/14/2024 11:26 AM CDT 11/14/2024 11:50 AM CDT Irwin Mendoza MD CHEMISTRY ORDERABLES Final Res ult [facility] [employer] [facility] CLIA# [id number] [address] [place] [address] * FERRITIN (11/14/2024 11:26 AM CDT) Pathologist [facility] FERRITIN 85.7 13.0 - 150.0 ng/mL 11/14/2024 12:43 PM CDT [facility] LABORATORY [facility] Blood Venipuncture / Unknown 11/14/2024 11:26 AM CDT 11/14/2024 11:50 AM CDT Irwin Mendoza MD CHEMISTRY ORDERABLES Final Res ult Performing Organization Address City/[facility]/ZIP Co de Phone Number [facility] [employer] [facility] CLIA# [id number] [address] [place] [address] * (ABNORMAL) CBC WITH DIFFERENTIAL (11/14/2024 2:15 AM CDT) Only the most recent of3 resultswithin the time period is included. Pathologist [facility] WBC 6.6 4.0 - 9.8 K/uL 11/14/2024 3:47 AM CDT [facility] LABORATORY SERVICES [facility] RBC 3.01(L) 3.90 - 4.90 M/uL 11/14/2024 3:47 AM CDT [facility] LABORATORY [facility] HEMOGLOBIN 9.6(L) 11.8 - 14.8 g/dL 11/14/2024 3:47 AM CDT [facility] LABORATORY SERVICES [facility] HEMATOCRIT 30.2(L) 35.5 - 44.0 % 11/14/2024 3:47 AM CDT [facility] LABORATORY SERVICES [facility] MCV 100.3(H) 82.0 - 99.0 fL 11/14/2024 3:47 AM CDT [facility] MCH 31.9 27.2 - 32.6 pg 11/14/2024 3:47 AM CDT [facility] LABORATORY SERVICES - . [facility] MCHC 31.8 31.5 - 35.5 g/dL 11/14/2024 3:47 AM CDT [facility] LABORATORY SERVICES - . [facility] RDW 14.7(H) 11.5 - 14.5 % 11/14/2024 3:47 AM CDT [facility] LABORATORY SERVICES - [facility] RDW-STDEV 54.4(H) 37.1 - 48.7 fL 11/14/2024 3:47 AM CDT [facility] LABORATORY SERVICES - . [facility] PLATELETS 235 140 - 350 K/uL 11/14/2024 3:47 AM CDT [facility] LABORATORY SERVICES - . [facility] MPV 9.0(L) 9.3 - 12.4 fL 11/14/2024 3:47 AM CDT [facility] LABORATORY SERVICES - . [facility] NEUTROPHILS 48 % 11/14/2024 3:47 AM CDT [facility]ORAT[facility] SERVICES - . [facility] LYMPHOCYTES 37 % 11/14/2024 3:47 AM CDT [facility] SERVICES - . [facility] MONOCYTES 12 % 11/14/2024 3:47 AM CDT [facility] - [facility] EOSINOPHILS 2 % 11/14/2024 3:47 AM CDT [facility] - . [facility] BASOPHILS 1 % 11/14/2024 3:47 AM CDT [facility] - . [facility] IMMATURE GRANULOCYTES 1 % 11/14/2024 3:47 AM CDT [facility] SERVICES - . [facility] Comment:IG (Immature Granulo cyte) count includes Metamyelocytes, Myelocytes, and Promyelocytes NEUTROPHIL ABSOLUTE 3.17 1.90 - 7.00 K/uL 11/14/2024 3:47 AM CDT [facility] LABORATORY SERVICES - [facility] LYMPHOCYTE ABSOLUTE 2.42 0.70 - 4.50 K/uL 11/14/2024 3:47 AM CDT [facility]ORAT[facility] SERVICES - [facility] MONOCYTE ABSOLUTE 0.80 0.10 - 1.30 K/uL 11/14/2024 3:47 AM CDT [facility] LABORATORY SERVICES - . [facility] EOSINOPHIL ABSOLUTE 0.13 0.00 - 0.70 K/uL 11/14/2024 3:47 AM CDT [facility] - [facility] BASOPHILS ABSOLUTE 0.03 0.00 - 0.20 K/uL 11/14/2024 3:47 AM CDT [facility] LABORATORY SERVICES - . [facility] IMMATURE GRANULOCYTES ABSOLUTE 0.03 0.00 - 0.03 K/uL 11/14/2024 3:47 AM T [facility] LABORATORY [facility] - . [facility] Blood Venipuncture / Unknown 11/14/2024 2:15 AM CDT 11/14/2024 3:31 AM CDT us Irwin Mendoza MD HEMATOLOGY ORDERABLES Final Re sult [facility] [facility] [id number] [address] [address] * (ABNORMAL) BASIC METABOLIC PANEL (11/14/2024 2:15 AM CDT) Only the most recent of3 resultswithin the time period is included. SODIUM 136 136 - 145 mmol/L 11/14/2024 4:16 AM [facility] LABORATORY [facility] POTASSIUM 4.6 3.5 - 5.0 mmol/L 11/14/2024 4:16 AM [facility] LABORATORY [facility] CHLORIDE 108(H) 98 - 107 mmol/L 11/14/2024 4:16 AM [facility] LABORATORY [facility] CO2 17(L) 22 - 29 mmol/L 11/14/2024 4:16 AM [facility] LABORATORY [facility]. [facility] CALCIUM 9.1 8.6 - 10.2 mg/dL 11/14/2024 4:16 AM [facility] LABORATORY [facility] - . [facility] BUN 44(H) 8 - 23 mg/dL 11/14/2024 4:16 AM [facility] LABORATORY [facility]. [facility] CREATININE 2.22(H) 0.51 - 0.95 mg/dL 11/14/2024 4:16 AM [facility] LABORATORY SERVICES - [facility] Comment:The GFR result is no t clinically significant on patients <18 or >70 years of age. GLUCOSE 97 74 - 99 mg/dL 11/14/2024 4:16 AM CDT [facility] GFR 22 mL/min/1.7 3 sq meter 11/14/2024 4:16 AM CDT [facility] Comment:eGFR calculated with 2020 CKD-EPI equation. Vegetarian diet, extremely high or low muscle mass, and may affect results. Cystatin C with Glomerular Filtration Rate is a suitable alternative for these patients. ANION GAP 11 8 - 16 mmol/L 11/14/2024 4:16 AM CDT [facility] Blood Venipuncture / Unknown 11/14/2024 2:15 AM CDT 11/14/2024 3:30 AM CDT us Irwin Mendoza MD CHEMISTRY ORDERABLES Final Res ult [facility]# [id number] [address] [facility] [place] [address] * XR CHEST PA OR AP 1 VW (11/13/2024 2:43 AM CDT) Anatomical Region Laterality Modality Chest Computed Radiogr aphy 11/13/2024 2:43 AM CDT Impressions 11/13/2024 7:34 AM CDT IMPRESSION: 1. No focal airspace consolidation. There are bibasilar airspace opacities which could reflect developing airspace disease and/or atelectasis. DICTATION LOCATION: Location 1 - [facility] Narrative 11/13/2024 7:34 AM CDT EXAMINATION: XR CHEST PA OR AP 1 VW DATE: 11/13/2024 2:43 AM CLINICAL INDICATION: Chest Pain. See Reason for Exam COMPARISON: October 09, 2024. FINDINGS: No focal airspace consolidation, pleural effusion, or pneumothorax. Prominent bibasilar airspace opacities are noted. The cardiomediastinal silhouette is within normal limits. Procedure Note Jaiden Yancey MD - 11/13/2024 EXAMINATION: XR CHEST PA OR AP 1 VW DATE: 11/13/2024 2:43 AM CLINICAL INDICATION: Chest Pain. See Reason for Exam COMPARISON: October 09, 2024. FINDINGS: No focal airspace consolidation, pleural effusion, or pneumothorax. Prominent bibasilar airspace opacities are noted. The cardiomediastinal silhouette is within normal limits. IMPRESSION: 1. No focal airspace consolidation. There are bibasilar airspace opacities which could reflect developing airspace disease and/or atelectasis. DICTATION LOCATION: Location 1 [facility] Suzy Mayers MD DIAGNOSTIC IMAGING ORDE [facility] Final Result * CT ABDOMEN PELVIS WO CONTRAST (11/13/2024 2:02 AM CDT) Anatomical Region Laterality Modality Abdomen Computed Tomogra phy 11/13/2024 1:56 AM CDT Impressions 11/13/2024 2:36 AM CDT IMPRESSION: * No acute findings within the abdomen/pelvis. No diverticulitis. DICTATION LOCATION: Location 4 Narrative 11/13/2024 2:36 AM CDT EXAM: CT ABDOMEN PELVIS WO CONTRAST, 11/13/2024 2:02 AM HISTORY: 79 years Female LLQ abdominal pain TECHNIQUE: Axial CT of the abdomen and pelvis without IV contrast. Oral contrast was not administered for the study. Sagittal and coronal reformats were generated. In accordance with CT policies/protocols and the ALARA principal, radiation dose reduction techniques (such as automated exposure control, adjustment of mA/kV according to patient's size and/or iterative reconstruction technique) were utilized for this examination. COMPARISONS: No relevant priors. FINDINGS: Lung bases: Unremarkable. Evaluation of the solid organs of the abdomen is limited by the absence of intravenous contrast. Liver: Unremarkable. Gallbladder/biliary:Cholecystectomy. No biliary dilatation. Spleen: Unremarkable. Pancreas: Unremarkable. Adrenal glands: Unremarkable. Kidneys: Unremarkable. Bowel: No bowel obstruction or acute inflammatory changes. There is sigmoid diverticulosis. No diverticulitis or appendicitis. No free air. Vascular/aorta: Normal caliber abdominal aorta with atherosclerotic calcification. IVC filter. Lymph nodes: No lymphadenopathy. Bladder: Unremarkable. Reproductive: Unremarkable as visualized. Abdominal wall: Unremarkable. Osseous structures: No destructive osseous lesion. Lower lumbar disc degeneration. Procedure Note Ventura Hogue MD - 11/13/2024 EXAM: CT ABDOMEN PELVIS WO CONTRAST, 11/13/2024 2:02 AM HISTORY: 79 years Female LLQ abdominal pain TECHNIQUE: Axial CT of the abdomen and pelvis without IV contrast. Oral contrast was not administered for the study. Sagittal and coronal reformats were generated. In accordance with CT policies/protocols and the ALARA principal, radiation dose reduction techniques (such as automated exposure control, adjustment of mA/kV according to patient's size and/or iterative reconstruction technique) were utilized for this examination. COMPARISONS: No relevant priors. FINDINGS: Lung bases: Unremarkable. Evaluation of the solid organs of the abdomen is limited by the absence of intravenous contrast. Liver: Unremarkable. Gallbladder/biliary:Cholecystectomy. No biliary dilatation. Spleen: Unremarkable. Pancreas: Unremarkable. Adrenal glands: Unremarkable. Kidneys: Unremarkable. Bowel: No bowel obstruction or acute inflammatory changes. There is sigmoid diverticulosis. No diverticulitis or appendicitis. No free air. Vascular/aorta: Normal caliber abdominal aorta with atherosclerotic calcification. IVC filter. Lymph nodes: No lymphadenopathy. Bladder: Unremarkable. Reproductive: Unremarkable as visualized. Abdominal wall: Unremarkable. Osseous structures: No destructive osseous lesion. Lower lumbar disc degeneration. IMPRESSION: * No acute findings within the abdomen/pelvis. No diverticulitis. DICTATION LOCATION: Location [address] ORDERABLES Final R esult * (ABNORMAL) RESPIRATORY PATHOGEN PCR PANEL (11/13/2024 1:52 AM CDT) COVID-19 PCR NOT DETECTED Not Detected 11/13/2024 3:05 AM CDT [facility] Respiratory syncytial virus by PCR DETECTED(A) Not Detected 11/13/2024 3:05 AM CDT [facility] Upper Respiratory ENTIRE NASOPHARYNX / Unknown Collection / Unknown 11/13/2024 1:52 AM CDT 11/13/2024 2:04 AM CDT [facility] LABORATORY SERVICES - [facility] - 11/13/2024 3:05 AM CDT The Film Array Respiratory Panel (RP2.1) is a multiplex nucleic acid detection test for 22 targets. Viruses: Adenovirus Coronavirus HKU1, NL63, 229E, and OC43 COVID-19/Severe Acute Respiratory Syndrome Coronavirus 2 Influenza A with the following subtypes: H1, H1-2009, and H3 Influenza B Human Metapneumovirus Parainfluenza virus 1, 2, 3, and 4 Respiratory Syncytial virus (RSV) Rhinovirus/Enterovirus (cannot differentiate due to genetic similarities) Bacteria: Bordetella pertussis Bordetella parapertussis Chlamydophila pneumoniae Mycoplasma pneumoniae Suzy Mayers MD MICROBIOLOGY - GENERAL ORDERABLES Final Result [facility] [id number] [address] [place] [address] * (ABNORMAL) URINALYSIS WITH REFLEX MICROSCOPIC (11/13/2024 1:52 AM CDT) COLOR UA Yellow Pale to Dark Yellow 11/13/2024 2:39 AM CDT [facility] LABORATORY SERVICES [facility]. [facility] CLARITY UA Clear Clear 11/13/2024 2:39 AM CDT [facility] LABORATORY SERVICES - [facility] SPECIFIC GRAVITY UA 1.016 1.003 - 1.035 11/13/2024 2:39 AM CDT [facility] LABORATORY [facility]. [facility] PH UA 5.0 5.0 - 8.0 11/13/2024 2:39 AM CDT [facility] LABORATORY SERVICES - [facility] LEUKOCYTE ESTERASE UA Negative Negative 11/13/2024 2:39 AM CDT [facility] LABORATORY SERVICES - [facility] NITRITE UA Negative Negative 11/13/2024 2:39 AM CDT [facility] LABORATORY SERVICES - . [facility] PROTEIN UA 1+(A) Negative 11/13/2024 2:39 AM CDT [facility] LABORATORY SERVICES - . [facility] GLUCOSE UA Negative Negative 11/13/2024 2:39 AM CDT [facility] LABORATORY SERVICES - [facility] KETONES UA Negative Negative 11/13/2024 2:39 AM CDT [facility] LABORATORY [facility] - [facility] UROBILINOGEN UA Normal <2.0 mg/dL 2:39 AM CDT [facility] LABORATORY [facility] - [facility] BILIRUBIN UA Negative Negative 11/13/2024 2:39 AM T [facility] BLOOD UA 1+(A) Negative 11/13/2024 2:39 AM T [facility] WBC UA 3-5(A) 0 - 2 /hpf 11/13/2024 2:39 AM CDT [facility] - . [facility] RBC UA 11-25(A) 0 - 2 /hpf 11/13/2024 2:39 AM T [facility] - . [facility] BACTERIA UA Negative Negative /hpf 11/13/2024 2:39 AM T [facility] EPITHELIAL CELLS, URINE 0-5 0 - 5 /hpf 11/13/2024 2:39 AM T [facility] Ascorbic Acid UA Positive(A) Negative 025 2:39 AM T [facility] Urine URINE SPECIMEN OBTAINED BY CLEAN CATCH PROCEDURE / Unknown Collection / Unknown 11/13/2024 1:52 AM CDT 11/13/2024 2:04 AM CDT Suzy Mayers MD URINE ORDERABLES Final Result [id number] [address] [place] [address] * EKG 12-LEAD (11/13/2024 12:44 AM CDT) 11/13/2024 12:4 4 AM CDT Narrative INTERFACE SYSTEM - 11/13/2024 12:03 PM CDT [facility] [address] [place] [address] Test Date: 2024-11-13 Pat Name: JEFFREY FLORES Department: 37 Room: 15 15 Gender: Female Pattern Cleaner: [id number] : 1945 Requested By: SUZY REED Order Number: [id number] Reading MD: Goldy Riggs Measurements Intervals [place] Rate: 88 P: 10 AR: 192 QRS: 40 QRSD: 123 T: 29 QT: 355 QTc: 430 Interpretive Statements Sinus rhythm Probable left atrial enlargement Right bundle branch block Minimal ST elevation, inferior leads Electronically Signed On 11-13-2024 12:03:20 CDT by Goldy Riggs Procedure Note Goldy Riggs MD - 11/13/2024 [facility] [address] [place] [address] Test Date: 2024-11-13 Pat Name: JEFFREY FLORES Department: 37 Room: 15 Gender: Female Pattern Cleaner: [id number] : 1945 Requested By: SUZY REED Order Number: [id number] Reading : Goldy Riggs Measurements Intervals [place] Rate: 88 P: 10 AR: 192 QRS: 40 QRSD: 123 T: 29 QT: 355 QTc: 430 Interpretive Statements Sinus rhythm Probable left atrial enlargement Right bundle branch block Minimal ST elevation, inferior leads Electronically Signed On 11-13-2024 12:03:20 CDT by Goldy Riggs us Suzy Mayers MD ECG ORDERABLES Final R esult INTERFACE SYSTEM Refer to clinic/hospital department * LIPASE (11/12/2024 10:57 PM CDT) LIPASE 43 13 - 60 U/L 11/13/2024 1:28 AM CDT [facility] Blood Venipuncture / Unknown 11/12/2024 10:57 PM CDT 11/12/2024 11:04 PM CDT us Suzy Mayers MD CHEMISTRY ORDERABLES Fi nal Result [facility] CLIA# [id number] [address] [place] [address] * (ABNORMAL) COMPREHENSIVE METABOLIC PANEL (11/12/2024 10:57 PM CDT) SODIUM 136 136 - 145 mmol/L 11/12/2024 11:53 PM CDT [facility] POTASSIUM 5.6(H) 3.5 - 5.0 mmol/L 11/12/2024 11:53 PM CDT [facility] CHLORIDE 106 98 - 107 mmol/L 11/12/2024 11:53 PM CDT [facility] CO2 17(L) 22 - 29 mmol/L 11/12/2024 11:53 PM CDT [facility] CALCIUM 9.8 8.6 - 10.2 mg/dL 11/12/2024 11:53 PM CDT [facility] BUN 50(H) 8 - 23 mg/dL 11/12/2024 11:53 PM CDT [facility] CREATININE 2.62(H) 0.51 - 0.95 mg/dL 11/12/2024 11:53 PM CDT [facility] Comment:The GFR result is no t clinically significant on patients <18 or >70 years of age. GLUCOSE 104(H) 74 - 99 mg/dL 11/12/2024 11:53 PM CDT [facility] TOTAL PROTEIN 7.0 6.7 - 8.6 g/dL 11/12/2024 11:53 PM CDT [facility] ALBUMIN 4.2 3.5 - 5.2 g/dL 11/12/2024 11:53 PM CDT [facility] BILIRUBIN TOTAL 0.2 0.2 - 1.1 mg/dL 11/12/2024 11:53 PM CDT [facility] ALKALINE PHOSPHATASE 108(H) 35 - 104 U/L 11/12/2024 11:53 PM CDT [facility] AST 21 <33 U/L 11/12/2024 11:53 PM CDT [facility] ALT 16 <34 U/L 11/12/2024 11:53 PM CDT [facility] GFR 18 mL/min/1.7 3 sq meter 11/12/2024 11:53 PM T [facility] Comment:eGFR calculated with 2020 CKD-EPI equation. Vegetarian diet, extremely high or low muscle mass, and may affect results. Cystatin C with Glomerular Filtration Rate is a suitable alternative for these patients. ANION GAP 13 8 - 16 mmol/L 11/12/2024 11:53 PM T [facility] Blood Venipuncture / Unknown 11/12/2024 10:57 PM CDT 11/12/2024 11:04 PM CDT Narrative [facility] - 11/12/2024 11:53 PM CDT Samples containing indocyanine green cause interferences on Total and/or Direct Bilirubin and must not be measured. us Suzy Mayers MD CHEMISTRY ORDERABLES Fi nal Result [facility]# [id number] [address] [facility] [place] [address] * AR NASAL ENDOSCOPY DIAGNOSTIC UNI/BI SPX (11/02/2024 3:50 PM MORTICIAN SUPPLIES SALES REPRESENTATIVE) Samuel Simons MD - 11/02/2024 3:50 PM MORTICIAN SUPPLIES SALES REPRESENTATIVE Samuel Houser MD 11/17/2024 7:53 PM Nasal endoscopy, diagnostic Surgeon: Samuel Houser MD Anesthesia: 2% topical lidocaine and topical phenylephrine Indication: evaluate for sinusitis Informed Consent: The benefits and risks of nasal endoscopy were discussed, including but not limited to: temporary pain or discomfort of the nose or throat, brief sensation of dysphagia, bad taste, remote possibility of fainting episode. The flexible fiberoptic telescope was passed into the naris through the bilateral nasal cavities up to the nasopharynx. Nasal cavity: Moderate crusting along posterior margin of anterior septal perforation. Rightward septal spur. Purulent drainage from bilateral ostiomeatal areas and trailing posteriorly Nasopharynx: normal nasopharynx The patient tolerated the procedure well without complications. us Samuel Houser MD PROCEDURE/MINOR SURGICAL O RDERABLES Final Result * XR FINGER(S) RIGHT (10/28/2024 3:23 PM MORTICIAN SUPPLIES SALES REPRESENTATIVE) Anatomical Region Laterality Modality Wrist / Hand Computed Radiogr aphy 10/28/2024 3:24 PM MORTICIAN SUPPLIES SALES REPRESENTATIVE Impressions 10/28/2024 3:30 PM MORTICIAN SUPPLIES SALES REPRESENTATIVE IMPRESSION: Fracture of the first distal phalanx. DICTATION LOCATION: Location [address] [place] [address] Narrative 10/28/2024 3:30 PM MORTICIAN SUPPLIES SALES REPRESENTATIVE EXAM: XR FINGER(S) RIGHT DATE: 10/28/2024 3:23 PM INDICATION: Injury TECHNIQUE: Three views COMPARISON: None FINDINGS: Slightly displaced fracture involving the tuft of the first distal phalanx is noted, displaced roughly 3 mm. Mild degenerative changes are seen at the DIP joints and at the first carpometacarpal joint. Procedure Note Jacinto Dukes MD - 10/28/2024 EXAM: XR FINGER(S) RIGHT DATE: 10/28/2024 3:23 PM INDICATION: Injury TECHNIQUE: Three views COMPARISON: None FINDINGS: Slightly displaced fracture involving the tuft of the first distal phalanx is noted, displaced roughly 3 mm. Mild degenerative changes are seen at the DIP joints and at the first carpometacarpal joint. IMPRESSION: Fracture of the first distal phalanx. DICTATION LOCATION: Location [address] [place] [address] Darian Urias MD DIAGNOSTIC IMAGING ORDERABLES Final Result * Laceration Repair (10/28/2024 3:07 PM MORTICIAN SUPPLIES SALES REPRESENTATIVE) Narrative Darian Urias MD - 10/28/2024 3:07 PM MORTICIAN SUPPLIES SALES REPRESENTATIVE Darian Urias MD 10/28/2024 5:13 PM Laceration Repair Date/Time: 10/28/2024 3:07 PM Performed by: Darian Urias MD Authorized by: Darian Urias MD Consent: Consent obtained: Verbal Consent given by: Patient Risks, benefits, and alternatives were discussed: yes Risks discussed: Pain, poor cosmetic result, poor wound healing, vascular damage, nerve damage, need for additional repair and infection [place] protocol: Procedure explained and questions answered to patient or proxy's satisfaction: yes Imaging studies available: yes Patient identity confirmed: Verbally with patient Anesthesia: Anesthesia method: Nerve block Block needle gauge: 27 G Block anesthetic: Lidocaine 2% w/o epi and bupivacaine 0.5% w/o epi Block injection procedure: Anatomic landmarks identified, introduced needle, incremental injection, negative aspiration for blood and anatomic landmarks palpated Block outcome: Anesthesia achieved Laceration details: Location: Finger Finger location: R thumb (medial portion of right thumb) Length (cm): 0.5 Pre-procedure details: Preparation: Patient was prepped and draped in usual sterile fashion and imaging obtained to evaluate for foreign bodies Exploration: Limited defect created (wound extended): no Hemostasis achieved with: Tourniquet and direct pressure Imaging obtained: x-ray Imaging outcome: foreign body not noted Wound exploration: wound explored through full range of motion and entire depth of wound visualized Wound extent: underlying fracture Wound extent: no foreign bodies/material noted, no muscle damage noted, no nerve damage noted, no tendon damage noted and no vascular damage noted Contaminated: no Treatment: Area cleansed with: Saline Amount of cleaning: Standard Irrigation solution: Sterile saline Debridement: None Undermining: None Scar revision: no Skin repair: Repair method: Sutures Suture size: 4-0 Suture material: Nylon Suture technique: Simple interrupted Number of sutures: 3 Approximation: Approximation: Close Repair type: Repair type: Intermediate Post-procedure details: Dressing: Non-adherent dressing Procedure completion: Tolerated well, no immediate complications Darian Urias MD PROCEDURE/MINOR SURGICAL ORDE COLLEEN Final Result * PULMONARY FUNCTION TEST (10/13/2024 7:57 AM MORTICIAN SUPPLIES SALES REPRESENTATIVE) 10/13/2024 7:57 AM MORTICIAN SUPPLIES SALES REPRESENTATIVE Narrative INTERFACE SYSTEM - 10/13/2024 6:55 PM MORTICIAN SUPPLIES SALES REPRESENTATIVE [facility] [address] [place] [address] Test Date: 2024-10-13 Pat Name: JEFFREY FLORES Department: Room: Gender: Female Pattern Cleaner: : 1945 Requested By: HOWARD AQUINO Order Number: [id number] Mello MD: Dalton Manning Interpretive Statements The patient is a 79 year old Female, height 152 cm. and weight of 183 lbs. The indication for the pulmonary function test is Vasculitis. SPIROMETRY revealed an FVC of 3.01 Liters, 136 % of predicted. The FEV1 is 2.17 Liters, 128 % of predicted, the FEV1/FVC ratio is 72 %. Post bronchodilator, FVC is 2.82 Liters, a change of -6 %. The FEV1 is 2.14 Liters,change of -2 %. FEV1/FVC ratio is 76 %. LUNG VOLUMES reveal a total lung capacity (TLC) of 4.70 Liters, 111 % pred. Residual volume (RV) is 1.69 Liters, 84 % of predicted, RV/TLC ratio is 36 %. AIRWAY RESISTANCE measurements demonstrate a pre bronchodilator (BD) airway resistance (RAW) of 2.43 cmH2O/L/sec, 119 % of reference, and specific conductance (sGAW) of 0.149 L/s/cmH2O/L, 60 % predicted. DIFFUSION CAPACITY for carbon monoxide (DLCO) is 8.8 mL/min/mmHg, 55 % pred. Technologist's Comments: Difficulty with testing 2/2 cough. Normal appearing inspiratory and expiratory flow limbs. IMPRESSION: Normal spirometry without a significant response seen to an inhaled bronchodilator. Normal total lung volumes with a moderate diffusion capacity abnormality. Electronically Signed On 10-13-2024 18:55:30 MORTICIAN SUPPLIES SALES REPRESENTATIVE by Dalton Manning Procedure Note Provider, Historical - 10/13/2024 [facility] [address] [place] [address] Test Date: 2024-10-13 Pat Name: JEFFREY FLORES Department: Room: Gender: Female Pattern Cleaner: : 1945 Requested By: HOWARD AQUINO Order Number: [id number] Reading MD: Dalton Manning Interpretive Statements The patient is a 79 year old Female, height 152 cm. and weightof 183 lbs. The indication for the pulmonary function test is Vasculitis. SPIROMETRY revealed an FVC of 3.01 Liters, 136 % of predicted. The FEV1 is 2.17 Liters, 128 % of predicted, the FEV1/FVC ratio is 72 %. Post bronchodilator, FVC is 2.82 Liters, a change of -6 %. The FEV1 is2.14 Liters,change of -2 %. FEV1/FVC ratio is 76 %. LUNG VOLUMES reveal a total lung capacity (TLC) of 4.70 Liters, 111 %pred. Residual volume (RV) is 1.69 Liters, 84 % of predicted, RV/TLC ratio is 36 %. AIRWAY RESISTANCE measurements demonstrate a pre bronchodilator (BD)airway resistance (RAW) of 2.43 cmH2O/L/sec, 119 % of reference, and specific conductance (sGAW) of 0.149 L/s/cmH2O/L, 60 % predicted. DIFFUSION CAPACITY for carbon monoxide (DLCO) is 8.8 mL/min/mmHg, 55 %pred. Technologist's Comments: Difficulty with testing 2/2 cough. Normal appearing inspiratory and expiratory flow limbs. IMPRESSION: Normal spirometry without a significant response seen to an inhaled bronchodilator. Normal total lung volumes with a moderate diffusioncapacity abnormality. Electronically Signed On 10-13-2024 18:55:30 MORTICIAN SUPPLIES SALES REPRESENTATIVE by Dalton Manning us Howard Aquino MD PFT ORDERABLES Final Result Performing Organization Address City/State/[facility] Co de Phone Number INTERFACE SYSTEM Refer to clinic/hospital department * XR CHEST PA AND LATERAL 2 VW (10/09/2024 3:22 PM MORTICIAN SUPPLIES SALES REPRESENTATIVE) Anatomical Region Laterality Modality Chest Computed Radiogr aphy 10/09/2024 3:22 PM MORTICIAN SUPPLIES SALES REPRESENTATIVE Impressions 10/09/2024 7:38 PM MORTICIAN SUPPLIES SALES REPRESENTATIVE IMPRESSION: 1. No focal lung consolidation. DICTATION LOCATION: Location 1 - [facility] 10/09/2024 7:38 PM MORTICIAN SUPPLIES SALES REPRESENTATIVE EXAMINATION: X-RAY CHEST PA AND LATERAL 2 VIEWS DATE: 10/09/2024 3:22 PM HISTORY: Interstitial lung disease. COMPARISON: 02/12/2023 FINDINGS: There is minimal scarring at the left lung base, unchanged. No focal lung consolidation, pneumothorax or pleural effusion. The cardiomediastinal silhouette is normal. Procedure Note Gino Watson MD - 10/09/2024 EXAMINATION: X-RAY CHEST PA AND LATERAL 2 VIEWS DATE: 10/09/2024 3:22 PM HISTORY: Interstitial lung disease. COMPARISON: 02/12/2023 FINDINGS: There is minimal scarring at the left lung base, unchanged. No focal lung consolidation, pneumothorax or pleural effusion. The cardiomediastinal silhouette is normal. IMPRESSION: 1. No focal lung consolidation. DICTATION LOCATION: Location 1 - [facility] Result [facility] Howard Aquino MD DIAGNOSTIC IMAGING ORDERABLES F inal Result * CBC WITH AUTODIFFERENTIAL (10/06/2024 12:27 PM MORTICIAN SUPPLIES SALES REPRESENTATIVE) Blood Jimmy Hua MD HEMATOLOGY ORDERABLES Final Res ult * ANTINEUTROPHIL CYTOPLASMIC ANTIBODY WITH REFLEX (10/04/2024 9:38 AM MORTICIAN SUPPLIES SALES REPRESENTATIVE) ANCA EIA NEGATIVE NEGATIVE [facility] Comment: ANCA screen uses indirect immunofluorescence to detect antibodies to neutrophil cytoplasmic antigens. A positive screen reflexes to titer and pattern. Patterns include cytoplasmic (c-ANCA) and perinuclear (p-ANCA) both of which are associated with vasculitis, and atypical p-ANCA which is associated with inflammatory bowel disease and other disorders. FASTING:YES FASTING: YES Test [facility] at: [facility] [address] [place] [address] Jose Keita Blood 10/04/2024 9:38 AM MORTICIAN SUPPLIES SALES REPRESENTATIVE 10/04/2024 9:39 AM MORTICIAN SUPPLIES SALES REPRESENTATIVE Result [facility] Howard Aquino MD CHEMISTRY ORDERABLES Final Resu lt [facility] [phone] [facility] [address] [place] [address] from Last 3 Months Additional Health Concerns Infection Onset Date Last Indicated Respiratory Syncytial Virus (RSV) 11/13/2024 11/13/2024 Insurance RX [employer] RX Member Subscriber Plan / Payer (Ef fective 2019-Present) Name:Jeffrey Flores Relation to Subscriber:Self Name:Jeffrey Flores Payer ID:Not on file Group ID:[id number] Type:RX Medicare Part D Address: [address] [place] RX [employer] PLANS (INTERNAL) [facility] Address: [place] [id number] [place] [id number] Advance Directives For more information, please contact: [phone] * Full Code (Latest Code Status on File) Date Activated Date Inactivated Comments 11/13/2024 9:21 AM 11/14/2024 6:17 PM * Full Code Date Activated Date Inactivated Comments 07/14/2022 10:05 AM 07/17/2022 1:43 AM * Full Code Date Activated Date Inactivated Comments 04/12/2022 6:04 AM 04/28/2022 9:41 PM Care Teams Yarn Salvager Relationship Specialty Start Date End Date Jimbo Lee MD [address] [place] [address] PCP - General Family Practice 04/12/22
--- OUTSIDE RECORDS SUMMARY | 2024-11-21 09:31 | XMS_ITS | Continuity of Care Document ---
Author Organization [facility] Address [address] [place] [address] Phone Care Team Providers Care Battery Container Tester Name Role Phone Rick Mart MD Unavailable Unavailable Procedures Procedure Date INJECTION ANESTHETIC AND/OR STERIOD, TRANS EPIDURAL LUMB OR SACRAL,, SINGLE LEVE SURGICAL TRAY LOW OSMOLAR CONTRAST (300 TO 399 MG IODI NE) Injection, Triamcinolone Acetonide, 10mg LUMBAR SPINE CT W/O CONTRAST Advance Directives Directive Yes / No Effective Date File Name No Information Encounters Encounter Description Practice Location Reason(s) For Visit Diagnoses Date Provider Providers Copied on Encounter [facility], [address], [place], [place], [id number], [place] tel:[phone] [facility] No Information Barron Cabrera. [address] , [place], [place], [id number], [place]. tel:[phone] Referring Provider: Abrahan Ivy DO, [address], [place], [address]. tel:[phone] Family History Family Member Type Diagnosis Age At Onset No Information Payers Payer name Insurance type Covered libertarian ID Authoriza tion(s) [facility] MDCR COMPLETE HMO MB [id number] Social History Type Description Quantity Date Captured [...]
--- OUTSIDE RECORDS SUMMARY | 2024-11-21 09:31 | XMS_ITS | Clinical Summary ---
Author Organization [facility] Address [address] [place] [address] Care Team Providers Care Operating Systems Programmer Name Role Phone Jimbo Lee MD Primary Care Provider + [phone] Allergies No known active allergies Medications lisinopriL [...] disease) Dyslipidemia HTN (hypertension) Factor V Leiden Hemoptysis HPTH (hyperparathyroidism) Knee osteoarthritis Edema Family History Medical History [...] on file Legal Sex Female 5:40 PM PIPELINER Gender Identity Not on file Sexual Orientation [...] 65+ Completed 08/12/2017, 06/06 Insurance MEDICARE [facility] Address: [address] [address] [place] [address] [facility] MDCR HMO [facility] Address: [address] [address] [place] [address] Care Teams Operating Systems Programmer Relationship Specialty Start Date End Date Jimbo Lee MD PCP - General Family Medicine 03/18/22
[2024-11-21 09:54] LABS: Basophils Percent Auto 0.5 % (0.2-1.2); Eosinophils Absolute Auto 0.2 K/mm3 (0-0.3); Eosinophils Percent Auto 2.1 % (0-4.4); Hemoglobin 10.7 g/dL (12.0-15.0); Immature Granulocyte Absolute 0.08 K/mm3 (0.00-0.031); Lymphocytes Absolute Auto 1.84 K/mm3 (0.9-3.2); Mean Corpuscular HGB Conc 31.5 g/dl (32-36); Mean Corpuscular Hemoglobin 31.8 pg (26-34); Mean Corpuscular Volume 101.2 fl (80-100); Monocytes Absolute Auto 0.9 K/mm3 (0.1-0.6); Monocytes Percent Auto 10.8 % (2.6-8.5); Neutrophils Percent Auto 62.6 % (45.5-73.1); Platelet Count Result 304 k/mm3 (150-375); Red Blood Count 3.36 M/mm3 (4.2-5.4)
[2024-11-21 10:09] LABS: Anion Gap 12 mmol/L (4-12); Blood Urea Nitrogen 37 mg/dL (7-17); Calcium 9.9 mg/dL (8.4-10.2); Carbon Dioxide 25 mmol/L (22-30); Chloride 106 mmol/L (98-107); Estimated Glomerular Filt Rate 21; Glucose 82 mg/dL (65-110); Potassium 4.2 mmol/L (3.4-5.0); Sodium 143 mmol/L (137-145)
[2024-11-21 10:28] LABS: Iron 69 ug/dL (37-170)
[2024-11-21 10:38] LABS: Percent Iron Saturation 22 % (20-50)
== END 2024-11-21 08:59 | disposition home or self-care (01) ==
LOC: ANHLAB 09:00
PROVIDERS: PCP Family Medicine; Visit Provider Nurse Practitioner Family
DX: E61.1 Iron deficiency (principal); I10 Essential (primary) hypertension; D63.1 Anemia in chronic kidney disease; E87.5 Hyperkalemia
CPT/HCPCS: 36415; 80048; 83540; 83550; 85025

== ENCOUNTER 2024-12-08 09:14 | Outpatient (CLI) | payer MEDICARE, SELFPAY ==
--- NOTE | ~2024-12-08 | DEXA_ITS ---
Bone Density Report Name: JEFFREY FRASER Age: 79 Sex: Female Ethnicity: White Date of : 1945 Indication: osteopenia; height loss; Referring Provider: LINH RUANO Study: Bone densitometry was performed. Exam Date: December 08, 2024 Accession number: [id number] Bone Density: Region BMD T-score Z-score Classification AP Spine(L1-L4) 0.860 -1.7 1.0 Osteopenia Femoral Neck (Left) 0.583 -2.4 -0.1 Osteopenia Total Hip (Left) 0.759 -1.5 0.5 Osteopenia Femoral Neck (Right) 0.538 -2.8 -0.5 Osteoporosis Total Hip (Right) 0.740 -1.7 0.4 Osteopenia Total Hip Mean 0.750 -1.6 0.5 Osteopenia World Health Organization criteria for BMD impression classify patients as: Normal (T-score at or above -1.0), Osteopenia (T-score between -1.0 and -2.5), or Osteoporosis (T-score at or below -2.5). 10-year Fracture Risk: FRAX not reported because: Some T-score for Spine Total or Hip Total or Femoral Neck at or below -2.5 Previous Exams: Region Exam Age BMD T-score BMD Change BMD Change Date g/cm2 vs Baseline vs Previous AP Spine (L1-L4) 12/08/2024 79 0.860 -1.7 0.019 (2.3%) -0.046 (-5.1%) 06/02/2022 77 0.906 -1.3 0.065 (7.8%)* 0.065 (7.8%)* 04/14/2016 71 0.841 -1.9 Total Hip(Left) 12/08/2024 79 0.759 -1.5 -0.205 (-21.3% -0.144 (-15.9% 06/02/2022 77 0.903 -0.3 -0.061 (-6.3%) -0.061 (-6.3%) 04/14/2016 71 0.964 0.2 Total Hip(Right) 12/08/2024 79 0.740 -1.7 -0.147 (-16.6% -0.127 (-14.6% 06/02/2022 77 0.867 -0.6 -0.020 (-2.3%) -0.020 (-2.3%) 04/14/2016 71 0.887 -0.4 *Denotes significance at 95% confidence level, LSC for AP Spine = 0.022 g/cm2, LSC for Total Hip = 0.027 g/cm2 Clinical Information Provided by Patient: Has used the following medications: Vitamin D, Calcium Patient maximum height was 63 Menopause Age: 41 No regular weight bearing exercise Drinks caffeinated beverages Onset of menses at age 16 Number of children 4 Impression: The patient has osteoporosis, based on the Right Femoral Neck T-score. The BMD for the AP Spine (L1-L4) decreased, changing by -5.1% since the last DXA exam. The BMD for the Total Hip(Left) decreased, changing by -15.9% since the last DXA exam. The BMD for the Total Hip(Right) decreased, changing by -14.6% since the last DXA exam. Discussion: INCREASED RISK OF FRACTURE. BONE DENSITY IS UNDESIRABLY LOW AT ONE OR MORE SKELETAL SITES, CONSISTENT WITH POSTMENOPAUSAL OSTEOPOROSIS. This patient's lowest T-score meets the World Health Organization's (WHO) criteria for osteoporosis at one or more sites (T-score -2.5 or below). In untreated patients, the risk of osteoporotic fracture increases approximately two-fold for each 1.0 SD decrease in T-score. Low bone density is not the only risk factor for fracture; also consider factors such as patient's age, frailty or poor health, risk of falling, risk of injury, previous osteoporotic fracture, family history of osteoporosis, cigarette smoking, low body weight, etc. Not everyone with low bone mineral density has osteoporosis; osteomalacia and other metabolic bone disorders should also be considered. Patients who have osteoporosis should be evaluated for specific diseases and conditions (secondary causes) that may cause or contribute to bone loss. The [place] Association of Clinical Endocrinologists (AACE) and National Osteoporosis Foundation (NOF) recommend pharmacologic intervention for all postmenopausal women whose T-score is in this range. The patient should follow a healthful lifestyle (good nutrition with adequate calcium and vitamin D, and appropriate weight-bearing exercise). Follow-Up: Consider a repeat BMD and Vertebral Fracture Assessment (VFA) exam in 2 years or sooner if medically necessary, to reassess this patient's status. Reported by: RODRIGUEZ on 12/08/2024 9:50:00 AM. Reviewed, dictated and finalized at location ASilvana ANDERSON
--- OUTSIDE RECORDS SUMMARY | 2024-12-08 09:18 | XMS_ITS | Clinical Summary ---
Author Organization [facility] Address [address] [place] [address] Phone Care Team Providers Care Lease Administration Supervisor Name Role Phone Jimbo Lee MD Primary [...] pill in PM 12/22/19 23 025 Discontinued Active Problems Problem Noted Date [...] (hyperlipidemia) 04/12/2022 Factor 5 Leiden mutation, heterozygous S/P IVC filter 04/12/2022 Anemia 04/12/2022 Leukocytosis (leucocytosis) 04/12/2022 Resolved Problems Problem Noted Date Diagnosed Date Resolved Date Acute respiratory failure with hypoxia 04/12/2022 12/29/2022 Acute pulmonary embolism 04/12/2022 Encounters Date Type Department Care Team Description 11/27/[address] [facility] Oncology and Hematology - Jimi [address] [place] [address] Jimmy Hua MD Chronic anemia 11/14/2024 External Device Data STL ABSTRACTION Provider, Abstract 11/13/2024 1:00 AM CDT - 11/14/2024 4:11 PM CDT Emergency [facility] [address] [place] [address] Suzy Mayers MD Sangani, Vikram, MD Wang, Edward, MD RSV infection Discharge Disposition: Home or Self Care 11/13/[address] 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 Oncology and Hematology - Jimi [address] [place] [address] Jimmy Hua MD Chronic anemia 10/28/2024 2:45 PM GLOBAL MOBILITY SPECIALIST - 10/28/2024 4:24 PM GLOBAL MOBILITY SPECIALIST Emergency [facility] [address] [place] [phone] Darian Urias MD Crush injury to finger, initial encounter (Primary Dx); Open fracture of tuft of distal phalanx of finger; Fingernail injury, right, initial encounter Discharge Disposition: Home or Self Care 10/18/[address] [facility] Pulmonology [facility] [address] [place] [address] [address] [place] [address] Howard Aquino MD PFT result 10/16/[address] [facility] Oncology and Hematology - Jimi [address] [place] [phone] Jimmy Hua MD Chronic anemia 10/13/2024 7:49 AM GLOBAL MOBILITY SPECIALIST - 10/13/2024 11:59 PM GLOBAL MOBILITY SPECIALIST Hospital Encounter [facility] Pulmonary Function [facility] [address] [facility] [address] [place] [address] Howard Aquino MD Discharge Disposition: Home or Self Care 10/09/2024 3:45 PM GLOBAL MOBILITY SPECIALIST Office Visit [facility] [address] [place] [address] [address] [place] [address] Howard Aquino MD ILD (interstitial lung disease) (CMS/HCC) (Primary Dx); Vasculitis 10/09/2024 3:10 PM GLOBAL MOBILITY SPECIALIST - 10/09/2024 11:59 PM GLOBAL MOBILITY SPECIALIST Hospital Encounter [facility] Imaging Services [facility] [address] [place] [address] Howard Aquino MD Discharge Disposition: Home or Self Care 10/09/[address] [facility] Pulmonology [facility] [address] [place] [address] Howard Aquino MD New Prescription Request 10/06/2024 10:15 AM GLOBAL MOBILITY SPECIALIST Office Visit [facility] Oncology and Hematology - [address] [place] [phone] Jimmy Hua MD Chronic anemia (Primary Dx) 10/06/[address] [facility] Oncology and Hematology - Jimi [address] [place] [phone] Jimmy Hua MD 10/02/[address] [facility] Oncology and Hematology - Jimi [address] [place] [address] Jimmy Hua MD Chronic anemia 09/29/[address] [facility] Pulmonology [facility] [address] [place] [address] Howard Aquino MD Needs Orders Written 09/18/[address] [facility] Oncology and Hematology - Jimi [address] [place] [phone] Jimmy Hua MD Chronic anemia from Last [...] file Travel History Travel Start Travel End [place] 10/15/2024 11/12/2024 Last Filed Vital Signs Vital [...] Care Team (Late st Contact Info) Description 12/22/2024 9:00 AM CDT Appointment [facility] 2nd Fl [address] [place] [address] Infusion Chair 9, 2nd Floor [place] 01/03/2025 3:40 PM CDT Office Visit [facility] EAR, NOSE AND THROAT MELANI [facility] [address] [facility] [address] [place] [address] [place] [address] [facility] [address] [place] [address] 02/09/2025 9:15 AM CDT Office Visit [facility] Oncology and Hematology - Jimi [address] [facility] [address] [place] [address] Jimmy Hua MD [address] [facility] [address] [place] [address] 04/09/2025 3:45 PM CDT Office Visit [facility] Pulmonology [facility] [address] [facility] [address] [place] [address] Howard Aquino MD [address] [facility] [address] [place] [address] Health Maintenance Due Date Last Done Comments ZOSTER VACCINE (1 of 2) 1964 OSTEOPOROSIS SCREENING 2010 RSV VACCINE (60+ or ) (1 - 1-dose 75+ series) 2020 DTAP/TDAP/TD VACCINES (2 - T d or Tdap) 10/03/2023 10/03/2013, 05/19/2004, 08/10/1995 INFLUENZA VACCINE (#1) 2024 2, 06/13/2021, 06/13/2021, Additional history exists Medicare Advantage ([place]) Preventative Visit/Annual Wellness Visit 09/06/2024 PNEUMOCOCCAL VACCINE 50+ YEARS Completed 08/12/2017 , [...] WITH DIFFERENTIAL Stat 11/12/2024 10:57 PM CDT [place] NASAL ENDOSCOPY DIAGNOSTIC UNI/BI SPX Routine 11/02/2024 3:50 PM GLOBAL MOBILITY SPECIALIST 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) XR FINGER(S) RIGHT Stat 10/28/2024 3: 23 PM GLOBAL MOBILITY SPECIALIST LACERATION REPAIR Routine 10/28/2024 3:0 7 PM GLOBAL MOBILITY SPECIALIST PULMONARY FUNCTION TEST Routine 10/13/19 7:57 AM GLOBAL MOBILITY SPECIALIST Vasculitis XR CHEST PA AND LATERAL 2 VW Routine 10/09/2024 3:22 PM GLOBAL MOBILITY SPECIALIST ILD (interstitial lung disease) (CMS/HCC) BASIC METABOLIC PANEL Routine 10/06/2024 1:52 PM GLOBAL MOBILITY SPECIALIST CBC WITH AUTODIFFERENTIAL Routine 10/06/2024 12:27 PM GLOBAL MOBILITY SPECIALIST CBC WITH DIFFERENTIAL Routine 10/04/2024 9:42 AM GLOBAL MOBILITY SPECIALIST ILD (interstitial lung disease) (CMS/HCC) C-REACTIVE PROTEIN Routine 10/04/2024 9: 38 AM GLOBAL MOBILITY SPECIALIST ILD (interstitial lung disease) (CMS/HCC) ANTINEUTROPHIL CYTOPLASMIC ANTIBODY WITH REFLEX Routine 10/04/2024 9:38 AM GLOBAL MOBILITY SPECIALIST ILD (interstitial lung disease) (CMS/HCC) from Last 3 Months Results * (ABNORMAL) PROCALCITONIN (11/14/2024 11:26 AM CDT) PROCALCITONIN 0.33(H) <=0.25 ng/mL 11/14/2024 12:57 PM CDT [facility] LABORATORY [facility] Blood Venipuncture / Unknown 11/14/2024 11:26 AM CDT 11/14/2024 11:50 AM CDT Narrative [facility] - 11/14/2024 12:57 PM CDT The utility [...] Mendoza MD CHEMISTRY ORDERABLES Final Res ult [facility]# [id number] [address] [facility] [place] [address] * VITAMIN B12 AND FOLATE (11/14/2024 11:26 AM CDT) [facility] VITAMIN B12 702 232 - 1,245 pg/mL 11/14/2024 12:57 PM CDT [facility] Comment:It has been reported that between 5 to 10% of patients with values between 200 and 400 pg/mL may experience neuropsychiatric and hematologic abnormalities due to occult B12 deficiency. Less than 1% of patients with values above 400 pg/mL will have symptoms. FOLATE, SERUM >20.0 >4.5 ng/mL 11/14/2024 12:57 PM CDT [facility] LABORATORY SERVICES - [facility] Blood Venipuncture / Unknown 11/14/2024 11:26 AM CDT 11/14/2024 11:50 AM CDT Irwin Mendoza MD CHEMISTRY ORDERABLES Final Res ult [facility] CLIA# [id number] [address] [place] [address] * (ABNORMAL) IRON, TIBC, AND PERCENT SATURATION (11/14/2024 11:26 AM CDT) IRON 15(L) 37 - 145 ug/dL 11/14/2024 12:43 PM CDT [facility] LAB[facility]ORY [facility] TIBC 292 250 - 450 ug/dL 11/14/2024 12:43 PM CDT [facility]ORY [facility] IRON % SATURATION 5(L) 15 - 50 % 11/14/2024 12:43 PM CDT [facility] TRANSFERRIN 230 200 - 360 mg/dL 11/14/2024 12:43 PM T [facility] LAB[facility]ORY [facility] Blood Venipuncture / Unknown 11/14/2024 11:26 AM CDT 11/14/2024 11:50 AM CDT Irwin Mendoza MD CHEMISTRY ORDERABLES Final Res ult Performing Organization Address City/[facility]/ZIP Co de Phone Number [facility] CLIA# [id number] [address] [place] [address] * (ABNORMAL) C-REACTIVE PROTEIN (11/14/2024 11:26 AM CDT) Only the most recent of2 resultswithin the time period is included. CRP 53.1(H) <5.0 mg/L 11/14/2024 12:43 PM CDT [facility] Blood Venipuncture / Unknown 11/14/2024 11:26 AM CDT 11/14/2024 11:50 AM CDT Irwin Mendoza MD CHEMISTRY ORDERABLES Final Res ult Performing Organization Address City/[facility]/ZIP Co de Phone Number [facility] CLIA# [id number] [address] [place] [address] * FERRITIN (11/14/2024 11:26 AM CDT) Pathologist [facility] FERRITIN 85.7 13.0 - 150.0 ng/mL 11/14/2024 12:43 PM CDT [facility] Blood Venipuncture / Unknown 11/14/2024 11:26 AM CDT 11/14/2024 11:50 AM CDT Irwin Mendoza MD CHEMISTRY ORDERABLES Final Res ult Performing Organization Address City/[facility]/ZIP Co de Phone Number [facility] [employer] [facility] CLIA# [id number] [facility] [place] [address] [place] [address] * (ABNORMAL) CBC WITH DIFFERENTIAL (11/14/2024 2:15 AM CDT) Only the most recent of3 resultswithin the time period is included. WBC 6.6 4.0 - 9.8 K/uL 11/14/2024 3:47 AM CDT [facility] LABORATORY SERVICES [facility] RBC 3.01(L) 3.90 - 4.90 M/uL 11/14/2024 3:47 AM CDT [facility]ORY [facility] HEMOGLOBIN 9.6(L) 11.8 - 14.8 g/dL 11/14/2024 3:47 AM CDT [facility] LABOR[facility]ORY [facility] HEMATOCRIT 30.2(L) 35.5 - 44.0 % 11/14/2024 3:47 AM CDT [facility] LABORATORY SERVICES [facility] MCV 100.3(H) 82.0 - 99.0 fL 11/14/2024 3:47 AM CDT [facility] - [facility] MCH 31.9 27.2 - 32.6 pg 11/14/2024 3:47 AM CDT [facility] - [facility] MCHC 31.8 31.5 - 35.5 g/dL 11/14/2024 3:47 AM CDT [facility] LAB[facility]ATORY SERVICES - [facility] RDW 14.7(H) 11.5 - 14.5 % 11/14/2024 3:47 AM CDT [facility] RDW-STDEV 54.4(H) 37.1 - 48.7 fL 11/14/2024 3:47 AM CDT [facility] - [facility] PLATELETS 235 140 - 350 K/uL 11/14/2024 3:47 AM CDT [facility] - [facility] MPV 9.0(L) 9.3 - 12.4 fL 11/14/2024 3:47 AM CDT [facility] LABORATORY SERVICES - . [facility] NEUTROPHILS 48 % 11/14/2024 3:47 AM CDT [facility] LABORATORY SERVICES - . [facility] LYMPHOCYTES 37 % 11/14/2024 3:47 AM CDT [facility] LABORATORY SERVICES - . [facility] MONOCYTES 12 % 11/14/2024 3:47 AM CDT [facility] LAB[facility]ATORY SERVICES - . [facility] EOSINOPHILS 2 % 11/14/2024 3:47 AM CDT [facility] LAB[facility]ATORY SERVICES - . [facility] BASOPHILS 1 % 11/14/2024 3:47 AM CDT [facility] LABORATORY SERVICES - . [facility] IMMATURE GRANULOCYTES 1 % 11/14/2024 3:47 AM CDT [facility] - . [facility] Comment:IG (Immature Granulo cyte) count includes Metamyelocytes, Myelocytes, and Promyelocytes NEUTROPHIL ABSOLUTE 3.17 1.90 - 7.00 K/uL 11/14/2024 3:47 AM CDT [facility] LABORATORY SERVICES - . [facility] LYMPHOCYTE ABSOLUTE 2.42 0.70 - 4.50 K/uL 11/14/2024 3:47 AM CDT [facility] LABORATORY SERVICES - . [facility] MONOCYTE ABSOLUTE 0.80 0.10 - 1.30 K/uL 11/14/2024 3:47 AM CDT [facility] LABORATORY SERVICES - [facility] EOSINOPHIL ABSOLUTE 0.13 0.00 - 0.70 K/uL 11/14/2024 3:47 AM CDT [facility] LABORATORY SERVICES - [facility] BASOPHILS ABSOLUTE 0.03 0.00 - 0.20 K/uL 11/14/2024 3:47 AM CDT [facility] LABORATORY SERVICES - [facility] IMMATURE GRANULOCYTES ABSOLUTE 0.03 0.00 - 0.03 K/uL 11/14/2024 3:47 AM CDT [facility] LAB[facility]ATORY SERVICES - [facility] Blood Venipuncture / Unknown 11/14/2024 2:15 AM CDT 11/14/2024 3:31 AM CDT us Irwin Mendoza MD HEMATOLOGY ORDERABLES Final Re sult [facility] [employer] SERVICES [facility]# [id number] [address] [facility] [place] [address] * (ABNORMAL) BASIC METABOLIC PANEL (11/14/2024 2:15 AM CDT) Only the most recent of3 resultswithin the time period is included. SODIUM 136 136 - 145 mmol/L 11/14/2024 4:16 AM [facility] LABORATORY SERVICES [facility] POTASSIUM 4.6 3.5 - 5.0 mmol/L 11/14/2024 4:16 AM [facility] LABORATORY [facility] - . [facility] CHLORIDE 108(H) 98 - 107 mmol/L 11/14/2024 4:16 AM T [facility] LABORATORY SERVICES - . [facility] CO2 17(L) 22 - 29 mmol/L 11/14/2024 4:16 AM T [facility] LABORATORY SERVICES - . [facility] CALCIUM 9.1 8.6 - 10.2 mg/dL 11/14/2024 4:16 AM T [facility] LABORATORY SERVICES - . [facility] BUN 44(H) 8 - 23 mg/dL 11/14/2024 4:16 AM [facility] LABORATORY [facility] - . [facility] CREATININE 2.22(H) 0.51 - 0.95 mg/dL 11/14/2024 4:16 AM T [facility] LABORATORY SERVICES - . [facility] Comment:The GFR result is no t clinically significant on patients <18 or >70 years of age. GLUCOSE 97 74 - 99 mg/dL 11/14/2024 4:16 AM CDT [facility] GFR 22 mL/min/1.7 3 sq meter 11/14/2024 4:16 AM CDT [facility] Comment:eGFR calculated with 2020 CKD-EPI equation. Vegetarian diet, extremely high or low muscle mass, and may affect results. Cystatin C with Glomerular Filtration Rate is a suitable alternative for these patients. ANION GAP 11 8 - 16 mmol/L 11/14/2024 4:16 AM CDT [facility] Blood Venipuncture / Unknown 11/14/2024 2:15 AM CDT 11/14/2024 3:30 AM CDT us Irwin Mendoza MD CHEMISTRY ORDERABLES Final Res ult [facility]# [id number] [address] [facility] [place] [address] * XR CHEST PA OR AP 1 VW (11/13/2024 2:43 AM CDT) Anatomical Region Laterality Modality Chest Computed Radiogr aphy 11/13/2024 2:43 AM CDT Impressions 11/13/2024 7:34 AM CDT IMPRESSION: 1. No focal airspace consolidation. There are bibasilar airspace opacities which could reflect developing airspace disease and/or atelectasis. DICTATION LOCATION: Location 1 - [facility] Narrative 11/13/2024 7:34 AM CDT EXAMINATION: XR [...] and/or atelectasis. DICTATION LOCATION: Location 1 - [facility] us Suzy Mayers MD DIAGNOSTIC IMAGING ORDE COLLEEN Final Result * CT ABDOMEN PELVIS WO [...] abdomen/pelvis. No diverticulitis. DICTATION LOCATION: Location 4 us Suzy Mayers MD CT ORDERABLES Final R esult * (ABNORMAL) RESPIRATORY PATHOGEN PCR PANEL (11/13/2024 1:52 AM CDT) COVID-19 PCR NOT DETECTED Not Detected 11/13/2024 3:05 AM CDT [facility] [employer] [facility] Respiratory syncytial virus by PCR DETECTED(A) Not Detected 11/13/2024 3:05 AM [facility] Upper Respiratory ENTIRE NASOPHARYNX / Unknown Collection / Unknown 11/13/2024 1:52 AM CDT 11/13/2024 2:04 AM CDT Critical access hospital LABORATORY [facility] - 11/13/2024 3:05 AM CDT The Film [...] MD MICROBIOLOGY - GENERAL ORDERABLES Final Result [facility] [employer] [facility]# [id number] [address] [place] [address] * (ABNORMAL) URINALYSIS WITH REFLEX MICROSCOPIC (11/13/2024 1:52 AM CDT) COLOR UA Yellow Pale to Dark Yellow 11/13/2024 2:39 AM [facility] CLARITY UA Clear Clear 11/13/2024 2:39 AM [facility] SPECIFIC GRAVITY UA 1.016 1.003 - 1.035 11/13/2024 2:39 AM [facility] [facility] PH UA 5.0 5.0 - 8.0 11/13/2024 2:39 AM [facility] LEUKOCYTE ESTERASE UA Negative Negative 11/13/2024 2:39 AM [facility] [facility] NITRITE UA Negative Negative 11/13/2024 2:39 AM [facility] PROTEIN UA 1+(A) Negative 11/13/2024 2:39 AM [facility] GLUCOSE UA Negative Negative 11/13/2024 2:39 AM [facility] KETONES UA Negative Negative 11/13/2024 2:39 AM [facility] UROBILINOGEN UA Normal <2.0 mg/dL 2:39 AM [facility] - . [facility] BILIRUBIN UA Negative Negative 11/13/2024 2:39 AM [facility] BLOOD UA 1+(A) Negative 11/13/2024 2:39 AM [facility] WBC UA 3-5(A) 0 - 2 /hpf 11/13/2024 2:39 AM [facility] . [facility] RBC UA 11-25(A) 0 - 2 /hpf 11/13/2024 2:39 AM [facility] . [facility] BACTERIA UA Negative Negative /hpf 11/13/2024 2:39 AM [facility] EPITHELIAL CELLS, URINE 0-5 0 - 5 /hpf 11/13/2024 2:39 AM [facility] Ascorbic Acid UA Positive(A) Negative 025 2:39 AM [facility] Urine URINE SPECIMEN OBTAINED BY CLEAN CATCH PROCEDURE / Unknown Collection / Unknown 11/13/2024 1:52 AM CDT 11/13/2024 2:04 AM CDT Suzy Mayers MD URINE ORDERABLES Final Result [facility] CLIA# [id number] [address] [address] * EKG 12-LEAD (11/13/2024 12:44 AM CDT) 11/13/2024 12:4 4 AM CDT Narrative INTERFACE SYSTEM - 11/13/2024 12:03 PM CDT [facility] [address] [place] [address] Test Date: 2024-11-13 Pat Name: [facility] Department: 37 Room: 15 15 Gender: Female Hand Stitcher: [id number] : 1945 Requested By: SUZY REED Order Number: [id number] Reading : Goldy Riggs Measurements Intervals [place] Rate: 88 P: 10 MN: 192 QRS: 40 QRSD: 123 T: 29 QT: 355 QTc: 430 Interpretive Statements Sinus rhythm Probable left atrial enlargement Right bundle branch block Minimal ST elevation, inferior leads Electronically Signed On 11-13-2024 12:03:20 CDT by Goldy Riggs Procedure Note Goldy Riggs MD - 11/13/2024 [facility] [address] [place] [address] Test Date: 2024-11-13 Pat Name: [facility] Department: Room: 15 15 Gender: Female Hand Stitcher: [id number] : 1945 Requested By: SUZY REED Order Number: [id number] Reading MD: Goldy Riggs Measurements Intervals [place] Rate: 88 P: 10 MN: 192 QRS: 40 QRSD: 123 T: 29 QT: 355 QTc: 430 Interpretive Statements Sinus rhythm Probable left atrial enlargement Right bundle branch block Minimal ST elevation, inferior leads Electronically Signed On 11-13-2024 12:03:20 CDT by Goldy Riggs us Suzy Mayers MD ECG ORDERABLES Final R esult Performing Organization Address City/[facility] Co de Phone Number INTERFACE SYSTEM Refer to clinic/hospital department * LIPASE (11/12/2024 10:57 PM CDT) LIPASE 43 13 - 60 U/L 11/13/2024 1:28 AM CDT [facility] Blood Venipuncture / Unknown 11/12/2024 10:57 PM CDT 11/12/2024 11:04 PM CDT us Suzy Mayers MD CHEMISTRY ORDERABLES Fi nal Result [facility] LAB[facility]ATORY SERVICES - [facility] CLIA# [id number] [address] [place] [address] * (ABNORMAL) COMPREHENSIVE METABOLIC PANEL (11/12/2024 10:57 PM CDT) SODIUM 136 136 - 145 mmol/L 11/12/2024 11:53 PM CDT [facility] LABORATORY SERVICES - . [facility] POTASSIUM 5.6(H) 3.5 - 5.0 mmol/L 11/12/2024 11:53 PM CDT [facility] LABORATORY SERVICES - . [facility] CHLORIDE 106 98 - 107 mmol/L 11/12/2024 11:53 PM CDT [facility] LABORATORY SERVICES - . [facility] CO2 17(L) 22 - 29 mmol/L 11/12/2024 11:53 PM CDT [facility] LABORATORY SERVICES - . [facility] CALCIUM 9.8 8.6 - 10.2 mg/dL 11/12/2024 11:53 PM CDT [facility] LABORATORY SERVICES - . [facility] BUN 50(H) 8 - 23 mg/dL 11/12/2024 11:53 PM CDT [facility] LABORATORY SERVICES - . [facility] CREATININE 2.62(H) 0.51 - 0.95 mg/dL 11/12/2024 11:53 PM CDT [facility] SERVICES - [facility] Comment:The GFR result is no t clinically significant on patients <18 or >70 years of age. GLUCOSE 104(H) 74 - 99 mg/dL 11/12/2024 11:53 PM CDT [facility] LABORATORY SERVICES - . [facility] TOTAL PROTEIN 7.0 6.7 - 8.6 g/dL 11/12/2024 11:53 PM CDT [facility] SERVICES - . [facility] ALBUMIN 4.2 3.5 - 5.2 g/dL 11/12/2024 11:53 PM CDT [facility] SERVICES - . [facility] BILIRUBIN TOTAL 0.2 0.2 - 1.1 mg/dL 11/12/2024 11:53 PM CDT [facility] LABORATORY SERVICES - . [facility] ALKALINE PHOSPHATASE 108(H) 35 - 104 U/L 11/12/2024 11:53 PM CDT [facility] SERVICES - . [facility] AST 21 <33 U/L 11/12/2024 11:53 PM CDT [facility] LABORATORY [facility] ALT 16 <34 U/L 11/12/2024 11:53 PM T [facility] GFR 18 mL/min/1.7 3 sq meter 11/12/2024 11:53 PM T [facility] Comment:eGFR calculated with 2020 CKD-EPI equation. Vegetarian diet, extremely high or low muscle mass, and may affect results. Cystatin C with Glomerular Filtration Rate is a suitable alternative for these patients. ANION GAP 13 8 - 16 mmol/L 11/12/2024 11:53 PM T [facility] Blood Venipuncture / Unknown 11/12/2024 10:57 PM CDT 11/12/2024 11:04 PM CDT Narrative [facility] - 11/12/2024 11:53 PM CDT Samples containing indocyanine green cause interferences on Total and/or Direct Bilirubin and must not be measured. Suzy Mayers MD CHEMISTRY ORDERABLES Fi nal Result [facility]# [id number] [address]von[address] [facility] [place] [address] * [place] NASAL ENDOSCOPY DIAGNOSTIC UNI/BI SPX (11/02/2024 3:50 PM [employer]) Narrative Samuel Houser MD - 11/02/2024 3:50 PM [employer] Samuel Houser MD 11/17/2024 7:53 PM Nasal [...] patient tolerated the procedure well without complications. Samuel Houser MD PROCEDURE/MINOR SURGICAL O RDERABLES Final Result * XR FINGER(S) RIGHT (10/28/2024 3:23 PM [employer]) Anatomical Region Laterality Modality Wrist / Hand Computed Radiogr aphy 10/28/2024 3:24 PM [employer] Impressions 10/28/2024 3:30 PM [employer] IMPRESSION: Fracture of the first distal phalanx. DICTATION LOCATION: Location [address] [place] [address] Narrative 10/28/2024 3:30 PM GLOBAL MOBILITY SPECIALIST EXAM: XR FINGER(S) RIGHT DATE: 10/28/2024 3:23 [...] the first distal phalanx. DICTATION LOCATION: Location [address] [place] [address] Darian Urias MD DIAGNOSTIC IMAGING ORDERABLES Final Result * Laceration Repair (10/28/2024 3:07 PM GLOBAL MOBILITY SPECIALIST) Narrative Darian Urias MD - 10/28/2024 3:07 PM GLOBAL MOBILITY SPECIALIST Darian Urias MD 10/28/2024 5:13 PM Laceration Repair Date/Time: 10/28/2024 3:07 PM Performed by: Darian Urias MD Authorized by: Darian Urias MD Consent: Consent obtained: Verbal Consent given by: Patient Risks, benefits, and alternatives were discussed: yes Risks discussed: Pain, poor cosmetic result, poor wound healing, vascular damage, nerve damage, need for additional repair and infection Kane protocol: Procedure explained and questions answered to [...] immediate complications Darian Urias MD PROCEDURE/MINOR SURGICAL NICOLAS MACIAS Final Result * PULMONARY FUNCTION TEST (10/13/2024 7:57 AM GLOBAL MOBILITY SPECIALIST) 10/13/2024 7:57 AM GLOBAL MOBILITY SPECIALIST Narrative INTERFACE SYSTEM - 10/13/2024 6:55 PM GLOBAL MOBILITY SPECIALIST [facility] [address] [place] [address] Test Date: 2024-10-13 Pat Name: JEFFREY FLORES Department: Room: Gender: Female Hand Stitcher: : 1945 Requested By: HOWARD AQUINO Order Number: [id number] Reading MD: Dalton Manning Interpretive Statements The [...] capacity abnormality. Electronically Signed On 10-13-2024 18:55:30 GLOBAL MOBILITY SPECIALIST by Dalton Manning Procedure Note Provider, Historical - 10/13/2024 [facility] [address] [place] [address] Test Date: 2024-10-13 Pat Name: JEFFREY FLORES Department: Room: Gender: Female Hand Stitcher: : 1945 Requested By: HOWARD AQUINO Order Number: [id number] Mello MD: Dalton Manning Interpretive Statements The [...] diffusioncapacity abnormality. Electronically Signed On 10-13-2024 18:55:30 GLOBAL MOBILITY SPECIALIST by Dalton Manning us Howard Aquino MD PFT ORDERABLES Final Result INTERFACE SYSTEM Refer to clinic/hospital department * XR CHEST PA AND LATERAL 2 VW (10/09/2024 3:22 PM GLOBAL MOBILITY SPECIALIST) Anatomical Region Laterality Modality Chest Computed Radiogr aphy 10/09/2024 3:22 PM GLOBAL MOBILITY SPECIALIST Impressions 10/09/2024 7:38 PM GLOBAL MOBILITY SPECIALIST IMPRESSION: 1. No focal lung consolidation. DICTATION LOCATION: Location 1 - [facility] 10/09/2024 7:38 PM GLOBAL MOBILITY SPECIALIST EXAMINATION: X-RAY CHEST PA AND LATERAL 2 [...] lung consolidation. DICTATION LOCATION: Location 1 - [facility] Howard Aquino MD DIAGNOSTIC IMAGING ORDERABLES F inal Result * CBC WITH AUTODIFFERENTIAL (10/06/2024 12:27 PM GLOBAL MOBILITY SPECIALIST) Blood Jimmy Hua MD HEMATOLOGY ORDERABLES Final Res ult * ANTINEUTROPHIL CYTOPLASMIC ANTIBODY WITH REFLEX (10/04/2024 9:38 AM GLOBAL MOBILITY SPECIALIST) ANCA EIA NEGATIVE NEGATIVE [facility] Comment: ANCA screen uses indirect immunofluorescence to detect antibodies to neutrophil cytoplasmic antigens. A positive screen reflexes to titer and pattern. Patterns include cytoplasmic (c-ANCA) and perinuclear (p-ANCA) both of which are associated with vasculitis, and atypical p-ANCA which is associated with inflammatory bowel disease and other disorders. FASTING:YES FASTING: YES Test [facility]formed at: [facility] [address] [place] [address] Jose Keita Blood 10/04/2024 9:38 AM GLOBAL MOBILITY SPECIALIST 10/04/2024 9:39 AM GLOBAL MOBILITY SPECIALIST Howard Aquino MD CHEMISTRY ORDERABLES Final Resu lt [facility] [phone] [facility] [address] [place] [address] from Last 3 Months Insurance RX [employer] RX Member Subscriber Plan / Payer (Ef fective 2019-Present) Name:Jeffrey Flores Relation to Subscriber:Self Name:Jeffrey Flores Payer ID:Not on file Group ID:[id number] Type:RX Medicare Part D Address: [address] RX [employer] PLANS (INTERNAL) [facility] Member Subscriber Plan / Payer (Ef fective 2024-Present) Name:Jeffrey Flores Relation to Subscriber:Self Name:Jeffrey Flores Payer ID:[id number] (NAIC) Type:O Address: [place] [id number] Advance Directives For more information, please contact: [phone] * Full Code (Latest Code Status on File) Date Activated Date Inactivated Comments 11/13/2024 9:21 AM 11/14/2024 6:17 PM * Full Code Date Activated Date Inactivated Comments 07/14/2022 10:05 AM 07/17/2022 1:43 AM * Full Code Date Activated Date Inactivated Comments 04/12/2022 6:04 AM 04/28/2022 9:41 PM Care Teams Lease Administration Supervisor Relationship Specialty Start Date End Date Jimbo Lee MD [address] [place] [address] PCP - General Family Practice 04/12/22
--- OUTSIDE RECORDS SUMMARY | 2024-12-08 09:18 | XMS_ITS | Clinical Summary ---
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
--- OUTSIDE RECORDS SUMMARY | 2024-12-08 09:18 | XMS_ITS | Clinical Summary ---
Author Organization [facility] Address [address], [facility] [address] [place] [address] Phone Care Team Providers Care Machine Finisher Name Role Phone Jose Figueroa MD Primary Care Provider [phone] Allergies No known active allergies Medications MULTIPLE [...] to complete this topic Insurance MEDICARE [facility] Care Teams Machine Finisher Relationship Specialty Start Date End Date Jose Figueroa MD [address] [place] [address] PCP - General Family Medicine 08/16/17
--- OUTSIDE RECORDS SUMMARY | 2024-12-08 09:18 | XMS_ITS | Continuity of Care Document ---
Author Organization [facility] Address [address] [place] [address] Phone Care Team Providers Care Senior Front End Engineer Name Role Phone Rick Mart MD Unavailable [...] Diagnoses Date Provider Providers Copied on Encounter [facility], [address], [place], [place], [id number], [place] tel:[phone] [facility] No Information Barron Cabrera. [address] , [place], [place], [address], [place]. tel:[phone] Referring Provider: Abrahan Ivy DO, [address], [place], [address]. tel:[phone] Family History Family Member Type Diagnosis Age At Onset No Information Payers Payer name Insurance type Covered alliance party ID Authoriza tion(s) [facility] MDCR COMPLETE HMO [place] [id number] Social History Type Description Quantity Date Captured [...]
--- OUTSIDE RECORDS SUMMARY | 2024-12-08 09:18 | XMS_ITS | Continuity of Care Document ---
Author Organization [facility] Address [address] [place] [address] Phone Care Team Providers Care Medical Transcription Supervisor Name Role Phone Radha Montes Unavailable Unavailable Advance Directives Directive Yes / No Effective Date File Name No Information Encounters Encounter Description Practice Location Reason(s) For Visit Diagnoses Date Provider Providers Copied on Encounter [facility], [address] [place] [address] [address], [place], [place], [address], [place] tel:[phone] [facility] No Information [address] , [address], [place], [address], [place]. tel:[phone] Family History Family Member Type Diagnosis Age At Onset No Information Payers Payer name Insurance type Covered alliance party ID Authoriza valentin(s) [facility] Commercial CI [id number] Social History Type Description Quantity Date Captured [...]
--- OUTSIDE RECORDS SUMMARY | 2024-12-08 09:18 | XMS_ITS | Referral Summary ---
Author Organization 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 MEDICARE Address: [address] [address] [place] [address] [facility] [facility] MEDICARE Address: [address] [address] [place] [address] Care Teams Hands Assembler Relationship Specialty Start Date End Date Jimbo Lee MD PCP - General Family Medicine 03/18/22
--- OUTSIDE RECORDS SUMMARY | 2024-12-08 09:18 | XMS_ITS | Clinical Summary ---
Author Organization [facility] Address [address] [place] [address] Care Team Providers Care Skeins Yarn Examiner Name Role Phone Jose Figueroa MD Primary Care Provider [phone] Source Comments [facility],non-owned Affiliates and Associated Physician Practices is amultiple site organization consisting of ambulatory clinics and hospital sitesin [place], [place], [place] and [place]. This disclosure is being madepursuant to the Care Everywhere program and may not contain all information available regarding this patient. Last updated 18.[facility] Allergies No known active allergies Medications * [...] 2023- season) 2024 INFLUENZA VACCINE (#1) 2024 2, 06/13/2021, 07/05/2020, Additional history exists DEPRESSION SCREENING 09/06/2024 MEDICARE [...] age to complete this topic Care Teams Skeins Yarn Examiner Relationship Specialty Start Date End Date Jose Figueroa MD [address] [place] [id number] PCP - General 12/29/11
--- OUTSIDE RECORDS SUMMARY | 2024-12-08 09:18 | XMS_ITS | Clinical Summary ---
Author Organization [facility] Address [address] [place] [address] Phone Care Team Providers Care Road Advisor Name Role Phone Jimbo eLe MD Primary Care Provider Allergies No known active allergies Medications Medication [...] Comments Blood Pressure 160/70 08/06/2022 8:47 AM HELP DESK ANALYST Pulse 84 08/06/2022 8:47 AM HELP DESK ANALYST Temperature 35.2 C (95.4 F) 08/06/2022 8:47 AM HELP DESK ANALYST Respiratory Rate - - Oxygen Saturation - - Inhaled Oxygen Concentration - - Weight 79.6 kg (175 lb 6.4 oz) 08/06/2022 8:47 A M HELP DESK ANALYST Height 157.5 cm (5' 2 ) 08/06/2022 8:47 AM HELP DESK ANALYST Body Mass Index 32.08 08/06/2022 8:47 AM HELP DESK ANALYST Plan of Treatment Health Maintenance Due Date Last Done Comments Influenza Vaccine (#1) 2024 06/21/2022 Pneumococcal PPSV23/PCV13 65 + Years / High and Highest Risk Completed 08/12/2017, 06/17/[address] Relationship Specialty Start Date End Date Jimbo Lee MD [address] [place] [address] PCP - General Family Medicine 04/27/22
== END 2024-12-08 09:15 | disposition home or self-care (01) ==
LOC: ANHIMG 09:14
PROVIDERS: PCP Family Medicine
DX: M81.0 Age-related osteoporosis without current pathological fracture (principal); M85.89 Other specified disorders of bone density and structure, multiple sites; Z78.0 Asymptomatic menopausal state; D63.1 Anemia in chronic kidney disease; N18.4 Chronic kidney disease, stage 4 (severe); Z13.820 Encounter for screening for osteoporosis
CPT/HCPCS: 77080

== ENCOUNTER 2025-02-20 09:23 | Outpatient (CLI) | payer MEDICARE, SELFPAY ==
[2025-02-20 10:08] LABS: Hemoglobin 11.5 g/dL (12.0-15.0); Mean Corpuscular HGB Conc 31.1 g/dl (32-36); Mean Corpuscular Hemoglobin 32.2 pg (26-34); Mean Corpuscular Volume 103.6 fl (80-100); Mean Platelet Volume 8.6 fl (7.4-10.4); Platelet Count Result 224 k/mm3 (150-375); Red Blood Count 3.57 M/mm3 (4.2-5.4); Red Cell Distribution Width 13.5 % (11.5-14.5)
--- OUTSIDE RECORDS SUMMARY | 2025-02-20 10:11 | XMS_ITS | Referral Summary ---
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 Gender Identity Not on file Sexual Orientation Not on file Last Filed Vital Signs Vital Sign Reading Time Taken Comments Blood Pressure 133/78 03/19/2022 9:16 AM CDT Pulse 79 03/19/2022 9:16 AM CDT Temperature - - Respiratory Rate - - Oxygen Saturation - - Inhaled Oxygen Concentration - - Weight 80.3 kg (177 lb) 03/19/2022 9:16 AM CDT Height 160 cm (5' 3) 03/19/2022 9:16 AM CDT Body Mass Index 31.35 03/19/2022 9:16 AM CDT Plan of Treatment Not on file Insurance [facility] MEDIC[facility] Address: [address] [address] [place] [address] [facility] Address: [address] [address] [place] [address] Care Teams Quality Control Inspector Relationship Specialty Start Date End Date Jimbo Lee MD PCP - General Family Medicine 03/18/22
--- OUTSIDE RECORDS SUMMARY | 2025-02-20 10:11 | XMS_ITS | Clinical Summary ---
Author Organization [facility] Address [address] [place] [address] Care Team Providers Care Senior Financial Reporting Analyst Name Role Phone Jose Figueroa MD Primary Care Provider [phone] Source Comments [facility],non-owned Affiliates and Associated Physician Practices is amultiple site organization consisting of ambulatory clinics and hospital sitesin [place], [place], [place] and [place]. This disclosure is being madepursuant to the Care Everywhere program and may not contain all information available regarding this patient. Last updated 18.[facility] Allergies No known active allergies Medications * Be aware that medications may not be up to date on this document. Alwaysverify current medications with the patient. 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 Gender Identity Not on file Sexual Orientation Not on file Plan of Treatment Health Maintenance Due Date Last Done Comments BONE DENSITY TESTING 1945 DTAP/TDAP/TD VACCINES (1 - Tdap) 1964 PNEUMOCOCCAL VACCINE 50+ (1 of 1 - PCV) 1995 ZOSTER VACCINE (1 of 2) 1995 Respiratory Syncytial Virus (RSV) Vaccine Pt: or over 60 yrs (1 - 1-dose 75+ series) 2020 COVID-19 VACCINE ( season) 2024 DEPRESSION SCREENING 09/06/2024 MEDICARE AWV CALENDAR YEAR 2024 INFLUENZA VACCINE (Season Ended) 2025 06/21/2022, 06/13/2021, 07/05/2020, Additional history exists HEPATITIS B VACCINE Aged Out No longe [...] patient's age to complete this topic Insurance [facility] MANAGED MEDICARE ADV * Guarantor: KARINA FLORES Account Type Relation to Patient Date of Phone Billing Address Personal/Family Spouse [address] [place] [address] SELF PAY NO INSURANCE Member Subscriber Plan / Payer (Ef fective for All Dates) Name:Karina Flores Member ID:Not on file Relation to Subscriber:Not on file Name:KARINA FLORES Subscriber ID:Not on file Address: [place] [address] Payer ID:Not on file Group ID:Not on file Type:Self Pay Address: [facility] MANAGED MEDICARE ADV Care Teams Senior Financial Reporting Analyst Relationship Specialty Start Date End Date Jose Figueroa MD [address] [place] [address] PCP - General 12/29/11
--- OUTSIDE RECORDS SUMMARY | 2025-02-20 10:11 | XMS_ITS | Continuity of Care Document ---
Author Organization [facility] Address [address] [place] [address] Phone Care Team Providers Care Poultry Slaughterer Name Role Phone Radha Montes Unavailable Unavailable Advance Directives Directive Yes / No Effective Date File Name No Information Encounters Encounter Description Practice Location Reason(s) For Visit Diagnoses Date Provider Providers Copied on Encounter [facility], [address] [place] [address] [address], [place], [place], [address], [place] tel:[phone] [facility] No Information [address] , [address], [place], [address], [place]. tel:[phone] Family History Family Member Type Diagnosis Age At Onset No Information Payers Payer name Insurance type Covered constitution party ID Authoriza valentin(s) [facility] Commercial CI [id number] Social History Type Description Quantity Date Captured [...]
--- OUTSIDE RECORDS SUMMARY | 2025-02-20 10:11 | XMS_ITS | Clinical Summary ---
Author Organization [facility] Address [address] [place] [address] Phone Care Team Providers Care Airplane Rigger Name Role Phone Jimbo Lee MD Primary [...] capsule Take 240 mg by mouth daily. 2 Active Misc Natural Product Nasal (Ponaris) Solution Instill into nostrils TID PRN nasal dryness or irritation 4 Active ferrous sulfate 325 mg (65 mg iron) tablet Take 325 mg by mouth daily. Active rosuvastatin (CRESTOR) 5 mg tablet Take 5 mg by mouth daily. 4 Active chlorthalidone (HYGROTON) 25 mg tablet Take 25 mg by mouth daily. Active predniSONE (DELTASONE) 5 mg tabletIndication s:Vasculitis Take 1 Tablet (5 mg) by mouth daily. 90 Tablet 3 5 Active sulfamethoxazole -trimethoprim (BACTRIM) 400-80 mg tabletIndication s:Vasculitis Take 1 Tablet by mouth daily. 90 Tablet 3 5 Active amoxicillin-clav ulanate (AUGMENTIN) 875-125 mg tablet Take 1 Tablet by mouth every 12 hours. 28 Tablet 5 Active triamcinolone acetonide (NASACORT AQ) 55 mcg nasal spray Administer 2 Sprays in each nostril daily. 17 Gram 6 5 Active sodium bicarbonate 650 mg tablet Take 2 Tablets (1,300 mg) by mouth 2 times daily. 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); Nasal septal perforation 12/22/2024 9:00 AM CDT - 12/22/2024 11:59 PM CDT Hospital Encounter [facility] Infusion Center 2nd Fl [address] [place] [address] Griffin Madrigal MD Infusion Chair 9, 2nd Floor [place] Discharge Disposition: Home or Self Care 11/27/2024 Orders Only [facility] Oncology and Hematology - Jimi [address] [place] [phone] Jimmy Hua MD Chronic anemia from Last [...] No 11/12/2024 Food Insecurity Answer Date Recorded Patient needs follow up regardin 12/27/2024 Transportation Needs Answer Date Record ed Patient needs follow up regardin 12/27/2024 Housing Stability Answer Date Recorded Social/Environmental Concerns No concerns Utility Needs Answer Date Recorded Patient needs follow up regardin 12/27/2024 Comments No Sex and Gender Information Value Date Recorded Sex Assigned at Not on file Legal Sex Female 2:32 PM CDT Gender Identity Not on file Sexual Orientation Not on file Last Filed Vital Signs Vital Sign Reading Time Taken Comments Blood Pressure 141/62 12/22/2024 9:00 AM CDT Pulse 66 12/22/2024 9:00 AM CDT Temperature 36.1 C (97 F) 12/22/2024 9:00 AM CDT Respiratory Rate 18 12/22/2024 9:00 AM CDT Oxygen Saturation 99% 11/14/2024 11: 39 AM CDT Inhaled Oxygen Concentration - - Weight 76.6 kg (168 lb 12.8 oz) 11/13/2024 3:00 PM CDT Height 152.4 cm (5') 11/13/2024 3:00 PM CDT Body Mass Index 32.97 11/13/2024 3:00 PM CDT Plan of Treatment Upcoming Encounters Date Type Department Care Team (Late st Contact Info) Description 02/22/2025 10:00 AM CDT Office Visit [facility] Oncology and Hematology - Jimi [address] [facility] [address] [place] [address] Jimmy Hua MD [address] [facility] [address] [place] [address] 04/09/2025 3:45 PM CDT Office Visit [facility] Pulmonology [facility] [address] [facility] [address] [place] [address] Griffin Madrigal MD [address] [facility] [address] [place] [address] 07/04/2025 3:00 PM CDT Office Visit [facility] EAR, NOSE AND THROAT [facility] [address] [facility] [address] [place] [address] [place] [address] [facility] [address] [place] [address] Health Maintenance Due Date Last Done Comments ZOSTER VACCINE (1 of 2) 1995 OSTEOPOROSIS SCREENING 2010 RSV VACCINE (60+ or ) (1 - 1-dose 75+ series) 2020 DTAP/TDAP/TD VACCINES (2 - T d or Tdap) 10/03/2023 10/03/2013, 05/19/2004, 08/10/1995 INFLUENZA VACCINE (#1) 2024 2, 06/13/2021, 06/13/2021, Additional history exists [place] Preventative Visit/Annual Wellness Visit 09/06/2024 PNEUMOCOCCAL VACCINE 50+ YEARS Completed 08/12/2017 , 06/17/2010 Procedures Procedure Name Priority Date/Time Associated Diagnosis Comments WI NASAL ENDOSCOPY DIAGNOSTIC UNI/BI SPX Routine 01/18/2025 9:53 PM CDT Chronic pansinusitis from Last 3 Months Results * WI NASAL ENDOSCOPY DIAGNOSTIC UNI/BI SPX (01/18/2025 9:53 PM CDT) Narrative Samuel Houser MD - 01/18/2025 9:53 PM CDT Samuel Houser MD 01/18/2025 9:57 PM Nasal endoscopy, diagnostic Surgeon: Samuel Houser [...] cavities up to the nasopharynx. Nasal cavity: MIld crusting along posterior margin of anterior septal perforation. Rightward septal spur. Bilateral ostiomeatal units clear. No thick mucus or purulence. Nasopharynx: normal nasopharynx The patient tolerated the procedure well without complications. Samuel Houser MD PROCEDURE/MINOR SURGICAL O RDERABLES Final Result from Last 3 Months Insurance RX OPTUM RX Member Subscriber Plan / Payer (Ef fective 2019-Present) Name:Karina Flores Relation to Subscriber:Self Name:Karina Flores Payer ID:Not on file Group ID:[id number] Type:RX Medicare Part D Address: [address] RX SUAZO PLANS (INTERNAL) [facility] Advance Directives For more information, please contact: [phone] * Full Code (Latest Code Status on File) Date Activated Date Inactivated Comments 11/13/2024 9:21 AM 11/14/2024 6:17 PM * Full Code Date Activated Date Inactivated Comments 07/14/2022 10:05 AM 07/17/2022 1:43 AM * Full Code Date Activated Date Inactivated Comments 04/12/2022 6:04 AM 04/28/2022 9:41 PM Care Teams Airplane Rigger Relationship Specialty Start Date End Date Jimbo Lee MD [address] [place] [address] PCP - General Family Practice 04/12/22
--- OUTSIDE RECORDS SUMMARY | 2025-02-20 10:11 | XMS_ITS | Clinical Summary ---
Author Organization [facility] Address [address], [facility] [address] [place] [address] Phone Care Team Providers Care Masonry Instructor Name Role Phone Jose Figueroa MD Primary Care Provider [phone] Allergies No known active allergies Medications MULTIPLE [...] 1:00 PM CDT Height 160 cm (5' 3) 01/05/2018 1:00 PM CDT Body Mass Index [...] Pneumococcal Immunization Combined Discontinued 08/12/2017, 06/17/2010 Colonoscopy Discontinued 01/21/2018 Colorectal Cancer Screening Discontinued Retired - Colonoscopy High Risk Discontinued 01/21/2018 Cologuard Discontinued Hepatitis B Immunization Aged Out No longer eligible based on patient's age to complete this topic Immunochemical Fecal Occult Blood Discontinued Meningococcal Immunization (ACWY) Aged Out No longer eligible based on patient's age to complete this topic Rotavirus Immunization Aged Out No lo nger eligible based on patient's age to complete this topic Insurance MEDICARE C [facility] on file Care Teams Masonry Instructor Relationship Specialty Start Date End Date Jose Figueroa MD [address] [place] [id number] PCP - General Family Medicine 08/16/17
--- OUTSIDE RECORDS SUMMARY | 2025-02-20 10:11 | XMS_ITS | Clinical Summary ---
Author Organization [facility] Address [address] [place] [address] Phone Care Team Providers Care Crepe Sole Scourer Name Role Phone Jimbo Lee MD Primary Care Provider [phone] Allergies No known active allergies Medications acetaminophen (TYLENOL) 500 MG tablet Take 500 [...] Take 20 mg by mouth daily Active sulfamethoxazol e-trimethoprim (BACTRIM) 400-80 MG per tablet 04/28/2022 Active calcium carbonate (OS-MARU) 600 MG tablet Take by mouth 2 c supper Active hydroCHLOROthia zide (HYDRODIURIL) 25 MG tablet Take 1 tablet [...] with factor 5. Patient voices understanding. Immunizations Immunization Administration Dates Next Due Influenza Split High [...] at Not on file Legal Sex Female 8:00 AM MDT Gender Identity Not on file Sexual Orientation Not on file Last Filed Vital Signs Vital Sign Reading Time Taken Comments Blood Pressure 160/70 08/06/2022 8:47 AM QUALITY LIAISON Pulse 84 08/06/2022 8:47 AM QUALITY LIAISON Temperature 35.2 C (95.4 F) 08/06/2022 8:47 AM QUALITY LIAISON Respiratory Rate - - Oxygen Saturation - - Inhaled Oxygen Concentration - - Weight 79.6 kg (175 lb 6.4 oz) 08/06/2022 8:47 A M QUALITY LIAISON Height 157.5 cm (5' 2) 08/06/2022 8:47 AM QUALITY LIAISON Body Mass Index 32.08 08/06/2022 8:47 AM QUALITY LIAISON Plan of Treatment Health Maintenance Due Date Last Done Comments Influenza Vaccine (Season Ended) 2025 06/21/20 22 Pneumococcal PPSV23/PCV13 65 + Years / Low and Medium Risk Completed 08/12/2017, 06/17/2010 Insurance [employer] MEDICARE Care Teams Crepe Sole Scourer Relationship Specialty Start Date End Date Jimbo Lee MD [address] [place] [address] PCP - General Family Medicine 04/27/22
--- OUTSIDE RECORDS SUMMARY | 2025-02-20 10:11 | XMS_ITS | Clinical Summary ---
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
--- OUTSIDE RECORDS SUMMARY | 2025-02-20 10:11 | XMS_ITS | Continuity of Care Document ---
Author Organization [facility] Address [address] [place] [address] Phone Care Team Providers Care Ore Tester Name Role Phone Rick Mart MD [...] Diagnoses Date Provider Providers Copied on Encounter [facility], [address], [place], [place], [id number], [place] tel:[phone] [facility] No Information Barron Cabrera. [address] , [place], [place], [id number], [place]. tel:[phone] Referring Provider: Abrahan Ivy DO, [address], [place], [address]. tel:[phone] Family History Family Member Type Diagnosis Age At Onset No Information Payers Payer name Insurance type Covered green party ID Authoriza tion(s) [facility] MDCR COMPLETE HMO MB [id number] Social History Type Description Quantity Date Captured [...]
[2025-02-20 11:15] LABS: Iron 77 ug/dL (37-170)
[2025-02-20 11:15] LABS: Anion Gap 7 mmol/L (4-12); Blood Urea Nitrogen 40 mg/dL (7-17); Calcium 10.1 mg/dL (8.4-10.2); Carbon Dioxide 21 mmol/L (22-30); Chloride 112 mmol/L (98-107); Estimated Glomerular Filt Rate 21; Glucose 82 mg/dL (65-110); Potassium 5.5 mmol/L (3.4-5.0); Sodium 140 mmol/L (137-145)
[2025-02-20 11:17] LABS: Albumin Level 4.3 g/dL (3.5-5.1); Anion Gap 9 mmol/L (4-12); Blood Urea Nitrogen 41 mg/dL (7-17); Carbon Dioxide 21 mmol/L (22-30); Chloride 111 mmol/L (98-107); Estimated Glomerular Filt Rate 20; Glucose 83 mg/dL (65-110); Phosphorus 4.3 mg/dL (2.5-4.5); Potassium 5.5 mmol/L (3.4-5.0); Sodium 141 mmol/L (137-145)
[2025-02-20 11:18] LABS: Creatinine Urine 72.9 mg/dL; Total Protein Urine Random 15 mg/dL; Ur Ttl Prot Creatinine Ratio 0.21 mg/mg (0-0.20)
[2025-02-20 11:26] LABS: Parathyroid Intact 41.2 pg/mL (14.5-75.2)
[2025-02-20 11:27] LABS: Percent Iron Saturation 24 % (20-50)
[2025-02-20 12:33] LABS: Folic Acid > 20.0 ng/mL (2.76->20)
[2025-02-23 13:29] LABS: ANCA Screen NEGATIVE (NEGATIVE)
== END 2025-02-20 09:24 | disposition home or self-care (01) ==
PROVIDERS: PCP Family Medicine; Referring Provider Internal Medicine Nephrology; Visit Provider Internal Medicine Hematology & Oncology
DX: N18.4 Chronic kidney disease, stage 4 (severe) (principal); D63.1 Anemia in chronic kidney disease
CPT/HCPCS: 36415; 80048; 80069; 82570; 82607; 82728; 82746; 83540; 83550; 83970; 84156; 85027; 86036

== ENCOUNTER 2025-07-06 00:10 | Day surgery (SDC) | payer MEDICARE, SELFPAY ==
[2025-05-21 09:53] VITALS: BMI 35.2
[2025-06-28 13:55] VITALS: BMI 35.2
--- NOTE | 2025-06-28 13:57 | PC.NURSE ---
Spoke with PATIENT regarding medication ELIQUIS. PATIENT verbalizes understanding that the last dose is to be taken on 07/03/2025 and the Endoscopist will instruct them when to restart after the procedure.
--- OUTSIDE RECORDS SUMMARY | 2025-07-06 00:13 | XMS_ITS | Clinical Summary ---
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
--- OUTSIDE RECORDS SUMMARY | 2025-07-06 00:13 | XMS_ITS | Clinical Summary ---
Author Organization [facility] Address [address] [place] [address] Phone Care Team Providers Care Pulverizer Name Role Phone Jimbo Lee MD Primary Care Provider [phone] Allergies Active Allergy Reactions Criticality Noted Date [...] 2 times daily. 30 Tablet 5 Active coenzyme Q10 200 mg Capsule Take 200 mg by mouth daily. Active benzonatate (TESSALON) 200 mg capsule Take 1 Capsule (200 mg) by mouth 3 times daily. 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); Nasal septal perforation; DNS (deviated nasal septum) 06/27/2025 External Device Data STL ABSTRACTION Provider, Abstract 06/27/2025 Telephone [facility] Pulmonology [facility] [address] [place] [address] Griffin Madrigal MD Medication Review 06/12/2025 External Device Data STL ABSTRACTION Provider, Abstract 04/27/2025 Results Follow-Up [facility] [address] [place] [address] SINUS STEALTH PROTOCOL 04/20/2025 1:28 PM CDT - 04/20/2025 11:59 PM CDT Hospital Encounter [facility] Imaging Services [facility] [address] [address] [place] [address] Griffin Madrigal MD Discharge Disposition: Home or Self Care 04/09/2025 3:45 PM CDT Office Visit [facility] [address] [place] [address] Griffin Madrigal MD ANCA-associated vasculitis (CMS/HCC) (Primary Dx); Chronic sinusitis, unspecified location; Cough, unspecified type 04/09/2025 3:02 PM CDT - 04/09/2025 11:59 PM CDT Hospital Encounter [facility] Radiology [address] [place] [address] Griffin Madrigal MD Discharge Disposition: Home or Self Care 04/09/2025 Telephone [facility] [address] [place] [address] Griffin Madrigal MD New Prescription Request from Last 3 Months Family History Medical [...] Sign Reading Time Taken Comments Blood Pressure 122/68 04/09/2025 3:42 PM CDT Pulse 60 04/09/2025 3:42 PM CDT Temperature 36.5 C (97.7 F) 02/22/2025 9:57 AM CDT Respiratory Rate 15 02/22/2025 9:57 AM CDT Oxygen Saturation 96% 04/09/2025 3:42 PM CDT Inhaled Oxygen Concentration - - Weight 84.8 kg (187 lb) 04/09/2025 3:42 PM CDT Height 152.4 cm (5') 04/09/2025 3:42 PM CDT Body Mass Index 36.52 04/09/2025 3:42 PM CDT Plan of Treatment Upcoming Encounters Date Type Department Care Team (Late st Contact Info) Description 07/27/2025 10:00 AM DYE FEEDER Appointment [facility] [address] [place] [phone] Griffin Madrigal MD [address] [facility] [address] [place] [address] Infusion Chair 1, 2nd Floor [place] 08/24/2025 10:30 AM DYE FEEDER Office Visit [facility] Oncology and Hematology - Jimi [address] [facility] [address] [place] [address] Jimmy Hua MD [address] [facility] [address] [place] [address] 10/11/2025 3:30 PM DYE FEEDER Office Visit [facility] Pulmonology [facility] [address] [place] [address] [address] [place] [address] Griffin Madirgal MD [address] [facility] [address] [place] [address] 03/06/2026 3:30 PM CDT Office Visit [facility] EAR, NOSE AND THROAT [facility] [place] [address] [facility] [address] [place] [address] [place] [address] [facility] [address] [place] [address] Health Maintenance Due Date Last Done Comments ZOSTER VACCINE (1 of 2) 1995 OSTEOPOROSIS SCREENING 2010 RSV VACCINE (60+ or ) (1 - 1-dose 75+ series) 2020 DTAP/TDAP/TD VACCINES (2 - T d or Tdap) 10/03/2023 10/03/2013, 05/19/2004, 08/10/1995 [place] ([place] Preventative Visit/Annual Wellness Visit 09/06/2024 INFLUENZA VACCINE (#1) 2025 2, 06/13/2021, 06/13/2021, Additional history exists PNEUMOCOCCAL VACCINE 50+ YEARS Completed 08/12/2017 , 06/17/2010 Procedures Procedure Name Priority Date/Time Associated Diagnosis Comments CT SINUS STEALTH PROTOCOL Routine 04/20/2025 1:39 PM CDT Chronic sinusitis, unspecified location Cough, unspecified type XR CHEST PA AND LATERAL 2 VW Routine 04/09/2025 3:11 PM CDT Vasculitis from Last 3 Months Results * CT SINUS STEALTH PROTOCOL (04/20/2025 1:39 PM CDT) Anatomical Region Laterality Modality Head Computed Tomogra phy 04/20/2025 1:34 PM CDT Impressions 04/20/2025 3:53 PM CDT IMPRESSION: Minor mucosal thickening inferiorly of the maxillary sinuses. Mucosal thickening within a single left ethmoid air cell. Findings within the right nasal passage as described. Degenerative findings of the temporomandibular joints, left worse than right. Narrative 04/20/2025 3:53 PM CDT EXAM: CT SINUS STEALTH PROTOCOL DATE: 04/20/2025 1:50 PM HISTORY: Chronic sinusitis, unspecified location; Cough, unspecified type TECHNIQUE: Axial images of the paranasal sinuses with multiplanar reconstructions. The examination was performed with the adjustment of mA according to the patient size and/or the use of Iterative Reconstruction Technique. COMPARISON: None. FINDINGS: There is minor mucosal thickening inferiorly of the bilateral maxillary sinuses. There is mucosal thickening within a single left ethmoid air cell. Frontal and sphenoid sinuses are clear. Ostiomeatal complexes are patent. There is minor rightward septal deviation. There is a bone spur which projects from the nasal septum between the right middle and inferior turbinates. The right middle and inferior turbinates are smaller than the left. Otherwise, nasal passages are clear. Mastoid air cells are clear. No intracranial abnormalities are noted. No intraorbital abnormalities are noted. Moderate left and mild right osteoarthritis of the temporomandibular joints. Procedure Note Hortensia Nassar MD - 04/20/2025 EXAM: CT SINUS STEALTH PROTOCOL DATE: 04/20/2025 1:50 PM HISTORY: Chronic sinusitis, unspecified location; Cough, unspecified type TECHNIQUE: Axial images of the paranasal sinuses with multiplanar reconstructions. The examination was performed with the adjustment of mA according to the patient size and/or the use of Iterative Reconstruction Technique. COMPARISON: None. FINDINGS: There is minor mucosal thickening inferiorly of the bilateral maxillary sinuses. There is mucosal thickening within a single left ethmoid air cell. Frontal and sphenoid sinuses are clear. Ostiomeatal complexes are patent. There is minor rightward septal deviation. There is a bone spur which projects from the nasal septum between the right middle and inferior turbinates. The right middle and inferior turbinates are smaller than the left. Otherwise, nasal passages are clear. Mastoid air cells are clear. No intracranial abnormalities are noted. No intraorbital abnormalities are noted. Moderate left and mild right osteoarthritis of the temporomandibular joints. IMPRESSION: Minor mucosal thickening inferiorly of the maxillary sinuses. Mucosal thickening within a single left ethmoid air cell. Findings within the right nasal passage as described. Degenerative findings of the temporomandibular joints, left worse than right. Griffin Madrigal MD CT ORDERABLES Final Result * XR CHEST PA AND LATERAL 2 VW (04/09/2025 3:11 PM CDT) Anatomical Region Laterality Modality Chest Computed Radiogr aphy 04/09/2025 3:11 PM CDT Impressions 04/09/2025 4:46 PM CDT IMPRESSION: Airspace opacities in the left costophrenic angle, may represent atelectasis or pneumonia. DICTATION LOCATION: 1 Narrative 04/09/2025 4:46 PM CDT EXAMINATION: XR CHEST PA AND LATERAL 2 VW DATE: 04/09/2025 3:11 PM HISTORY: Vasculitis FINDINGS: No prior studies available for comparison. There are airspace opacities in the left costophrenic angle. There is no pleural effusion or pneumothorax. Cardiomediastinal silhouette is stable. Procedure Note Billy Alba MD - 04/09/2025 EXAMINATION: XR CHEST PA AND LATERAL 2 VW DATE: 04/09/2025 3:11 PM HISTORY: Vasculitis FINDINGS: No prior studies available for comparison. There are airspace opacities in the left costophrenic angle. There is no pleural effusion or pneumothorax. Cardiomediastinal silhouette is stable. IMPRESSION: Airspace opacities in the left costophrenic angle, may represent atelectasis or pneumonia. DICTATION LOCATION: 1 Griffin Madrigal MD DIAGNOSTIC IMAGING ORDERABLES F inal Result from Last 3 Months Insurance RX [employer] RX Member Subscriber Plan / Payer (Ef fective 2019-Present) Name:Karina Flores Relation to Subscriber:Self Name:Karina Flores Payer ID:Not on file Group ID:[id number] Type:RX Medicare Part D Address: [address] RX SUAZO PLANS (INTERNAL) [facility] [id number] [facility] [id number] Advance Directives For more information, please contact: [phone] * Full Code (Latest Code Status on File) Date Activated Date Inactivated Comments 11/13/2024 9:21 AM 11/14/2024 6:17 PM * Full Code Date Activated Date Inactivated Comments 07/14/2022 10:05 AM 07/17/2022 1:43 AM * Full Code Date Activated Date Inactivated Comments 04/12/2022 6:04 AM 04/28/2022 9:41 PM Care Teams Pulverizer Relationship Specialty Start Date End Date Jimbo Lee MD [address] [place] [address] PCP - General Family Practice 04/12/22
--- OUTSIDE RECORDS SUMMARY | 2025-07-06 00:13 | XMS_ITS | Clinical Summary ---
Author Organization [facility] Address [address], [facility] [address] [place] [address] Phone Care Team Providers Care Sleeve Separator Name Role Phone Jose Figueroa MD Primary Care Provider [phone] Allergies No known active allergies Medications MULTIPLE [...] Health Maintenance Due Date Last Done Comments Hepatitis C Virus (HCV) Screening 1945 Zoster Immunization (1 of 2) 1995 Medicare Initial AWV [id number] 09/06/2018 Respiratory Syncytial Virus (RSV) Immunization (Adult) (1 - 1-dose 75+ series) 2020 Influenza Immunization (#1) 05/07/202506/08, 08/25/2019, 07/15/2018 SARS-COV-2 Immunization ( season) 2025 DTaP/Tdap/Td Immunization Discontinued 2013, 05/19/2004, 08/10/1995 TdaP Immunization Completed 10/03/2013 Pneumococcal Immunization (5 0+ years) Completed 08/12/2017, 06/17/2010 Pneumococcal Immunization Combined Discontinued 08/12/2017, 06/17/2010 Colonoscopy Discontinued 01/21/2018 Colorectal Cancer Screening Discontinued Cologuard Discontinued Hepatitis B Immunization Aged Out No longer eligible based on patient's age to complete this topic Human Papillomavirus (HPV) Immunization Aged Out No longer eligible based on patient's age to complete this topic Immunochemical Fecal Occult Blood Discontinued Meningococcal Immunization (ACWY) Aged Out No longer eligible based on patient's age to complete this topic Rotavirus Immunization Aged Out No lo nger eligible based on patient's age to complete this topic Insurance [facility]ICARE [facility] Care Teams Sleeve Separator Relationship Specialty Start Date End Date Jose Figueroa MD [address] [place] [id number] PCP - General Family Medicine 08/16/17
--- OUTSIDE RECORDS SUMMARY | 2025-07-06 00:13 | XMS_ITS | Patient Health Record ---
Author Organization [facility] Address [address] [place], [place] [id number] Care Team Providers Care Fun House Attendant Name Role Phone CHARLES Amato Unavailable Jose Figueroa Unavailable Unavailable Reason For Referral No Information Medications Medication SIG (Take, Route, Frequency, Duration) Notes Start Date End Date Status Aspirin 325 MG Oral Tablet ORAL aspirin 325 MG Oral TabletOriginal Medicationaspirin 325 MG Oral Tablet *Reorder from [employer] for eRx and Interaction Alerts* 12/22/2012 Active omeprazole 10 MG Delayed Release Oral Capsule [Prilosec] ORAL omeprazole 10 MG Delayed Release Oral Capsule [Prilosec]Original Medicationomeprazole 10 MG Delayed Release Oral Capsule [Prilosec] *Reorder from [facility] for eRx and Interaction Alerts* 12/22/2012 Active raloxifene hydrochloride 60 MG Oral Tablet [Evista] ORAL raloxifene hydrochloride 60 MG Oral Tablet [Evista]Original Medicationraloxifene hydrochloride 60 MG Oral Tablet [Evista] *Reorder from [facility] for eRx and Interaction Alerts* 12/22/2012 Active Social History Social History Additional Details Category Social Info Options Details Migrated Social History Migrated Social History Smoking Status : Never smoked , History of tobacco use : Plan Of Treatment No Information Insurance Providers Payer Name Payer Address Payer Phone Subscriber Number Group Number Insured Name Patient Relationship to Insured Coverage Start Date Coverage End Date [facility] [address] [address] [place] [id number] JEFFREY FRASER Self - patient is the insured
--- OUTSIDE RECORDS SUMMARY | 2025-07-06 00:14 | XMS_ITS | Clinical Summary ---
Author Organization [facility] Address [address] [place] [address] Care Team Providers Care Line Operator Name Role Phone Jose Figueroa MD Primary Care Provider [phone] Source Comments [facility],non-owned Affiliates and Associated Physician Practices is amultiple site organization consisting of ambulatory clinics and hospital sitesin [place], [place], [place] and [place]. This disclosure is being madepursuant to the Care Everywhere program and may not contain all information available regarding this patient. 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 Gender Identity Not on file Sexual Orientation Not on file Plan of Treatment Health Maintenance Due Date Last Done Comments BONE DENSITY TESTING 1945 DTAP/TDAP/TD VACCINES (1 - Tdap) 1964 PNEUMOCOCCAL VACCINE 50+ (1 of 1 - PCV) 1995 ZOSTER VACCINE (1 of 2) 1995 Respiratory Syncytial Virus (RSV) Vaccine Pt: or over 60 yrs (1 - 1-dose 75+ series) 2020 DEPRESSION SCREENING 09/06/2024 MEDICARE AWV CALENDAR YEAR 2024 COVID-19 VACCINE ( season) 2025 INFLUENZA VACCINE (#1) 2025 2, 06/13/2021, 07/05/2020, Additional history exists HEPATITIS B [...] patient's age to complete this topic Insurance [facility] MANAGED MEDICARE ADV * Guarantor: KARINA FLORES Account Type Relation to Patient Date of Phone Billing Address Personal/Family Spouse [address] [place] [address] SELF PAY NO INSURANCE Member Subscriber Plan / Payer (Ef fective for All Dates) Name:Karina Flores Member ID:Not on file Relation to Subscriber:Not on file Name:KARINA FLORES Subscriber ID:Not on file Address: [place] [address] Payer ID:Not on file Group ID:Not on file Type:Self Pay Address: [facility] MANAGED MEDICARE ADV Care Teams Line Operator Relationship Specialty Start Date End Date Jose Figueroa MD [address] [place] [address] PCP - General 12/29/11
[2025-07-06 11:45] VITALS: BP 191/87; PULSE 84; RESP 20; TEMP 36.6; O2SAT 99
[2025-07-06] MEDS: LACTATED RINGERS 1,000 ML 150 ML IV CONT (11:47)
--- NOTE | 2025-07-06 11:53 | WPDANESEPPF ---
Anes - Initial Pre Proc Eval Procedure: Operation Date: 07/06/25 13:00 Proposed Procedures p Diagnostic Colonoscopy - Nicho William MD Date/Time: 07/06/25 11:53 Surgeon: Nicho William MD Pre Op Diagnosis: Full incontinence of feces, Fecal smearing Patient Data Age: 80 Gender: F Height: 1.52 m Weight: 82.8 kg Last Vital Signs Temp 36.6 C 07/06/25 11:45 Pulse 84 07/06/25 11:45 Resp 20 07/06/25 11:45 BP 191/87 H 07/06/25 11:45 Pulse Ox 99 07/06/25 11:45 O2 Del Method Room Air 07/06/25 11:45 Allergies Allergy/AdvReac Type Severity Reaction Status Date / Time iohexol (From contrast - CT, AdvReac Severe Other Verified 07/06/25 11:42 X-RAY) Home Medications ?Medication ?Instructions ?Recorded ?Confirmed ?Type multivitamin 1 cap PO DAILY 07/25/19 07/06/25 History omeprazole 20 mg capsule,delayed 20 mg PO DAILY 07/25/19 07/06/25 History release propylene glycol 0.6 % eye drops 1 drp EACH EYE DAILY PRN Dry Eye(S) 03/27/22 07/06/25 History (Systane Balance) ferrous sulfate 324 mg (65 mg 324 mg PO EVERY OTHER DAY 02/01/24 07/06/25 History iron) tablet,delayed release rituximab 10 mg/mL See Rx Instructions .Route .COMPLEX 06/06/24 06/28/25 History concentrate,intravenous ascorbic acid (vitamin C) 1,000 mg 1 g PO DAILY 06/26/24 07/06/25 History capsule ondansetron 8 mg disintegrating 8 mg PO Q8H #7 tabs 09/07/24 06/28/25 Rx tablet rosuvastatin 5 mg tablet 5 mg PO DAILY #90 tabs 09/13/24 07/06/25 Rx prednisone 5 mg tablet 5 mg PO DAILY 09/14/24 07/06/25 History ergocalciferol (vitamin D2) 50 mcg 50 mcg PO DAILY 12/05/24 07/06/25 History (2,000 unit) capsule losartan 100 mg tablet 100 mg PO DAILY 12/05/24 07/06/25 History sulfamethoxazole 400 1 tablet PO DAILY 12/05/24 07/06/25 History mg-trimethoprim 80 mg tablet (Bactrim) triamcinolone acetonide 55 mcg 1 spray intranasal DAILY 12/12/24 06/28/25 History nasal spray aerosol (Nasacort) denosumab 60 mg/mL subcutaneous 60 mg subcut [id number] #1 mL 01/25/25 06/28/25 Rx syringe (Prolia) coenzyme Q10 100 mg capsule (Co 200 mg PO DAILY 03/20/25 07/06/25 History Q-10) loperamide 2 mg capsule (Imodium 2 mg PO Q6H loose stool 03/20/25 06/28/25 History A-D) apixaban 5 mg tablet (Eliquis) 5 mg PO BID #180 tabs 05/14/25 07/06/25 Rx chlorthalidone 25 mg tablet See Rx Instructions .Route 05/14/25 07/06/25 Rx .COMPLEX #90 tabs diltiazem HCl 240 mg capsule,24 See Rx Instructions .Route 05/14/25 07/06/25 Rx hr,extended release .COMPLEX #90 caps tizanidine 2 mg tablet 2 mg PO TID PRN muscle spasticity 05/30/25 06/28/25 Rx #20 tabs wheat dextrin 3 gram/4 gram oral 3 g PO BID 05/30/25 06/28/25 History powder packet (Benefiber Sugar Free (dextrin)) benzonatate 200 mg capsule 200 mg PO PRN PRN cough 06/28/25 07/06/25 History Patient hx anesthesia problems: none Family hx anesthesia problems: none Results Review: All pre-operative results and documents have been reviewed as part of the pre-operative evaluation. 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 alveolar hemorrhage Acute on chronic anemia Obesity (BMI 30-39.9) DVT, bilateral lower limbs Pulmonary embolism CHF (congestive heart failure) Community acquired pneumonia Essential hypertension, benign Knee osteoarthritis Hypothyroidism Tear of left infraspinatus tendon Factor V Leiden Phantosmia Tinnitus of both ears Candidiasis of skin Chronic venous insufficiency Dyslipidemia Pneumonia Chronic GERD Hx of vaginal delivery (~1964) 1965 (girl), boys: 1966, 1974, 1984 Atrophic vulvitis History of intestine removal (~2004) Deep vein blood clot of right lower extremity (~1993) Surgical History Surgical History History of lung biopsy History of colon resection for a large benign polyp H/O abdominal surgery (~2004) S/P colonoscopic polypectomy (~2004) Hx of cataract surgery (~2016) Family History Family History Mother Diabetes mellitus, Onset Age: 74 Family history of lung cancer Family history of malignant neoplasm of bone, Onset Age: 74 Father Hypertension, Onset Age: 81 Family history of malignant neoplasm of stomach, Onset Age: 81 Depression Heart disease Sibling , aneurism Cancer Other Cancer Social History Social History Social History: Patient currently lives with her in who she has been to for 57 years. They have 4 kids 1 grown 3 boys. They also have 1 dog and a fish. She has a total of 11 grandkids and 6 great-grandchildren. 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 Smoking status: Never smoker Second hand tobacco smoke exposure: No Alcohol intake: never Substance use: never Substance use type: does not use Do You Feel Safe in your Home?: Yes Lack of Transportation: No Lack of Food: Never True Current Housing: I Have Housing Concerned About Future Housing: No Difficulty Paying Gas/Electric Bills: No Difficulty Paying for Meds: No Currently Unemployed: No Education: Associate Degree Difficulty w/ Childcare or Family Care: No Living arrangements: with family Additional living arrangements comments: Her Occupation/Education: occupation Additional occupation/education comments: [employer] Gender identity (if verbalized by the patient): Female Sexual Orientation (if Verbalized by the Patient): Straight or Heterosexual Spiritual care concerns: No Agree to blood products: Yes Anes - Eval Final PreProcedure Day of Procedure 07/06/25 11:53 Patient weight: obese Heart: regular rate and rhythm Lungs: clear to auscultation Airway: Mallampati scale class II Neurological: alert and oriented Last oral intake: >/= 8 hours ASA classification: III Emergent: no Anesthetic plan: proceed Anesthesia type and monitoring: general GIVS and standard monitoring Results Review: All pre-operative results and documents have been reviewed as part of the pre-operative evaluation. Informed Consent: The patient's anesthetic plan and its attendant risks and benefits were discussed with the patient/family/POA. Questions were solicited and answers provided to the satisfaction of the patient/family/POA.
--- NOTE | 2025-07-06 12:21 | PM.HPGS ---
History of Present Illness History of Present Illness Consent: Risks, benefits, and alternatives have been discussed and questions answered. Patient agrees to proceed with procedure. 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 Acute on chronic anemia Obesity (BMI 30-39.9) DVT, bilateral lower limbs Pulmonary embolism CHF (congestive heart failure) Community acquired pneumonia Essential hypertension, benign Knee osteoarthritis Hypothyroidism Tear of left infraspinatus tendon Factor V Leiden Phantosmia Tinnitus of both ears Candidiasis of skin Chronic venous insufficiency Dyslipidemia Pneumonia Chronic GERD Hx of vaginal delivery (~1964) 1964 (girl), boys: 1966, 1974, 1983 Atrophic vulvitis History of intestine removal (~2004) Deep vein blood clot of right lower extremity (~1993) Surgical History Surgical History History of lung biopsy History of colon resection for a large benign polyp H/O abdominal surgery (~2004) S/P colonoscopic polypectomy (~2004) Hx of cataract surgery (~2016) Family History Family History Mother Diabetes mellitus, Onset Age: 74 Family history of lung cancer Family history of malignant neoplasm of bone, Onset Age: 74 Father Hypertension, Onset Age: 81 Family history of malignant neoplasm of stomach, Onset Age: 81 Depression Heart disease Sibling , aneurism Cancer Other Cancer Social History Social History Social History: Patient currently lives with her in who she has been to for 57 years. They have 4 kids 1 grown 3 boys. They also have 1 dog and a fish. She has a total of 11 grandkids and 6 great-grandchildren. 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 Smoking status: Never smoker Second hand tobacco smoke exposure: No Alcohol intake: never Substance use: never Substance use type: does not use Do You Feel Safe in your Home?: Yes Lack of Transportation: No Lack of Food: Never True Current Housing: I Have Housing Concerned About Future Housing: No Difficulty Paying Gas/Electric Bills: No Difficulty Paying for Meds: No Currently Unemployed: No Education: Associate Degree Difficulty w/ Childcare or Family Care: No Living arrangements: with family Additional living arrangements comments: Her Occupation/Education: occupation Additional occupation/education comments: [employer] Gender identity (if verbalized by the patient): Female Sexual Orientation (if Verbalized by the Patient): Straight or Heterosexual Spiritual care concerns: No Agree to blood products: Yes Meds Home Medications and Allergies Home Medications ?Medication ?Instructions ?Recorded ?Confirmed ?Type multivitamin 1 cap PO DAILY 07/25/19 07/06/25 History omeprazole 20 mg capsule,delayed 20 mg PO DAILY 07/25/19 07/06/25 History release propylene glycol 0.6 % eye drops 1 drp EACH EYE DAILY PRN Dry Eye(S) 03/27/22 07/06/25 History (Systane Balance) ferrous sulfate 324 mg (65 mg 324 mg PO EVERY OTHER DAY 02/01/24 07/06/25 History iron) tablet,delayed release rituximab 10 mg/mL See Rx Instructions .Route .COMPLEX 06/06/24 06/28/25 History concentrate,intravenous ascorbic acid (vitamin C) 1,000 mg 1 g PO DAILY 06/26/24 07/06/25 History capsule ondansetron 8 mg disintegrating 8 mg PO Q8H #7 tabs 09/07/24 06/28/25 Rx tablet rosuvastatin 5 mg tablet 5 mg PO DAILY #90 tabs 09/13/24 07/06/25 Rx prednisone 5 mg tablet 5 mg PO DAILY 09/14/24 07/06/25 History ergocalciferol (vitamin D2) 50 mcg 50 mcg PO DAILY 12/05/24 07/06/25 History (2,000 unit) capsule losartan 100 mg tablet 100 mg PO DAILY 12/05/24 07/06/25 History sulfamethoxazole 400 1 tablet PO DAILY 12/05/24 07/06/25 History mg-trimethoprim 80 mg tablet (Bactrim) triamcinolone acetonide 55 mcg 1 spray intranasal DAILY 12/12/24 06/28/25 History nasal spray aerosol (Nasacort) denosumab 60 mg/mL subcutaneous 60 mg subcut [id number] #1 mL 01/25/25 06/28/25 Rx syringe (Prolia) coenzyme Q10 100 mg capsule (Co 200 mg PO DAILY 03/20/25 07/06/25 History Q-10) loperamide 2 mg capsule (Imodium 2 mg PO Q6H loose stool 03/20/25 06/28/25 History A-D) apixaban 5 mg tablet (Eliquis) 5 mg PO BID #180 tabs 05/14/25 07/06/25 Rx chlorthalidone 25 mg tablet See Rx Instructions .Route 05/14/25 07/06/25 Rx .COMPLEX #90 tabs diltiazem HCl 240 mg capsule,24 See Rx Instructions .Route 05/14/25 07/06/25 Rx hr,extended release .COMPLEX #90 caps tizanidine 2 mg tablet 2 mg PO TID PRN muscle spasticity 05/30/25 06/28/25 Rx #20 tabs wheat dextrin 3 gram/4 gram oral 3 g PO BID 05/30/25 06/28/25 History powder packet (Benefiber Sugar Free (dextrin)) benzonatate 200 mg capsule 200 mg PO PRN PRN cough 06/28/25 07/06/25 History Allergies Allergy/AdvReac Type Severity Reaction Status Date / Time iohexol (From contrast - CT, AdvReac Severe Other Verified 07/06/25 11:42 X-RAY) Vital Signs Vital Signs - 24 hr 07/06/25 11:45 Temperature 97.9 F Pulse Rate 84 Respiratory Rate 20 Blood Pressure 191/87 H Pulse Oximetry 99 Oxygen Delivery Room Air Exam Const: General: comfortable and no acute distress HENMT: Face/Nose/Sinus: Normal nares present Resp: Auscultation: clear to auscultation bilaterally Cardio: Rate: regular rate Rhythm: regular rhythm GI: Inspection: non-distended GI Palp: Yes Soft to palpation Skin: General skin exam: normal color Extrem: General: normal to inspection Psych: Mental Status: mental status grossly normal Assessment and Plan Assessment and plan (1) History of colon polyps: Code(s): Z86.0100 - Personal history of colon polyps, unspecified Status: Acute Assessment and Plan: colonoscopy
[2025-07-06 12:43] VITALS: BP 118/62; PULSE 64; RESP 23; O2SAT 94
[2025-07-06 12:53] VITALS: BP 139/71; PULSE 62; RESP 15; O2SAT 98
[2025-07-06 13:03] VITALS: BP 133/79; PULSE 62; RESP 17; O2SAT 98
== END 2025-07-06 13:20 | disposition home or self-care (01) ==
PROVIDERS: PCP Family Medicine; Referring Provider Nurse Practitioner; Visit Provider Internal Medicine Gastroenterology
PROC: 0DJD8ZZ Inspection of Lower Intestinal Tract, Via Natural or Artificial Opening Endoscopic (ICD-10-PCS; CPT 45378; principal; 2025-07-06 13:00)
DX: R15.9 Full incontinence of feces (principal); K57.30 Diverticulosis of large intestine without perforation or abscess without bleeding; K64.8 Other hemorrhoids; Z98.0 Intestinal bypass and anastomosis status; Z90.49 Acquired absence of other specified parts of digestive tract; Z86.0100 Personal history of colon polyps, unspecified
CPT/HCPCS: 45378; J2003; J2704; J7120